=== PATIENT | male | born 1935 | race Caucasian/White ===

== ENCOUNTER 2019-08-05 20:01 | Inpatient (IN) | payer MEDICARE, MEDICAID ==
[2019-08-05] VITALS (26 sets, daily range): BP systolic 61–143; BP diastolic 26–82
[~2019-08-05] VITALS: Ht 185.4 cm; Wt 73.0 kg
--- NOTE | 2019-08-05 20:32 | Emergency Room Report ---
History of Present Illness General Chief Complaint: Dyspnea/Respdistress Source: Medical Record, EMS Present Illness HPI 83-year-old male coming from SNF for hypoxia. EMS said that he was hypotensive tachycardic as well as hypoxic. He does have a tracheostomy. He is normally on a vent but apparently his oxygen levels were below 88. Patient is not verbal not able to obtain any kind of history. Reportedly he just got to the SNF today. No other history is able to be obtained Allergies: Coded Allergies: UNABLE TO ASSESS (Unverified , 08/05/19) Patient History Limited by: medical condition Past Medical History: see triage record Past Surgical History: unable to obtain Pertinent Family History: unable to obtain Nursing Documentation-PMH Hx Diabetes: Yes Review of Systems All Other Systems: limited - nonverbal Physical Exam Vital Signs Date Time Temp Pulse Resp B/P (MAP) Pulse Ox O2 Delivery O2 Flow Rate FiO2 08/05/19 20:03 98.6 103 20 80/58 (65) 88 Room Air 08/05/19 20:07 40 Sp02 EP Interpretation: abnormal General Appearance: severe distress, cachetic, lethargic, thin, Chronically Ill Head: normocephalic, atraumatic Eyes: bilateral eye PERRL ENT: other - +trach Neck: other - ++trach Respiratory: respiratory distress, accessory muscle use, other - +trach, coarse b/s b/l, Cardiovascular #1: normal capillary refill, tachycardia Cardiovascular #2: 2+ radial (R), 2+ radial (L) Gastrointestinal: other - no grimace to deep palptation, soft ND Genitourinary: no CVA tenderness Musculoskeletal: other - RLE with significant wound infection / ulceration, surrounding erythema, looks to be betadine on skin surrounding as well. edematous b/l UPPER ext Neurologic: other - nonverbal, not responsive Procedures Critical Care Time Critical Care Time 40 minutes of CC time Critical care time necessary in order to assess and manage the high probability of life threatening deterioration to cardiovascular system, required frequent reassessment. Excludes all billable procedures. Central Line Central Line : Consent: Emergent Central Line Lumen: triple Maximal Sterile Barrier Tech: yes cap, yes mask, yes sterile gown, yes sterile gloves, yes large sterile sheet, yes hand hygiene, yes chlorhexidine prep No Max Barrier Tech Because: emergency insertion Central Line Postion: femoral (R) Complications: none Central Line Post Position: sutured, good blood return Attempts: One Patient Tolerated: Well Complications: None Medical Decision Making Diagnostic Impression: Primary Impression: Septic shock Additional Impressions: Sepsis with acute hypoxic respiratory failure Wound infection Bilateral pneumonia Tracheostomy dependent ER Course 83-year-old male with p/w tachycardia, hypotension, decreased SPO2 DDX: Sepsis 2/2 UTI, PNA, bacteremia Plan: Only give IV fluid bolus 1 L, unclear if patient's heart function Obtain labs including cbc, bmp, blood culture, blood gas, lactate, ua, ucx CXR EKG Broad spectrum ABX ER course: Immediately placed on a vent, pulse oximetry improved to 100% blood pressure was in systolic 50s, no access was able to be obtained initially , a left tibial IO was placed. Initially fluids and phenylephrine were given through this Right femoral central line immediately placed Blood pressure improved e with MAP > 65 broad spectrum abx given Disposition: Patient will admitted to ICU Patient requires close monitoring of respiratory/hemodynamic status and continuation of IV antibiotics. D/W Hospitalist Please note that this Emergency Department Report was dictated using [employer] ring assembler technology software, occasionally this can lead to erroneous entry secondary to interpretation by the dictation equipment. EKG Diagnostic Results EP Interpretation: Yes Rate: tachy Rhythm: afib ST Segments: twi 2 3 AVF ASA given to patient: No Rhythm Strip EP Interpretation: Yes Rate: 130 Rhythm: NSR, no PVCs, no ectopy Chest X-ray CXR: Ordered: Yes 1 view Indication: low O2 EP interpretation: Yes Interpretation: No consolidation, no effusion, no PTX, no acute cardiopulmonary disease Impression: No acute disease Electronically signed by Damaso Perez MD Last Vital Signs Date Time Temp Pulse Resp B/P (MAP) Pulse Ox O2 Delivery O2 Flow Rate FiO2 08/05/19 20:07 132 32 40 08/05/19 20:03 98.6 80/58 (65) 88 Room Air Disposition: ADMITTED INPATIENT Condition: Critical Damaso Perez M.D. Aug 05, 2019 20:32
[2019-08-05] MEDS: Phenylephrine 100 MG in D5W 240 ML IV SCH ×2 (20:41→21:44)
[2019-08-05 20:52] LABS: HEMATOCRIT 23.1 % (42.0-52.0); HEMOGLOBIN 7.9 G/DL (14.2-18.0); MEAN CORPUSCULAR VOLUME 86 FL (80-99); PLATELET COUNT 279 K/UL (150-450); RED BLOOD COUNT 2.69 M/UL (4.70-6.10); RED CELL DISTRIBUTION WIDTH 14.7 % (11.6-14.8); WHITE BLOOD COUNT 21.1 K/UL (4.8-10.8)
[2019-08-05 20:55] LABS: INR 1.1 (0.9-1.1)
[2019-08-05 20:56] LABS: ANION GAP 9 mmol/L (5-15); BLOOD UREA NITROGEN 30 mg/dL (7-18); CALCIUM 7.2 MG/DL (8.5-10.1); CARBON DIOXIDE 25 MMOL/L (21-32); CHLORIDE 99 MMOL/L (98-107); CREATININE 0.7 MG/DL (0.55-1.30); SODIUM 133 MMOL/L (136-145)
[2019-08-05] MEDS ORDERED: Vancomycin 1 GM in NS 275 ML IVPB ONE (21:00)
[2019-08-05] MEDS ORDERED: Piperacillin/Tazobactam 3.375 GM in NS 110 ML IVPB ONE (21:00)
[2019-08-05 21:08] LABS: ALANINE AMINOTRANSFERASE 56 U/L (12-78); ALBUMIN 0.9 G/DL (3.4-5.0); ALBUMIN/GLOBULIN RATIO 0.3 (1.0-2.7); ALKALINE PHOSPHATASE 113 U/L (46-116); ASPARTATE AMINO TRANSFERASE 38 U/L (15-37); BILIRUBIN,TOTAL 0.3 MG/DL (0.2-1.0)
[2019-08-05 21:30] LABS: APPEARANCE,URINE SLIGHTLY CLOUDY; BILIRUBIN, URINE NEGATIVE (NEGATIVE); GLUCOSE, URINE (UA) NEGATIVE (NEGATIVE); KETONES,URINE NEGATIVE (NEGATIVE); LEUKOCYTE ESTERASE ,URINE 3+ (NEGATIVE); NITRITE,URINE NEGATIVE (NEGATIVE); PH,URINE 6 (4.5-8.0); PROTEIN,URINE 2+ (NEGATIVE); UROBILINOGEN,URINE 1 MG/DL (0.0-1.0)
[2019-08-05 21:31] LABS: COLOR,URINE YELLOW
[2019-08-05] MEDS ORDERED: Phenylephrine 50 MG in D5W 245 ML IV SCH (23:00)
--- NOTE | 2019-08-05 23:30 | History and Physical Report ---
DATE OF ADMISSION: 08/05/2019 HISTORY OF PRESENT ILLNESS: This is an 83-year-old male came to the emergency room from senior living where he had sepsis, dehydration, encephalopathy, multiple sores on both legs. The patient is nonverbal. The patient was found also hypotensive. He was on trach, but now placed on ventilator. The patient looks critically sick, dehydrated. PAST MEDICAL HISTORY: Chronic respiratory failure, trach, multiple decubiti, dementia, depression, hypertension. MEDICATIONS: See the list. ALLERGIES: NKA. FAMILY HISTORY: Noncontributory. SOCIAL HISTORY: Mostly bedbound. REVIEW OF SYSTEMS: Generalized weakness, tired, fatigue. Review of systems cannot be obtained. PHYSICAL EXAMINATION: GENERAL: This is elderly male, who is currently critically sick and nonverbal on drip. VITAL SIGNS: Currently blood pressure 116/70, pulse 84, respirations 18 to 24, temperature no fever. SKIN: Good skin turgor. HEENT: AT/NC. EOMI. PERRLA. Status post trach. CHEST: Bilaterally scattered crackles. CARDIOVASCULAR: Regular rhythm. No gallop. No murmur. ABDOMEN: Soft. Positive bowel sounds. EXTREMITIES: Has sacral decubiti. GENITOURINARY: Deferred. LABORATORY DATA: Not available, but chest x-ray showing pneumonia. ASSESSMENT: 1. Acute respiratory failure. 2. Pneumonia. 3. Encephalopathy. 4. Dementia. 5. Severe malnutrition. 6. Decubiti. PLAN: 1. We will admit on ICU. 2. Start drip. 3. Continue IV antibiotic, IV fluid. 4. Hold G-tube feeding. 5. Consider Cardiology and Pulmonary consult. Abhay Vides M.D. DR: BOSSMAN JOB#: [id number] CC:
[2019-08-06] VITALS (79 sets, daily range): BP systolic 78–136; BP diastolic 36–78
--- NOTE | 2019-08-06 03:30 | Consultation ---
DATE OF CONSULTATION: 08/05/2019 CARDIOLOGY CONSULTATION CONSULTING PHYSICIAN: Rahul Govea M.D. REQUESTING PHYSICIAN: Patricio Vides M.D. REASON FOR CONSULTATION: Shock. HISTORY OF PRESENT ILLNESS: This is an 83-year-old male, residing at a long term facility with respiratory failure and tracheostomy, who developed hypotension and tachycardia as well as hypoxia and was transferred to this emergency room. On arrival, he was noted to be hypoxic, placed on ventilator support, and subsequently persistent hypotension ensued requiring initiation of pressors following efforts at fluid challenges. The patient was pancultured and started on broad-spectrum antibiotics in the emergency room. Of note, he received a dose of Zosyn and some records document a penicillin allergy. There was no worsening hypotension following that event. PAST MEDICAL HISTORY: As reviewed in the chart and notable for respiratory failure and tracheostomy, COPD, right lower extremity wound, cerebrovascular disease with dementia, and type 2 diabetes mellitus. ALLERGIES: Penicillin. MEDICATIONS: Reviewed and reconciled. FAMILY HISTORY: None here known. SOCIAL HISTORY: Not obtainable. REVIEW OF SYSTEMS: Presently not obtainable. Pertinent data from chart review as documented above. PHYSICAL EXAMINATION: VITAL SIGNS: Blood pressure 80/50, heart rate 132, respiratory rate 32, and afebrile. The patient's monitored rhythm is sinus tachycardia. HEENT: Temporal wasting. Dry mucous membranes. NECK: Trach site with thick secretions. No accessory muscle use. LUNGS: Bilateral breath sounds with rhonchi. HEART: Regular rhythm. Rapid rate. Normal S1 and S2 with no murmur. ABDOMEN: Soft and flat. EXTREMITIES: With poor capillary refill. No edema. SKIN: The right femoral line placed in the emergency room reveals no bleeding at this site. NEUROLOGIC: Reveals him to be noncommunicative at this time. LABORATORY AND DIAGNOSTIC DATA: EKG, atrial fibrillation with rapid ventricular response. Chest x-ray reveals no acute process. Troponin negative. Pro-natriuretic peptide 4241. Albumin 0.9. Lactic acid 4.0. Glucose 163, BUN 30, creatinine 0.7, sodium 133, potassium 4, and bicarb 25. White count 21 and hemoglobin 7.9. Urinalysis with too numerous to count white cells. ABG, pH 7.43, pCO2 of 36, and pO2 of 73. IMPRESSION: 1. Sepsis. 2. Urinary tract infection. 3. Shock. 4. Respiratory failure. 5. Severe anemia. 6. Acute myocardial ischemia. 7. 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 8. Severe protein-calorie malnutrition. 9. Lactic acidosis. PLAN: 1. ICU care. 2. Volume resuscitation. 3. Pressor support as needed. 4. Follow up cultures. 5. Broad-spectrum antibiotics. 6. Observe for further allergic complications from penicillin dose. 7. DVT and stress ulcer prophylaxis. 8. Serial hemoglobin. 9. Stool occult blood. 10. Consider packed red blood cell transfusion. 11. Follow-up troponin level. 12. Echocardiogram to follow. 13. Obviously, no role for diuresis at this time. 14. Continue ventilator support and respiratory hygiene. Rahul Govea M.D. DR: Travis JOB#: [id number] CC: [place]
[2019-08-06 04:57] LABS: HEMATOCRIT 24.2 % (42.0-52.0); HEMOGLOBIN 8.1 G/DL (14.2-18.0); MEAN CORPUSCULAR VOLUME 85 FL (80-99); PLATELET COUNT 309 K/UL (150-450); RED BLOOD COUNT 2.83 M/UL (4.70-6.10); RED CELL DISTRIBUTION WIDTH 16.3 % (11.6-14.8); WHITE BLOOD COUNT 19.3 K/UL (4.8-10.8)
[2019-08-06 05:30] LABS: ALANINE AMINOTRANSFERASE 62 U/L (12-78); ALBUMIN 0.9 G/DL (3.4-5.0); ALBUMIN/GLOBULIN RATIO 0.2 (1.0-2.7); ALKALINE PHOSPHATASE 127 U/L (46-116); ANION GAP 11 mmol/L (5-15); ASPARTATE AMINO TRANSFERASE 41 U/L (15-37); BILIRUBIN,TOTAL 0.4 MG/DL (0.2-1.0); BLOOD UREA NITROGEN 26 mg/dL (7-18); CALCIUM 7.7 MG/DL (8.5-10.1); CARBON DIOXIDE 23 MMOL/L (21-32); CHLORIDE 101 MMOL/L (98-107); CREATININE 0.6 MG/DL (0.55-1.30); POTASSIUM 3.6 MMOL/L (3.5-5.1); SODIUM 135 MMOL/L (136-145)
[2019-08-06] MEDS: Pantoprazole Inj IVP SCH ×2 (08:20→21:24)
[2019-08-06] MEDS: Heparin 5000 units/ml inj SUBQ SCH ×2 (08:20→21:00)
[2019-08-06] MEDS: PHENYLEPHRINE IV SCH ×2 (08:44→15:09)
[2019-08-06] MEDS: DEXTROSE IV SCH ×2 (08:44→15:09)
[2019-08-06] MEDS ORDERED: Acetaminophen 650mg/20.3ml GT PRN (09:45)
--- NOTE | 2019-08-06 10:03 | Diagnostic Imaging Report ---
Indication: Shortness of breath Technique: One view of the chest Comparison: 08/05/2019 Findings: Better inspiration currently. Tracheostomy again demonstrated. Extensive consolidation of the left lung diffusely is again demonstrated, may be slightly worse. Normal heart size. Impression: Worsening left lung infiltrates, over one day
[2019-08-06] MEDS: Meropenem 1 GM in NS 55 ML IVPB SCH ×2 (14:09→21:51)
--- NOTE | 2019-08-06 15:45 | Diagnostic Imaging Report ---
Indication: Shortness of breath Technique: One view of the chest Comparison: none Findings: There is extensive bilateral interstitial and airspace disease, prominently in the right upper lung and left lower lung but diffuse. There is probably some pleural fluid on the left. There are overlying defibrillator paddles. The heart is borderline enlarged. Impression: Bilateral infiltrates versus edema, as described Probable left pleural effusion
--- NOTE | 2019-08-06 16:20 | Consultation ---
History of Present Illness General Date patient seen: Aug 06, 2019 Reason for Hospitalization: Dyspnea/Respdistress Present Illness HPI 83-year-old male with multiple medical comorbidities who presented from [place] [facility] to [facility] emergency department for evaluation of hypoxia, respiratory distress, dehydration was identified to be septic with leukocytosis , lactic acidosis, abnormal labs. Patient was admitted for further care and management to the intensive care unit. On evaluation was identified to have multiple decubitus ulcers requiring care and management some extensive and large as well as severe malnutrition and failure to thrive. Etiology of sepsis unknown being worked up and considerations of possible infections related to multiple decubitus. Surgery was called to evaluate. Patient seen, patient evaluated, chart reviewed. Allergies: Coded Allergies: PENICILLINS (Verified Allergy, Unknown, 08/05/19) Patient History Limited by: medical condition History Provided By: Medical Record, PMD Healthcare decision maker Resuscitation status Full Code Advanced Directive on File Social History Social History: (1) Tracheostomy dependent (2) Bilateral pneumonia (3) Septic shock (4) Wound infection (5) Sepsis with acute hypoxic respiratory failure Review of Systems Review of Symptoms Unable to obtain given patient's medical condition. Patient is nonverbal at baseline at this time Physical Exam Physical Exam General appearance: alert, cooperative, no distress, appears stated age Head: Normocephalic, without obvious abnormality, atraumatic Eyes: conjunctivae/corneas clear. PERRL, EOM's intact. Fundi benign Throat: Lips, mucosa, and tongue normal. Teeth and gums normal Neck: supple, symmetrical, trachea midline, no adenopathy, thyroid: not enlarged, symmetric, no tenderness/mass/nodules, no carotid bruit and no JVD trach on vent Lungs: clear to auscultation bilaterally mildly decreased bilaterally on vent Heart: regular rate and rhythm, S1, S2 normal, no murmur, click, rub or gallop Abdomen: soft, non-tender. Bowel sounds normal. No masses, no organomegaly feeding tube Extremities: extremities with multiple decubitus ulcers and wounds requiring extensive care management distal extremities cold Pulses: Decreased Skin: Skin color, texture, turgor normal. No rashes or lesions Neurologic: Grossly normal Last 24 Hour Vital Signs Date Time Temp Pulse Resp B/P (MAP) Pulse Ox O2 Delivery O2 Flow Rate FiO2 08/06/19 16:00 Mechanical Ventilator 08/06/19 15:24 119 31 40 10/29/19 15:09 116 99/50 08/06/19 15:00 108 28 99/50 94 Mechanical Ventilator 40 08/06/19 14:45 111 26 89/41 94 Mechanical Ventilator 40 08/06/19 14:30 116 29 106/67 94 Mechanical Ventilator 45 08/06/19 14:15 116 29 100/60 94 Mechanical Ventilator 45 08/06/19 14:00 108 28 100/60 100 Mechanical Ventilator 50 08/06/19 13:45 115 30 102/59 98 Mechanical Ventilator 50 08/06/19 13:30 116 31 105/60 100 Mechanical Ventilator 50 08/06/19 13:26 112 31 40 08/06/19 13:15 116 29 106/48 100 Mechanical Ventilator 50 08/06/19 13:00 117 28 110/54 100 Mechanical Ventilator 50 08/06/19 12:45 117 27 116/63 100 Mechanical Ventilator 50 08/06/19 12:30 98.7 119 27 108/65 100 Mechanical Ventilator 50 08/06/19 12:15 122 30 105/53 100 Mechanical Ventilator 50 08/06/19 12:00 Mechanical Ventilator 08/06/19 12:00 122 08/06/19 12:00 55 08/06/19 12:00 119 25 91/54 98 Mechanical Ventilator 50 08/06/19 11:43 122 28 45 08/06/19 11:30 122 27 78/36 98 Mechanical Ventilator 50 08/06/19 11:15 125 31 78/36 98 Mechanical Ventilator 50 08/06/19 11:00 121 31 85/36 100 Mechanical Ventilator 50 08/06/19 10:45 119 29 90/56 100 Mechanical Ventilator 50 08/06/19 10:30 117 28 89/56 100 Mechanical Ventilator 50 08/06/19 10:27 100.1 08/06/19 10:15 118 29 98/56 100 Mechanical Ventilator 50 08/06/19 10:00 120 29 100 Mechanical Ventilator 50 08/06/19 09:45 118 30 96/45 100 Mechanical Ventilator 50 08/06/19 09:30 120 30 93/47 100 Mechanical Ventilator 50 08/06/19 09:15 121 31 103/42 99 Mechanical Ventilator 50 08/06/19 09:04 126 33 50 08/06/19 09:00 122 31 98/52 100 Mechanical Ventilator 50 08/06/19 08:45 121 32 94/50 97 Mechanical Ventilator 55 08/06/19 08:44 118 83/50 08/06/19 08:30 118 33 83/50 97 Mechanical Ventilator 55 08/06/19 08:15 119 33 96/55 97 Mechanical Ventilator 55 08/06/19 08:00 55 08/06/19 08:00 120 08/06/19 08:00 101.9 119 35 94/39 100 Mechanical Ventilator 55 08/06/19 08:00 Mechanical Ventilator 08/06/19 07:45 113 26 89/50 97 Mechanical Ventilator 55 08/06/19 07:30 110 39 95/47 97 Mechanical Ventilator 55 08/06/19 07:15 113 35 85/42 99 Mechanical Ventilator 55 08/06/19 07:00 119 35 94/39 100 Mechanical Ventilator 55 08/06/19 06:57 112 34 55 08/06/19 06:00 115 32 96/48 100 Mechanical Ventilator 60 08/06/19 05:45 115 33 95/53 100 Mechanical Ventilator 60 08/06/19 05:30 113 33 94/59 99 Mechanical Ventilator 60 08/06/19 05:00 113 32 84/53 100 Mechanical Ventilator 60 08/06/19 04:45 112 29 90/48 100 Mechanical Ventilator 60 08/06/19 04:44 116 32 60 08/06/19 04:30 106 30 92/51 99 Mechanical Ventilator 60 08/06/19 04:15 110 29 84/45 98 Mechanical Ventilator 60 08/06/19 04:00 119 08/06/19 04:00 97.9 115 32 93/47 95 Mechanical Ventilator 60 08/06/19 04:00 Mechanical Ventilator 08/06/19 04:00 60 08/06/19 03:30 115 32 87/48 100 Mechanical Ventilator 60 08/06/19 03:05 120 31 60 08/06/19 03:00 119 29 99/43 99 Mechanical Ventilator 60 08/06/19 02:30 117 23 100/47 100 Mechanical Ventilator 60 08/06/19 02:18 115 28 87/47 90 Mechanical Ventilator 60 08/06/19 02:00 115 26 87/51 100 Mechanical Ventilator 80 08/06/19 01:45 117 27 106/63 98 Mechanical Ventilator 80 08/06/19 01:30 117 25 106/65 100 Mechanical Ventilator 100 08/06/19 01:15 116 25 93/60 100 Mechanical Ventilator 100 08/06/19 01:13 122 26 80 08/06/19 01:00 116 25 101/58 100 Mechanical Ventilator 100 08/06/19 01:00 80 08/06/19 00:45 120 26 91/48 99 Mechanical Ventilator 100 08/06/19 00:30 119 25 104/74 100 Mechanical Ventilator 100 08/06/19 00:15 120 24 117/64 99 Mechanical Ventilator 100 08/06/19 00:00 135 08/06/19 00:00 99.4 122 25 105/58 99 Mechanical Ventilator 100 08/06/19 00:00 Mechanical Ventilator 08/06/19 00:00 100 08/05/19 23:48 125 24 78/44 100 Mechanical Ventilator 100 08/05/19 23:45 127 24 76/52 100 Mechanical Ventilator 100 08/05/19 23:30 129 25 91/51 100 Mechanical Ventilator 100 08/05/19 23:15 99.4 135 21 126/76 97 Mechanical Ventilator 100 08/05/19 23:12 122/64 08/05/19 23:00 129 91/51 08/05/19 22:45 100 08/05/19 22:40 120 08/05/19 22:32 142 31 100 08/05/19 22:26 Mechanical Ventilator 08/05/19 22:15 99.4 119 30 138/61 100 Trach Collar 100 08/05/19 22:05 115 28 135/61 100 Trach Collar 100 08/05/19 22:00 136/71 08/05/19 21:55 143/64 08/05/19 21:50 140/82 08/05/19 21:45 140/66 08/05/19 21:44 119 138/61 08/05/19 21:40 119 30 138/61 100 100 08/05/19 21:37 99.4 119 30 138/61 100 Trach Collar 100 08/05/19 21:35 142/62 08/05/19 21:30 133/64 08/05/19 21:25 124/58 08/05/19 21:20 134/69 08/05/19 21:15 137 30 Room Air 60 08/05/19 21:15 99.4 123 30 61/26 88 Room Air 60 08/05/19 21:10 143/75 08/05/19 21:05 141/63 08/05/19 21:00 135/61 08/05/19 20:55 142 128/66 08/05/19 20:54 137 30 60 08/05/19 20:50 108/55 08/05/19 20:45 124/69 08/05/19 20:41 123 61/26 08/05/19 20:40 133/78 08/05/19 20:35 122/64 08/05/19 20:30 98.6 125 30 131/69 95 Room Air 60 08/05/19 20:07 132 32 40 08/05/19 20:03 98.6 103 20 80/58 (65) 88 Room Air Intake and Output 08/05/19 08/06/19 19:00 07:00 Intake Total 1870.5 ml Output Total 480 ml Balance 1390.5 ml Intake IV Total 1870.5 ml Output Urine Total 480 ml Laboratory Tests Test 08/05/19 20:15 08/05/19 20:19 08/05/19 21:15 08/05/19 21:55 White Blood Count 21.1 K/UL (4.8-10.8) H Red Blood Count 2.69 M/UL (4.70-6.10) L Hemoglobin 7.9 G/DL (14.2-18.0) L Hematocrit 23.1 % (42.0-52.0) L Mean Corpuscular Volume 86 FL (80-99) Mean Corpuscular Hemoglobin 29.5 PG (27.0-31.0) Mean Corpuscular Hemoglobin Concent 34.4 G/DL (32.0-36.0) Red Cell Distribution Width 14.7 % (11.6-14.8) Platelet Count 279 K/UL (150-450) Mean Platelet Volume 6.2 FL (6.5-10.1) L Neutrophils (%) (Auto) % (45.0-75.0) Lymphocytes (%) (Auto) % (20.0-45.0) Monocytes (%) (Auto) % (1.0-10.0) Eosinophils (%) (Auto) % (0.0-3.0) Basophils (%) (Auto) % (0.0-2.0) Differential Total Cells Counted 100 Neutrophils % (Manual) 87 % (45-75) H Lymphocytes % (Manual) 9 % (20-45) L Monocytes % (Manual) 1 % (1-10) Eosinophils % (Manual) 0 % (0-3) Basophils % (Manual) 0 % (0-2) Band Neutrophils 3 % (0-8) Platelet Estimate Adequate Platelet Morphology Normal Hypochromasia 1+ Anisocytosis 1+ Prothrombin Time 11.8 SEC (9.30-11.50) H Prothromb Time International Ratio 1.1 (0.9-1.1) Activated Partial Thromboplast Time 28 SEC (23-33) Sodium Level 133 MMOL/L (136-145) L Potassium Level 4.0 MMOL/L (3.5-5.1) Chloride Level 99 MMOL/L (98-107) Carbon Dioxide Level 25 MMOL/L (21-32) Anion Gap 9 mmol/L (5-15) Blood Urea Nitrogen 30 mg/dL (7-18) H Creatinine 0.7 MG/DL (0.55-1.30) Estimat Glomerular Filtration Rate mL/min (>60) Glucose Level 163 MG/DL (74-106) H Lactic Acid Level 4.00 mmol/L (0.4-2.0) H 3.60 mmol/L (0.66-2.22) H Calcium Level 7.2 MG/DL (8.5-10.1) L Total Bilirubin 0.3 MG/DL (0.2-1.0) Aspartate Amino Transf (AST/SGOT) 38 U/L (15-37) H Alanine Aminotransferase (ALT/SGPT) 56 U/L (12-78) Alkaline Phosphatase 113 U/L (46-116) Troponin I 0.010 ng/mL (0.000-0.056) Pro-B-Type Natriuretic Peptide 4241 pg/mL (0-125) H Total Protein 4.3 G/DL (6.4-8.2) L Albumin 0.9 G/DL (3.4-5.0) L Globulin 3.4 g/dL Albumin/Globulin Ratio 0.3 (1.0-2.7) L Arterial Blood pH 7.433 (7.350-7.450) Arterial Blood Partial Pressure CO2 35.9 mmHg (35.0-45.0) Arterial Blood Partial Pressure O2 72.8 mmHg (75.0-100.0) L Arterial Blood HCO3 23.5 mmol/L (22.0-26.0) Arterial Blood Oxygen Saturation 93.9 % (95-100) L Arterial Blood Base Excess -0.6 (-2-2) Quoc Test Positive Urine Color Yellow Urine Appearance Slightly cloudy Urine pH 6 (4.5-8.0) Urine Specific [place] 1.010 (1.005-1.035) Urine Protein 2+ (NEGATIVE) H Urine Glucose (UA) Negative (NEGATIVE) Urine Ketones Negative (NEGATIVE) Urine Blood 4+ (NEGATIVE) H Urine Nitrite Negative (NEGATIVE) Urine Bilirubin Negative (NEGATIVE) Urine Urobilinogen 1 MG/DL (0.0-1.0) H Urine Leukocyte Esterase 3+ (NEGATIVE) H Urine RBC 15-20 /HPF (0 - 0) H Urine WBC Tntc /HPF (0 - 0) H Urine Squamous Epithelial Cells None /LPF (NONE/OCC) Urine Bacteria Many /HPF (NONE) H Urine Yeast Many /HPF (NONE) H Test 08/06/19 04:00 08/06/19 06:15 White Blood Count 19.3 K/UL (4.8-10.8) H Red Blood Count 2.83 M/UL (4.70-6.10) L Hemoglobin 8.1 G/DL (14.2-18.0) L Hematocrit 24.2 % (42.0-52.0) L Mean Corpuscular Volume 85 FL (80-99) Mean Corpuscular Hemoglobin 28.5 PG (27.0-31.0) Mean Corpuscular Hemoglobin Concent 33.4 G/DL (32.0-36.0) Red Cell Distribution Width 16.3 % (11.6-14.8) H Platelet Count 309 K/UL (150-450) Mean Platelet Volume 5.9 FL (6.5-10.1) L Neutrophils (%) (Auto) % (45.0-75.0) Lymphocytes (%) (Auto) % (20.0-45.0) Monocytes (%) (Auto) % (1.0-10.0) Eosinophils (%) (Auto) % (0.0-3.0) Basophils (%) (Auto) % (0.0-2.0) Differential Total Cells Counted 100 Neutrophils % (Manual) 96 % (45-75) H Lymphocytes % (Manual) 1 % (20-45) L Monocytes % (Manual) 3 % (1-10) Eosinophils % (Manual) 0 % (0-3) Basophils % (Manual) 0 % (0-2) Band Neutrophils 0 % (0-8) Platelet Estimate Adequate Platelet Morphology Normal Anisocytosis 1+ Sodium Level 135 MMOL/L (136-145) L Potassium Level 3.6 MMOL/L (3.5-5.1) Chloride Level 101 MMOL/L (98-107) Carbon Dioxide Level 23 MMOL/L (21-32) Anion Gap 11 mmol/L (5-15) Blood Urea Nitrogen 26 mg/dL (7-18) H Creatinine 0.6 MG/DL (0.55-1.30) Estimat Glomerular Filtration Rate mL/min (>60) Glucose Level 129 MG/DL (74-106) H Lactic Acid Level 3.10 mmol/L (0.4-2.0) H 2.90 mmol/L (0.66-2.22) H Calcium Level 7.7 MG/DL (8.5-10.1) L Total Bilirubin 0.4 MG/DL (0.2-1.0) Aspartate Amino Transf (AST/SGOT) 41 U/L (15-37) H Alanine Aminotransferase (ALT/SGPT) 62 U/L (12-78) Alkaline Phosphatase 127 U/L (46-116) H Troponin I 0.177 ng/mL (0.000-0.056) Total Protein 4.5 G/DL (6.4-8.2) L Albumin 0.9 G/DL (3.4-5.0) L Globulin 3.6 g/dL Albumin/Globulin Ratio 0.2 (1.0-2.7) L Thyroid Stimulating Hormone (TSH) 2.046 uiU/mL (0.358-3.740) Microbiology Date/Time Source Procedure Growth Status 08/06/19 04:00 Sputum Gram Stain - Final Resulted 08/06/19 04:00 Sputum Sputum Culture Pending Resulted Height (Feet): 6 Height (Inches): 1.00 Weight (Pounds): 149 Medications Current Medications Medications (Trade) Dose Ordered Sig/Kandice Route PRN Reason Start Time Stop Time Status Last Admin Dose Admin Acetaminophen (Tylenol) 650 mg Q6H PRN GT Mild Pain/Temp > 100.5 08/06/19 09:45 09/05/19 09:44 08/06/19 09:57 Chlorhexidine Gluconate (Melva-Hex 2%) 1 applic DAILY@2000 TOPIC 08/06/19 20:00 09/05/19 19:59 Heparin Sodium (Porcine) (Heparin 5000 units/ml) 5,000 units EVERY 12 HOURS SUBQ 08/06/19 09:00 09/05/19 08:59 Levofloxacin 150 ml @ 100 mls/hr Q24H IVPB 08/06/19 11:00 08/13/19 10:59 08/06/19 10:45 Meropenem 1 gm/ Sodium Chloride 55 ml @ 110 mls/hr Q8HR IVPB 08/06/19 14:00 08/11/19 13:59 08/06/19 14:09 Pantoprazole (Protonix) 40 mg EVERY 12 HOURS IVP 08/06/19 09:00 09/05/19 08:59 08/06/19 08:20 Phenylephrine HCl 50 mg/Dextrose 250 ml @ 0 mls/hr Q24H IV 08/06/19 08:30 09/05/19 08:29 08/06/19 15:09 Sodium Chloride 1,000 ml @ 100 mls/hr Q10H IV 08/05/19 23:00 09/04/19 22:59 08/06/19 07:46 Vancomycin HCl (Vanco rx to dose) 1 ea DAILY PRN MISC Per rx protocol 08/05/19 23:00 09/04/19 22:59 Vancomycin HCl 1 gm/Dextrose 275 ml @ 184 mls/hr QHS IVPB 08/06/19 21:00 08/11/19 20:59 Assessment/Plan Problem List: (1) Septic shock Assessment & Plan: Patient with leukocytosis, tachycardia, lactic acidosis, abnormal labs. Currently in ICU for care and management N.p.o. IV fluid resuscitation IV antibiotics Trend labs Thank you with all the recommendations ICD Codes: A41.9 - Sepsis, unspecified organism; R65.21 - Severe sepsis with septic shock; J96.01 - Acute respiratory failure with hypoxia SNOMED: 53460055, 04070820, 497510349 (2) Wound infection Assessment & Plan: Pt presented on admission with multiple pressure injuries , Multiple necrotic wounds R lower extremity. Scattered senile purpuras noted to posterior ,R and L lateral sides of neck under collar of trach and inferior to tracheostomy. Scattered petechiae noted to bilat upper ext, Talib and lateral aspects of chest abd and back . Both upper extremities are edematous and weeping large amounts of serous exudate. Cat.2 Skin tears noted to Lateral R elbow ,R forearm . Numerous dry scabs noted to L forearm. Large Purple bruise noted to upper and mid abdomen. Incontinence associated dermatitis noted to bilat groin, scrotum,Perianal and both ischial regions- erythema with scattered satellite lesions noted.Large serous blister noted to talib/medial upper L thigh oozing small amt serous exudate.(L)5.5cm x (W)4.5cm Full thickness pressure injury with biofilm noted to R scapula. Edges are macerated with surrounding petechia. Small amt non-odorous serous exudate noted. (L)1cm x (W)1cm. Full thickness lumbar spine. Base of wound is 90%necrotic, surrounding wound bed erythematous and moist. Small amt serosanguineous exudate noted.(L)8.5cm x ( W)4.5cm. Full thickness pressure injury Upper R gluteus(L)2.9cm x (W)2.3cm. Base of wound 80% necrotic 20% viable. Edges are macerated. Erythema without induration periwound. Full thickness pressure injury Upper L gluteus. Baser of wound 100% necrotic with erythematous borders(L)3.2cm x (W)3cm.Periwound without erythema or induration. R lower ext dusky in colour. Distal RLE cool to touch. Multiple ulcerations noted. Full thickness lateral R knee. Base of wound 100% viable. Small amt sanguineous exudate noted. No odor noted. (L)4cmx (W)2.3cm. Surrounding petechia noted. Full thickness ulcer noted to talib /lateral R tibia. Base of wound is 90% soft necrosis 10% fibrinous slough,erythematous borders. Small amt seropurulent exudate noted. Mild odor noted. (L)24cm x (W)9.5cm. Dry necrotic ulcer medial /distal R tibia. (L)0.8cm x (W)0.5cm. Medial R malleolus necrotic with fluctuance.(L)2.5cm x (W)2cm. Large soft necrotic ulcer dorso/lateral R foot with erythematous borders.(L) 11.4cm x (W)6.5cm. Second necrotic wound noted talib/distal R foot Base of wound fluctuant(L) 4.4cm x (W)6.5cm. R Achilles ulcer is 100% necrotic with macerated borders.(L)4.2cm x (W)1cm. Soft necrosis noted R heel with marginal erythema along edges(L)2cm x (W)2cm. Second ulcer medial R heel 100% necrotic with fluctuance.(L)1.5cm x (W)1cm . Necrotic ulcer distal /lateral R foot /Lateral R5th metatarsal.Base of wound is fluctuant. Periwound skin colour dusky.(L)5.6cm x (W)2cm R Hallux necrotic and fluctuant(L)2.9cm x (W)5cm. All 5 metatarsals R foot are mottled and cool to touch. Tx.Plan: Cleanse Wound R scapula with Saline. Apply Therahoney. Apply Cavilon Periwound. Cover with Optifoam drsg. Change every 3 days and prn. Cleanse wound Lumbar Spine with Saline. Apply TheraHoney. Apply Cavilon Skin Barrier periwound. Cover with Optifoam drsg every 3 days and prn. Cleanse wounds R and L upper buttocks with Saline. Apply Therahoney. Apply Cavilon Skin Barrier periwound. Cover each wound with Optifoam drsg. Change every 3 days and prn. Cleanse wound talib R tibia with Saline. Cover with Xeroform. Apply ABD Pad and wrap with Kerlix Daily and prn. Swab All Necrotic Wounds R lower ext/R Foot with Betadine. Cover wounds with ABD pads and wrap with Kerlix Daily and prn. Apply Moisture Barrier Paste to to groin . Scrotum and Bilat ischial areas with each incontinence care. Apply Optifoam drsg to Blister Upper L thigh. Change every 7 days and prn. Apply Xeroform Gauze to skin tears and dry scabs Both upper ext. Apply ABd pads and wrap both upper ext with Kerlix Daily and prn. Elevate both upper extremities with Pillows. Reposition at least every 2hours or as tolerated. Off-load heels with pillow. APM/KAREN Mattress overlay. ICD Codes: T14.8XXA - Other injury of unspecified body region, initial encounter; L08.9 - Local infection of the skin and subcutaneous tissue, unspecified SNOMED: 37960649 (3) Tracheostomy dependent ICD Codes: Z93.0 - Tracheostomy status SNOMED: 525672839 (4) Bilateral pneumonia ICD Codes: J18.9 - Pneumonia, unspecified organism SNOMED: 032565939 (5) Sepsis with acute hypoxic respiratory failure ICD Codes: A41.9 - Sepsis, unspecified organism; R65.20 - Severe sepsis without septic shock; J96.01 - Acute respiratory failure with hypoxia SNOMED: 997764170, 53414925, 505048129 (6) Severe protein-calorie malnutrition Assessment & Plan: DAILY ESTIMATED NEEDS: Needs based on Critical care, multiple wounds/ 67kg 22-30 kcals/kg 7462-2902 total kcals 1.25-2.0 g protein/kg 84-134 g total protein 25-30 mL/kg 1599-9815 total fluid mLs NUTRITION DIAGNOSIS: * Increased kcal/prot needs R/T wound healing and sepsis as evidenced by pt admitted w/ multiple advanced wounds, pending eval, elev wbc (19.3), elev LA, febrile w/ Tmax 101.9, hypotensive, on pressor support. * Swallowing difficulty R/T dysphagia, respiratory status as evidenced by trach/vent dep, PEG dep. CURRENT TF: NPO ENTERAL NUTRITION RECOMMENDATIONS: Glucerna 1.5 @ 50ml/hr x 24 hrs to provide 1200ml, 1800kcal, 99g prot, 911ml free water * WHEN HEMODYNAMICALLY STABLE: -> Initiate Glucerna 1.5 @ 20ml/hr x 6hrs -> Advance 10ml q 4-6 hrs as tolerated to goal rate -> HOB over 30 degrees/ water flush per MD * WITHOUT HEMODYNAMIC STABILITY: -> Rec trophic feeding of Glucerna 1.5 @ 10-15ml/hr x 24 hrs ADDITIONAL RECOMMENDATIONS: * Per SNF: HT=66" HU=663cha (wt from Jul 26, 2019) * Monitor HD stability: on pressor support at this time * Monitor lytes, replete as needed * Wound healing: add Vit C 500mg QD, ZnSO4 220mg QD x 10 days : W/ TF order, add Roger 1pkt BID : f/up with WC eval * NISS w/ TF initiation: h/o DM ICD Codes: E43 - Unspecified severe protein-calorie malnutrition SNOMED: 570229687, 784760735, 316284160 Jesus Narayan Aug 06, 2019 16:20
--- NOTE | 2019-08-06 16:45 | Progress Note ---
DATE: 08/06/2019 SUBJECTIVE: The patient is an 83-year-old male who came to the emergency room for status epilepticus. The patient is more awake and alert. He is confused. pulled out his IV line but physically doing better. PHYSICAL EXAMINATION: VITAL SIGNS: Blood pressure is 130/70, pulse 85, respirations 18 to 24, temperature no fever. SKIN: Good skin turgor. HEENT: NAD. CHEST: Bilaterally clear. CARDIOVASCULAR: Regular rhythm. No gallop. No murmur. ABDOMEN: Soft. Positive bowel sounds. Nontender. NEUROLOGICAL: The patient has generalized weakness, bedbound, open his eyes, eating by himself. ASSESSMENT: 1. 2. Dementia. 3. Depression. 4. Hyperkalemia. PLAN: 1. We will give him Kayexalate p.o. 2. Check BMP tomorrow. 3. Waiting for Neurology consult. 4. Continue Dilantin. 5. Continue Ativan as needed. 6. Continue home medications. 7. Discussed with the charge nurse and discussed with the foster care case manager. 8. Discharge plan tomorrow per Neurology clearance. Abhay Vides M.D. DR: Wale JOB#: [id number] CC:
--- NOTE | 2019-08-06 16:45 | Cardiology Report ---
APPROVED REPORT EKG Measurement Heart [id number] Atrial fibrillation with rapid ventricular response Low voltage QRS Possible Inferior infarct, age undetermined Abnormal ECG
--- NOTE | 2019-08-06 19:15 | Consultation ---
DATE OF CONSULTATION: 08/06/2019 PULMONARY CONSULTATION CONSULTING PHYSICIAN: Bill Jose M.D. HISTORY OF PRESENT ILLNESS: This is an 83-year-old male who came to the hospital from senior care because of shortness of breath. The patient was noted to be hypoxic, tachycardic, and hypotensive. He has a chronic tracheostomy. Apparently he has been on a vent; however, still desaturating. He was admitted to the ICU. No other information is known about this patient, is not obtainable. PAST MEDICAL HISTORY: Notable only for encephalopathy and chronic tracheostomy. He had a G-tube in place. HOME MEDICATIONS: Reviewed and reconciled in the chart. PHYSICAL EXAMINATION: GENERAL: An 83-year-old male. HEENT: Unremarkable except for tracheostomy in place. LUNGS: Decreased breath sounds bilaterally. ABDOMEN: Soft. He had G-tube in place. EXTREMITIES: There is no edema. VITAL SIGNS: Blood pressure is 80/50, he is currently on pressors, heart rate 104, respirations 22, he is afebrile. A central line is noted in the right femoral vein. LABORATORY DATA: Lab testing shows white count of 19,000, hemoglobin of 8, platelet count is normal. Lactic acid 2.9, which is trending down. Coags are negative. Troponin is 0.177. Urinalysis shows pyuria. Imaging studies per report is negative. IMPRESSION: 1. Urosepsis. 2. Septic shock. 3. Possible pneumonia. 4. Chronic respiratory failure. DISCUSSION: Continue current medications and care. The patient is on broad-spectrum antibiotics. He is also on pressors and IV fluids, which I will continue. The patient will need a consultation as he has no family or next of kin to give consent. Currently given his condition on futile care. Discussed with nursing staff. We will order Tylenol. We will follow carefully. Bill Jose M.D. DR: ILAN JOB#: [id number] CC:
[2019-08-06] MEDS: Dyna-Hex 2% Top Sol 2oz TOPIC SCH (20:03)
[2019-08-06] MEDS: Vancomycin 1 GM in D5W 275 ML IVPB SCH (21:25)
--- NOTE | 2019-08-06 23:30 | Progress Note ---
DATE: 08/06/2019 CARDIOLOGY PROGRESS NOTE SUBJECTIVE: The patient remains in the intensive care unit. He is still requiring pressor support. OBJECTIVE: VITAL SIGNS: Blood pressure 83/46, heart rate 100, respirations 27, afebrile. On mechanical ventilation. LUNGS: Bilateral breath sounds. Rhonchi. CARDIAC: Regular rhythm. Rapid rate. Normal S1, S2. ABDOMEN: Soft. EXTREMITIES: Trace edema. LABORATORY DATA: White count 19, hemoglobin 8.1. Lactic acid is still elevated at 2.4. Potassium 3.6, BUN 26, creatinine 0.6. Troponin 0.177. IMPRESSION: 1. Sepsis shock. 2. Acute myocardial infarction. 3. Lactic acidosis. 4. Respiratory failure. 5. Severe protein-calorie malnutrition with albumin below 1. 6. Critical and guarded. PLAN: 1. Volume support. 2. Antimicrobials. 3. Nutrition by feeding tube. 4. Ventilator support. 5. Serial lactic acid levels. 6. Taper pressors as able. 7. ICU care. 8. DVT and stress ulcer prophylaxis. Rahul Govea M.D. DR: YOSEF JOB#: [id number] CC:
[2019-08-07] VITALS (25 sets, daily range): BP systolic 87–106; BP diastolic 46–61
--- NOTE | 2019-08-07 03:30 | Progress Note ---
DATE: 08/06/2019 NOTE: POOR AUDIO SUBJECTIVE: This is an 83-year-old male who has been in the ICU, hypotensive, sepsis, dehydration, and acute respiratory failure. The patient was admitted in the ICU. He is on heparin drip because his blood pressure is still low. The patient is currently nonverbal, lethargic, opens his eyes. He also . The patient is off 100 mcg of . PAST MEDICAL HISTORY: Significant for . PHYSICAL EXAMINATION: GENERAL: This is an obese male, opens his eyes, opens his mouth, but nonverbal as well as not following commands. VITAL SIGNS: Blood pressure is 90/40, pulse 74, respirations 18, fever. SKIN: Good skin turgor. Very dehydrated. HEENT: Eyes are open . Mouth is . CHEST: Bilaterally decreased breath sounds. . CARDIOVASCULAR: Regular rhythm. ABDOMEN: Soft. G-tube in place. EXTREMITIES: CCE. NEUROLOGICAL: He is nonverbal . GENITOURINARY: Deferred. LABORATORY DATA: His white count and hemoglobin are stable. The ulcer is improving. ASSESSMENT: 1. Septic shock. 2. Multiple decubitus ulcers. 3. Dementia. 4. Dehydration. 5. Multiple leg ulcers. 6. Aspiration pneumonia. 7. Current respiratory failure. PLAN: We will currently continue IV antibiotics. Continue bronchodilator treatments. Continue G-tube feedings. Wound care. Discussed with charge nurse. Consider ID consult. Cardiology and Pulmonary is already on case. Abhay Vides M.D. DR: EYAL JOB#: [id number] CC:
[2019-08-07 04:41] LABS: HEMATOCRIT 19.6 % (42.0-52.0); MEAN CORPUSCULAR VOLUME 86 FL (80-99); PLATELET COUNT 255 K/UL (150-450); RED BLOOD COUNT 2.29 M/UL (4.70-6.10); RED CELL DISTRIBUTION WIDTH 16.6 % (11.6-14.8); WHITE BLOOD COUNT 17.2 K/UL (4.8-10.8)
[2019-08-07 05:00] LABS: HEMOGLOBIN 6.6 G/DL (14.2-18.0)
[2019-08-07 05:07] LABS: ALANINE AMINOTRANSFERASE 54 U/L (12-78); ALBUMIN 0.8 G/DL (3.4-5.0); ALBUMIN/GLOBULIN RATIO 0.2 (1.0-2.7); ALKALINE PHOSPHATASE 113 U/L (46-116); ANION GAP 4 mmol/L (5-15); ASPARTATE AMINO TRANSFERASE 41 U/L (15-37); BILIRUBIN,TOTAL 0.4 MG/DL (0.2-1.0); BLOOD UREA NITROGEN 22 mg/dL (7-18); CALCIUM 7.4 MG/DL (8.5-10.1); CARBON DIOXIDE 26 MMOL/L (21-32); CHLORIDE 105 MMOL/L (98-107); CREATININE 0.6 MG/DL (0.55-1.30); POTASSIUM 3.1 MMOL/L (3.5-5.1); SODIUM 135 MMOL/L (136-145)
[2019-08-07] MEDS: Meropenem 1 GM in NS 55 ML IVPB SCH ×3 (05:44→22:15)
[2019-08-07] MEDS: Heparin 5000 units/ml inj SUBQ SCH ×2 (09:00→20:46)
[2019-08-07] MEDS: Zinc Sulfate 220mg cap ORAL SCH (09:10)
[2019-08-07] MEDS: Ascorbic Acid 500mg tab ORAL SCH (09:10)
[2019-08-07] MEDS: Pantoprazole Inj IVP SCH ×2 (09:12→20:44)
--- NOTE | 2019-08-07 12:02 | Pulmonology Progress Note ---
Assessment/Plan Assessment/Plan IMPRESSION: 1. Urosepsis. 2. Septic shock. 3. Possible pneumonia. 4. Chronic respiratory failure. DISCUSSION: Continue current medications and care. The patient is on broad-spectrum antibiotics. He is also on IV fluids, which I will continue. Discussed with nursing staff. I will follow carefully. Bill Jose M.D. Subjective Interval Events: Off pressors, remains on vent Constitutional: Reports: no symptoms HEENT: Repors: no symptoms Respiratory: Reports: no symptoms Cardiovascular: Reports: no symptoms Gastrointestinal/Abdominal: Reports: no symptoms Genitourinary: Reports: no symptoms Neurologic: Reports: no symptoms Allergies: Coded Allergies: PENICILLINS (Verified Allergy, Unknown, 08/05/19) Objective Last 24 Hour Vital Signs Date Time Temp Pulse Resp B/P (MAP) Pulse Ox O2 Delivery O2 Flow Rate FiO2 08/07/19 11:21 93 26 103/60 Mechanical Ventilator 40 08/07/19 10:46 98 25 40 08/07/19 09:02 97 21 40 08/07/19 09:00 98 23 96/52 100 Mechanical Ventilator 40 08/07/19 08:00 97.9 100 27 102/59 99 Mechanical Ventilator 40 08/07/19 08:00 Mechanical Ventilator 08/07/19 08:00 105 08/07/19 08:00 40 08/07/19 07:00 98 30 95/61 100 Mechanical Ventilator 40 08/07/19 06:52 103 26 40 08/07/19 06:00 96 24 95/46 100 Mechanical Ventilator 40 08/07/19 05:11 93 23 40 08/07/19 05:00 95 21 95/50 100 Mechanical Ventilator 40 08/07/19 04:00 98.0 103 28 99/56 99 Mechanical Ventilator 40 08/07/19 04:00 98 08/07/19 04:00 40 08/07/19 04:00 Mechanical Ventilator 08/07/19 03:04 102 26 40 08/07/19 03:00 98 26 97/55 99 Mechanical Ventilator 40 08/07/19 02:00 102 26 91/48 98 Mechanical Ventilator 40 08/07/19 01:21 97 27 40 08/07/19 01:00 99 26 93/46 97 Mechanical Ventilator 40 08/07/19 00:00 98.5 95 28 93/47 97 Mechanical Ventilator 40 08/07/19 00:00 Mechanical Ventilator 08/07/19 00:00 99 08/07/19 00:00 40 08/06/19 23:00 97 30 100/47 100 40 08/06/19 22:55 92 30 40 08/06/19 22:00 96 23 91/48 97 Mechanical Ventilator 40 08/06/19 21:45 96 24 89/48 98 40 08/06/19 21:30 97 26 95/50 97 40 08/06/19 21:15 99 27 95/48 97 40 08/06/19 21:04 103 30 40 08/06/19 21:00 100 27 83/46 97 40 08/06/19 20:45 99 27 91/47 97 40 08/06/19 20:30 98 27 88/47 95 40 08/06/19 20:15 99 28 89/45 97 40 08/06/19 20:00 98.4 100 30 93/51 96 40 08/06/19 20:00 Mechanical Ventilator 08/06/19 20:00 87 08/06/19 20:00 40 08/06/19 20:00 100 30 93/51 96 40 08/06/19 19:45 101 29 90/49 96 40 08/06/19 19:30 99 29 90/50 96 40 08/06/19 19:15 100 29 108/61 96 40 08/06/19 19:00 106 29 108/61 100 40 08/06/19 18:58 97 30 40 08/06/19 18:15 106 29 129/65 100 40 08/06/19 18:00 103 25 123/59 100 40 08/06/19 17:45 102 25 129/76 100 40 08/06/19 17:30 103 27 130/66 100 40 08/06/19 17:15 105 31 88/43 95 40 08/06/19 17:14 110 32 40 08/06/19 17:00 103 24 97/48 99 40 08/06/19 16:45 106 24 136/59 99 40 08/06/19 16:30 108 25 124/78 99 40 08/06/19 16:15 110 26 128/60 98 Mechanical Ventilator 40 08/06/19 16:00 115 08/06/19 16:00 40 08/06/19 16:00 Mechanical Ventilator 08/06/19 16:00 106 20 124/78 99 Mechanical Ventilator 40 08/06/19 15:45 97.8 113 28 134/64 98 Mechanical Ventilator 40 08/06/19 15:30 113 30 126/65 100 Mechanical Ventilator 40 08/06/19 15:24 119 31 40 08/06/19 15:15 114 32 117/53 94 Mechanical Ventilator 40 08/06/19 15:09 116 99/50 08/06/19 15:00 108 28 99/50 94 Mechanical Ventilator 40 08/06/19 14:45 111 26 89/41 94 Mechanical Ventilator 40 08/06/19 14:30 116 29 106/67 94 Mechanical Ventilator 45 08/06/19 14:15 116 29 100/60 94 Mechanical Ventilator 45 08/06/19 14:00 108 28 100/60 100 Mechanical Ventilator 50 08/06/19 13:45 115 30 102/59 98 Mechanical Ventilator 50 08/06/19 13:30 116 31 105/60 100 Mechanical Ventilator 50 08/06/19 13:26 112 31 40 08/06/19 13:15 116 29 106/48 100 Mechanical Ventilator 50 08/06/19 13:00 117 28 110/54 100 Mechanical Ventilator 50 08/06/19 12:45 117 27 116/63 100 Mechanical Ventilator 50 08/06/19 12:30 98.7 119 27 108/65 100 Mechanical Ventilator 50 08/06/19 12:15 122 30 105/53 100 Mechanical Ventilator 50 Intake and Output 08/06/19 08/07/19 18:59 06:59 Intake Total 1723 ml 1030 ml Output Total 700 ml 560 ml Balance 1023 ml 470 ml Intake IV Total 1663 ml 1030 ml Other 60 ml Output Urine Total 700 ml 560 ml # Bowel Movements 2 General Appearance: no acute distress HEENT: normocephalic Respiratory/Chest: chest wall non-tender Cardiovascular: normal peripheral pulses Abdomen: normal bowel sounds Microbiology Date/Time Source Procedure Growth Status 08/05/19 20:20 Blood Blood Culture - Preliminary NO GROWTH AFTER 24 HOURS Resulted 08/05/19 20:15 Blood Blood Culture - Preliminary NO GROWTH AFTER 24 HOURS Resulted 08/06/19 04:00 Sputum Gram Stain - Final Resulted 08/06/19 04:00 Sputum Sputum Culture Pending Resulted 08/05/19 21:15 Urine,Clean Catch Urine Culture - Preliminary Resulted Laboratory Tests 08/06/19 17:20: Lactic Acid Level 2.40H 08/06/19 23:00: Lactic Acid Level 1.90 08/07/19 04:00: White Blood Count 17.2H, Red Blood Count 2.29L, Hemoglobin 6.6*L, Hematocrit 19.6L, Mean Corpuscular Volume 86, Mean Corpuscular Hemoglobin 29.0, Mean Corpuscular Hemoglobin Concent 33.8, Red Cell Distribution Width 16.6H, Platelet Count 255, Mean Platelet Volume 5.9L, Neutrophils (%) (Auto) , Lymphocytes (%) (Auto) , Monocytes (%) (Auto) , Eosinophils (%) (Auto) , Basophils (%) (Auto) , Differential Total Cells Counted 100, Neutrophils % ( Manual) 98H, Lymphocytes % (Manual) 1L, Monocytes % (Manual) 1, Eosinophils % ( Manual) 0, Basophils % (Manual) 0, Band Neutrophils 0, Platelet Estimate Adequate, Platelet Morphology Normal, Polychromasia 1+, Hypochromasia 1+, Anisocytosis 1+, Sodium Level 135L, Potassium Level 3.1L, Chloride Level 105, Carbon Dioxide Level 26, Anion Gap 4L, Blood Urea Nitrogen 22H, Creatinine 0.6, Estimat Glomerular Filtration Rate , Glucose Level 90, Calcium Level 7.4L, Total Bilirubin 0.4, Aspartate Amino Transf (AST/SGOT) 41H, Alanine Aminotransferase (ALT/SGPT) 54, Alkaline Phosphatase 113, Total Protein 4.0L, Albumin 0.8L, Globulin 3.2, Albumin/Globulin Ratio 0.2L 08/07/19 09:10: Arterial Blood pH 7.519H, Arterial Blood Partial Pressure CO2 30.0L, Arterial Blood Partial Pressure O2 100.3H, Arterial Blood HCO3 23.9, Arterial Blood Oxygen Saturation 97.2, Arterial Blood Base Excess 1.1, Quoc Test Positive Current Medications Medications (Trade) Dose Ordered Sig/Kandice Route PRN Reason Start Time Stop Time Status Last Admin Dose Admin Acetaminophen (Tylenol) 650 mg Q6H PRN GT Mild Pain/Temp > 100.5 08/06/19 09:45 09/05/19 09:44 08/06/19 09:57 Ascorbic Acid (Vitamin C) 500 mg DAILY ORAL 08/07/19 09:00 09/06/19 08:59 08/07/19 09:10 Chlorhexidine Gluconate (Melva-Hex 2%) 1 applic DAILY@2000 TOPIC 08/06/19 20:00 09/05/19 19:59 08/06/19 20:03 Heparin Sodium (Porcine) (Heparin 5000 units/ml) 5,000 units EVERY 12 HOURS SUBQ 08/06/19 09:00 09/05/19 08:59 Meropenem 1 gm/ Sodium Chloride 55 ml @ 110 mls/hr Q8HR IVPB 08/06/19 14:00 08/11/19 13:59 08/07/19 05:44 Pantoprazole (Protonix) 40 mg EVERY 12 HOURS IVP 08/06/19 09:00 09/05/19 08:59 08/07/19 09:12 Phenylephrine HCl 50 mg/Dextrose 250 ml @ 0 mls/hr Q24H IV 08/06/19 08:30 09/05/19 08:29 08/06/19 15:09 Sodium Chloride 1,000 ml @ 50 mls/hr Q20H IV 08/07/19 09:15 09/06/19 09:14 08/07/19 09:35 Vancomycin HCl (Vanco rx to dose) 1 ea DAILY PRN MISC Per rx protocol 08/05/19 23:00 09/04/19 22:59 Vancomycin HCl 1 gm/Dextrose 275 ml @ 184 mls/hr QHS IVPB 08/06/19 21:00 08/11/19 20:59 08/06/19 21:25 Zinc Sulfate (Zinc Sulfate) 220 mg DAILY ORAL 08/07/19 09:00 08/17/19 08:59 08/07/19 09:10 Bill Jose MD Aug 07, 2019 12:02
[2019-08-07] MEDS: Dyna-Hex 2% Top Sol 2oz TOPIC SCH (20:44)
[2019-08-07] MEDS: Vancomycin 1 GM in D5W 275 ML IVPB SCH (20:45)
--- NOTE | 2019-08-07 20:47 | Surgery Progress Note ---
Surgery Progress Note Subjective Additional Comments Leukocytosis trending down, anemia, lactic acidosis improved. Off pressors. Tolerating tube feeds. Assist control FiO2 40 PEEP 5 Objective Last 24 Hour Vital Signs Date Time Temp Pulse Resp B/P (MAP) Pulse Ox O2 Delivery O2 Flow Rate FiO2 08/07/19 20:00 40 08/07/19 20:00 91 08/07/19 20:00 96 27 97/53 100 Mechanical Ventilator 40 08/07/19 20:00 Mechanical Ventilator 08/07/19 19:06 97 27 40 08/07/19 19:00 100 28 96/55 100 Mechanical Ventilator 40 08/07/19 18:00 100 26 92/54 100 Mechanical Ventilator 40 08/07/19 17:00 98 33 40 08/07/19 17:00 99 26 93/48 100 Mechanical Ventilator 40 08/07/19 16:00 97.7 97 26 87/52 100 Mechanical Ventilator 40 08/07/19 16:00 Mechanical Ventilator 08/07/19 16:00 95 08/07/19 16:00 40 08/07/19 15:00 99 27 92/59 100 Mechanical Ventilator 40 08/07/19 14:57 87 22 40 08/07/19 14:00 100 25 97/51 100 Mechanical Ventilator 40 08/07/19 13:09 105 30 40 08/07/19 13:00 97 23 104/57 100 Mechanical Ventilator 40 08/07/19 12:00 Mechanical Ventilator 08/07/19 12:00 97.6 93 21 106/58 100 Mechanical Ventilator 40 08/07/19 12:00 40 08/07/19 12:00 98 08/07/19 11:21 93 26 103/60 Mechanical Ventilator 40 08/07/19 11:19 100 25 103/60 100 Mechanical Ventilator 40 08/07/19 10:46 98 25 40 08/07/19 10:00 97 23 100/60 100 Mechanical Ventilator 40 08/07/19 09:02 97 21 40 08/07/19 09:00 98 23 96/52 100 Mechanical Ventilator 40 08/07/19 08:00 97.9 100 27 102/59 99 Mechanical Ventilator 40 08/07/19 08:00 Mechanical Ventilator 08/07/19 08:00 105 08/07/19 08:00 40 08/07/19 07:00 98 30 95/61 100 Mechanical Ventilator 40 08/07/19 06:52 103 26 40 08/07/19 06:00 96 24 95/46 100 Mechanical Ventilator 40 08/07/19 05:11 93 23 40 08/07/19 05:00 95 21 95/50 100 Mechanical Ventilator 40 08/07/19 04:00 98.0 103 28 99/56 99 Mechanical Ventilator 40 08/07/19 04:00 98 08/07/19 04:00 40 08/07/19 04:00 Mechanical Ventilator 08/07/19 03:04 102 26 40 08/07/19 03:00 98 26 97/55 99 Mechanical Ventilator 40 08/07/19 02:00 102 26 91/48 98 Mechanical Ventilator 40 08/07/19 01:21 97 27 40 08/07/19 01:00 99 26 93/46 97 Mechanical Ventilator 40 08/07/19 00:00 98.5 95 28 93/47 97 Mechanical Ventilator 40 08/07/19 00:00 Mechanical Ventilator 08/07/19 00:00 99 08/07/19 00:00 40 08/06/19 23:00 97 30 100/47 100 40 08/06/19 22:55 92 30 40 08/06/19 22:00 96 23 91/48 97 Mechanical Ventilator 40 08/06/19 21:45 96 24 89/48 98 40 08/06/19 21:30 97 26 95/50 97 40 08/06/19 21:15 99 27 95/48 97 40 08/06/19 21:04 103 30 40 08/06/19 21:00 100 27 83/46 97 40 I&O Intake and Output 08/06/19 08/07/19 19:00 07:00 Intake Total 1711 ml 1030 ml Output Total 675 ml 560 ml Balance 1036 ml 470 ml IV Total 1651 ml 1030 ml Other 60 ml Output Urine Total 675 ml 560 ml # Bowel Movements 2 Dressing: saturated Wound: other Drains: other Cardiovascular: RSR Respiratory: decreased breath sounds Abdomen: soft, present bowel sounds, non-distended Extremities: other Laboratory Tests Test 08/06/19 23:00 08/07/19 04:00 08/07/19 09:10 Lactic Acid Level 1.90 mmol/L (0.4-2.0) White Blood Count 17.2 K/UL (4.8-10.8) H Red Blood Count 2.29 M/UL (4.70-6.10) L Hemoglobin 6.6 G/DL (14.2-18.0) *L Hematocrit 19.6 % (42.0-52.0) L Mean Corpuscular Volume 86 FL (80-99) Mean Corpuscular Hemoglobin 29.0 PG (27.0-31.0) Mean Corpuscular Hemoglobin Concent 33.8 G/DL (32.0-36.0) Red Cell Distribution Width 16.6 % (11.6-14.8) H Platelet Count 255 K/UL (150-450) Mean Platelet Volume 5.9 FL (6.5-10.1) L Neutrophils (%) (Auto) % (45.0-75.0) Lymphocytes (%) (Auto) % (20.0-45.0) Monocytes (%) (Auto) % (1.0-10.0) Eosinophils (%) (Auto) % (0.0-3.0) Basophils (%) (Auto) % (0.0-2.0) Differential Total Cells Counted 100 Neutrophils % (Manual) 98 % (45-75) H Lymphocytes % (Manual) 1 % (20-45) L Monocytes % (Manual) 1 % (1-10) Eosinophils % (Manual) 0 % (0-3) Basophils % (Manual) 0 % (0-2) Band Neutrophils 0 % (0-8) Platelet Estimate Adequate Platelet Morphology Normal Polychromasia 1+ Hypochromasia 1+ Anisocytosis 1+ Sodium Level 135 MMOL/L (136-145) L Potassium Level 3.1 MMOL/L (3.5-5.1) L Chloride Level 105 MMOL/L (98-107) Carbon Dioxide Level 26 MMOL/L (21-32) Anion Gap 4 mmol/L (5-15) L Blood Urea Nitrogen 22 mg/dL (7-18) H Creatinine 0.6 MG/DL (0.55-1.30) Estimat Glomerular Filtration Rate mL/min (>60) Glucose Level 90 MG/DL (74-106) Calcium Level 7.4 MG/DL (8.5-10.1) L Total Bilirubin 0.4 MG/DL (0.2-1.0) Aspartate Amino Transf (AST/SGOT) 41 U/L (15-37) H Alanine Aminotransferase (ALT/SGPT) 54 U/L (12-78) Alkaline Phosphatase 113 U/L (46-116) Total Protein 4.0 G/DL (6.4-8.2) L Albumin 0.8 G/DL (3.4-5.0) L Globulin 3.2 g/dL Albumin/Globulin Ratio 0.2 (1.0-2.7) L Arterial Blood pH 7.519 (7.350-7.450) Arterial Blood Partial Pressure CO2 30.0 mmHg (35.0-45.0) L Arterial Blood Partial Pressure O2 100.3 mmHg (75.0-100.0) H Arterial Blood HCO3 23.9 mmol/L (22.0-26.0) Arterial Blood Oxygen Saturation 97.2 % (95-100) Arterial Blood Base Excess 1.1 (-2-2) Quoc Test Positive Plan Problems: (1) Septic shock Assessment & Plan: Patient with leukocytosis, tachycardia, lactic acidosis, abnormal labs. Currently in ICU for care and management N.p.o. IV fluid resuscitation IV antibiotics Trend labs Thank you with all the recommendations (2) Wound infection Assessment & Plan: Pt presented on admission with multiple pressure injuries , Multiple necrotic wounds R lower extremity. Scattered senile purpuras noted to posterior ,R and L lateral sides of neck under collar of trach and inferior to tracheostomy. Scattered petechiae noted to bilat upper ext, Talib and lateral aspects of chest abd and back . Both upper extremities are edematous and weeping large amounts of serous exudate. Cat.2 Skin tears noted to Lateral R elbow ,R forearm . Numerous dry scabs noted to L forearm. Large Purple bruise noted to upper and mid abdomen. Incontinence associated dermatitis noted to bilat groin, scrotum,Perianal and both ischial regions- erythema with scattered satellite lesions noted.Large serous blister noted to talib/medial upper L thigh oozing small amt serous exudate.(L)5.5cm x (W)4.5cm Full thickness pressure injury with biofilm noted to R scapula. Edges are macerated with surrounding petechia. Small amt non-odorous serous exudate noted. (L)1cm x (W)1cm. Full thickness lumbar spine. Base of wound is 90%necrotic, surrounding wound bed erythematous and moist. Small amt serosanguineous exudate noted.(L)8.5cm x ( W)4.5cm. Full thickness pressure injury Upper R gluteus(L)2.9cm x (W)2.3cm. Base of wound 80% necrotic 20% viable. Edges are macerated. Erythema without induration periwound. Full thickness pressure injury Upper L gluteus. Baser of wound 100% necrotic with erythematous borders(L)3.2cm x (W)3cm.Periwound without erythema or induration. R lower ext dusky in colour. Distal RLE cool to touch. Multiple ulcerations noted. Full thickness lateral R knee. Base of wound 100% viable. Small amt sanguineous exudate noted. No odor noted. (L)4cmx (W)2.3cm. Surrounding petechia noted. Full thickness ulcer noted to talib /lateral R tibia. Base of wound is 90% soft necrosis 10% fibrinous slough,erythematous borders. Small amt seropurulent exudate noted. Mild odor noted. (L)24cm x (W)9.5cm. Dry necrotic ulcer medial /distal R tibia. (L)0.8cm x (W)0.5cm. Medial R malleolus necrotic with fluctuance.(L)2.5cm x (W)2cm. Large soft necrotic ulcer dorso/lateral R foot with erythematous borders.(L) 11.4cm x (W)6.5cm. Second necrotic wound noted talib/distal R foot Base of wound fluctuant(L) 4.4cm x (W)6.5cm. R Achilles ulcer is 100% necrotic with macerated borders.(L)4.2cm x (W)1cm. Soft necrosis noted R heel with marginal erythema along edges(L)2cm x (W)2cm. Second ulcer medial R heel 100% necrotic with fluctuance.(L)1.5cm x (W)1cm . Necrotic ulcer distal /lateral R foot /Lateral R5th metatarsal.Base of wound is fluctuant. Periwound skin colour dusky.(L)5.6cm x (W)2cm R Hallux necrotic and fluctuant(L)2.9cm x (W)5cm. All 5 metatarsals R foot are mottled and cool to touch. Tx.Plan: Cleanse Wound R scapula with Saline. Apply Therahoney. Apply Cavilon Periwound. Cover with Optifoam drsg. Change every 3 days and prn. Cleanse wound Lumbar Spine with Saline. Apply TheraHoney. Apply Cavilon Skin Barrier periwound. Cover with Optifoam drsg every 3 days and prn. Cleanse wounds R and L upper buttocks with Saline. Apply Therahoney. Apply Cavilon Skin Barrier periwound. Cover each wound with Optifoam drsg. Change every 3 days and prn. Cleanse wound talib R tibia with Saline. Cover with Xeroform. Apply ABD Pad and wrap with Kerlix Daily and prn. Swab All Necrotic Wounds R lower ext/R Foot with Betadine. Cover wounds with ABD pads and wrap with Kerlix Daily and prn. Apply Moisture Barrier Paste to to groin . Scrotum and Bilat ischial areas with each incontinence care. Apply Optifoam drsg to Blister Upper L thigh. Change every 7 days and prn. Apply Xeroform Gauze to skin tears and dry scabs Both upper ext. Apply ABd pads and wrap both upper ext with Kerlix Daily and prn. Elevate both upper extremities with Pillows. Reposition at least every 2hours or as tolerated. Off-load heels with pillow. APM/KAREN Mattress overlay. (3) Tracheostomy dependent (4) Bilateral pneumonia (5) Sepsis with acute hypoxic respiratory failure (6) Severe protein-calorie malnutrition Assessment & Plan: DAILY ESTIMATED NEEDS: Needs based on Critical care, multiple wounds/ 67kg 22-30 kcals/kg 5401-4721 total kcals 1.25-2.0 g protein/kg 84-134 g total protein 25-30 mL/kg 0669-8570 total fluid mLs NUTRITION DIAGNOSIS: * Increased kcal/prot needs R/T wound healing and sepsis as evidenced by pt admitted w/ multiple advanced wounds, pending eval, elev wbc (19.3), elev LA, febrile w/ Tmax 101.9, hypotensive, on pressor support. * Swallowing difficulty R/T dysphagia, respiratory status as evidenced by trach/vent dep, PEG dep. CURRENT TF: NPO ENTERAL NUTRITION RECOMMENDATIONS: Glucerna 1.5 @ 50ml/hr x 24 hrs to provide 1200ml, 1800kcal, 99g prot, 911ml free water * WHEN HEMODYNAMICALLY STABLE: -> Initiate Glucerna 1.5 @ 20ml/hr x 6hrs -> Advance 10ml q 4-6 hrs as tolerated to goal rate -> HOB over 30 degrees/ water flush per MD * WITHOUT HEMODYNAMIC STABILITY: -> Rec trophic feeding of Glucerna 1.5 @ 10-15ml/hr x 24 hrs ADDITIONAL RECOMMENDATIONS: * Per SNF: HT=66" FH=644tcq (wt from Jul 26, 2019) * Monitor HD stability: on pressor support at this time * Monitor lytes, replete as needed * Wound healing: add Vit C 500mg QD, ZnSO4 220mg QD x 10 days : W/ TF order, add Roger 1pkt BID : f/up with WC eval * NISS w/ TF initiation: h/o Jesus Robert Aug 07, 2019 20:47
--- NOTE | 2019-08-07 22:16 | Progress Note ---
DATE: 08/07/2019 SUBJECTIVE: This is elderly male in ICU. He is hypotensive. His blood pressure is still 90s, but he is off Deny-Synephrine drip. He is physically doing better. OBJECTIVE: VITAL SIGNS: Blood pressure 90/60, pulse 74, respirations 18. SKIN: Good skin turgor. HEENT: Eyes are open. NECK: Supple. CHEST: Bilateral decreased breath sounds. CARDIOVASCULAR: Regular rhythm. Tachycardia. ABDOMEN: Soft. Positive bowel sounds. Nontender. EXTREMITIES: Has multiple decubiti on the legs. GENITOURINARY: Deferred. LABORATORY EXAMINATION: White counts are 21,000, hemoglobin is now 6.6, white counts have become 17,000, platelets are 255. His chemistry panel is sodium 135, potassium 3.1, BUN 22, creatinine 0.6. His troponin 0.177. LFTs are slightly high. Urine test showing few wbc's 15 to 20, 3+ protein, and 3+ leukocyte esterase. Chest x-ray showing pneumonia. Chest x-ray revealed worsening left infiltrate. ASSESSMENT AND PLAN: 1. Anemia. The patient will need transfusion 1 unit if hemoglobin going down. The patient is also on ventilator . After risk and benefits, the patient need a transfusion of 1 unit of blood. Monitor hemoglobin and hematocrit. Consider stool occult blood x2. 2. Sepsis. The patient is clinically stable. We will currently continue antibiotic. Continue PPIs. We will discontinue heparin and continue vancomycin and Zosyn. Start tube feeding. Pulmonary and ID is on case. Stool occult blood. Placement of potassium. Abhay Vides M.D. DR: BOSSMAN JOB#: [id number] CC:
--- NOTE | 2019-08-07 22:16 | Consultation ---
DATE OF CONSULTATION: 08/07/2019 INFECTIOUS DISEASE CONSULTATION CONSULTING PHYSICIAN: Khoa Peters M.D. REFERRING PHYSICIAN: Patricio Vides M.D. REASON FOR CONSULTATION: Sepsis. HISTORY OF PRESENT ILLNESS: This is an 83-year-old gentleman with history of respiratory failure, status post tracheostomy, who developed hypotension, tachycardia, and hypoxia. He was transferred to emergency room where he was started on pressors and admitted to the ICU. An Infectious Disease consultation has been obtained for antibiotics. PAST MEDICAL HISTORY: 1. History of respiratory failure, status post tracheostomy. 2. COPD. 3. Diabetes. 4. CVA. 5. Dementia. SOCIAL HISTORY: Unknown. REVIEW OF SYSTEMS: Unable to obtain currently. FAMILY HISTORY: Unknown. MEDICATIONS: As an inpatient, the patient is on ascorbic acid, zinc sulfate, IV vancomycin, chlorhexidine gluconate, meropenem, Levaquin, Tylenol, Protonix, subcutaneous heparin . ALLERGIES: Penicillin. PHYSICAL EXAMINATION: VITAL SIGNS: Temperature 98, T-max of 98.5, pulse 97, respiratory rate 21, and blood pressure 95/61. O2 saturation of 100%. HEENT: Pupils are equally reactive to light and accommodation. Mouth appears clean without thrush. NECK: Supple. No adenopathy. No JVD. Tracheostomy site is clean. CARDIOVASCULAR: Regular rate and rhythm. No murmurs. LUNGS: Clear to auscultation bilaterally. No crackles. No wheezes. ABDOMEN: Soft and nontender. G-tube site appears clean. EXTREMITIES: No cyanosis, no clubbing, no edema. Right groin catheter noted. SKIN: Back decubitus ulcer noted. Right foot ulcer noted on the dorsal aspect and on the lateral aspect, which is necrotic. LABORATORY AND DIAGNOSTIC DATA: White count of 21, on 08/05/2019; white count of 17.2 today, hemoglobin 6.6, hematocrit 19.6, MCV 86, platelet count of 255,000 with neutrophils of 98%. Sodium 135, potassium 3.1, chloride 105, bicarb 26, BUN 22, and creatinine 0.6. Glucose 90. Calcium 7.4. Total bilirubin 0.4, AST 41, ALT 54, and alkaline phosphatase 113. Total protein 4, albumin 0.8. UA is showing too numerous to count white cells, 15 to 20 red cells. Urine cultures are pending. Blood cultures are negative. Sputum cultures are pending. Chest x-ray showing worsening lung infiltrates. ASSESSMENT: This is an 83-year-old gentleman with history of respiratory failure, status post tracheostomy, dementia and CVA, who comes in septic shock and is found to have, 1. Urinary tract infection. 2. Leukocytosis is improving. 3. Possible aspiration pneumonia. 4. CVA. 5. Respiratory failure, status post tracheostomy. PLAN: 1. Continue IV vancomycin and meropenem. 2. Discontinue Levaquin. 3. We will follow up blood cultures, urine cultures, and sputum cultures, and adjust antibiotics accordingly. I would like to thank Dr. Vides for this consultation. Khoa Peters M.D. DR: PAM JOB#: [id number] CC:
[2019-08-08] VITALS (24 sets, daily range): BP systolic 98–126; BP diastolic 49–74
--- NOTE | 2019-08-08 00:15 | Progress Note ---
DATE: 08/07/2019 CARDIOLOGY PROGRESS NOTE SUBJECTIVE: The patient remains in the intensive care unit. Pressor support is being tapered. He remains tenuous with episodes of rapid heart rate. He continues on ventilator support. OBJECTIVE: HEENT: Thick secretions from trach. LUNGS: Bilateral rhonchi. HEART: Regular rhythm and rate. Normal S1, S2 with a fourth heart sound. ABDOMEN: Soft. EXTREMITIES: There is no edema. LABORATORY DATA: White count 17, hemoglobin 6.6, and platelets 255,000. Sodium 135, potassium 3.1, bicarb 26, BUN 22, and creatinine 0.6. Albumin 0.8. IMPRESSION: 1. Severe anemia. 2. Healthcare-acquired pneumonia. 3. Urinary tract infection. 4. Sepsis with shock. 5. Acute myocardial ischemia. 6. Severe protein-calorie malnutrition. 7. Respiratory failure. 8. Acute on chronic systolic and diastolic CHF. PLAN: 1. Needs packed red blood cell transfusion for life-sustaining measures. 2. Continue tapering off pressors. 3. Volume support. 4. Antimicrobials. 5. Ventilator support. 6. DVT and stress ulcer prophylaxis. 7. Empiric antimicrobials per primary care physician. Rahul Govea M.D. DR: NATALIO JOB#: [id number] CC: [place]
[2019-08-08 05:12] LABS: HEMATOCRIT 25.4 % (42.0-52.0); HEMOGLOBIN 8.5 G/DL (14.2-18.0); MEAN CORPUSCULAR VOLUME 86 FL (80-99); PLATELET COUNT 269 K/UL (150-450); RED BLOOD COUNT 2.97 M/UL (4.70-6.10); RED CELL DISTRIBUTION WIDTH 15.5 % (11.6-14.8); WHITE BLOOD COUNT 16.5 K/UL (4.8-10.8)
[2019-08-08 05:31] LABS: ALANINE AMINOTRANSFERASE 85 U/L (12-78); ALBUMIN 0.8 G/DL (3.4-5.0); ALBUMIN/GLOBULIN RATIO 0.2 (1.0-2.7); ALKALINE PHOSPHATASE 126 U/L (46-116); ANION GAP 6 mmol/L (5-15); ASPARTATE AMINO TRANSFERASE 61 U/L (15-37); BILIRUBIN,TOTAL 0.4 MG/DL (0.2-1.0); BLOOD UREA NITROGEN 28 mg/dL (7-18); CALCIUM 7.4 MG/DL (8.5-10.1); CARBON DIOXIDE 22 MMOL/L (21-32); CHLORIDE 107 MMOL/L (98-107); CREATININE 0.7 MG/DL (0.55-1.30); POTASSIUM 4.1 MMOL/L (3.5-5.1); SODIUM 135 MMOL/L (136-145)
[2019-08-08] MEDS: Meropenem 1 GM in NS 55 ML IVPB SCH ×3 (06:21→22:01)
[2019-08-08] MEDS: Pantoprazole Inj IVP SCH ×2 (08:08→20:12)
[2019-08-08] MEDS: Zinc Sulfate 220mg cap ORAL SCH (08:08)
[2019-08-08] MEDS: PHENYLEPHRINE IV SCH (08:09)
[2019-08-08] MEDS: DEXTROSE IV SCH (08:09)
[2019-08-08] MEDS: Ascorbic Acid 500mg tab ORAL SCH (08:09)
[2019-08-08] MEDS: Heparin 5000 units/ml inj SUBQ SCH ×2 (08:20→20:13)
--- NOTE | 2019-08-08 09:13 | Pulmonology Progress Note ---
Assessment/Plan Assessment/Plan IMPRESSION: 1. Urosepsis. 2. Septic shock. Resolved 3. Possible pneumonia. 4. Chronic respiratory failure. AC 14; VT 500 DISCUSSION: Continue current medications and care. The patient is on broad-spectrum antibiotics. He is also on IV fluids, which I will continue. Discussed with nursing staff. I will follow carefully. Off pressors Will begin weaning Bill Jose M.D. Subjective Interval Events: Remains on vent Constitutional: Reports: no symptoms HEENT: Repors: no symptoms Respiratory: Reports: no symptoms Cardiovascular: Reports: no symptoms Gastrointestinal/Abdominal: Reports: no symptoms Genitourinary: Reports: no symptoms Allergies: Coded Allergies: PENICILLINS (Verified Allergy, Unknown, 08/05/19) Objective Last 24 Hour Vital Signs Date Time Temp Pulse Resp B/P (MAP) Pulse Ox O2 Delivery O2 Flow Rate FiO2 08/08/19 09:03 88 24 40 08/08/19 08:00 81 08/08/19 08:00 98.0 85 25 116/74 Mechanical Ventilator 40 08/08/19 08:00 40 08/08/19 08:00 Mechanical Ventilator 08/08/19 07:00 89 21 107/64 Mechanical Ventilator 40 08/08/19 06:59 85 24 40 08/08/19 06:00 88 21 102/63 Mechanical Ventilator 40 08/08/19 05:07 90 24 40 08/08/19 05:00 98.1 86 24 105/52 Mechanical Ventilator 40 08/08/19 04:00 92 21 102/67 Mechanical Ventilator 40 08/08/19 04:00 Mechanical Ventilator 08/08/19 04:00 40 08/08/19 04:00 82 08/08/19 03:00 89 27 98/54 Mechanical Ventilator 40 08/08/19 02:39 91 26 40 08/08/19 02:00 92 26 105/49 Mechanical Ventilator 40 08/08/19 01:02 92 25 40 08/08/19 01:00 92 26 104/55 Mechanical Ventilator 40 08/08/19 00:00 40 08/08/19 00:00 94 08/08/19 00:00 91 24 101/53 Mechanical Ventilator 40 08/08/19 00:00 Mechanical Ventilator 08/07/19 23:00 93 28 100/53 100 Mechanical Ventilator 40 08/07/19 22:47 90 23 40 08/07/19 22:00 94 26 99/53 100 Mechanical Ventilator 40 08/07/19 21:05 103 21 40 08/07/19 21:00 98.0 91 27 97/58 100 Mechanical Ventilator 40 08/07/19 20:00 40 08/07/19 20:00 91 08/07/19 20:00 96 27 97/53 100 Mechanical Ventilator 40 08/07/19 20:00 Mechanical Ventilator 08/07/19 19:06 97 27 40 08/07/19 19:00 100 28 96/55 100 Mechanical Ventilator 40 08/07/19 18:00 100 26 92/54 100 Mechanical Ventilator 40 08/07/19 17:00 98 33 40 08/07/19 17:00 99 26 93/48 100 Mechanical Ventilator 40 08/07/19 16:00 97.7 97 26 87/52 100 Mechanical Ventilator 40 08/07/19 16:00 Mechanical Ventilator 08/07/19 16:00 95 08/07/19 16:00 40 08/07/19 15:00 99 27 92/59 100 Mechanical Ventilator 40 08/07/19 14:57 87 22 40 08/07/19 14:00 100 25 97/51 100 Mechanical Ventilator 40 08/07/19 13:09 105 30 40 08/07/19 13:00 97 23 104/57 100 Mechanical Ventilator 40 08/07/19 12:00 Mechanical Ventilator 08/07/19 12:00 97.6 93 21 106/58 100 Mechanical Ventilator 40 08/07/19 12:00 40 08/07/19 12:00 98 08/07/19 11:21 93 26 103/60 Mechanical Ventilator 40 08/07/19 11:19 100 25 103/60 100 Mechanical Ventilator 40 08/07/19 10:46 98 25 40 08/07/19 10:00 97 23 100/60 100 Mechanical Ventilator 40 Intake and Output 08/07/19 08/08/19 19:00 07:00 Intake Total 1004.16 ml 1585 ml Output Total 385 ml 290 ml Balance 619.16 ml 1295 ml Intake Free Water 30 ml IV Total 544.16 ml 985 ml Tube Feeding 430 ml 600 ml Output Urine Total 385 ml 290 ml # Bowel Movements 2 General Appearance: no acute distress HEENT: normocephalic Respiratory/Chest: chest wall non-tender, lungs clear Cardiovascular: normal peripheral pulses Abdomen: normal bowel sounds Microbiology Date/Time Source Procedure Growth Status 08/05/19 20:20 Blood Blood Culture - Preliminary NO GROWTH AFTER 48 HOURS Resulted 08/05/19 20:15 Blood Blood Culture - Preliminary Resulted 08/06/19 04:00 Sputum Gram Stain - Final Resulted 08/06/19 04:00 Sputum Culture - Preliminary Gram Negative Moshe Resulted 08/05/19 20:48 Nasal Nares MRSA Culture - Final NO METHICILLIN RESISTANT STAPH AUREUS... Complete 08/05/19 21:15 Urine,Clean Catch Urine Culture - Preliminary YEAST Resulted 08/05/19 20:48 Rectum VRE Culture - Final Enterococcus Faecium - Vre Complete Laboratory Tests 08/08/19 04:40: White Blood Count 16.5H, Red Blood Count 2.97L, Hemoglobin 8.5L, Hematocrit 25.4L, Mean Corpuscular Volume 86, Mean Corpuscular Hemoglobin 28.7, Mean Corpuscular Hemoglobin Concent 33.6, Red Cell Distribution Width 15.5H, Platelet Count 269, Mean Platelet Volume 5.7L, Neutrophils (%) (Auto) , Lymphocytes (%) (Auto) , Monocytes (%) (Auto) , Eosinophils (%) (Auto) , Basophils (%) (Auto) , Differential Total Cells Counted 100, Neutrophils % ( Manual) 92H, Lymphocytes % (Manual) 2L, Monocytes % (Manual) 5, Eosinophils % ( Manual) 1, Basophils % (Manual) 0, Band Neutrophils 0, Platelet Estimate Adequate, Platelet Morphology Normal, Hypochromasia 2+, Anisocytosis 1+, Spherocytes 1+, Sodium Level 135L, Potassium Level 4.1, Chloride Level 107, Carbon Dioxide Level 22, Anion Gap 6, Blood Urea Nitrogen 28H, Creatinine 0.7, Estimat Glomerular Filtration Rate , Glucose Level 119H, Calcium Level 7.4L, Total Bilirubin 0.4, Aspartate Amino Transf (AST/SGOT) 61H, Alanine Aminotransferase (ALT/SGPT) 85H, Alkaline Phosphatase 126H, Total Protein 4.3L, Albumin 0.8L, Globulin 3.5, Albumin/Globulin Ratio 0.2L Current Medications Medications (Trade) Dose Ordered Sig/Kandice Route PRN Reason Start Time Stop Time Status Last Admin Dose Admin Acetaminophen (Tylenol) 650 mg Q6H PRN GT Mild Pain/Temp > 100.5 08/06/19 09:45 09/05/19 09:44 08/06/19 09:57 Ascorbic Acid (Vitamin C) 500 mg DAILY ORAL 08/07/19 09:00 09/06/19 08:59 08/08/19 08:09 Chlorhexidine Gluconate (Melva-Hex 2%) 1 applic DAILY@2000 TOPIC 08/06/19 20:00 09/05/19 19:59 08/07/19 20:44 Heparin Sodium (Porcine) (Heparin 5000 units/ml) 5,000 units EVERY 12 HOURS SUBQ 08/06/19 09:00 09/05/19 08:59 08/08/19 08:20 Meropenem 1 gm/ Sodium Chloride 55 ml @ 110 mls/hr Q8HR IVPB 08/06/19 14:00 08/11/19 13:59 08/08/19 06:21 Pantoprazole (Protonix) 40 mg EVERY 12 HOURS IVP 08/06/19 09:00 09/05/19 08:59 08/08/19 08:08 Phenylephrine HCl 50 mg/Dextrose 250 ml @ 0 mls/hr Q24H IV 08/06/19 08:30 09/05/19 08:29 08/06/19 15:09 Sodium Chloride 1,000 ml @ 50 mls/hr Q20H IV 08/07/19 09:15 09/06/19 09:14 08/07/19 19:39 Vancomycin HCl (Vanco rx to dose) 1 ea DAILY PRN MISC Per rx protocol 08/05/19 23:00 09/04/19 22:59 Vancomycin HCl 1 gm/Dextrose 275 ml @ 184 mls/hr QHS IVPB 08/06/19 21:00 08/11/19 20:59 08/07/19 20:45 Zinc Sulfate (Zinc Sulfate) 220 mg DAILY ORAL 08/07/19 09:00 08/17/19 08:59 08/08/19 08:08 Bill Jose MD Aug 08, 2019 09:13
--- NOTE | 2019-08-08 09:32 | Infectious Diseases Prog Note ---
Assessment/Plan Assessment/Plan A; 1. Fungal Urinary tract infection. 2. Leukocytosis is improving. 3. Possible aspiration pneumonia. 4. CVA. 5. Respiratory failure, status post tracheostomy. 6. 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 Anemia 9. Protein calori malnutrition PLAN: 1. Continue IV vancomycin and meropenem 2. Add Fluconazole Subjective ROS Limited/Unobtainable: Yes Constitutional: Denies: fever Allergies: Coded Allergies: PENICILLINS (Verified Allergy, Unknown, 08/05/19) Objective Vital Signs Last 24 Hour Vital Signs Date Time Temp Pulse Resp B/P (MAP) Pulse Ox O2 Delivery O2 Flow Rate FiO2 08/08/19 09:03 88 24 40 08/08/19 09:00 86 24 111/68 Mechanical Ventilator 40 08/08/19 08:00 81 08/08/19 08:00 98.0 85 25 116/74 Mechanical Ventilator 40 08/08/19 08:00 40 08/08/19 08:00 Mechanical Ventilator 08/08/19 07:00 89 21 107/64 Mechanical Ventilator 40 08/08/19 06:59 85 24 40 08/08/19 06:00 88 21 102/63 Mechanical Ventilator 40 08/08/19 05:07 90 24 40 08/08/19 05:00 98.1 86 24 105/52 Mechanical Ventilator 40 08/08/19 04:00 92 21 102/67 Mechanical Ventilator 40 08/08/19 04:00 Mechanical Ventilator 08/08/19 04:00 40 08/08/19 04:00 82 08/08/19 03:00 89 27 98/54 Mechanical Ventilator 40 08/08/19 02:39 91 26 40 08/08/19 02:00 92 26 105/49 Mechanical Ventilator 40 08/08/19 01:02 92 25 40 08/08/19 01:00 92 26 104/55 Mechanical Ventilator 40 08/08/19 00:00 40 08/08/19 00:00 94 08/08/19 00:00 91 24 101/53 Mechanical Ventilator 40 08/08/19 00:00 Mechanical Ventilator 08/07/19 23:00 93 28 100/53 100 Mechanical Ventilator 40 08/07/19 22:47 90 23 40 08/07/19 22:00 94 26 99/53 100 Mechanical Ventilator 40 08/07/19 21:05 103 21 40 08/07/19 21:00 98.0 91 27 97/58 100 Mechanical Ventilator 40 08/07/19 20:00 40 08/07/19 20:00 91 08/07/19 20:00 96 27 97/53 100 Mechanical Ventilator 40 08/07/19 20:00 Mechanical Ventilator 08/07/19 19:06 97 27 40 08/07/19 19:00 100 28 96/55 100 Mechanical Ventilator 40 08/07/19 18:00 100 26 92/54 100 Mechanical Ventilator 40 08/07/19 17:00 98 33 40 08/07/19 17:00 99 26 93/48 100 Mechanical Ventilator 40 08/07/19 16:00 97.7 97 26 87/52 100 Mechanical Ventilator 40 08/07/19 16:00 Mechanical Ventilator 08/07/19 16:00 95 08/07/19 16:00 40 08/07/19 15:00 99 27 92/59 100 Mechanical Ventilator 40 08/07/19 14:57 87 22 40 08/07/19 14:00 100 25 97/51 100 Mechanical Ventilator 40 08/07/19 13:09 105 30 40 08/07/19 13:00 97 23 104/57 100 Mechanical Ventilator 40 08/07/19 12:00 Mechanical Ventilator 08/07/19 12:00 97.6 93 21 106/58 100 Mechanical Ventilator 40 08/07/19 12:00 40 08/07/19 12:00 98 08/07/19 11:21 93 26 103/60 Mechanical Ventilator 40 08/07/19 11:19 100 25 103/60 100 Mechanical Ventilator 40 08/07/19 10:46 98 25 40 08/07/19 10:00 97 23 100/60 100 Mechanical Ventilator 40 Height (Feet): 6 Height (Inches): 1.00 Weight (Pounds): 148 HEENT: status post trach Respiratory/Chest: other - on ventilator, few rhonchi Cardiovascular: normal rate Abdomen: soft, non tender, other - GT feeding Skin: ulcers, other - bruises Neurologic/Psychiatric: unresponsiveness, aphasia Microbiology Date/Time Source Procedure Growth Status 08/05/19 20:20 Blood Blood Culture - Preliminary NO GROWTH AFTER 48 HOURS Resulted 08/05/19 20:15 Blood Blood Culture - Preliminary Resulted 08/06/19 04:00 Sputum Gram Stain - Final Resulted 08/06/19 04:00 Sputum Culture - Preliminary Gram Negative Moshe Resulted 08/05/19 20:48 Nasal Nares MRSA Culture - Final NO METHICILLIN RESISTANT STAPH AUREUS... Complete 08/05/19 21:15 Urine,Clean Catch Urine Culture - Preliminary YEAST Resulted 08/05/19 20:48 Rectum VRE Culture - Final Enterococcus Faecium - Vre Complete Laboratory Tests Test 08/08/19 04:40 White Blood Count 16.5 K/UL (4.8-10.8) H Red Blood Count 2.97 M/UL (4.70-6.10) L Hemoglobin 8.5 G/DL (14.2-18.0) L Hematocrit 25.4 % (42.0-52.0) L Mean Corpuscular Volume 86 FL (80-99) Mean Corpuscular Hemoglobin 28.7 PG (27.0-31.0) Mean Corpuscular Hemoglobin Concent 33.6 G/DL (32.0-36.0) Red Cell Distribution Width 15.5 % (11.6-14.8) H Platelet Count 269 K/UL (150-450) Mean Platelet Volume 5.7 FL (6.5-10.1) L Neutrophils (%) (Auto) % (45.0-75.0) Lymphocytes (%) (Auto) % (20.0-45.0) Monocytes (%) (Auto) % (1.0-10.0) Eosinophils (%) (Auto) % (0.0-3.0) Basophils (%) (Auto) % (0.0-2.0) Differential Total Cells Counted 100 Neutrophils % (Manual) 92 % (45-75) H Lymphocytes % (Manual) 2 % (20-45) L Monocytes % (Manual) 5 % (1-10) Eosinophils % (Manual) 1 % (0-3) Basophils % (Manual) 0 % (0-2) Band Neutrophils 0 % (0-8) Platelet Estimate Adequate Platelet Morphology Normal Hypochromasia 2+ Anisocytosis 1+ Spherocytes 1+ Sodium Level 135 MMOL/L (136-145) L Potassium Level 4.1 MMOL/L (3.5-5.1) Chloride Level 107 MMOL/L (98-107) Carbon Dioxide Level 22 MMOL/L (21-32) Anion Gap 6 mmol/L (5-15) Blood Urea Nitrogen 28 mg/dL (7-18) H Creatinine 0.7 MG/DL (0.55-1.30) Estimat Glomerular Filtration Rate mL/min (>60) Glucose Level 119 MG/DL (74-106) H Calcium Level 7.4 MG/DL (8.5-10.1) L Total Bilirubin 0.4 MG/DL (0.2-1.0) Aspartate Amino Transf (AST/SGOT) 61 U/L (15-37) H Alanine Aminotransferase (ALT/SGPT) 85 U/L (12-78) H Alkaline Phosphatase 126 U/L (46-116) H Total Protein 4.3 G/DL (6.4-8.2) L Albumin 0.8 G/DL (3.4-5.0) L Globulin 3.5 g/dL Albumin/Globulin Ratio 0.2 (1.0-2.7) L Current Medications Medications (Trade) Dose Ordered Sig/Kandice Route PRN Reason Start Time Stop Time Status Last Admin Dose Admin Acetaminophen (Tylenol) 650 mg Q6H PRN GT Mild Pain/Temp > 100.5 08/06/19 09:45 09/05/19 09:44 08/06/19 09:57 Ascorbic Acid (Vitamin C) 500 mg DAILY ORAL 08/07/19 09:00 09/06/19 08:59 08/08/19 08:09 Chlorhexidine Gluconate (Melva-Hex 2%) 1 applic DAILY@2000 TOPIC 08/06/19 20:00 09/05/19 19:59 08/07/19 20:44 Heparin Sodium (Porcine) (Heparin 5000 units/ml) 5,000 units EVERY 12 HOURS SUBQ 08/06/19 09:00 09/05/19 08:59 08/08/19 08:20 Meropenem 1 gm/ Sodium Chloride 55 ml @ 110 mls/hr Q8HR IVPB 08/06/19 14:00 08/11/19 13:59 08/08/19 06:21 Pantoprazole (Protonix) 40 mg EVERY 12 HOURS IVP 08/06/19 09:00 09/05/19 08:59 08/08/19 08:08 Phenylephrine HCl 50 mg/Dextrose 250 ml @ 0 mls/hr Q24H IV 08/06/19 08:30 09/05/19 08:29 08/06/19 15:09 Sodium Chloride 1,000 ml @ 50 mls/hr Q20H IV 08/07/19 09:15 09/06/19 09:14 08/07/19 19:39 Vancomycin HCl (Vanco rx to dose) 1 ea DAILY PRN MISC Per rx protocol 08/05/19 23:00 09/04/19 22:59 Vancomycin HCl 1 gm/Dextrose 275 ml @ 184 mls/hr QHS IVPB 08/06/19 21:00 08/11/19 20:59 08/07/19 20:45 Zinc Sulfate (Zinc Sulfate) 220 mg DAILY ORAL 08/07/19 09:00 08/17/19 08:59 08/08/19 08:08 Mateo Briseno MD Aug 08, 2019 09:32
[2019-08-08] MEDS ORDERED: Fluconazole 100mg tab GT SCH (11:00)
--- NOTE | 2019-08-08 11:38 | Diagnostic Imaging Report ---
Indication: Dyspnea Comparison: 08/06/2019 A single view chest radiograph was obtained. Findings: Interstitial edema and increased pulmonary vascularity are demonstrated since the last study. The previous study better demonstrated a asymmetric area of airspace disease at the left lung base suspicious for pneumonia as well as a suspected left pleural effusion. Previous study also better demonstrated the presence of hyperinflation of the lungs consistent with COPD. Heart size is stable. Tracheostomy is noted. IMPRESSION: Congestive heart failure. Pneumonia is suspected at the left lung base. Left pleural effusion may be present also. COPD
--- NOTE | 2019-08-08 14:25 | Diagnostic Imaging Report ---
APPROVED REPORT CPT Code: 46745 Symptoms Non-healing Ulcer : Right Comments: Pain and edema Surgery/Intervention Stent : Site : Right and left RIGHT LEG: Common femoral artery waveform analysis is within normal limits at rest. Color flow duplex sonography reveals an occlusion in the mid to distal femoral stented artery. Reconstitution is noted at the proximal popliteal artery. The distal posterior, anterior and dorsalis pedis arteries were not well visualized. The proximal posterior tibial artery is patent. Doppler waveform analysis is monophasic consistent, with severe ischemia at rest. LEFT LEG: Common femoral artery waveform analysis is within normal limits at rest. Color flow duplex sonography reveals calcification throughout the superficial femoral and popliteal arteries. A patent stent was seen in the proximal to mid segment of the superficial femoral artery. A moderate (30% - 50%) stenosis is seen in the proximal superficial femoral artery. There is no evidence of occlusion within these segments. The tibioperoneal trunk was not well visualized. However, Doppler tibial artery waveform analysis is compatible with mild to moderate ischemia at rest. SILVANO Meléndez was notified of abnormal results at 0830 hours.
--- NOTE | 2019-08-08 14:25 | Diagnostic Imaging Report ---
APPROVED REPORT CPT Code: 68428 Present Symptoms Lower Extremity Pain: Bilateral Comments: Right leg wound BILATERAL: Imaging reveals a patent deep venous system bilaterally. There is no evidence of thrombus within the femoral, popliteal or left tibial segments. The greater saphenous veins are also within normal limits. Doppler indicates normal spontaneous flow within these segments. Right calf area was not well visualized due to open wound.
--- NOTE | 2019-08-08 16:39 | Surgery Progress Note ---
Surgery Progress Note Subjective Additional Comments Still in ICU ill-appearing. Leukocytosis trending down slowly. Respond to transfusion. Dressings change in exam stable. Objective Last 24 Hour Vital Signs Date Time Temp Pulse Resp B/P (MAP) Pulse Ox O2 Delivery O2 Flow Rate FiO2 08/08/19 16:02 97 08/08/19 16:01 97 27 107/51 100 Mechanical Ventilator 40 08/08/19 16:00 Mechanical Ventilator 08/08/19 15:29 106 30 40 08/08/19 15:00 92 22 110/65 100 Mechanical Ventilator 40 08/08/19 14:00 95 26 113/67 100 Mechanical Ventilator 40 08/08/19 13:00 40 08/08/19 13:00 97.9 92 16 122/72 100 Mechanical Ventilator 40 08/08/19 12:59 91 36 40 08/08/19 12:00 Mechanical Ventilator 08/08/19 12:00 95 08/08/19 12:00 94 26 126/62 100 Mechanical Ventilator 40 08/08/19 12:00 40 08/08/19 11:00 89 26 122/69 100 Mechanical Ventilator 40 08/08/19 10:44 86 27 40 40 08/08/19 10:00 90 26 112/70 Mechanical Ventilator 40 08/08/19 09:03 88 24 40 08/08/19 09:00 86 24 111/68 Mechanical Ventilator 40 08/08/19 08:00 81 08/08/19 08:00 98.0 85 25 116/74 Mechanical Ventilator 40 08/08/19 08:00 40 08/08/19 08:00 Mechanical Ventilator 08/08/19 07:00 89 21 107/64 Mechanical Ventilator 40 08/08/19 06:59 85 24 40 08/08/19 06:00 88 21 102/63 Mechanical Ventilator 40 08/08/19 05:07 90 24 40 08/08/19 05:00 98.1 86 24 105/52 Mechanical Ventilator 40 08/08/19 04:00 92 21 102/67 Mechanical Ventilator 40 08/08/19 04:00 Mechanical Ventilator 08/08/19 04:00 40 08/08/19 04:00 82 08/08/19 03:00 89 27 98/54 Mechanical Ventilator 40 08/08/19 02:39 91 26 40 08/08/19 02:00 92 26 105/49 Mechanical Ventilator 40 08/08/19 01:02 92 25 40 08/08/19 01:00 92 26 104/55 Mechanical Ventilator 40 08/08/19 00:00 40 08/08/19 00:00 94 08/08/19 00:00 91 24 101/53 Mechanical Ventilator 40 08/08/19 00:00 Mechanical Ventilator 08/07/19 23:00 93 28 100/53 100 Mechanical Ventilator 40 08/07/19 22:47 90 23 40 08/07/19 22:00 94 26 99/53 100 Mechanical Ventilator 40 08/07/19 21:05 103 21 40 08/07/19 21:00 98.0 91 27 97/58 100 Mechanical Ventilator 40 08/07/19 20:00 40 08/07/19 20:00 91 08/07/19 20:00 96 27 97/53 100 Mechanical Ventilator 40 08/07/19 20:00 Mechanical Ventilator 08/07/19 19:06 97 27 40 08/07/19 19:00 100 28 96/55 100 Mechanical Ventilator 40 08/07/19 18:00 100 26 92/54 100 Mechanical Ventilator 40 08/07/19 17:00 98 33 40 08/07/19 17:00 99 26 93/48 100 Mechanical Ventilator 40 I&O Intake and Output 08/07/19 08/08/19 19:00 07:00 Intake Total 1004.16 ml 1585 ml Output Total 385 ml 290 ml Balance 619.16 ml 1295 ml Intake Free Water 30 ml IV Total 544.16 ml 985 ml Tube Feeding 430 ml 600 ml Output Urine Total 385 ml 290 ml # Bowel Movements 2 Dressing: saturated Wound: other Drains: other Cardiovascular: RSR Respiratory: decreased breath sounds Abdomen: soft, present bowel sounds, non-distended Extremities: no cyanosis, other Laboratory Tests Test 08/08/19 04:40 White Blood Count 16.5 K/UL (4.8-10.8) H Red Blood Count 2.97 M/UL (4.70-6.10) L Hemoglobin 8.5 G/DL (14.2-18.0) L Hematocrit 25.4 % (42.0-52.0) L Mean Corpuscular Volume 86 FL (80-99) Mean Corpuscular Hemoglobin 28.7 PG (27.0-31.0) Mean Corpuscular Hemoglobin Concent 33.6 G/DL (32.0-36.0) Red Cell Distribution Width 15.5 % (11.6-14.8) H Platelet Count 269 K/UL (150-450) Mean Platelet Volume 5.7 FL (6.5-10.1) L Neutrophils (%) (Auto) % (45.0-75.0) Lymphocytes (%) (Auto) % (20.0-45.0) Monocytes (%) (Auto) % (1.0-10.0) Eosinophils (%) (Auto) % (0.0-3.0) Basophils (%) (Auto) % (0.0-2.0) Differential Total Cells Counted 100 Neutrophils % (Manual) 92 % (45-75) H Lymphocytes % (Manual) 2 % (20-45) L Monocytes % (Manual) 5 % (1-10) Eosinophils % (Manual) 1 % (0-3) Basophils % (Manual) 0 % (0-2) Band Neutrophils 0 % (0-8) Platelet Estimate Adequate Platelet Morphology Normal Hypochromasia 2+ Anisocytosis 1+ Spherocytes 1+ Sodium Level 135 MMOL/L (136-145) L Potassium Level 4.1 MMOL/L (3.5-5.1) Chloride Level 107 MMOL/L (98-107) Carbon Dioxide Level 22 MMOL/L (21-32) Anion Gap 6 mmol/L (5-15) Blood Urea Nitrogen 28 mg/dL (7-18) H Creatinine 0.7 MG/DL (0.55-1.30) Estimat Glomerular Filtration Rate mL/min (>60) Glucose Level 119 MG/DL (74-106) H Calcium Level 7.4 MG/DL (8.5-10.1) L Total Bilirubin 0.4 MG/DL (0.2-1.0) Aspartate Amino Transf (AST/SGOT) 61 U/L (15-37) H Alanine Aminotransferase (ALT/SGPT) 85 U/L (12-78) H Alkaline Phosphatase 126 U/L (46-116) H Total Protein 4.3 G/DL (6.4-8.2) L Albumin 0.8 G/DL (3.4-5.0) L Globulin 3.5 g/dL Albumin/Globulin Ratio 0.2 (1.0-2.7) L Plan Problems: (1) Septic shock Assessment & Plan: Patient with leukocytosis, tachycardia, lactic acidosis, abnormal labs. Currently in ICU for care and management N.p.o. IV fluid resuscitation IV antibiotics Trend labs Thank you with all the recommendations (2) Wound infection Assessment & Plan: Pt presented on admission with multiple pressure injuries , Multiple necrotic wounds R lower extremity. Scattered senile purpuras noted to posterior ,R and L lateral sides of neck under collar of trach and inferior to tracheostomy. Scattered petechiae noted to bilat upper ext, Talib and lateral aspects of chest abd and back . Both upper extremities are edematous and weeping large amounts of serous exudate. Cat.2 Skin tears noted to Lateral R elbow ,R forearm . Numerous dry scabs noted to L forearm. Large Purple bruise noted to upper and mid abdomen. Incontinence associated dermatitis noted to bilat groin, scrotum,Perianal and both ischial regions- erythema with scattered satellite lesions noted.Large serous blister noted to talib/medial upper L thigh oozing small amt serous exudate.(L)5.5cm x (W)4.5cm Full thickness pressure injury with biofilm noted to R scapula. Edges are macerated with surrounding petechia. Small amt non-odorous serous exudate noted. (L)1cm x (W)1cm. Full thickness lumbar spine. Base of wound is 90%necrotic, surrounding wound bed erythematous and moist. Small amt serosanguineous exudate noted.(L)8.5cm x ( W)4.5cm. Full thickness pressure injury Upper R gluteus(L)2.9cm x (W)2.3cm. Base of wound 80% necrotic 20% viable. Edges are macerated. Erythema without induration periwound. Full thickness pressure injury Upper L gluteus. Baser of wound 100% necrotic with erythematous borders(L)3.2cm x (W)3cm.Periwound without erythema or induration. R lower ext dusky in colour. Distal RLE cool to touch. Multiple ulcerations noted. Full thickness lateral R knee. Base of wound 100% viable. Small amt sanguineous exudate noted. No odor noted. (L)4cmx (W)2.3cm. Surrounding petechia noted. Full thickness ulcer noted to talib /lateral R tibia. Base of wound is 90% soft necrosis 10% fibrinous slough,erythematous borders. Small amt seropurulent exudate noted. Mild odor noted. (L)24cm x (W)9.5cm. Dry necrotic ulcer medial /distal R tibia. (L)0.8cm x (W)0.5cm. Medial R malleolus necrotic with fluctuance.(L)2.5cm x (W)2cm. Large soft necrotic ulcer dorso/lateral R foot with erythematous borders.(L) 11.4cm x (W)6.5cm. Second necrotic wound noted talib/distal R foot Base of wound fluctuant(L) 4.4cm x (W)6.5cm. R Achilles ulcer is 100% necrotic with macerated borders.(L)4.2cm x (W)1cm. Soft necrosis noted R heel with marginal erythema along edges(L)2cm x (W)2cm. Second ulcer medial R heel 100% necrotic with fluctuance.(L)1.5cm x (W)1cm . Necrotic ulcer distal /lateral R foot /Lateral R5th metatarsal.Base of wound is fluctuant. Periwound skin colour dusky.(L)5.6cm x (W)2cm R Hallux necrotic and fluctuant(L)2.9cm x (W)5cm. All 5 metatarsals R foot are mottled and cool to touch. Tx.Plan: Cleanse Wound R scapula with Saline. Apply Therahoney. Apply Cavilon Periwound. Cover with Optifoam drsg. Change every 3 days and prn. Cleanse wound Lumbar Spine with Saline. Apply TheraHoney. Apply Cavilon Skin Barrier periwound. Cover with Optifoam drsg every 3 days and prn. Cleanse wounds R and L upper buttocks with Saline. Apply Therahoney. Apply Cavilon Skin Barrier periwound. Cover each wound with Optifoam drsg. Change every 3 days and prn. Cleanse wound talib R tibia with Saline. Cover with Xeroform. Apply ABD Pad and wrap with Kerlix Daily and prn. Swab All Necrotic Wounds R lower ext/R Foot with Betadine. Cover wounds with ABD pads and wrap with Kerlix Daily and prn. Apply Moisture Barrier Paste to to groin . Scrotum and Bilat ischial areas with each incontinence care. Apply Optifoam drsg to Blister Upper L thigh. Change every 7 days and prn. Apply Xeroform Gauze to skin tears and dry scabs Both upper ext. Apply ABd pads and wrap both upper ext with Kerlix Daily and prn. Elevate both upper extremities with Pillows. Reposition at least every 2hours or as tolerated. Off-load heels with pillow. APM/KAREN Mattress overlay. (3) Tracheostomy dependent (4) Bilateral pneumonia (5) Sepsis with acute hypoxic respiratory failure (6) Severe protein-calorie malnutrition Assessment & Plan: DAILY ESTIMATED NEEDS: Needs based on Critical care, multiple wounds/ 67kg 22-30 kcals/kg 8987-6526 total kcals 1.25-2.0 g protein/kg 84-134 g total protein 25-30 mL/kg 3806-3312 total fluid mLs NUTRITION DIAGNOSIS: * Increased kcal/prot needs R/T wound healing and sepsis as evidenced by pt admitted w/ multiple advanced wounds, pending eval, elev wbc (19.3), elev LA, febrile w/ Tmax 101.9, hypotensive, on pressor support. * Swallowing difficulty R/T dysphagia, respiratory status as evidenced by trach/vent dep, PEG dep. CURRENT TF: NPO ENTERAL NUTRITION RECOMMENDATIONS: Glucerna 1.5 @ 50ml/hr x 24 hrs to provide 1200ml, 1800kcal, 99g prot, 911ml free water * WHEN HEMODYNAMICALLY STABLE: -> Initiate Glucerna 1.5 @ 20ml/hr x 6hrs -> Advance 10ml q 4-6 hrs as tolerated to goal rate -> HOB over 30 degrees/ water flush per MD * WITHOUT HEMODYNAMIC STABILITY: -> Rec trophic feeding of Glucerna 1.5 @ 10-15ml/hr x 24 hrs ADDITIONAL RECOMMENDATIONS: * Per SNF: HT=66" LK=[id number] (wt from Jul 26, 2019) * Monitor HD stability: on pressor support at this time * Monitor lytes, replete as needed * Wound healing: add Vit C 500mg QD, ZnSO4 220mg QD x 10 days : W/ TF order, add Roger 1pkt BID : f/up with WC eval * NISS w/ TF initiation: h/o Jesus Robert Aug 08, 2019 16:39
[2019-08-08] MEDS: Dyna-Hex 2% Top Sol 2oz TOPIC SCH (19:38)
[2019-08-08] MEDS ORDERED: Vancomycin 1.25gm/NS Premix q24h IVPB SCH (22:00)
--- NOTE | 2019-08-08 23:30 | Progress Note ---
DATE: 08/08/2019 CARDIOLOGY PROGRESS NOTE SUBJECTIVE: The patient remains in the intensive care unit. Condition remains critical. Prognosis guarded. The patient remains on ventilator support via trach. His blood pressure parameters have improved. He is off pressors. He remains on IV fluid hydration. The patient is status post a unit of packed red blood cells yesterday. OBJECTIVE: VITAL SIGNS: Blood pressure 107/51, pulse 97, and respirations 27. Monitored sinus and sinus tachycardia. HEENT: Thin trach secretions. LUNGS: Bilateral breath sounds. No wheezing. HEART: Regular rhythm and rate. Normal S1, S2 with a fourth heart sound. ABDOMEN: Soft. EXTREMITIES: Without edema. LABORATORY DATA: Labs today white count 16.5 and hemoglobin 8.5 post transfusion. Sodium 135, potassium 4.1, bicarb 22, BUN 28, and creatinine 0.7. Albumin 0.8. Chest x-ray today revealed congestive heart failure, pneumonia at the left base, and the left pleural effusion. IMPRESSION: 1. Urinary tract infection with sepsis and shock, recovered. 2. Healthcare-acquired pneumonia. 3. Ventilator-dependent respiratory failure. 4. 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 5. Severe protein-calorie malnutrition. 6. Secondary sinus tachycardia. PLAN: 1. Antimicrobials. 2. Ventilator support. 3. Respiratory hygiene. 4. Protein supplement. 5. Off pressors now. 6. No resumption planned. 7. Discontinue IV fluids. 8. Reassess volume status and consider diuresis. 9. Check natriuretic peptide assay. Rahul Govea M.D. DR: NATALIO JOB#: [id number] CC: [place]
[2019-08-09] VITALS (15 sets, daily range): BP systolic 118–134; BP diastolic 62–84
--- NOTE | 2019-08-09 01:45 | Progress Note ---
DATE: 08/08/2019 SUBJECTIVE: This is an elderly male came with a hypotension, septic shock, acute respiratory failure. The patient has multiple decubitus. The patient is completely nonverbal. physically doing better. PHYSICAL EXAMINATION: VITAL SIGNS: Blood pressure 107/51, pulse 97, respirations . HEENT: Eyes are open. NECK: Supple. CHEST: Bilateral few crackles. CARDIOVASCULAR: Regular rhythm. No gallop. No murmur. ABDOMEN: Soft. EXTREMITIES: CCE. LABORATORY AND DIAGNOSTIC DATA: Hemoglobin 7.9, hematocrit 23, white counts are 21. Chemistry panel, sodium 135, potassium . ASSESSMENT: 1. Sepsis. 2. Acute respiratory failure. 3. Encephalopathy. 4. Hypotension. PLAN: We will currently continue current medical treatment. Continue fluconazole. Continue . Continue vancomycin and G-tube feeding. ID and Cardiology is on case. Abhay Vides M.D. DR: Wale JOB#: [id number] CC:
[2019-08-09] MEDS: Meropenem 1 GM in NS 55 ML IVPB SCH (05:19)
[2019-08-09 05:28] LABS: HEMATOCRIT 27.6 % (42.0-52.0); HEMOGLOBIN 9.1 G/DL (14.2-18.0); MEAN CORPUSCULAR VOLUME 86 FL (80-99); PLATELET COUNT 258 K/UL (150-450); RED BLOOD COUNT 3.21 M/UL (4.70-6.10); RED CELL DISTRIBUTION WIDTH 16.7 % (11.6-14.8); WHITE BLOOD COUNT 12.3 K/UL (4.8-10.8)
[2019-08-09 06:03] LABS: ALANINE AMINOTRANSFERASE 83 U/L (12-78); ALBUMIN/GLOBULIN RATIO 0.3 (1.0-2.7); ALKALINE PHOSPHATASE 124 U/L (46-116); ANION GAP 6 mmol/L (5-15); ASPARTATE AMINO TRANSFERASE 40 U/L (15-37); BILIRUBIN,TOTAL 0.3 MG/DL (0.2-1.0); BLOOD UREA NITROGEN 31 mg/dL (7-18); CALCIUM 7.9 MG/DL (8.5-10.1); CARBON DIOXIDE 25 MMOL/L (21-32); CHLORIDE 109 MMOL/L (98-107); CREATININE 0.7 MG/DL (0.55-1.30); POTASSIUM 4.6 MMOL/L (3.5-5.1); SODIUM 140 MMOL/L (136-145)
[2019-08-09] MEDS: Ascorbic Acid 500mg tab ORAL SCH (08:10)
[2019-08-09] MEDS: Zinc Sulfate 220mg cap ORAL SCH (08:10)
[2019-08-09] MEDS: Pantoprazole Inj IVP SCH ×2 (08:10→21:03)
[2019-08-09] MEDS: Heparin 5000 units/ml inj SUBQ SCH ×2 (08:11→21:05)
--- NOTE | 2019-08-09 10:48 | Pulmonology Progress Note ---
Assessment/Plan Assessment/Plan IMPRESSION: 1. Urosepsis. 2. Septic shock. Resolved 3. Possible pneumonia. 4. Chronic respiratory failure. currently on IMV DISCUSSION: Continue current medications and care. The patient is on broad-spectrum antibiotics. He is also on IV fluids, which I will continue. Discussed with nursing staff. I will follow carefully. Off pressors Will continue weaning transferred to [facility] May initiate trach collar Bill Jose M.D. Subjective Interval Events: looking better. Weaning. Constitutional: Reports: no symptoms HEENT: Repors: no symptoms Respiratory: Reports: no symptoms Cardiovascular: Reports: no symptoms Gastrointestinal/Abdominal: Reports: no symptoms Allergies: Coded Allergies: PENICILLINS (Verified Allergy, Unknown, 08/05/19) Objective Last 24 Hour Vital Signs Date Time Temp Pulse Resp B/P (MAP) Pulse Ox O2 Delivery O2 Flow Rate FiO2 08/09/19 10:38 101 32 40 08/09/19 10:00 97 34 130/69 100 Mechanical Ventilator 40 08/09/19 09:00 91 30 134/68 100 Mechanical Ventilator 40 08/09/19 08:35 100 08/09/19 08:35 98 29 40 40 08/09/19 08:00 105 08/09/19 08:00 Mechanical Ventilator Mechanical Ventilator 08/09/19 08:00 40 08/09/19 08:00 98.4 93 26 132/81 100 Mechanical Ventilator 40 08/09/19 07:00 97 29 123/68 98 Mechanical Ventilator 40 08/09/19 06:40 102 27 40 08/09/19 06:00 100 30 122/84 99 Mechanical Ventilator 40 08/09/19 05:50 81 22 40 08/09/19 05:00 97 26 128/77 98 Mechanical Ventilator 40 08/09/19 04:00 98.2 96 22 127/65 100 Mechanical Ventilator 40 08/09/19 04:00 96 08/09/19 04:00 40 08/09/19 04:00 Mechanical Ventilator 08/09/19 03:11 84 21 40 08/09/19 03:00 98 25 122/78 99 Mechanical Ventilator 40 08/09/19 02:00 94 27 125/72 100 Mechanical Ventilator 40 08/09/19 01:48 85 23 40 08/09/19 01:00 81 23 118/72 100 Mechanical Ventilator 40 08/09/19 00:00 99.4 85 27 118/62 100 Mechanical Ventilator 40 08/09/19 00:00 40 08/09/19 00:00 75 08/09/19 00:00 Mechanical Ventilator 08/08/19 23:25 97 24 40 08/08/19 23:00 87 26 118/64 100 Mechanical Ventilator 40 08/08/19 22:00 86 24 116/60 100 Mechanical Ventilator 40 08/08/19 21:00 83 24 112/69 100 Mechanical Ventilator 40 08/08/19 20:50 94 25 40 08/08/19 20:00 89 08/08/19 20:00 Mechanical Ventilator 08/08/19 20:00 98.9 94 20 116/71 100 Mechanical Ventilator 40 08/08/19 20:00 40 08/08/19 19:00 90 26 118/57 100 Mechanical Ventilator 40 08/08/19 18:57 94 26 40 08/08/19 18:00 89 24 111/60 100 Mechanical Ventilator 40 08/08/19 17:36 92 28 40 08/08/19 17:00 97.9 84 21 112/68 100 Mechanical Ventilator 40 08/08/19 16:02 97 08/08/19 16:01 97 27 107/51 100 Mechanical Ventilator 40 08/08/19 16:00 Mechanical Ventilator 08/08/19 15:29 106 30 40 08/08/19 15:00 92 22 110/65 100 Mechanical Ventilator 40 08/08/19 14:00 95 26 113/67 100 Mechanical Ventilator 40 08/08/19 13:00 40 08/08/19 13:00 97.9 92 16 122/72 100 Mechanical Ventilator 40 08/08/19 12:59 91 36 40 08/08/19 12:00 Mechanical Ventilator 08/08/19 12:00 95 08/08/19 12:00 94 26 126/62 100 Mechanical Ventilator 40 08/08/19 12:00 40 08/08/19 11:00 89 26 122/69 100 Mechanical Ventilator 40 Intake and Output 08/08/19 08/09/19 19:00 07:00 Intake Total 1490 ml 1085 ml Output Total 370 ml 355 ml Balance 1120 ml 730 ml Intake Free Water 180 ml 100 ml IV Total 710 ml 385 ml Tube Feeding 600 ml 600 ml Output Urine Total 370 ml 355 ml # Bowel Movements 2 1 General Appearance: no acute distress HEENT: normocephalic Respiratory/Chest: chest wall non-tender, lungs clear Cardiovascular: normal rate Abdomen: normal bowel sounds Laboratory Tests 08/08/19 20:00: Vancomycin Level Trough 10.1 08/09/19 04:00: White Blood Count 12.3H, Red Blood Count 3.21L, Hemoglobin 9.1L, Hematocrit 27.6L, Mean Corpuscular Volume 86, Mean Corpuscular Hemoglobin 28.3, Mean Corpuscular Hemoglobin Concent 33.0, Red Cell Distribution Width 16.7H, Platelet Count 258, Mean Platelet Volume 5.8L, Neutrophils (%) (Auto) , Lymphocytes (%) (Auto) , Monocytes (%) (Auto) , Eosinophils (%) (Auto) , Basophils (%) (Auto) , Sodium Level 140, Potassium Level 4.6, Chloride Level 109H, Carbon Dioxide Level 25, Anion Gap 6, Blood Urea Nitrogen 31H, Creatinine 0.7, Estimat Glomerular Filtration Rate , Glucose Level 103, Calcium Level 7.9L , Magnesium Level 1.6L, Total Bilirubin 0.3, Aspartate Amino Transf (AST/SGOT) 40H, Alanine Aminotransferase (ALT/SGPT) 83H, Alkaline Phosphatase 124H, Pro-B- Type Natriuretic Peptide 09095O, Total Protein 4.8L, Albumin 1.0L, Globulin 3.8 , Albumin/Globulin Ratio 0.3L Current Medications Medications (Trade) Dose Ordered Sig/Kandice Route PRN Reason Start Time Stop Time Status Last Admin Dose Admin Acetaminophen (Tylenol) 650 mg Q6H PRN GT Mild Pain/Temp > 100.5 08/06/19 09:45 09/05/19 09:44 08/06/19 09:57 Ascorbic Acid (Vitamin C) 500 mg DAILY ORAL 08/07/19 09:00 09/06/19 08:59 08/09/19 08:10 Chlorhexidine Gluconate (Melva-Hex 2%) 1 applic DAILY@2000 TOPIC 08/06/19 20:00 09/05/19 19:59 08/08/19 19:38 Fluconazole/ Sodium Chloride 100 ml @ 100 mls/hr DAILY IV 08/08/19 11:00 08/15/19 10:59 08/09/19 08:10 Heparin Sodium (Porcine) (Heparin 5000 units/ml) 5,000 units EVERY 12 HOURS SUBQ 08/06/19 09:00 09/05/19 08:59 08/09/19 08:11 Meropenem 1 gm/ Sodium Chloride 55 ml @ 110 mls/hr Q8HR IVPB 08/06/19 14:00 08/11/19 13:59 08/09/19 05:19 Pantoprazole (Protonix) 40 mg EVERY 12 HOURS IVP 08/06/19 09:00 09/05/19 08:59 08/09/19 08:10 Vancomycin HCl (Vanco rx to dose) 1 ea DAILY PRN MISC Per rx protocol 08/05/19 23:00 09/04/19 22:59 Vancomycin/Sodium Chloride 275 ml @ 183.333 mls/hr Q24H IVPB 08/08/19 22:00 08/13/19 21:59 08/08/19 22:01 Zinc Sulfate (Zinc Sulfate) 220 mg DAILY ORAL 08/07/19 09:00 08/17/19 08:59 08/09/19 08:10 Bill Jose MD Aug 09, 2019 10:48
--- NOTE | 2019-08-09 10:52 | Infectious Diseases Prog Note ---
Assessment/Plan Assessment/Plan A; 1. Fungal Urinary tract infection. 2. H. influenza sepsi 3. Pseudomonas pneumonia. 4. CVA. 5. Respiratory failure, status post tracheostomy. 6. 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 Anemia 9. Protein calori malnutrition 10. Penicillin allegy PLAN: 1. Change IV vancomycin and meropenem to Cefepime 2. Continue Fluconazole 3. Case was D/W microbiology Subjective ROS Limited/Unobtainable: Yes Constitutional: Denies: fever Allergies: Coded Allergies: PENICILLINS (Verified Allergy, Unknown, 08/05/19) Objective Vital Signs Last 24 Hour Vital Signs Date Time Temp Pulse Resp B/P (MAP) Pulse Ox O2 Delivery O2 Flow Rate FiO2 08/09/19 10:38 101 32 40 08/09/19 10:00 97 34 130/69 100 Mechanical Ventilator 40 08/09/19 09:00 91 30 134/68 100 Mechanical Ventilator 40 08/09/19 08:35 100 08/09/19 08:35 98 29 40 40 08/09/19 08:00 105 08/09/19 08:00 Mechanical Ventilator Mechanical Ventilator 08/09/19 08:00 40 08/09/19 08:00 98.4 93 26 132/81 100 Mechanical Ventilator 40 08/09/19 07:00 97 29 123/68 98 Mechanical Ventilator 40 08/09/19 06:40 102 27 40 08/09/19 06:00 100 30 122/84 99 Mechanical Ventilator 40 08/09/19 05:50 81 22 40 08/09/19 05:00 97 26 128/77 98 Mechanical Ventilator 40 08/09/19 04:00 98.2 96 22 127/65 100 Mechanical Ventilator 40 08/09/19 04:00 96 08/09/19 04:00 40 08/09/19 04:00 Mechanical Ventilator 08/09/19 03:11 84 21 40 08/09/19 03:00 98 25 122/78 99 Mechanical Ventilator 40 08/09/19 02:00 94 27 125/72 100 Mechanical Ventilator 40 08/09/19 01:48 85 23 40 08/09/19 01:00 81 23 118/72 100 Mechanical Ventilator 40 08/09/19 00:00 99.4 85 27 118/62 100 Mechanical Ventilator 40 08/09/19 00:00 40 08/09/19 00:00 75 08/09/19 00:00 Mechanical Ventilator 08/08/19 23:25 97 24 40 08/08/19 23:00 87 26 118/64 100 Mechanical Ventilator 40 08/08/19 22:00 86 24 116/60 100 Mechanical Ventilator 40 08/08/19 21:00 83 24 112/69 100 Mechanical Ventilator 40 08/08/19 20:50 94 25 40 08/08/19 20:00 89 08/08/19 20:00 Mechanical Ventilator 08/08/19 20:00 98.9 94 20 116/71 100 Mechanical Ventilator 40 08/08/19 20:00 40 08/08/19 19:00 90 26 118/57 100 Mechanical Ventilator 40 08/08/19 18:57 94 26 40 08/08/19 18:00 89 24 111/60 100 Mechanical Ventilator 40 08/08/19 17:36 92 28 40 08/08/19 17:00 97.9 84 21 112/68 100 Mechanical Ventilator 40 08/08/19 16:02 97 08/08/19 16:01 97 27 107/51 100 Mechanical Ventilator 40 08/08/19 16:00 Mechanical Ventilator 08/08/19 15:29 106 30 40 08/08/19 15:00 92 22 110/65 100 Mechanical Ventilator 40 08/08/19 14:00 95 26 113/67 100 Mechanical Ventilator 40 08/08/19 13:00 40 08/08/19 13:00 97.9 92 16 122/72 100 Mechanical Ventilator 40 08/08/19 12:59 91 36 40 08/08/19 12:00 Mechanical Ventilator 08/08/19 12:00 95 08/08/19 12:00 94 26 126/62 100 Mechanical Ventilator 40 08/08/19 12:00 40 08/08/19 11:00 89 26 122/69 100 Mechanical Ventilator 40 Height (Feet): 6 Height (Inches): 1.00 Weight (Pounds): 148 General Appearance: cachetic HEENT: status post trach Respiratory/Chest: lungs clear, other - on ventilator Cardiovascular: normal rate Abdomen: soft, non tender, other - GT feeding Extremities: no edema Skin: ulcers Neurologic/Psychiatric: unresponsiveness Musculoskeletal: atrophy Laboratory Tests Test 08/08/19 20:00 08/09/19 04:00 Vancomycin Level Trough 10.1 ug/mL (5.0-12.0) White Blood Count 12.3 K/UL (4.8-10.8) H Red Blood Count 3.21 M/UL (4.70-6.10) L Hemoglobin 9.1 G/DL (14.2-18.0) L Hematocrit 27.6 % (42.0-52.0) L Mean Corpuscular Volume 86 FL (80-99) Mean Corpuscular Hemoglobin 28.3 PG (27.0-31.0) Mean Corpuscular Hemoglobin Concent 33.0 G/DL (32.0-36.0) Red Cell Distribution Width 16.7 % (11.6-14.8) H Platelet Count 258 K/UL (150-450) Mean Platelet Volume 5.8 FL (6.5-10.1) L Neutrophils (%) (Auto) % (45.0-75.0) Lymphocytes (%) (Auto) % (20.0-45.0) Monocytes (%) (Auto) % (1.0-10.0) Eosinophils (%) (Auto) % (0.0-3.0) Basophils (%) (Auto) % (0.0-2.0) Sodium Level 140 MMOL/L (136-145) Potassium Level 4.6 MMOL/L (3.5-5.1) Chloride Level 109 MMOL/L (98-107) H Carbon Dioxide Level 25 MMOL/L (21-32) Anion Gap 6 mmol/L (5-15) Blood Urea Nitrogen 31 mg/dL (7-18) H Creatinine 0.7 MG/DL (0.55-1.30) Estimat Glomerular Filtration Rate mL/min (>60) Glucose Level 103 MG/DL (74-106) Calcium Level 7.9 MG/DL (8.5-10.1) L Magnesium Level 1.6 MG/DL (1.8-2.4) L Total Bilirubin 0.3 MG/DL (0.2-1.0) Aspartate Amino Transf (AST/SGOT) 40 U/L (15-37) H Alanine Aminotransferase (ALT/SGPT) 83 U/L (12-78) H Alkaline Phosphatase 124 U/L (46-116) H Pro-B-Type Natriuretic Peptide 25398 pg/mL (0-125) H Total Protein 4.8 G/DL (6.4-8.2) L Albumin 1.0 G/DL (3.4-5.0) L Globulin 3.8 g/dL Albumin/Globulin Ratio 0.3 (1.0-2.7) L Current Medications Medications (Trade) Dose Ordered Sig/Kandice Route PRN Reason Start Time Stop Time Status Last Admin Dose Admin Acetaminophen (Tylenol) 650 mg Q6H PRN GT Mild Pain/Temp > 100.5 08/06/19 09:45 09/05/19 09:44 08/06/19 09:57 Ascorbic Acid (Vitamin C) 500 mg DAILY ORAL 08/07/19 09:00 09/06/19 08:59 08/09/19 08:10 Chlorhexidine Gluconate (Melva-Hex 2%) 1 applic DAILY@2000 TOPIC 08/06/19 20:00 09/05/19 19:59 08/08/19 19:38 Fluconazole/ Sodium Chloride 100 ml @ 100 mls/hr DAILY IV 08/08/19 11:00 08/15/19 10:59 08/09/19 08:10 Heparin Sodium (Porcine) (Heparin 5000 units/ml) 5,000 units EVERY 12 HOURS SUBQ 08/06/19 09:00 09/05/19 08:59 08/09/19 08:11 Meropenem 1 gm/ Sodium Chloride 55 ml @ 110 mls/hr Q8HR IVPB 08/06/19 14:00 08/11/19 13:59 08/09/19 05:19 Pantoprazole (Protonix) 40 mg EVERY 12 HOURS IVP 08/06/19 09:00 09/05/19 08:59 08/09/19 08:10 Vancomycin HCl (Vanco rx to dose) 1 ea DAILY PRN MISC Per rx protocol 08/05/19 23:00 09/04/19 22:59 Vancomycin/Sodium Chloride 275 ml @ 183.333 mls/hr Q24H IVPB 08/08/19 22:00 08/13/19 21:59 08/08/19 22:01 Zinc Sulfate (Zinc Sulfate) 220 mg DAILY ORAL 08/07/19 09:00 08/17/19 08:59 08/09/19 08:10 Mateo Briseno MD Aug 09, 2019 10:52
[2019-08-09] MEDS ORDERED: Acetaminophen 650mg/20.3ml GT PRN (13:30)
--- NOTE | 2019-08-09 15:36 | Surgery Progress Note ---
Surgery Progress Note Subjective Symptoms: improved, difficulty voiding Additional Comments downgraded labs noted exam stable Objective Last 24 Hour Vital Signs Date Time Temp Pulse Resp B/P (MAP) Pulse Ox O2 Delivery O2 Flow Rate FiO2 08/09/19 14:44 97 24 40 08/09/19 12:47 93 32 40 08/09/19 12:00 98.7 97 24 131/62 99 Mechanical Ventilator 40 08/09/19 12:00 Mechanical Ventilator Mechanical Ventilator 08/09/19 12:00 95 08/09/19 12:00 40 08/09/19 11:00 97 25 124/70 98 Mechanical Ventilator 40 08/09/19 10:38 101 32 40 08/09/19 10:00 97 34 130/69 100 Mechanical Ventilator 40 08/09/19 09:00 91 30 134/68 100 Mechanical Ventilator 40 08/09/19 08:35 100 08/09/19 08:35 98 29 40 40 08/09/19 08:00 105 08/09/19 08:00 Mechanical Ventilator Mechanical Ventilator 08/09/19 08:00 40 08/09/19 08:00 98.4 93 26 132/81 100 Mechanical Ventilator 40 08/09/19 07:00 97 29 123/68 98 Mechanical Ventilator 40 08/09/19 06:40 102 27 40 08/09/19 06:00 100 30 122/84 99 Mechanical Ventilator 40 08/09/19 05:50 81 22 40 08/09/19 05:00 97 26 128/77 98 Mechanical Ventilator 40 08/09/19 04:00 98.2 96 22 127/65 100 Mechanical Ventilator 40 08/09/19 04:00 96 08/09/19 04:00 40 08/09/19 04:00 Mechanical Ventilator 08/09/19 03:11 84 21 40 08/09/19 03:00 98 25 122/78 99 Mechanical Ventilator 40 08/09/19 02:00 94 27 125/72 100 Mechanical Ventilator 40 08/09/19 01:48 85 23 40 08/09/19 01:00 81 23 118/72 100 Mechanical Ventilator 40 08/09/19 00:00 99.4 85 27 118/62 100 Mechanical Ventilator 40 08/09/19 00:00 40 08/09/19 00:00 75 08/09/19 00:00 Mechanical Ventilator 08/08/19 23:25 97 24 40 08/08/19 23:00 87 26 118/64 100 Mechanical Ventilator 40 08/08/19 22:00 86 24 116/60 100 Mechanical Ventilator 40 08/08/19 21:00 83 24 112/69 100 Mechanical Ventilator 40 08/08/19 20:50 94 25 40 08/08/19 20:00 89 08/08/19 20:00 Mechanical Ventilator 08/08/19 20:00 98.9 94 20 116/71 100 Mechanical Ventilator 40 08/08/19 20:00 40 08/08/19 19:00 90 26 118/57 100 Mechanical Ventilator 40 08/08/19 18:57 94 26 40 08/08/19 18:00 89 24 111/60 100 Mechanical Ventilator 40 08/08/19 17:36 92 28 40 08/08/19 17:00 97.9 84 21 112/68 100 Mechanical Ventilator 40 08/08/19 16:02 97 08/08/19 16:01 97 27 107/51 100 Mechanical Ventilator 40 08/08/19 16:00 Mechanical Ventilator I&O Intake and Output 08/08/19 08/09/19 18:59 06:59 Intake Total 1595 ml 1085 ml Output Total 360 ml 335 ml Balance 1235 ml 750 ml Intake Free Water 180 ml 100 ml IV Total 815 ml 385 ml Tube Feeding 600 ml 600 ml Output Urine Total 360 ml 335 ml # Bowel Movements 2 1 Dressing: saturated Wound: other Drains: other Cardiovascular: RSR Respiratory: decreased breath sounds Abdomen: soft, present bowel sounds, non-distended Extremities: edema, no cyanosis, other Laboratory Tests Test 08/08/19 20:00 08/09/19 04:00 Vancomycin Level Trough 10.1 ug/mL (5.0-12.0) White Blood Count 12.3 K/UL (4.8-10.8) H Red Blood Count 3.21 M/UL (4.70-6.10) L Hemoglobin 9.1 G/DL (14.2-18.0) L Hematocrit 27.6 % (42.0-52.0) L Mean Corpuscular Volume 86 FL (80-99) Mean Corpuscular Hemoglobin 28.3 PG (27.0-31.0) Mean Corpuscular Hemoglobin Concent 33.0 G/DL (32.0-36.0) Red Cell Distribution Width 16.7 % (11.6-14.8) H Platelet Count 258 K/UL (150-450) Mean Platelet Volume 5.8 FL (6.5-10.1) L Neutrophils (%) (Auto) % (45.0-75.0) Lymphocytes (%) (Auto) % (20.0-45.0) Monocytes (%) (Auto) % (1.0-10.0) Eosinophils (%) (Auto) % (0.0-3.0) Basophils (%) (Auto) % (0.0-2.0) Sodium Level 140 MMOL/L (136-145) Potassium Level 4.6 MMOL/L (3.5-5.1) Chloride Level 109 MMOL/L (98-107) H Carbon Dioxide Level 25 MMOL/L (21-32) Anion Gap 6 mmol/L (5-15) Blood Urea Nitrogen 31 mg/dL (7-18) H Creatinine 0.7 MG/DL (0.55-1.30) Estimat Glomerular Filtration Rate mL/min (>60) Glucose Level 103 MG/DL (74-106) Calcium Level 7.9 MG/DL (8.5-10.1) L Magnesium Level 1.6 MG/DL (1.8-2.4) L Total Bilirubin 0.3 MG/DL (0.2-1.0) Aspartate Amino Transf (AST/SGOT) 40 U/L (15-37) H Alanine Aminotransferase (ALT/SGPT) 83 U/L (12-78) H Alkaline Phosphatase 124 U/L (46-116) H Pro-B-Type Natriuretic Peptide 21932 pg/mL (0-125) H Total Protein 4.8 G/DL (6.4-8.2) L Albumin 1.0 G/DL (3.4-5.0) L Globulin 3.8 g/dL Albumin/Globulin Ratio 0.3 (1.0-2.7) L Plan Problems: (1) Septic shock Assessment & Plan: Patient with leukocytosis, tachycardia, lactic acidosis, abnormal labs. Currently in ICU for care and management N.p.o. IV fluid resuscitation IV antibiotics Trend labs Thank you with all the recommendations (2) Wound infection Assessment & Plan: Pt presented on admission with multiple pressure injuries , Multiple necrotic wounds R lower extremity. Scattered senile purpuras noted to posterior ,R and L lateral sides of neck under collar of trach and inferior to tracheostomy. Scattered petechiae noted to bilat upper ext, Talib and lateral aspects of chest abd and back . Both upper extremities are edematous and weeping large amounts of serous exudate. Cat.2 Skin tears noted to Lateral R elbow ,R forearm . Numerous dry scabs noted to L forearm. Large Purple bruise noted to upper and mid abdomen. Incontinence associated dermatitis noted to bilat groin, scrotum,Perianal and both ischial regions- erythema with scattered satellite lesions noted.Large serous blister noted to talib/medial upper L thigh oozing small amt serous exudate.(L)5.5cm x (W)4.5cm Full thickness pressure injury with biofilm noted to R scapula. Edges are macerated with surrounding petechia. Small amt non-odorous serous exudate noted. (L)1cm x (W)1cm. Full thickness lumbar spine. Base of wound is 90%necrotic, surrounding wound bed erythematous and moist. Small amt serosanguineous exudate noted.(L)8.5cm x ( W)4.5cm. Full thickness pressure injury Upper R gluteus(L)2.9cm x (W)2.3cm. Base of wound 80% necrotic 20% viable. Edges are macerated. Erythema without induration periwound. Full thickness pressure injury Upper L gluteus. Baser of wound 100% necrotic with erythematous borders(L)3.2cm x (W)3cm.Periwound without erythema or induration. R lower ext dusky in colour. Distal RLE cool to touch. Multiple ulcerations noted. Full thickness lateral R knee. Base of wound 100% viable. Small amt sanguineous exudate noted. No odor noted. (L)4cmx (W)2.3cm. Surrounding petechia noted. Full thickness ulcer noted to talib /lateral R tibia. Base of wound is 90% soft necrosis 10% fibrinous slough,erythematous borders. Small amt seropurulent exudate noted. Mild odor noted. (L)24cm x (W)9.5cm. Dry necrotic ulcer medial /distal R tibia. (L)0.8cm x (W)0.5cm. Medial R malleolus necrotic with fluctuance.(L)2.5cm x (W)2cm. Large soft necrotic ulcer dorso/lateral R foot with erythematous borders.(L) 11.4cm x (W)6.5cm. Second necrotic wound noted talib/distal R foot Base of wound fluctuant(L) 4.4cm x (W)6.5cm. R Achilles ulcer is 100% necrotic with macerated borders.(L)4.2cm x (W)1cm. Soft necrosis noted R heel with marginal erythema along edges(L)2cm x (W)2cm. Second ulcer medial R heel 100% necrotic with fluctuance.(L)1.5cm x (W)1cm . Necrotic ulcer distal /lateral R foot /Lateral R5th metatarsal.Base of wound is fluctuant. Periwound skin colour dusky.(L)5.6cm x (W)2cm R Hallux necrotic and fluctuant(L)2.9cm x (W)5cm. All 5 metatarsals R foot are mottled and cool to touch. Tx.Plan: Cleanse Wound R scapula with Saline. Apply Therahoney. Apply Cavilon Periwound. Cover with Optifoam drsg. Change every 3 days and prn. Cleanse wound Lumbar Spine with Saline. Apply TheraHoney. Apply Cavilon Skin Barrier periwound. Cover with Optifoam drsg every 3 days and prn. Cleanse wounds R and L upper buttocks with Saline. Apply Therahoney. Apply Cavilon Skin Barrier periwound. Cover each wound with Optifoam drsg. Change every 3 days and prn. Cleanse wound talib R tibia with Saline. Cover with Xeroform. Apply ABD Pad and wrap with Kerlix Daily and prn. Swab All Necrotic Wounds R lower ext/R Foot with Betadine. Cover wounds with ABD pads and wrap with Kerlix Daily and prn. Apply Moisture Barrier Paste to to groin . Scrotum and Bilat ischial areas with each incontinence care. Apply Optifoam drsg to Blister Upper L thigh. Change every 7 days and prn. Apply Xeroform Gauze to skin tears and dry scabs Both upper ext. Apply ABd pads and wrap both upper ext with Kerlix Daily and prn. Elevate both upper extremities with Pillows. Reposition at least every 2hours or as tolerated. Off-load heels with pillow. APM/KAREN Mattress overlay. (3) Tracheostomy dependent (4) Bilateral pneumonia (5) Sepsis with acute hypoxic respiratory failure (6) Severe protein-calorie malnutrition Assessment & Plan: DAILY ESTIMATED NEEDS: Needs based on Critical care, multiple wounds/ 67kg 22-30 kcals/kg 2415-6605 total kcals 1.25-2.0 g protein/kg 84-134 g total protein 25-30 mL/kg 2134-8018 total fluid mLs NUTRITION DIAGNOSIS: * Increased kcal/prot needs R/T wound healing and sepsis as evidenced by pt admitted w/ multiple advanced wounds, pending eval, elev wbc (19.3), elev LA, febrile w/ Tmax 101.9, hypotensive, on pressor support. * Swallowing difficulty R/T dysphagia, respiratory status as evidenced by trach/vent dep, PEG dep. CURRENT TF: NPO ENTERAL NUTRITION RECOMMENDATIONS: Glucerna 1.5 @ 50ml/hr x 24 hrs to provide 1200ml, 1800kcal, 99g prot, 911ml free water * WHEN HEMODYNAMICALLY STABLE: -> Initiate Glucerna 1.5 @ 20ml/hr x 6hrs -> Advance 10ml q 4-6 hrs as tolerated to goal rate -> HOB over 30 degrees/ water flush per MD * WITHOUT HEMODYNAMIC STABILITY: -> Rec trophic feeding of Glucerna 1.5 @ 10-15ml/hr x 24 hrs ADDITIONAL RECOMMENDATIONS: * Per SNF: HT=66" PU=448xgh (wt from Jul 26, 2019) * Monitor HD stability: on pressor support at this time * Monitor lytes, replete as needed * Wound healing: add Vit C 500mg QD, ZnSO4 220mg QD x 10 days : W/ TF order, add Roger 1pkt BID : f/up with WC eval * NISS w/ TF initiation: h/o Jesus Robert Aug 09, 2019 15:36
[2019-08-09] MEDS ORDERED: Tubing IV Secondary IV ONE ×3 (17:21→21:09)
[2019-08-09] MEDS ORDERED: NS 275ml ONE ×3 (17:21→21:09)
--- NOTE | 2019-08-09 18:45 | Progress Note ---
DATE: 08/09/2019 CARDIOLOGY PROGRESS NOTE SUBJECTIVE: The patient remains in the intensive care unit with critical condition and guarded prognosis. He is off pressor support, but still has ventilator dependency. Monitored rhythm sinus and sinus tachycardia. OBJECTIVE: VITAL SIGNS: Blood pressure 130/69, heart rate 101, respirations 32, afebrile, oxygen saturation 100% on 40% FiO2. HEENT: Thin trach secretions. LUNGS: Bilateral breath sounds with rhonchi. CARDIAC: Regular rhythm and rate. Normal S1, S2. ABDOMEN: Soft. G-tube intact. There is no edema. LABORATORY DATA: White count 12, hemoglobin 9. Sodium 140, potassium 4.6, bicarbonate 25, BUN 31, creatinine 0.7. Magnesium 1.6. Pro natriuretic peptide is 25,000. IMPRESSION: 1. Respiratory failure, recovered. 2. Shock due to sepsis. 3. Urinary tract infection with sepsis. 4. Healthcare-acquired pneumonia. 5. Hypomagnesemia. 6. Severe protein-calorie malnutrition. 7. 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 8. Transaminitis due to shock liver. PLAN: 1. Antimicrobials. 2. Weaning to trach collar per training designer. 3. Protein supplement by feeding tube. 4. Hold on anti-failure therapy in view of recent shock. 5. IV magnesium replacement. 6. Periodic diuresis. Rahul Govea M.D. DR: YOSEF JOB#: [id number] CC: [place]
[2019-08-09] MEDS: Dyna-Hex 2% Top Sol 2oz TOPIC SCH (20:03)
--- NOTE | 2019-08-09 20:15 | Progress Note ---
DATE: 08/09/2019 SUBJECTIVE: This is an elderly male, came with septic shock, dehydration, acute renal failure, and acute respiratory failure. The patient is currently doing better. . The patient is on IV fluid who is clinically doing better. . OBJECTIVE: VITAL SIGNS: Blood pressure is 130/70, pulse 74, and respirations 18. HEENT: Unremarkable. NECK: Supple. CHEST: Bilaterally clear. CARDIOVASCULAR: Regular rhythm. No gallop. No murmur. ABDOMEN: Soft. Positive bowel sounds. EXTREMITIES: CCE. NEUROLOGIC: The patient has no focal deficit. GENITOURINARY: Deferred. LABORATORY EXAMINATION: Not done. ASSESSMENT: 1. Sepsis. 2. Aspiration pneumonia. 3. Encephalopathy. 4. Severe dehydration. PLAN: 1. We will currently continue IV fluid. 2. Continue antibiotic. 3. Bronchodilator from ventilator. 4. Continue G-tube feeding. 5. GI and Cardiology to monitor on case. Abhay Vides M.D. DR: BOSSMAN JOB#: [id number] CC:
[2019-08-09] MEDS ORDERED: Cefepime HCl 1 GM in D5W 55 ML IVPB SCH (21:00)
[2019-08-09] MEDS ORDERED: Sterile Water Irrig 1000ml IRRIG ONE (21:02)
[2019-08-09] MEDS: Cefepime HCl 1 GM in D5W 55 ML IVPB SCH (21:03)
[2019-08-10] VITALS: BP 135/75
[2019-08-10 04:00] VITALS: BP 133/65
[2019-08-10 08:00] VITALS: BP 133/75
[2019-08-10] MEDS: Pantoprazole Inj IVP SCH ×2 (09:07→20:52)
[2019-08-10] MEDS: Zinc Sulfate 220mg cap GT SCH (09:07)
[2019-08-10] MEDS: Ascorbic Acid 500mg tab GT SCH (09:08)
[2019-08-10] MEDS: Heparin 5000 units/ml inj SUBQ SCH ×2 (09:11→20:53)
[2019-08-10] MEDS: Cefepime HCl 1 GM in D5W 55 ML IVPB SCH ×2 (09:12→20:52)
--- NOTE | 2019-08-10 10:22 | Pulmonology Progress Note ---
Assessment/Plan Assessment/Plan IMPRESSION: 1. Urosepsis. 2. Septic shock. Resolved 3. Possible pneumonia. 4. Chronic respiratory failure. currently on IMV DISCUSSION: Continue current medications and care. The patient is on broad-spectrum antibiotics. He is also on IV fluids, which I will continue. Discussed with nursing staff. I will follow carefully. Off pressors Will continue weaning transferred to [facility] May initiate trach collar Bill Jose M.D. Subjective Interval Events: Weaning; now in [facility] Constitutional: Reports: no symptoms HEENT: Repors: no symptoms Respiratory: Reports: no symptoms Cardiovascular: Reports: no symptoms Gastrointestinal/Abdominal: Reports: no symptoms Genitourinary: Reports: no symptoms Allergies: Coded Allergies: PENICILLINS (Verified Allergy, Unknown, 08/05/19) Objective Last 24 Hour Vital Signs Date Time Temp Pulse Resp B/P (MAP) Pulse Ox O2 Delivery O2 Flow Rate FiO2 08/10/19 09:24 90 30 40 40 08/10/19 09:24 100 08/10/19 08:10 89 22 40 08/10/19 08:00 Mechanical Ventilator Mechanical Ventilator 08/10/19 08:00 40 08/10/19 08:00 97.7 90 19 133/75 99 Mechanical Ventilator 40 08/10/19 08:00 97 08/10/19 05:11 83 20 40 08/10/19 04:00 98.8 90 20 133/65 100 Mechanical Ventilator 40 08/10/19 04:00 40 08/10/19 04:00 Mechanical Ventilator Mechanical Ventilator 08/10/19 03:40 93 08/10/19 02:55 80 26 40 08/10/19 01:01 90 18 40 08/10/19 00:00 40 08/10/19 00:00 Mechanical Ventilator Mechanical Ventilator 08/10/19 00:00 98.0 83 20 135/75 100 Mechanical Ventilator 40 08/10/19 00:00 92 08/09/19 23:03 98 22 40 08/09/19 20:52 102 24 40 08/09/19 20:00 98.8 98 20 131/76 100 Mechanical Ventilator 40 08/09/19 20:00 40 08/09/19 20:00 95 08/09/19 20:00 Mechanical Ventilator Mechanical Ventilator 08/09/19 18:50 86 19 40 08/09/19 17:09 84 25 40 08/09/19 16:00 84 08/09/19 16:00 40 08/09/19 16:00 98.0 88 22 132/71 100 Mechanical Ventilator 40 08/09/19 16:00 Mechanical Ventilator Mechanical Ventilator 08/09/19 14:44 97 24 40 08/09/19 12:47 93 32 40 08/09/19 12:00 98.7 97 24 131/62 99 Mechanical Ventilator 40 08/09/19 12:00 Mechanical Ventilator Mechanical Ventilator 08/09/19 12:00 95 08/09/19 12:00 40 08/09/19 11:00 97 25 124/70 98 Mechanical Ventilator 40 08/09/19 10:38 101 32 40 Intake and Output 08/09/19 08/10/19 19:00 07:00 Intake Total 790 ml 655 ml Output Total 380 ml 1700 ml Balance 410 ml -1045 ml Intake Free Water 90 ml IV Total 100 ml 55 ml Tube Feeding 600 ml 600 ml Output Urine Total 380 ml 1700 ml # Bowel Movements 1 2 General Appearance: no acute distress HEENT: normocephalic Respiratory/Chest: normal breath sounds Cardiovascular: normal peripheral pulses Laboratory Tests 08/10/19 04:10: Magnesium Level 1.9 Current Medications Medications (Trade) Dose Ordered Sig/Kandice Route PRN Reason Start Time Stop Time Status Last Admin Dose Admin Acetaminophen (Tylenol) 650 mg Q6H PRN GT Mild Pain/Temp > 100.5 08/09/19 13:30 09/05/19 13:29 Ascorbic Acid (Vitamin C) 500 mg DAILY GT 08/10/19 09:00 09/06/19 08:59 08/10/19 09:08 Cefepime HCl 1 gm/ Dextrose 55 ml @ 110 mls/hr EVERY 12 HOURS IVPB 08/09/19 21:00 08/16/19 20:59 08/10/19 09:12 Chlorhexidine Gluconate (Melva-Hex 2%) 1 applic DAILY@2000 TOPIC 08/09/19 20:00 09/05/19 19:59 08/09/19 20:03 Fluconazole/ Sodium Chloride 100 ml @ 100 mls/hr DAILY IV 08/10/19 09:00 08/15/19 10:59 08/10/19 09:49 Heparin Sodium (Porcine) (Heparin 5000 units/ml) 5,000 units EVERY 12 HOURS SUBQ 08/09/19 21:00 09/05/19 08:59 08/10/19 09:11 Pantoprazole (Protonix) 40 mg EVERY 12 HOURS IVP 08/09/19 21:00 09/05/19 08:59 08/10/19 09:07 Zinc Sulfate (Zinc Sulfate) 220 mg DAILY GT 08/10/19 09:00 08/20/19 08:59 08/10/19 09:07 Bill Jose MD Aug 10, 2019 10:22
--- NOTE | 2019-08-10 11:23 | Surgery Progress Note ---
Surgery Progress Note Subjective Additional Comments leukocytosis improved exam stable dressing being changed labs noted slowly improving Objective Last 24 Hour Vital Signs Date Time Temp Pulse Resp B/P (MAP) Pulse Ox O2 Delivery O2 Flow Rate FiO2 08/10/19 11:12 93 28 40 08/10/19 09:24 90 30 40 40 08/10/19 09:24 100 08/10/19 08:10 89 22 40 08/10/19 08:00 Mechanical Ventilator Mechanical Ventilator 08/10/19 08:00 40 08/10/19 08:00 97.7 90 19 133/75 99 Mechanical Ventilator 40 08/10/19 08:00 97 08/10/19 05:11 83 20 40 08/10/19 04:00 98.8 90 20 133/65 100 Mechanical Ventilator 40 08/10/19 04:00 40 08/10/19 04:00 Mechanical Ventilator Mechanical Ventilator 08/10/19 03:40 93 08/10/19 02:55 80 26 40 08/10/19 01:01 90 18 40 08/10/19 00:00 40 08/10/19 00:00 Mechanical Ventilator Mechanical Ventilator 08/10/19 00:00 98.0 83 20 135/75 100 Mechanical Ventilator 40 08/10/19 00:00 92 08/09/19 23:03 98 22 40 08/09/19 20:52 102 24 40 08/09/19 20:00 98.8 98 20 131/76 100 Mechanical Ventilator 40 08/09/19 20:00 40 08/09/19 20:00 95 08/09/19 20:00 Mechanical Ventilator Mechanical Ventilator 08/09/19 18:50 86 19 40 08/09/19 17:09 84 25 40 08/09/19 16:00 84 08/09/19 16:00 40 08/09/19 16:00 98.0 88 22 132/71 100 Mechanical Ventilator 40 08/09/19 16:00 Mechanical Ventilator Mechanical Ventilator 08/09/19 14:44 97 24 40 08/09/19 12:47 93 32 40 08/09/19 12:00 98.7 97 24 131/62 99 Mechanical Ventilator 40 08/09/19 12:00 Mechanical Ventilator Mechanical Ventilator 08/09/19 12:00 95 08/09/19 12:00 40 I&O Intake and Output 08/09/19 08/10/19 19:00 07:00 Intake Total 790 ml 655 ml Output Total 380 ml 1700 ml Balance 410 ml -1045 ml Intake Free Water 90 ml IV Total 100 ml 55 ml Tube Feeding 600 ml 600 ml Output Urine Total 380 ml 1700 ml # Bowel Movements 1 2 Dressing: saturated Wound: other Drains: other Cardiovascular: RSR Respiratory: decreased breath sounds Abdomen: soft, present bowel sounds, non-distended Extremities: no cyanosis Laboratory Tests Test 08/10/19 04:10 Magnesium Level 1.9 MG/DL (1.8-2.4) Plan Problems: (1) Septic shock Assessment & Plan: Patient with leukocytosis, tachycardia, lactic acidosis, abnormal labs. Currently in ICU for care and management N.p.o. IV fluid resuscitation IV antibiotics Trend labs Thank you with all the recommendations (2) Wound infection Assessment & Plan: Pt presented on admission with multiple pressure injuries , Multiple necrotic wounds R lower extremity. Scattered senile purpuras noted to posterior ,R and L lateral sides of neck under collar of trach and inferior to tracheostomy. Scattered petechiae noted to bilat upper ext, Talib and lateral aspects of chest abd and back . Both upper extremities are edematous and weeping large amounts of serous exudate. Cat.2 Skin tears noted to Lateral R elbow ,R forearm . Numerous dry scabs noted to L forearm. Large Purple bruise noted to upper and mid abdomen. Incontinence associated dermatitis noted to bilat groin, scrotum,Perianal and both ischial regions- erythema with scattered satellite lesions noted.Large serous blister noted to talib/medial upper L thigh oozing small amt serous exudate.(L)5.5cm x (W)4.5cm Full thickness pressure injury with biofilm noted to R scapula. Edges are macerated with surrounding petechia. Small amt non-odorous serous exudate noted. (L)1cm x (W)1cm. Full thickness lumbar spine. Base of wound is 90%necrotic, surrounding wound bed erythematous and moist. Small amt serosanguineous exudate noted.(L)8.5cm x ( W)4.5cm. Full thickness pressure injury Upper R gluteus(L)2.9cm x (W)2.3cm. Base of wound 80% necrotic 20% viable. Edges are macerated. Erythema without induration periwound. Full thickness pressure injury Upper L gluteus. Baser of wound 100% necrotic with erythematous borders(L)3.2cm x (W)3cm.Periwound without erythema or induration. R lower ext dusky in colour. Distal RLE cool to touch. Multiple ulcerations noted. Full thickness lateral R knee. Base of wound 100% viable. Small amt sanguineous exudate noted. No odor noted. (L)4cmx (W)2.3cm. Surrounding petechia noted. Full thickness ulcer noted to talib /lateral R tibia. Base of wound is 90% soft necrosis 10% fibrinous slough,erythematous borders. Small amt seropurulent exudate noted. Mild odor noted. (L)24cm x (W)9.5cm. Dry necrotic ulcer medial /distal R tibia. (L)0.8cm x (W)0.5cm. Medial R malleolus necrotic with fluctuance.(L)2.5cm x (W)2cm. Large soft necrotic ulcer dorso/lateral R foot with erythematous borders.(L) 11.4cm x (W)6.5cm. Second necrotic wound noted talib/distal R foot Base of wound fluctuant(L) 4.4cm x (W)6.5cm. R Achilles ulcer is 100% necrotic with macerated borders.(L)4.2cm x (W)1cm. Soft necrosis noted R heel with marginal erythema along edges(L)2cm x (W)2cm. Second ulcer medial R heel 100% necrotic with fluctuance.(L)1.5cm x (W)1cm . Necrotic ulcer distal /lateral R foot /Lateral R5th metatarsal.Base of wound is fluctuant. Periwound skin colour dusky.(L)5.6cm x (W)2cm R Hallux necrotic and fluctuant(L)2.9cm x (W)5cm. All 5 metatarsals R foot are mottled and cool to touch. Tx.Plan: Cleanse Wound R scapula with Saline. Apply Therahoney. Apply Cavilon Periwound. Cover with Optifoam drsg. Change every 3 days and prn. Cleanse wound Lumbar Spine with Saline. Apply TheraHoney. Apply Cavilon Skin Barrier periwound. Cover with Optifoam drsg every 3 days and prn. Cleanse wounds R and L upper buttocks with Saline. Apply Therahoney. Apply Cavilon Skin Barrier periwound. Cover each wound with Optifoam drsg. Change every 3 days and prn. Cleanse wound talib R tibia with Saline. Cover with Xeroform. Apply ABD Pad and wrap with Kerlix Daily and prn. Swab All Necrotic Wounds R lower ext/R Foot with Betadine. Cover wounds with ABD pads and wrap with Kerlix Daily and prn. Apply Moisture Barrier Paste to to groin . Scrotum and Bilat ischial areas with each incontinence care. Apply Optifoam drsg to Blister Upper L thigh. Change every 7 days and prn. Apply Xeroform Gauze to skin tears and dry scabs Both upper ext. Apply ABd pads and wrap both upper ext with Kerlix Daily and prn. Elevate both upper extremities with Pillows. Reposition at least every 2hours or as tolerated. Off-load heels with pillow. APM/KAREN Mattress overlay. (3) Tracheostomy dependent (4) Bilateral pneumonia (5) Sepsis with acute hypoxic respiratory failure (6) Severe protein-calorie malnutrition Assessment & Plan: DAILY ESTIMATED NEEDS: Needs based on Critical care, multiple wounds/ 67kg 22-30 kcals/kg 7707-3114 total kcals 1.25-2.0 g protein/kg 84-134 g total protein 25-30 mL/kg 8861-0339 total fluid mLs NUTRITION DIAGNOSIS: * Increased kcal/prot needs R/T wound healing and sepsis as evidenced by pt admitted w/ multiple advanced wounds, pending eval, elev wbc (19.3), elev LA, febrile w/ Tmax 101.9, hypotensive, on pressor support. * Swallowing difficulty R/T dysphagia, respiratory status as evidenced by trach/vent dep, PEG dep. CURRENT TF: NPO ENTERAL NUTRITION RECOMMENDATIONS: Glucerna 1.5 @ 50ml/hr x 24 hrs to provide 1200ml, 1800kcal, 99g prot, 911ml free water * WHEN HEMODYNAMICALLY STABLE: -> Initiate Glucerna 1.5 @ 20ml/hr x 6hrs -> Advance 10ml q 4-6 hrs as tolerated to goal rate -> HOB over 30 degrees/ water flush per MD * WITHOUT HEMODYNAMIC STABILITY: -> Rec trophic feeding of Glucerna 1.5 @ 10-15ml/hr x 24 hrs ADDITIONAL RECOMMENDATIONS: * Per SNF: HT=66" FM=232bnt (wt from Jul 26, 2019) * Monitor HD stability: on pressor support at this time * Monitor lytes, replete as needed * Wound healing: add Vit C 500mg QD, ZnSO4 220mg QD x 10 days : W/ TF order, add Roger 1pkt BID : f/up with WC eval * NISS w/ TF initiation: h/o Jesus Robert Aug 10, 2019 11:23
[2019-08-10 12:00] VITALS: BP 139/74
[2019-08-10 16:00] VITALS: BP 137/81
[2019-08-10] MEDS ORDERED: NS 275ml ONE (16:21)
[2019-08-10 20:00] VITALS: BP 125/74
[2019-08-10] MEDS: Dyna-Hex 2% Top Sol 2oz TOPIC SCH (20:52)
--- NOTE | 2019-08-10 22:45 | Progress Note ---
DATE: 08/10/2019 SUBJECTIVE: This is an elderly male, nonverbal, bedbound, on ventilator and tolerating weaning protocols. OBJECTIVE: VITAL SIGNS: Blood pressure 139/74, pulse 94. No fever. CHEST: Bilateral few scattered wheezing and crackles. CARDIOVASCULAR: Regular rhythm. ABDOMEN: Soft. Positive bowel sounds. EXTREMITIES: CCE. NEUROLOGICAL: Nonverbal, bedbound. LABORATORY DATA: White count yesterday 12,000. Chemistry panel is improving. ASSESSMENT: 1. Sepsis. 2. Aspiration pneumonia. 3. Dysphagia. 4. Chronic respiratory failure. 5. Encephalopathy. PLAN: Continue fluconazole. Continue Protonix, Lasix. Consider eval. Abhay Vides M.D. DR: JEFF JOB#: [id number] CC:
[2019-08-11] VITALS: BP 119/65
--- NOTE | 2019-08-11 01:45 | Progress Note ---
DATE: 08/10/2019 CARDIOLOGY PROGRESS NOTE SUBJECTIVE: The patient's blood pressure remains stable. Monitored sinus rhythm. Off pressors for several days now. Weaning efforts continued since yesterday. No respiratory distress. OBJECTIVE: VITAL SIGNS: Blood pressure 125/74, pulse 94, respirations 19, and temperature 99.1. LUNGS: Few rhonchi. HEART: Regular rhythm and rate. Normal S1, S2. ABDOMEN: Soft. EXTREMITIES: Trace edema. LABORATORY DATA: White count 12 and hemoglobin 9. Potassium 4.6, BUN 31, and creatinine 0.7. Magnesium today 1.9. IMPRESSION: 1. Respiratory failure. 2. 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 3. Hypomagnesemia, corrected. 4. Protein-calorie malnutrition, severe. PLAN: 1. Respiratory hygiene. 2. Antimicrobials. 3. Periodic diuresis. 4. Ventilator support. 5. Weaning efforts. 6. Trend natriuretic peptide assay. Rahul Govea M.D. DR: NATALIO JOB#: [id number] CC: [place]
[2019-08-11 04:00] VITALS: BP 118/66
[2019-08-11 06:41] LABS: HEMATOCRIT 26.4 % (42.0-52.0); HEMOGLOBIN 8.6 G/DL (14.2-18.0); MEAN CORPUSCULAR VOLUME 87 FL (80-99); PLATELET COUNT 236 K/UL (150-450); RED BLOOD COUNT 3.05 M/UL (4.70-6.10); RED CELL DISTRIBUTION WIDTH 16.3 % (11.6-14.8); WHITE BLOOD COUNT 14.3 K/UL (4.8-10.8)
[2019-08-11 07:13] LABS: ALANINE AMINOTRANSFERASE 54 U/L (12-78); ALBUMIN 0.8 G/DL (3.4-5.0); ALBUMIN/GLOBULIN RATIO 0.2 (1.0-2.7); ALKALINE PHOSPHATASE 85 U/L (46-116); ANION GAP 7 mmol/L (5-15); ASPARTATE AMINO TRANSFERASE 37 U/L (15-37); BILIRUBIN,TOTAL 0.4 MG/DL (0.2-1.0); BLOOD UREA NITROGEN 25 mg/dL (7-18); CALCIUM 6.7 MG/DL (8.5-10.1); CARBON DIOXIDE 25 MMOL/L (21-32); CHLORIDE 113 MMOL/L (98-107); CREATININE 0.5 MG/DL (0.55-1.30); POTASSIUM 3.5 MMOL/L (3.5-5.1); SODIUM 145 MMOL/L (136-145)
[2019-08-11 08:00] VITALS: BP 135/72
--- NOTE | 2019-08-11 08:17 | Pulmonology Progress Note ---
Assessment/Plan Assessment/Plan IMPRESSION: 1. Urosepsis. 2. Septic shock. Resolved 3. Possible pneumonia. 4. Chronic respiratory failure. currently on IMV DISCUSSION: Continue current medications and care. The patient is on broad-spectrum antibiotics. Will dc IV fluids Discussed with nursing staff. I will follow carefully. Off pressors Will continue weaning transferred to [facility] May initiate trach collar CXR shows pulm edema as well as Left pneumonia Bill Jose M.D. Subjective Interval Events: None new; WBC worse today (14k) Constitutional: Reports: no symptoms HEENT: Repors: no symptoms Respiratory: Reports: no symptoms Cardiovascular: Reports: no symptoms Gastrointestinal/Abdominal: Reports: no symptoms Genitourinary: Reports: no symptoms Allergies: Coded Allergies: PENICILLINS (Verified Allergy, Unknown, 08/05/19) Objective Last 24 Hour Vital Signs Date Time Temp Pulse Resp B/P (MAP) Pulse Ox O2 Delivery O2 Flow Rate FiO2 08/11/19 07:10 86 21 40 08/11/19 05:19 62 17 40 08/11/19 04:00 40 08/11/19 04:00 98.7 63 16 118/66 100 Mechanical Ventilator 40 08/11/19 04:00 Mechanical Ventilator Mechanical Ventilator 08/11/19 04:00 90 08/11/19 02:33 80 18 40 08/11/19 00:45 85 21 40 08/11/19 00:00 92 08/11/19 00:00 Mechanical Ventilator Mechanical Ventilator 08/11/19 00:00 40 08/11/19 00:00 98.2 95 18 119/65 100 Mechanical Ventilator 40 08/10/19 23:10 90 20 40 08/10/19 20:40 87 19 40 08/10/19 20:00 40 08/10/19 20:00 Mechanical Ventilator Mechanical Ventilator 08/10/19 20:00 99.1 94 19 125/74 95 Mechanical Ventilator 40 08/10/19 20:00 96 08/10/19 19:05 90 21 40 08/10/19 17:00 91 22 40 08/10/19 16:00 98.4 94 19 137/81 100 Mechanical Ventilator 40 08/10/19 16:00 87 08/10/19 16:00 40 08/10/19 16:00 Mechanical Ventilator Mechanical Ventilator 08/10/19 14:41 94 17 40 08/10/19 13:31 90 28 40 08/10/19 12:00 98.1 94 19 139/74 100 Mechanical Ventilator 40 08/10/19 12:00 Mechanical Ventilator Mechanical Ventilator 08/10/19 12:00 40 08/10/19 12:00 92 08/10/19 11:12 93 28 40 08/10/19 09:24 90 30 40 40 08/10/19 09:24 100 Intake and Output 08/10/19 08/11/19 19:00 07:00 Intake Total 255 ml 805 ml Output Total 1100 ml Balance -845 ml 805 ml Intake Free Water 200 ml IV Total 155 ml 55 ml Tube Feeding 100 ml 550 ml Output Urine Total 1100 ml # Bowel Movements 3 2 General Appearance: no acute distress HEENT: normocephalic Respiratory/Chest: chest wall non-tender, lungs clear Cardiovascular: normal peripheral pulses Abdomen: normal bowel sounds Laboratory Tests 08/11/19 05:15: White Blood Count 14.3H, Red Blood Count 3.05L, Hemoglobin 8.6L, Hematocrit 26.4L, Mean Corpuscular Volume 87, Mean Corpuscular Hemoglobin 28.2, Mean Corpuscular Hemoglobin Concent 32.6, Red Cell Distribution Width 16.3H, Platelet Count 236, Mean Platelet Volume 5.7L, Neutrophils (%) (Auto) , Lymphocytes (%) (Auto) , Monocytes (%) (Auto) , Eosinophils (%) (Auto) , Basophils (%) (Auto) , Neutrophils % (Manual) [Pending], Lymphocytes % (Manual) [Pending], Platelet Estimate [Pending], Platelet Morphology [Pending], Sodium Level 145, Potassium Level 3.5, Chloride Level 113H, Carbon Dioxide Level 25, Anion Gap 7, Blood Urea Nitrogen 25H, Creatinine 0.5L, Estimat Glomerular Filtration Rate , Glucose Level 103, Calcium Level 6.7L, Magnesium Level 1.6L, Total Bilirubin 0.4, Aspartate Amino Transf (AST/SGOT) 37, Alanine Aminotransferase (ALT/SGPT) 54, Alkaline Phosphatase 85, Pro-B-Type Natriuretic Peptide > 34847J, Total Protein 4.1L, Albumin 0.8L, Globulin 3.3, Albumin/ Globulin Ratio 0.2L Current Medications Medications (Trade) Dose Ordered Sig/Kandice Route PRN Reason Start Time Stop Time Status Last Admin Dose Admin Acetaminophen (Tylenol) 650 mg Q6H PRN GT Mild Pain/Temp > 100.5 08/09/19 13:30 09/05/19 13:29 Ascorbic Acid (Vitamin C) 500 mg DAILY GT 08/10/19 09:00 09/06/19 08:59 08/10/19 09:08 Cefepime HCl 1 gm/ Dextrose 55 ml @ 110 mls/hr EVERY 12 HOURS IVPB 08/09/19 21:00 08/16/19 20:59 08/10/19 20:52 Chlorhexidine Gluconate (Melva-Hex 2%) 1 applic DAILY@2000 TOPIC 08/09/19 20:00 09/05/19 19:59 08/10/19 20:52 Fluconazole/ Sodium Chloride 100 ml @ 100 mls/hr DAILY IV 08/10/19 09:00 08/15/19 10:59 08/10/19 09:49 Heparin Sodium (Porcine) (Heparin 5000 units/ml) 5,000 units EVERY 12 HOURS SUBQ 08/09/19 21:00 09/05/19 08:59 08/10/19 20:53 Pantoprazole (Protonix) 40 mg EVERY 12 HOURS IVP 08/09/19 21:00 09/05/19 08:59 08/10/19 20:52 Zinc Sulfate (Zinc Sulfate) 220 mg DAILY GT 08/10/19 09:00 08/20/19 08:59 08/10/19 09:07 Bill Jose MD Aug 11, 2019 08:17
[2019-08-11] MEDS: Pantoprazole Inj IVP SCH ×2 (09:16→20:12)
[2019-08-11] MEDS: Zinc Sulfate 220mg cap GT SCH (09:16)
[2019-08-11] MEDS: Ascorbic Acid 500mg tab GT SCH (09:16)
[2019-08-11] MEDS: Cefepime HCl 1 GM in D5W 55 ML IVPB SCH ×2 (09:26→20:13)
[2019-08-11] MEDS: Heparin 5000 units/ml inj SUBQ SCH ×2 (09:27→20:14)
[2019-08-11] MEDS ORDERED: NS 275ml ONE (09:57)
[2019-08-11] MEDS ORDERED: D5W 275ml ONE (09:57)
[2019-08-11] MEDS ORDERED: Tubing IV Secondary IV ONE ×2 (09:57→09:59)
--- NOTE | 2019-08-11 11:17 | Infectious Diseases Prog Note ---
Assessment/Plan Assessment/Plan A; 1. Fungal Urinary tract infection. 2. H. influenza sepsis 3. Pseudomonas pneumonia. 4. CVA. 5. Respiratory failure, status post tracheostomy. 6. 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 Anemia 9. Protein calori malnutrition 10. Penicillin allergy PLAN: 1. Continue Fluconazole & Cefepime Subjective ROS Limited/Unobtainable: Yes Constitutional: Denies: fever Allergies: Coded Allergies: PENICILLINS (Verified Allergy, Unknown, 08/05/19) Objective Vital Signs Last 24 Hour Vital Signs Date Time Temp Pulse Resp B/P (MAP) Pulse Ox O2 Delivery O2 Flow Rate FiO2 08/11/19 10:29 100 08/11/19 10:25 110 30 40 08/11/19 08:42 80 22 40 40 08/11/19 07:48 86 08/11/19 07:10 86 21 40 08/11/19 05:19 62 17 40 08/11/19 04:00 40 08/11/19 04:00 98.7 63 16 118/66 100 Mechanical Ventilator 40 08/11/19 04:00 Mechanical Ventilator Mechanical Ventilator 08/11/19 04:00 90 08/11/19 02:33 80 18 40 08/11/19 00:45 85 21 40 08/11/19 00:00 92 08/11/19 00:00 Mechanical Ventilator Mechanical Ventilator 08/11/19 00:00 40 08/11/19 00:00 98.2 95 18 119/65 100 Mechanical Ventilator 40 08/10/19 23:10 90 20 40 08/10/19 20:40 87 19 40 08/10/19 20:00 40 08/10/19 20:00 Mechanical Ventilator Mechanical Ventilator 08/10/19 20:00 99.1 94 19 125/74 95 Mechanical Ventilator 40 08/10/19 20:00 96 08/10/19 19:05 90 21 40 08/10/19 17:00 91 22 40 08/10/19 16:00 98.4 94 19 137/81 100 Mechanical Ventilator 40 08/10/19 16:00 87 08/10/19 16:00 40 08/10/19 16:00 Mechanical Ventilator Mechanical Ventilator 08/10/19 14:41 94 17 40 08/10/19 13:31 90 28 40 08/10/19 12:00 98.1 94 19 139/74 100 Mechanical Ventilator 40 08/10/19 12:00 Mechanical Ventilator Mechanical Ventilator 08/10/19 12:00 40 08/10/19 12:00 92 Height (Feet): 6 Height (Inches): 1.00 Weight (Pounds): 150 General Appearance: no acute distress HEENT: mucous membranes moist, status post trach Respiratory/Chest: lungs clear, other - on ventilator Cardiovascular: normal rate, other - R femoral line Abdomen: soft, non tender, other - GT feeding Extremities: other - R hand edema Skin: ulcers Neurologic/Psychiatric: unresponsiveness Laboratory Tests Test 08/11/19 05:15 White Blood Count 14.3 K/UL (4.8-10.8) H Red Blood Count 3.05 M/UL (4.70-6.10) L Hemoglobin 8.6 G/DL (14.2-18.0) L Hematocrit 26.4 % (42.0-52.0) L Mean Corpuscular Volume 87 FL (80-99) Mean Corpuscular Hemoglobin 28.2 PG (27.0-31.0) Mean Corpuscular Hemoglobin Concent 32.6 G/DL (32.0-36.0) Red Cell Distribution Width 16.3 % (11.6-14.8) H Platelet Count 236 K/UL (150-450) Mean Platelet Volume 5.7 FL (6.5-10.1) L Neutrophils (%) (Auto) % (45.0-75.0) Lymphocytes (%) (Auto) % (20.0-45.0) Monocytes (%) (Auto) % (1.0-10.0) Eosinophils (%) (Auto) % (0.0-3.0) Basophils (%) (Auto) % (0.0-2.0) Differential Total Cells Counted 100 Neutrophils % (Manual) 89 % (45-75) H Lymphocytes % (Manual) 5 % (20-45) L Monocytes % (Manual) 6 % (1-10) Eosinophils % (Manual) 0 % (0-3) Basophils % (Manual) 0 % (0-2) Band Neutrophils 0 % (0-8) Platelet Estimate Adequate Platelet Morphology Normal Anisocytosis 1+ Sodium Level 145 MMOL/L (136-145) Potassium Level 3.5 MMOL/L (3.5-5.1) Chloride Level 113 MMOL/L (98-107) H Carbon Dioxide Level 25 MMOL/L (21-32) Anion Gap 7 mmol/L (5-15) Blood Urea Nitrogen 25 mg/dL (7-18) H Creatinine 0.5 MG/DL (0.55-1.30) L Estimat Glomerular Filtration Rate mL/min (>60) Glucose Level 103 MG/DL (74-106) Calcium Level 6.7 MG/DL (8.5-10.1) L Magnesium Level 1.6 MG/DL (1.8-2.4) L Total Bilirubin 0.4 MG/DL (0.2-1.0) Aspartate Amino Transf (AST/SGOT) 37 U/L (15-37) Alanine Aminotransferase (ALT/SGPT) 54 U/L (12-78) Alkaline Phosphatase 85 U/L (46-116) Pro-B-Type Natriuretic Peptide > 50088 pg/mL (0-125) H Total Protein 4.1 G/DL (6.4-8.2) L Albumin 0.8 G/DL (3.4-5.0) L Globulin 3.3 g/dL Albumin/Globulin Ratio 0.2 (1.0-2.7) L Current Medications Medications (Trade) Dose Ordered Sig/Kandice Route PRN Reason Start Time Stop Time Status Last Admin Dose Admin Acetaminophen (Tylenol) 650 mg Q6H PRN GT Mild Pain/Temp > 100.5 08/09/19 13:30 09/05/19 13:29 Ascorbic Acid (Vitamin C) 500 mg DAILY GT 08/10/19 09:00 09/06/19 08:59 08/11/19 09:16 Cefepime HCl 1 gm/ Dextrose 55 ml @ 110 mls/hr EVERY 12 HOURS IVPB 08/09/19 21:00 08/16/19 20:59 08/11/19 09:26 Chlorhexidine Gluconate (Melva-Hex 2%) 1 applic DAILY@2000 TOPIC 08/09/19 20:00 09/05/19 19:59 08/10/19 20:52 Fluconazole/ Sodium Chloride 100 ml @ 100 mls/hr DAILY IV 08/10/19 09:00 08/15/19 10:59 08/11/19 09:26 Heparin Sodium (Porcine) (Heparin 5000 units/ml) 5,000 units EVERY 12 HOURS SUBQ 08/09/19 21:00 09/05/19 08:59 08/11/19 09:27 Pantoprazole (Protonix) 40 mg EVERY 12 HOURS IVP 08/09/19 21:00 09/05/19 08:59 08/11/19 09:16 Zinc Sulfate (Zinc Sulfate) 220 mg DAILY GT 08/10/19 09:00 08/20/19 08:59 08/11/19 09:16 Mateo Briseno MD Aug 11, 2019 11:17
[2019-08-11 12:00] VITALS: BP 132/73
--- NOTE | 2019-08-11 13:10 | Surgery Progress Note ---
Surgery Progress Note Subjective Additional Comments stable. no acute events labs noted and improved exam unchanged dressings changed Objective Last 24 Hour Vital Signs Date Time Temp Pulse Resp B/P (MAP) Pulse Ox O2 Delivery O2 Flow Rate FiO2 08/11/19 12:00 Mechanical Ventilator 08/11/19 12:00 40 08/11/19 12:00 98.1 93 20 132/73 99 Mechanical Ventilator 40 08/11/19 10:29 100 08/11/19 10:25 110 30 40 08/11/19 08:42 80 22 40 40 08/11/19 08:00 98.1 95 19 135/72 100 Mechanical Ventilator 40 08/11/19 08:00 Mechanical Ventilator 08/11/19 08:00 40 08/11/19 07:48 86 08/11/19 07:10 86 21 40 08/11/19 05:19 62 17 40 08/11/19 04:00 40 08/11/19 04:00 98.7 63 16 118/66 100 Mechanical Ventilator 40 08/11/19 04:00 Mechanical Ventilator Mechanical Ventilator 08/11/19 04:00 90 08/11/19 02:33 80 18 40 08/11/19 00:45 85 21 40 08/11/19 00:00 92 08/11/19 00:00 Mechanical Ventilator Mechanical Ventilator 08/11/19 00:00 40 08/11/19 00:00 98.2 95 18 119/65 100 Mechanical Ventilator 40 08/10/19 23:10 90 20 40 08/10/19 20:40 87 19 40 08/10/19 20:00 40 08/10/19 20:00 Mechanical Ventilator Mechanical Ventilator 08/10/19 20:00 99.1 94 19 125/74 95 Mechanical Ventilator 40 08/10/19 20:00 96 08/10/19 19:05 90 21 40 08/10/19 17:00 91 22 40 08/10/19 16:00 98.4 94 19 137/81 100 Mechanical Ventilator 40 08/10/19 16:00 87 08/10/19 16:00 40 08/10/19 16:00 Mechanical Ventilator Mechanical Ventilator 08/10/19 14:41 94 17 40 08/10/19 13:31 90 28 40 I&O Intake and Output 08/10/19 08/11/19 19:00 07:00 Intake Total 255 ml 855 ml Output Total 1100 ml Balance -845 ml 855 ml Intake Free Water 200 ml IV Total 155 ml 55 ml Tube Feeding 100 ml 600 ml Output Urine Total 1100 ml # Bowel Movements 3 2 Dressing: saturated Wound: other Drains: other Cardiovascular: RSR Respiratory: decreased breath sounds Abdomen: soft, present bowel sounds, non-distended Extremities: no cyanosis Laboratory Tests Test 08/11/19 05:15 White Blood Count 14.3 K/UL (4.8-10.8) H Red Blood Count 3.05 M/UL (4.70-6.10) L Hemoglobin 8.6 G/DL (14.2-18.0) L Hematocrit 26.4 % (42.0-52.0) L Mean Corpuscular Volume 87 FL (80-99) Mean Corpuscular Hemoglobin 28.2 PG (27.0-31.0) Mean Corpuscular Hemoglobin Concent 32.6 G/DL (32.0-36.0) Red Cell Distribution Width 16.3 % (11.6-14.8) H Platelet Count 236 K/UL (150-450) Mean Platelet Volume 5.7 FL (6.5-10.1) L Neutrophils (%) (Auto) % (45.0-75.0) Lymphocytes (%) (Auto) % (20.0-45.0) Monocytes (%) (Auto) % (1.0-10.0) Eosinophils (%) (Auto) % (0.0-3.0) Basophils (%) (Auto) % (0.0-2.0) Differential Total Cells Counted 100 Neutrophils % (Manual) 89 % (45-75) H Lymphocytes % (Manual) 5 % (20-45) L Monocytes % (Manual) 6 % (1-10) Eosinophils % (Manual) 0 % (0-3) Basophils % (Manual) 0 % (0-2) Band Neutrophils 0 % (0-8) Platelet Estimate Adequate Platelet Morphology Normal Anisocytosis 1+ Sodium Level 145 MMOL/L (136-145) Potassium Level 3.5 MMOL/L (3.5-5.1) Chloride Level 113 MMOL/L (98-107) H Carbon Dioxide Level 25 MMOL/L (21-32) Anion Gap 7 mmol/L (5-15) Blood Urea Nitrogen 25 mg/dL (7-18) H Creatinine 0.5 MG/DL (0.55-1.30) L Estimat Glomerular Filtration Rate mL/min (>60) Glucose Level 103 MG/DL (74-106) Calcium Level 6.7 MG/DL (8.5-10.1) L Magnesium Level 1.6 MG/DL (1.8-2.4) L Total Bilirubin 0.4 MG/DL (0.2-1.0) Aspartate Amino Transf (AST/SGOT) 37 U/L (15-37) Alanine Aminotransferase (ALT/SGPT) 54 U/L (12-78) Alkaline Phosphatase 85 U/L (46-116) Pro-B-Type Natriuretic Peptide > 01801 pg/mL (0-125) H Total Protein 4.1 G/DL (6.4-8.2) L Albumin 0.8 G/DL (3.4-5.0) L Globulin 3.3 g/dL Albumin/Globulin Ratio 0.2 (1.0-2.7) L Plan Problems: (1) Septic shock Assessment & Plan: Patient with leukocytosis, tachycardia, lactic acidosis, abnormal labs. Currently in ICU for care and management N.p.o. IV fluid resuscitation IV antibiotics Trend labs Thank you with all the recommendations (2) Wound infection Assessment & Plan: Pt presented on admission with multiple pressure injuries , Multiple necrotic wounds R lower extremity. Scattered senile purpuras noted to posterior ,R and L lateral sides of neck under collar of trach and inferior to tracheostomy. Scattered petechiae noted to bilat upper ext, Talib and lateral aspects of chest abd and back . Both upper extremities are edematous and weeping large amounts of serous exudate. Cat.2 Skin tears noted to Lateral R elbow ,R forearm . Numerous dry scabs noted to L forearm. Large Purple bruise noted to upper and mid abdomen. Incontinence associated dermatitis noted to bilat groin, scrotum,Perianal and both ischial regions- erythema with scattered satellite lesions noted.Large serous blister noted to talib/medial upper L thigh oozing small amt serous exudate.(L)5.5cm x (W)4.5cm Full thickness pressure injury with biofilm noted to R scapula. Edges are macerated with surrounding petechia. Small amt non-odorous serous exudate noted. (L)1cm x (W)1cm. Full thickness lumbar spine. Base of wound is 90%necrotic, surrounding wound bed erythematous and moist. Small amt serosanguineous exudate noted.(L)8.5cm x ( W)4.5cm. Full thickness pressure injury Upper R gluteus(L)2.9cm x (W)2.3cm. Base of wound 80% necrotic 20% viable. Edges are macerated. Erythema without induration periwound. Full thickness pressure injury Upper L gluteus. Baser of wound 100% necrotic with erythematous borders(L)3.2cm x (W)3cm.Periwound without erythema or induration. R lower ext dusky in colour. Distal RLE cool to touch. Multiple ulcerations noted. Full thickness lateral R knee. Base of wound 100% viable. Small amt sanguineous exudate noted. No odor noted. (L)4cmx (W)2.3cm. Surrounding petechia noted. Full thickness ulcer noted to talib /lateral R tibia. Base of wound is 90% soft necrosis 10% fibrinous slough,erythematous borders. Small amt seropurulent exudate noted. Mild odor noted. (L)24cm x (W)9.5cm. Dry necrotic ulcer medial /distal R tibia. (L)0.8cm x (W)0.5cm. Medial R malleolus necrotic with fluctuance.(L)2.5cm x (W)2cm. Large soft necrotic ulcer dorso/lateral R foot with erythematous borders.(L) 11.4cm x (W)6.5cm. Second necrotic wound noted talib/distal R foot Base of wound fluctuant(L) 4.4cm x (W)6.5cm. R Achilles ulcer is 100% necrotic with macerated borders.(L)4.2cm x (W)1cm. Soft necrosis noted R heel with marginal erythema along edges(L)2cm x (W)2cm. Second ulcer medial R heel 100% necrotic with fluctuance.(L)1.5cm x (W)1cm . Necrotic ulcer distal /lateral R foot /Lateral R5th metatarsal.Base of wound is fluctuant. Periwound skin colour dusky.(L)5.6cm x (W)2cm R Hallux necrotic and fluctuant(L)2.9cm x (W)5cm. All 5 metatarsals R foot are mottled and cool to touch. Tx.Plan: Cleanse Wound R scapula with Saline. Apply Therahoney. Apply Cavilon Periwound. Cover with Optifoam drsg. Change every 3 days and prn. Cleanse wound Lumbar Spine with Saline. Apply TheraHoney. Apply Cavilon Skin Barrier periwound. Cover with Optifoam drsg every 3 days and prn. Cleanse wounds R and L upper buttocks with Saline. Apply Therahoney. Apply Cavilon Skin Barrier periwound. Cover each wound with Optifoam drsg. Change every 3 days and prn. Cleanse wound talib R tibia with Saline. Cover with Xeroform. Apply ABD Pad and wrap with Kerlix Daily and prn. Swab All Necrotic Wounds R lower ext/R Foot with Betadine. Cover wounds with ABD pads and wrap with Kerlix Daily and prn. Apply Moisture Barrier Paste to to groin . Scrotum and Bilat ischial areas with each incontinence care. Apply Optifoam drsg to Blister Upper L thigh. Change every 7 days and prn. Apply Xeroform Gauze to skin tears and dry scabs Both upper ext. Apply ABd pads and wrap both upper ext with Kerlix Daily and prn. Elevate both upper extremities with Pillows. Reposition at least every 2hours or as tolerated. Off-load heels with pillow. APM/KAREN Mattress overlay. (3) Tracheostomy dependent (4) Bilateral pneumonia (5) Sepsis with acute hypoxic respiratory failure (6) Severe protein-calorie malnutrition Assessment & Plan: DAILY ESTIMATED NEEDS: Needs based on Critical care, multiple wounds/ 67kg 22-30 kcals/kg 2253-7619 total kcals 1.25-2.0 g protein/kg 84-134 g total protein 25-30 mL/kg 3004-4728 total fluid mLs NUTRITION DIAGNOSIS: * Increased kcal/prot needs R/T wound healing and sepsis as evidenced by pt admitted w/ multiple advanced wounds, pending eval, elev wbc (19.3), elev LA, febrile w/ Tmax 101.9, hypotensive, on pressor support. * Swallowing difficulty R/T dysphagia, respiratory status as evidenced by trach/vent dep, PEG dep. CURRENT TF: NPO ENTERAL NUTRITION RECOMMENDATIONS: Glucerna 1.5 @ 50ml/hr x 24 hrs to provide 1200ml, 1800kcal, 99g prot, 911ml free water * WHEN HEMODYNAMICALLY STABLE: -> Initiate Glucerna 1.5 @ 20ml/hr x 6hrs -> Advance 10ml q 4-6 hrs as tolerated to goal rate -> HOB over 30 degrees/ water flush per MD * WITHOUT HEMODYNAMIC STABILITY: -> Rec trophic feeding of Glucerna 1.5 @ 10-15ml/hr x 24 hrs ADDITIONAL RECOMMENDATIONS: * Per SNF: HT=66" QT=052ijm (wt from Jul 26, 2019) * Monitor HD stability: on pressor support at this time * Monitor lytes, replete as needed * Wound healing: add Vit C 500mg QD, ZnSO4 220mg QD x 10 days : W/ TF order, add Roger 1pkt BID : f/up with WC eval * NISS w/ TF initiation: h/o Jesus Robert Aug 11, 2019 13:10
[2019-08-11 16:00] VITALS: BP 133/97
[2019-08-11 20:00] VITALS: BP 131/79
[2019-08-11] MEDS: Dyna-Hex 2% Top Sol 2oz TOPIC SCH (20:12)
--- NOTE | 2019-08-11 22:15 | Progress Note ---
DATE: 08/11/2019 CARDIOLOGY PROGRESS NOTE SUBJECTIVE: The patient remains in the step-down unit. Mechanical ventilator is required. Monitored rhythm is sinus. He is on 40% FiO2. OBJECTIVE: VITAL SIGNS: Blood pressure of 132/73, pulse 92, respirations 20, no fevers. HEENT: Thin secretions. LUNGS: Coarse breath sounds. CARDIAC: Regular rhythm and rate. Normal S1, S2. ABDOMEN: Soft, nontender. EXTREMITIES: Trace edema. LABORATORY DATA: White count 14, hemoglobin 8.6. Magnesium 1.6. Potassium 3.5, BUN 25, creatinine 0.5, and calcium 6.7 with an albumin of 0.8. Pro-natriuretic peptide over 35,000. IMPRESSION: 1. Remains with serious condition and guarded prognosis. 2. Respiratory failure. 3. Recovered shock due to sepsis. 4. 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 5. Severe protein-calorie malnutrition. 6. Acute renal failure, resolving. 7. Mild dehydration. 8. Hypomagnesemia. 9. Borderline hypokalemia. 10. Anemia. 11. Leukocytosis. 12. Healthcare-acquired pneumonia. 13. Urinary tract infection. PLAN: 1. Antimicrobials. 2. Respiratory hygiene. 3. Weaning efforts. 4. IV magnesium. 5. Potassium per feeding tube. 6. Diuresis. 7. Avoid additional fluid hydration. Rahul Govea M.D. DR: ELVIS JOB#: [id number] CC: [place]
[2019-08-12] VITALS: BP 107/55
[2019-08-12 04:00] VITALS: BP 100/59
[2019-08-12 05:00] LABS: HEMATOCRIT 24.4 % (42.0-52.0); HEMOGLOBIN 8.1 G/DL (14.2-18.0); MEAN CORPUSCULAR VOLUME 87 FL (80-99); PLATELET COUNT 236 K/UL (150-450); RED CELL DISTRIBUTION WIDTH 16.9 % (11.6-14.8); WHITE BLOOD COUNT 13.4 K/UL (4.8-10.8)
[2019-08-12 05:28] LABS: ALANINE AMINOTRANSFERASE 51 U/L (12-78); ALBUMIN/GLOBULIN RATIO 0.3 (1.0-2.7); ALKALINE PHOSPHATASE 81 U/L (46-116); ANION GAP 6 mmol/L (5-15); ASPARTATE AMINO TRANSFERASE 32 U/L (15-37); BILIRUBIN,TOTAL 0.3 MG/DL (0.2-1.0); BLOOD UREA NITROGEN 27 mg/dL (7-18); CALCIUM 7.1 MG/DL (8.5-10.1); CARBON DIOXIDE 27 MMOL/L (21-32); CHLORIDE 111 MMOL/L (98-107); CREATININE 0.6 MG/DL (0.55-1.30); POTASSIUM 3.8 MMOL/L (3.5-5.1); SODIUM 144 MMOL/L (136-145)
--- NOTE | 2019-08-12 07:39 | Pulmonology Progress Note ---
Assessment/Plan Assessment/Plan IMPRESSION: 1. Urosepsis. Has candiduria 2. Septic shock. Resolved 3. Pseudomonas pneumonia. 4. Chronic respiratory failure. currently on IMV DISCUSSION: Continue current medications and care. The patient is on broad-spectrum antibiotics per ID (Cefipime and Diflucan) Off IV fluids Discussed with nursing staff. I will follow carefully. Off pressors Will continue weaning May initiate trach collar CXR shows pulm edema as well as Left pneumonia Bill Jose M.D. Subjective Interval Events: None new; on weaning per RT Constitutional: Reports: no symptoms HEENT: Repors: no symptoms Respiratory: Reports: no symptoms Cardiovascular: Reports: no symptoms Gastrointestinal/Abdominal: Reports: no symptoms Genitourinary: Reports: no symptoms Allergies: Coded Allergies: PENICILLINS (Verified Allergy, Unknown, 08/05/19) Objective Last 24 Hour Vital Signs Date Time Temp Pulse Resp B/P (MAP) Pulse Ox O2 Delivery O2 Flow Rate FiO2 08/12/19 05:30 87 18 40 08/12/19 04:00 40 08/12/19 04:00 84 08/12/19 04:00 Mechanical Ventilator 08/12/19 04:00 97.7 93 18 100/59 97 Mechanical Ventilator 40 08/12/19 03:05 97 19 40 08/12/19 01:28 88 17 40 08/12/19 00:00 91 08/12/19 00:00 40 08/12/19 00:00 97.5 98 21 107/55 98 Mechanical Ventilator 40 08/12/19 00:00 Mechanical Ventilator 08/11/19 23:02 95 24 40 08/11/19 21:09 66 20 40 08/11/19 20:00 97.5 97 23 131/79 99 Mechanical Ventilator 40 08/11/19 20:00 40 08/11/19 20:00 Mechanical Ventilator 08/11/19 20:00 96 08/11/19 19:12 96 21 40 08/11/19 17:22 86 19 40 08/11/19 16:00 40 08/11/19 16:00 97.9 95 26 133/97 96 Mechanical Ventilator 40 08/11/19 16:00 Mechanical Ventilator 08/11/19 16:00 97 08/11/19 15:55 96 24 40 08/11/19 13:44 98 21 40 08/11/19 12:06 91 08/11/19 12:00 Mechanical Ventilator 08/11/19 12:00 40 08/11/19 12:00 98.1 93 20 132/73 99 Mechanical Ventilator 40 08/11/19 10:29 100 08/11/19 10:25 110 30 40 08/11/19 08:42 80 22 40 40 08/11/19 08:00 98.1 95 19 135/72 100 Mechanical Ventilator 40 08/11/19 08:00 Mechanical Ventilator 08/11/19 08:00 40 08/11/19 07:48 86 Intake and Output 08/11/19 08/12/19 19:00 07:00 Intake Total 835 ml 975 ml Output Total 825 ml 2000 ml Balance 10 ml -1025 ml Intake Free Water 80 ml 120 ml IV Total 155 ml 255 ml Tube Feeding 600 ml 600 ml Output Urine Total 825 ml 2000 ml # Bowel Movements 1 2 General Appearance: no acute distress HEENT: normocephalic, status post trach Respiratory/Chest: chest wall non-tender, lungs clear Cardiovascular: normal peripheral pulses, normal rate Abdomen: normal bowel sounds Laboratory Tests 08/12/19 03:05: White Blood Count 13.4H, Red Blood Count 2.80L, Hemoglobin 8.1L, Hematocrit 24.4L, Mean Corpuscular Volume 87, Mean Corpuscular Hemoglobin 28.8, Mean Corpuscular Hemoglobin Concent 33.1, Red Cell Distribution Width 16.9H, Platelet Count 236, Mean Platelet Volume 6.2L, Neutrophils (%) (Auto) , Lymphocytes (%) (Auto) , Monocytes (%) (Auto) , Eosinophils (%) (Auto) , Basophils (%) (Auto) , Sodium Level 144, Potassium Level 3.8, Chloride Level 111H, Carbon Dioxide Level 27, Anion Gap 6, Blood Urea Nitrogen 27H, Creatinine 0.6, Estimat Glomerular Filtration Rate , Glucose Level 99, Calcium Level 7.1L, Total Bilirubin 0.3, Aspartate Amino Transf (AST/SGOT) 32, Alanine Aminotransferase (ALT/SGPT) 51, Alkaline Phosphatase 81, Total Protein 4.3L, Albumin 1.0L, Globulin 3.3, Albumin/Globulin Ratio 0.3L Current Medications Medications (Trade) Dose Ordered Sig/Kandice Route PRN Reason Start Time Stop Time Status Last Admin Dose Admin Acetaminophen (Tylenol) 650 mg Q6H PRN GT Mild Pain/Temp > 100.5 08/09/19 13:30 09/05/19 13:29 Ascorbic Acid (Vitamin C) 500 mg DAILY GT 08/10/19 09:00 09/06/19 08:59 08/11/19 09:16 Cefepime HCl 1 gm/ Dextrose 55 ml @ 110 mls/hr EVERY 12 HOURS IVPB 08/09/19 21:00 08/16/19 20:59 08/11/19 20:13 Chlorhexidine Gluconate (Melva-Hex 2%) 1 applic DAILY@2000 TOPIC 08/09/19 20:00 09/05/19 19:59 08/11/19 20:12 Fluconazole/ Sodium Chloride 100 ml @ 100 mls/hr DAILY IV 08/10/19 09:00 08/15/19 10:59 08/11/19 09:26 Heparin Sodium (Porcine) (Heparin 5000 units/ml) 5,000 units EVERY 12 HOURS SUBQ 08/09/19 21:00 09/05/19 08:59 08/11/19 20:14 Pantoprazole (Protonix) 40 mg EVERY 12 HOURS IVP 08/09/19 21:00 09/05/19 08:59 08/11/19 20:12 Zinc Sulfate (Zinc Sulfate) 220 mg DAILY GT 08/10/19 09:00 08/20/19 08:59 08/11/19 09:16 Bill Jose MD Aug 12, 2019 07:39
[2019-08-12 08:00] VITALS: BP 118/63
[2019-08-12] MEDS: Ascorbic Acid 500mg tab GT SCH (08:28)
[2019-08-12] MEDS: Zinc Sulfate 220mg cap GT SCH (08:28)
[2019-08-12] MEDS: Pantoprazole Inj IVP SCH ×2 (08:28→21:12)
[2019-08-12] MEDS: Cefepime HCl 1 GM in D5W 55 ML IVPB SCH ×2 (08:28→21:12)
[2019-08-12] MEDS: Heparin 5000 units/ml inj SUBQ SCH ×2 (08:29→21:14)
--- NOTE | 2019-08-12 10:49 | Surgery Progress Note ---
Surgery Progress Note Subjective Additional Comments no acute events labs noted exam stable Objective Last 24 Hour Vital Signs Date Time Temp Pulse Resp B/P (MAP) Pulse Ox O2 Delivery O2 Flow Rate FiO2 08/12/19 08:00 40 08/12/19 08:00 98.1 93 22 118/63 100 Mechanical Ventilator 40 08/12/19 08:00 Mechanical Ventilator 08/12/19 07:50 84 08/12/19 07:09 97 21 40 08/12/19 05:30 87 18 40 08/12/19 04:00 40 08/12/19 04:00 84 08/12/19 04:00 Mechanical Ventilator 08/12/19 04:00 97.7 93 18 100/59 97 Mechanical Ventilator 40 08/12/19 03:05 97 19 40 08/12/19 01:28 88 17 40 08/12/19 00:00 91 08/12/19 00:00 40 08/12/19 00:00 97.5 98 21 107/55 98 Mechanical Ventilator 40 08/12/19 00:00 Mechanical Ventilator 08/11/19 23:02 95 24 40 08/11/19 21:09 66 20 40 08/11/19 20:00 97.5 97 23 131/79 99 Mechanical Ventilator 40 08/11/19 20:00 40 08/11/19 20:00 Mechanical Ventilator 08/11/19 20:00 96 08/11/19 19:12 96 21 40 08/11/19 17:22 86 19 40 08/11/19 16:00 40 08/11/19 16:00 97.9 95 26 133/97 96 Mechanical Ventilator 40 08/11/19 16:00 Mechanical Ventilator 08/11/19 16:00 97 08/11/19 15:55 96 24 40 08/11/19 13:44 98 21 40 08/11/19 12:06 91 08/11/19 12:00 Mechanical Ventilator 08/11/19 12:00 40 08/11/19 12:00 98.1 93 20 132/73 99 Mechanical Ventilator 40 I&O Intake and Output 08/11/19 08/12/19 19:00 07:00 Intake Total 835 ml 975 ml Output Total 825 ml 2000 ml Balance 10 ml -1025 ml Intake Free Water 80 ml 120 ml IV Total 155 ml 255 ml Tube Feeding 600 ml 600 ml Output Urine Total 825 ml 2000 ml # Bowel Movements 1 2 Dressing: saturated Wound: other Drains: other Cardiovascular: RSR Respiratory: decreased breath sounds Abdomen: soft, present bowel sounds, non-distended Extremities: no cyanosis, other Laboratory Tests Test 08/12/19 03:05 White Blood Count 13.4 K/UL (4.8-10.8) H Red Blood Count 2.80 M/UL (4.70-6.10) L Hemoglobin 8.1 G/DL (14.2-18.0) L Hematocrit 24.4 % (42.0-52.0) L Mean Corpuscular Volume 87 FL (80-99) Mean Corpuscular Hemoglobin 28.8 PG (27.0-31.0) Mean Corpuscular Hemoglobin Concent 33.1 G/DL (32.0-36.0) Red Cell Distribution Width 16.9 % (11.6-14.8) H Platelet Count 236 K/UL (150-450) Mean Platelet Volume 6.2 FL (6.5-10.1) L Neutrophils (%) (Auto) % (45.0-75.0) Lymphocytes (%) (Auto) % (20.0-45.0) Monocytes (%) (Auto) % (1.0-10.0) Eosinophils (%) (Auto) % (0.0-3.0) Basophils (%) (Auto) % (0.0-2.0) Sodium Level 144 MMOL/L (136-145) Potassium Level 3.8 MMOL/L (3.5-5.1) Chloride Level 111 MMOL/L (98-107) H Carbon Dioxide Level 27 MMOL/L (21-32) Anion Gap 6 mmol/L (5-15) Blood Urea Nitrogen 27 mg/dL (7-18) H Creatinine 0.6 MG/DL (0.55-1.30) Estimat Glomerular Filtration Rate mL/min (>60) Glucose Level 99 MG/DL (74-106) Calcium Level 7.1 MG/DL (8.5-10.1) L Total Bilirubin 0.3 MG/DL (0.2-1.0) Aspartate Amino Transf (AST/SGOT) 32 U/L (15-37) Alanine Aminotransferase (ALT/SGPT) 51 U/L (12-78) Alkaline Phosphatase 81 U/L (46-116) Total Protein 4.3 G/DL (6.4-8.2) L Albumin 1.0 G/DL (3.4-5.0) L Globulin 3.3 g/dL Albumin/Globulin Ratio 0.3 (1.0-2.7) L Plan Problems: (1) Septic shock Assessment & Plan: Patient with leukocytosis, tachycardia, lactic acidosis, abnormal labs. - improved and trending down Currently in [facility] for care and management feeds IV fluids IV antibiotics Trend labs Thank you with all the recommendations (2) Wound infection Assessment & Plan: Pt presented on admission with multiple pressure injuries , Multiple necrotic wounds R lower extremity. Scattered senile purpuras noted to posterior ,R and L lateral sides of neck under collar of trach and inferior to tracheostomy. Scattered petechiae noted to bilat upper ext, Talib and lateral aspects of chest abd and back . Both upper extremities are edematous and weeping large amounts of serous exudate. Cat.2 Skin tears noted to Lateral R elbow ,R forearm . Numerous dry scabs noted to L forearm. Large Purple bruise noted to upper and mid abdomen. Incontinence associated dermatitis noted to bilat groin, scrotum,Perianal and both ischial regions- erythema with scattered satellite lesions noted.Large serous blister noted to talib/medial upper L thigh oozing small amt serous exudate.(L)5.5cm x (W)4.5cm Full thickness pressure injury with biofilm noted to R scapula. Edges are macerated with surrounding petechia. Small amt non-odorous serous exudate noted. (L)1cm x (W)1cm. Full thickness lumbar spine. Base of wound is 90%necrotic, surrounding wound bed erythematous and moist. Small amt serosanguineous exudate noted.(L)8.5cm x ( W)4.5cm. Full thickness pressure injury Upper R gluteus(L)2.9cm x (W)2.3cm. Base of wound 80% necrotic 20% viable. Edges are macerated. Erythema without induration periwound. Full thickness pressure injury Upper L gluteus. Baser of wound 100% necrotic with erythematous borders(L)3.2cm x (W)3cm.Periwound without erythema or induration. R lower ext dusky in colour. Distal RLE cool to touch. Multiple ulcerations noted. Full thickness lateral R knee. Base of wound 100% viable. Small amt sanguineous exudate noted. No odor noted. (L)4cmx (W)2.3cm. Surrounding petechia noted. Full thickness ulcer noted to talib /lateral R tibia. Base of wound is 90% soft necrosis 10% fibrinous slough,erythematous borders. Small amt seropurulent exudate noted. Mild odor noted. (L)24cm x (W)9.5cm. Dry necrotic ulcer medial /distal R tibia. (L)0.8cm x (W)0.5cm. Medial R malleolus necrotic with fluctuance.(L)2.5cm x (W)2cm. Large soft necrotic ulcer dorso/lateral R foot with erythematous borders.(L) 11.4cm x (W)6.5cm. Second necrotic wound noted talib/distal R foot Base of wound fluctuant(L) 4.4cm x (W)6.5cm. R Achilles ulcer is 100% necrotic with macerated borders.(L)4.2cm x (W)1cm. Soft necrosis noted R heel with marginal erythema along edges(L)2cm x (W)2cm. Second ulcer medial R heel 100% necrotic with fluctuance.(L)1.5cm x (W)1cm . Necrotic ulcer distal /lateral R foot /Lateral R5th metatarsal.Base of wound is fluctuant. Periwound skin colour dusky.(L)5.6cm x (W)2cm R Hallux necrotic and fluctuant(L)2.9cm x (W)5cm. All 5 metatarsals R foot are mottled and cool to touch. Tx.Plan: Cleanse Wound R scapula with Saline. Apply Therahoney. Apply Cavilon Periwound. Cover with Optifoam drsg. Change every 3 days and prn. Cleanse wound Lumbar Spine with Saline. Apply TheraHoney. Apply Cavilon Skin Barrier periwound. Cover with Optifoam drsg every 3 days and prn. Cleanse wounds R and L upper buttocks with Saline. Apply Therahoney. Apply Cavilon Skin Barrier periwound. Cover each wound with Optifoam drsg. Change every 3 days and prn. Cleanse wound talib R tibia with Saline. Cover with Xeroform. Apply ABD Pad and wrap with Kerlix Daily and prn. Swab All Necrotic Wounds R lower ext/R Foot with Betadine. Cover wounds with ABD pads and wrap with Kerlix Daily and prn. Apply Moisture Barrier Paste to to groin . Scrotum and Bilat ischial areas with each incontinence care. Apply Optifoam drsg to Blister Upper L thigh. Change every 7 days and prn. Apply Xeroform Gauze to skin tears and dry scabs Both upper ext. Apply ABd pads and wrap both upper ext with Kerlix Daily and prn. Elevate both upper extremities with Pillows. Reposition at least every 2hours or as tolerated. Off-load heels with pillow. APM/KAREN Mattress overlay. (3) Tracheostomy dependent (4) Bilateral pneumonia (5) Sepsis with acute hypoxic respiratory failure (6) Severe protein-calorie malnutrition Assessment & Plan: DAILY ESTIMATED NEEDS: Needs based on Critical care, multiple wounds/ 67kg 22-30 kcals/kg 7567-8626 total kcals 1.25-2.0 g protein/kg 84-134 g total protein 25-30 mL/kg 0203-7586 total fluid mLs NUTRITION DIAGNOSIS: * Increased kcal/prot needs R/T wound healing and sepsis as evidenced by pt admitted w/ multiple advanced wounds, pending eval, elev wbc (19.3), elev LA, febrile w/ Tmax 101.9, hypotensive, on pressor support. * Swallowing difficulty R/T dysphagia, respiratory status as evidenced by trach/vent dep, PEG dep. CURRENT TF: NPO ENTERAL NUTRITION RECOMMENDATIONS: Glucerna 1.5 @ 50ml/hr x 24 hrs to provide 1200ml, 1800kcal, 99g prot, 911ml free water * WHEN HEMODYNAMICALLY STABLE: -> Initiate Glucerna 1.5 @ 20ml/hr x 6hrs -> Advance 10ml q 4-6 hrs as tolerated to goal rate -> HOB over 30 degrees/ water flush per MD * WITHOUT HEMODYNAMIC STABILITY: -> Rec trophic feeding of Glucerna 1.5 @ 10-15ml/hr x 24 hrs ADDITIONAL RECOMMENDATIONS: * Per SNF: HT=66" HF=467tdi (wt from Jul 26, 2019) * Monitor HD stability: on pressor support at this time * Monitor lytes, replete as needed * Wound healing: add Vit C 500mg QD, ZnSO4 220mg QD x 10 days : W/ TF order, add Roger 1pkt BID : f/up with WC eval * NISS w/ TF initiation: h/o Jesus Robert Aug 12, 2019 10:49
--- NOTE | 2019-08-12 10:53 | Cardiology Report ---
APPROVED REPORT EXAM: Two-dimensional and M-mode echocardiogram with Doppler and color Doppler. INDICATION Tachycardia M-Mode DIMENSIONS IVSd0.9 (0.7-1.1cm)Left Atrium (MM)3.9 (1.6-4.0cm) LVDd4.5 (3.5-5.6cm)Aortic Root4.0 (2.0-3.7cm) PWd0.8 (0.7-1.1cm)Aortic Cusp Exc.2.0 (1.5-2.0cm) IVSs0.8 cm LVDs3.6 (2.5-4.0cm) PWs0.9 cm Normal left ventricular chamber size. Global left ventricular hypokinesis . Left ventricular ejection fraction estimated to be 30-35 %. No evidence of left ventricular hypertrophy. Pleural effusion present . All other cardiac chamber sizes are within normal limits. Focal aortic valve sclerosis with adequate cusp excursion. Thickened mitral valve leaflets with normal excursion. Mitral annulus and aortic root calcification. Normal pulmonic valve structure. Normal tricuspid valve structure. Subcostal views not obtainable . A color flow and spectral Doppler study was performed and revealed: Mild aortic insufficiency. Moderate mitral regurgitation. Mitral inflow velocities indicates possible pseudo normalization pattern implying moderately elevated left atrial pressure (Grade II ) Moderate tricuspid regurgitation. Tricuspid systolic velocities suggests peak right ventricular systolic pressure of 43 mmHg,consistent with mild pulmonary hypertension.
--- NOTE | 2019-08-12 11:28 | Infectious Diseases Prog Note ---
Assessment/Plan Assessment/Plan antibiotics : cefepime, fluconazole A 1. hemophilus influenza sepsis 2. pseudomonas pneumonia 3. fungal UTI 4. leucocytosis improving 5. respiratory failure 6. CVA P 1. continue cefepime 3 more days 2. continue 2 more days fluconazole 3. will follow up cultures Subjective ROS Limited/Unobtainable: Yes Allergies: Coded Allergies: PENICILLINS (Verified Allergy, Unknown, 08/05/19) Objective Vital Signs Last 24 Hour Vital Signs Date Time Temp Pulse Resp B/P (MAP) Pulse Ox O2 Delivery O2 Flow Rate FiO2 08/12/19 08:00 40 08/12/19 08:00 98.1 93 22 118/63 100 Mechanical Ventilator 40 08/12/19 08:00 Mechanical Ventilator 08/12/19 07:50 84 08/12/19 07:09 97 21 40 08/12/19 05:30 87 18 40 08/12/19 04:00 40 08/12/19 04:00 84 08/12/19 04:00 Mechanical Ventilator 08/12/19 04:00 97.7 93 18 100/59 97 Mechanical Ventilator 40 08/12/19 03:05 97 19 40 08/12/19 01:28 88 17 40 08/12/19 00:00 91 08/12/19 00:00 40 08/12/19 00:00 97.5 98 21 107/55 98 Mechanical Ventilator 40 08/12/19 00:00 Mechanical Ventilator 08/11/19 23:02 95 24 40 08/11/19 21:09 66 20 40 08/11/19 20:00 97.5 97 23 131/79 99 Mechanical Ventilator 40 08/11/19 20:00 40 08/11/19 20:00 Mechanical Ventilator 08/11/19 20:00 96 08/11/19 19:12 96 21 40 08/11/19 17:22 86 19 40 08/11/19 16:00 40 08/11/19 16:00 97.9 95 26 133/97 96 Mechanical Ventilator 40 08/11/19 16:00 Mechanical Ventilator 08/11/19 16:00 97 08/11/19 15:55 96 24 40 08/11/19 13:44 98 21 40 08/11/19 12:06 91 08/11/19 12:00 Mechanical Ventilator 08/11/19 12:00 40 08/11/19 12:00 98.1 93 20 132/73 99 Mechanical Ventilator 40 Height (Feet): 6 Height (Inches): 1.00 Weight (Pounds): 160 HEENT: status post trach Respiratory/Chest: lungs clear Cardiovascular: normal rate, regular rhythm, no gallop/murmur Abdomen: soft, non tender, other - GT, scrotal edema Laboratory Tests Test 08/12/19 03:05 White Blood Count 13.4 K/UL (4.8-10.8) H Red Blood Count 2.80 M/UL (4.70-6.10) L Hemoglobin 8.1 G/DL (14.2-18.0) L Hematocrit 24.4 % (42.0-52.0) L Mean Corpuscular Volume 87 FL (80-99) Mean Corpuscular Hemoglobin 28.8 PG (27.0-31.0) Mean Corpuscular Hemoglobin Concent 33.1 G/DL (32.0-36.0) Red Cell Distribution Width 16.9 % (11.6-14.8) H Platelet Count 236 K/UL (150-450) Mean Platelet Volume 6.2 FL (6.5-10.1) L Neutrophils (%) (Auto) % (45.0-75.0) Lymphocytes (%) (Auto) % (20.0-45.0) Monocytes (%) (Auto) % (1.0-10.0) Eosinophils (%) (Auto) % (0.0-3.0) Basophils (%) (Auto) % (0.0-2.0) Sodium Level 144 MMOL/L (136-145) Potassium Level 3.8 MMOL/L (3.5-5.1) Chloride Level 111 MMOL/L (98-107) H Carbon Dioxide Level 27 MMOL/L (21-32) Anion Gap 6 mmol/L (5-15) Blood Urea Nitrogen 27 mg/dL (7-18) H Creatinine 0.6 MG/DL (0.55-1.30) Estimat Glomerular Filtration Rate mL/min (>60) Glucose Level 99 MG/DL (74-106) Calcium Level 7.1 MG/DL (8.5-10.1) L Total Bilirubin 0.3 MG/DL (0.2-1.0) Aspartate Amino Transf (AST/SGOT) 32 U/L (15-37) Alanine Aminotransferase (ALT/SGPT) 51 U/L (12-78) Alkaline Phosphatase 81 U/L (46-116) Total Protein 4.3 G/DL (6.4-8.2) L Albumin 1.0 G/DL (3.4-5.0) L Globulin 3.3 g/dL Albumin/Globulin Ratio 0.3 (1.0-2.7) L Current Medications Medications (Trade) Dose Ordered Sig/Kandice Route PRN Reason Start Time Stop Time Status Last Admin Dose Admin Acetaminophen (Tylenol) 650 mg Q6H PRN GT Mild Pain/Temp > 100.5 08/09/19 13:30 09/05/19 13:29 Ascorbic Acid (Vitamin C) 500 mg DAILY GT 08/10/19 09:00 09/06/19 08:59 08/12/19 08:28 Cefepime HCl 1 gm/ Dextrose 55 ml @ 110 mls/hr EVERY 12 HOURS IVPB 08/09/19 21:00 08/16/19 20:59 08/12/19 08:28 Chlorhexidine Gluconate (Melva-Hex 2%) 1 applic DAILY@2000 TOPIC 08/09/19 20:00 09/05/19 19:59 08/11/19 20:12 Fluconazole/ Sodium Chloride 100 ml @ 100 mls/hr DAILY IV 08/10/19 09:00 08/15/19 10:59 08/12/19 08:28 Heparin Sodium (Porcine) (Heparin 5000 units/ml) 5,000 units EVERY 12 HOURS SUBQ 08/09/19 21:00 09/05/19 08:59 08/12/19 08:29 Pantoprazole (Protonix) 40 mg EVERY 12 HOURS IVP 08/09/19 21:00 09/05/19 08:59 08/12/19 08:28 Zinc Sulfate (Zinc Sulfate) 220 mg DAILY GT 08/10/19 09:00 08/20/19 08:59 08/12/19 08:28 Khoa Peters MD Aug 12, 2019 11:28
[2019-08-12 12:00] VITALS: BP 121/63
[2019-08-12 16:00] VITALS: BP 134/71
[2019-08-12 20:00] VITALS: BP 123/81
[2019-08-12] MEDS: Dyna-Hex 2% Top Sol 2oz TOPIC SCH (21:11)
[2019-08-13] VITALS: BP 125/68
--- NOTE | 2019-08-13 03:15 | Progress Note ---
DATE: 08/12/2019 SUBJECTIVE: This is a elderly male who came from custodial with acute respiratory failure on ventilator. The patient nonverbal, multiple wounds are improving. PHYSICAL EXAMINATION: VITAL SIGNS: Blood pressure yesterday was 100/40, pulse 84, respirations 18, no fever. CHEST: Bilateral few crackles. CARDIOVASCULAR: Regular rhythm. No gallop. No murmur. ABDOMEN: Soft. EXTREMITIES: CCE NEUROLOGICAL: Nonfocal. LABORATORY AND DIAGNOSTIC DATA: Hemoglobin Chemistry panel, potassium 3.5, BUN 25, creatinine 0.5. ASSESSMENT: 1. Septic shock. 2. Dehydration. 3. Chronic respiratory failure. 4. Encephalopathy. PLAN: 1. We will currently continue current treatment. 2. Continue IV antibiotics. 3. Fluconazole, cefepime, heparin for DVT. 4. Morgan evaluation. 5. Continue weaning protocol. Abhay Vides M.D. DR: Wale JOB#: [id number] CC:
--- NOTE | 2019-08-13 03:30 | Progress Note ---
DATE: 08/12/2019 CARDIOLOGY PROGRESS NOTE SUBJECTIVE: The patient remains on trach collar. No respiratory distress. OBJECTIVE: VITAL SIGNS: Blood pressure 100/59, pulse 93, respiratory rate 18, and afebrile. HEENT: Thin trach secretions. LUNGS: Few rales. HEART: Regular rhythm and rate. Normal S1 and S2 with a fourth heart sound. ABDOMEN: Soft. EXTREMITIES: No edema. LABORATORY AND DIAGNOSTIC DATA: White count 13 and hemoglobin 8.1. Potassium 3.8, BUN 27, and creatinine 0.6. Albumin 1. Chest x-ray pending. IMPRESSION: 1. Healthcare-acquired pneumonia. 2. Respiratory failure with trach. 3. 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 4. Hypertensive heart disease. 5. Recovered shock due to sepsis from a urinary tract infection. 6. Recovering acute renal failure due to hypovolemia and dehydration. 7. Corrected hypomagnesemia and hypokalemia. 8. Anemia, multifactorial and tenuous. PLAN: 1. Antimicrobials. 2. Diuresis based on clinical parameters. 3. Respiratory hygiene. 4. Reassess for transfusion. 5. Replace electrolytes as needed. 6. Titrate anti-failure regimen. Rahul Govea M.D. DR: ELIUD JOB#: [id number] CC: [place]
[2019-08-13 04:00] VITALS: BP 141/63
[2019-08-13 05:26] LABS: HEMOGLOBIN 9.1 G/DL (14.2-18.0); MEAN CORPUSCULAR VOLUME 87 FL (80-99); PLATELET COUNT 256 K/UL (150-450); RED BLOOD COUNT 3.21 M/UL (4.70-6.10); RED CELL DISTRIBUTION WIDTH 17.6 % (11.6-14.8); WHITE BLOOD COUNT 12.4 K/UL (4.8-10.8)
[2019-08-13 06:08] LABS: ALANINE AMINOTRANSFERASE 48 U/L (12-78); ALBUMIN 1.1 G/DL (3.4-5.0); ALBUMIN/GLOBULIN RATIO 0.3 (1.0-2.7); ALKALINE PHOSPHATASE 94 U/L (46-116); ANION GAP 9 mmol/L (5-15); ASPARTATE AMINO TRANSFERASE 24 U/L (15-37); BILIRUBIN,TOTAL 0.3 MG/DL (0.2-1.0); BLOOD UREA NITROGEN 28 mg/dL (7-18); CARBON DIOXIDE 25 MMOL/L (21-32); CHLORIDE 108 MMOL/L (98-107); CREATININE 0.7 MG/DL (0.55-1.30); POTASSIUM 3.9 MMOL/L (3.5-5.1); SODIUM 142 MMOL/L (136-145)
[2019-08-13 08:00] VITALS: BP 133/74
--- NOTE | 2019-08-13 08:59 | Diagnostic Imaging Report ---
Indication: Shortness of breath Technique: One view of the chest Comparison: 08/08/2019 Findings: Slightly better inspiration on the current study. Bilateral interstitial and airspace edema, left basilar consolidation and pleural fluid appear unchanged allowing for differences in inspiration. Tracheostomy is again demonstrated. Left neck surgical clips, right sided rib fracture deformities are unchanged Impression: Unchanged, over 5 days, findings as above.
[2019-08-13] MEDS: Pantoprazole Inj IVP SCH ×2 (09:15→20:39)
[2019-08-13] MEDS: Ascorbic Acid 500mg tab GT SCH (09:15)
[2019-08-13] MEDS: Cefepime HCl 1 GM in D5W 55 ML IVPB SCH ×2 (09:15→20:31)
[2019-08-13] MEDS: Zinc Sulfate 220mg cap GT SCH (09:15)
[2019-08-13] MEDS: Heparin 5000 units/ml inj SUBQ SCH ×2 (09:17→20:33)
--- NOTE | 2019-08-13 10:13 | Pulmonology Progress Note ---
Assessment/Plan Assessment/Plan IMPRESSION: 1. Urosepsis. Has candiduria 2. Septic shock. Resolved 3. Pseudomonas pneumonia. 4. Chronic respiratory failure. currently on AC DISCUSSION: Continue current medications and care. The patient is on broad-spectrum antibiotics per ID (Cefipime and Diflucan) Off IV fluids Discussed with nursing staff. I will follow carefully. Off pressors Will continue weaning May initiate trach collar CXR shows pulm edema as well as Left pneumonia Bill Jose M.D. Subjective Interval Events: Doing well'; on AC mode Constitutional: Reports: no symptoms HEENT: Repors: no symptoms Respiratory: Reports: no symptoms Cardiovascular: Reports: no symptoms Gastrointestinal/Abdominal: Reports: no symptoms Allergies: Coded Allergies: PENICILLINS (Verified Allergy, Unknown, 08/05/19) Objective Last 24 Hour Vital Signs Date Time Temp Pulse Resp B/P (MAP) Pulse Ox O2 Delivery O2 Flow Rate FiO2 08/13/19 08:00 40 08/13/19 08:00 91 08/13/19 08:00 97.8 95 20 133/74 100 Mechanical Ventilator 40 08/13/19 08:00 Mechanical Ventilator 08/13/19 07:12 76 17 40 08/13/19 05:00 71 28 40 08/13/19 04:00 97.9 84 19 141/63 100 Mechanical Ventilator 40 08/13/19 04:00 Mechanical Ventilator 08/13/19 04:00 40 08/13/19 04:00 98 08/13/19 03:20 92 21 40 08/13/19 01:12 91 23 40 08/13/19 00:00 91 08/13/19 00:00 40 08/13/19 00:00 Mechanical Ventilator 08/13/19 00:00 98.2 95 24 125/68 100 Mechanical Ventilator 40 08/12/19 23:40 93 23 40 08/12/19 22:13 96 23 40 08/12/19 20:00 98.1 97 24 123/81 100 Mechanical Ventilator 40 08/12/19 20:00 Mechanical Ventilator 08/12/19 20:00 98 08/12/19 20:00 40 08/12/19 19:05 95 20 40 08/12/19 17:18 99 21 40 08/12/19 16:00 98.0 92 17 134/71 100 Mechanical Ventilator 40 08/12/19 16:00 40 08/12/19 16:00 Mechanical Ventilator 08/12/19 15:12 94 08/12/19 14:30 97 25 40 08/12/19 14:00 98 25 40 08/12/19 12:00 98.2 94 19 121/63 100 Mechanical Ventilator 40 08/12/19 12:00 Mechanical Ventilator 08/12/19 12:00 40 08/12/19 11:44 96 08/12/19 11:29 80 22 40 Intake and Output 08/12/19 08/13/19 19:00 07:00 Intake Total 815 ml 605 ml Output Total 450 ml 1400 ml Balance 365 ml -795 ml IV Total 155 ml 55 ml Tube Feeding 600 ml 550 ml Other 60 ml Output Urine Total 450 ml 1400 ml # Bowel Movements 2 2 General Appearance: no acute distress HEENT: status post trach Respiratory/Chest: chest wall non-tender, lungs clear Cardiovascular: normal peripheral pulses, normal rate Abdomen: normal bowel sounds Laboratory Tests 08/13/19 04:00: White Blood Count 12.4H, Red Blood Count 3.21L, Hemoglobin 9.1L, Hematocrit 28.0L, Mean Corpuscular Volume 87, Mean Corpuscular Hemoglobin 28.3, Mean Corpuscular Hemoglobin Concent 32.4, Red Cell Distribution Width 17.6H, Platelet Count 256, Mean Platelet Volume 6.1L, Neutrophils (%) (Auto) , Lymphocytes (%) (Auto) , Monocytes (%) (Auto) , Eosinophils (%) (Auto) , Basophils (%) (Auto) , Sodium Level 142, Potassium Level 3.9, Chloride Level 108H, Carbon Dioxide Level 25, Anion Gap 9, Blood Urea Nitrogen 28H, Creatinine 0.7, Estimat Glomerular Filtration Rate , Glucose Level 113H, Calcium Level 8.0L , Total Bilirubin 0.3, Aspartate Amino Transf (AST/SGOT) 24, Alanine Aminotransferase (ALT/SGPT) 48, Alkaline Phosphatase 94, Total Protein 5.0L, Albumin 1.1L, Globulin 3.9, Albumin/Globulin Ratio 0.3L Current Medications Medications (Trade) Dose Ordered Sig/Kandice Route PRN Reason Start Time Stop Time Status Last Admin Dose Admin Acetaminophen (Tylenol) 650 mg Q6H PRN GT Mild Pain/Temp > 100.5 08/09/19 13:30 09/05/19 13:29 Ascorbic Acid (Vitamin C) 500 mg DAILY GT 08/10/19 09:00 09/06/19 08:59 08/13/19 09:15 Cefepime HCl 1 gm/ Dextrose 55 ml @ 110 mls/hr EVERY 12 HOURS IVPB 08/09/19 21:00 08/16/19 20:59 08/13/19 09:15 Chlorhexidine Gluconate (Melva-Hex 2%) 1 applic DAILY@2000 TOPIC 08/09/19 20:00 09/05/19 19:59 08/12/19 21:11 Fluconazole/ Sodium Chloride 100 ml @ 100 mls/hr DAILY IV 08/10/19 09:00 08/15/19 10:59 08/13/19 09:15 Heparin Sodium (Porcine) (Heparin 5000 units/ml) 5,000 units EVERY 12 HOURS SUBQ 08/09/19 21:00 09/05/19 08:59 08/13/19 09:17 Pantoprazole (Protonix) 40 mg EVERY 12 HOURS IVP 08/09/19 21:00 09/05/19 08:59 08/13/19 09:15 Zinc Sulfate (Zinc Sulfate) 220 mg DAILY GT 08/10/19 09:00 08/20/19 08:59 08/13/19 09:15 Bill Jose MD Aug 13, 2019 10:13
--- NOTE | 2019-08-13 10:55 | Infectious Diseases Prog Note ---
Assessment/Plan Assessment/Plan antibiotics : cefepime, fluconazole A 1. hemophilus influenza sepsis 2. pseudomonas pneumonia 3. fungal UTI 4. leucocytosis improving 5. respiratory failure 6. CVA P 1. continue cefepime 2 more days 2. continue 1 more day fluconazole 3. will follow up cultures Subjective ROS Limited/Unobtainable: Yes Allergies: Coded Allergies: PENICILLINS (Verified Allergy, Unknown, 08/05/19) Objective Vital Signs Last 24 Hour Vital Signs Date Time Temp Pulse Resp B/P (MAP) Pulse Ox O2 Delivery O2 Flow Rate FiO2 08/13/19 09:19 89 19 40 08/13/19 08:00 40 08/13/19 08:00 91 08/13/19 08:00 97.8 95 20 133/74 100 Mechanical Ventilator 40 08/13/19 08:00 Mechanical Ventilator 08/13/19 07:12 76 17 40 08/13/19 05:00 71 28 40 08/13/19 04:00 97.9 84 19 141/63 100 Mechanical Ventilator 40 08/13/19 04:00 Mechanical Ventilator 08/13/19 04:00 40 08/13/19 04:00 98 08/13/19 03:20 92 21 40 08/13/19 01:12 91 23 40 08/13/19 00:00 91 08/13/19 00:00 40 08/13/19 00:00 Mechanical Ventilator 08/13/19 00:00 98.2 95 24 125/68 100 Mechanical Ventilator 40 08/12/19 23:40 93 23 40 08/12/19 22:13 96 23 40 08/12/19 20:00 98.1 97 24 123/81 100 Mechanical Ventilator 40 08/12/19 20:00 Mechanical Ventilator 08/12/19 20:00 98 08/12/19 20:00 40 08/12/19 19:05 95 20 40 08/12/19 17:18 99 21 40 08/12/19 16:00 98.0 92 17 134/71 100 Mechanical Ventilator 40 08/12/19 16:00 40 08/12/19 16:00 Mechanical Ventilator 08/12/19 15:12 94 08/12/19 14:30 97 25 40 08/12/19 14:00 98 25 40 08/12/19 12:00 98.2 94 19 121/63 100 Mechanical Ventilator 40 08/12/19 12:00 Mechanical Ventilator 08/12/19 12:00 40 08/12/19 11:44 96 08/12/19 11:29 80 22 40 Height (Feet): 6 Height (Inches): 1.00 Weight (Pounds): 151 HEENT: status post trach Respiratory/Chest: lungs clear Cardiovascular: normal rate, regular rhythm, no gallop/murmur Abdomen: soft, non tender, other - GT Extremities: no edema Laboratory Tests Test 08/13/19 04:00 White Blood Count 12.4 K/UL (4.8-10.8) H Red Blood Count 3.21 M/UL (4.70-6.10) L Hemoglobin 9.1 G/DL (14.2-18.0) L Hematocrit 28.0 % (42.0-52.0) L Mean Corpuscular Volume 87 FL (80-99) Mean Corpuscular Hemoglobin 28.3 PG (27.0-31.0) Mean Corpuscular Hemoglobin Concent 32.4 G/DL (32.0-36.0) Red Cell Distribution Width 17.6 % (11.6-14.8) H Platelet Count 256 K/UL (150-450) Mean Platelet Volume 6.1 FL (6.5-10.1) L Neutrophils (%) (Auto) % (45.0-75.0) Lymphocytes (%) (Auto) % (20.0-45.0) Monocytes (%) (Auto) % (1.0-10.0) Eosinophils (%) (Auto) % (0.0-3.0) Basophils (%) (Auto) % (0.0-2.0) Sodium Level 142 MMOL/L (136-145) Potassium Level 3.9 MMOL/L (3.5-5.1) Chloride Level 108 MMOL/L (98-107) H Carbon Dioxide Level 25 MMOL/L (21-32) Anion Gap 9 mmol/L (5-15) Blood Urea Nitrogen 28 mg/dL (7-18) H Creatinine 0.7 MG/DL (0.55-1.30) Estimat Glomerular Filtration Rate mL/min (>60) Glucose Level 113 MG/DL (74-106) H Calcium Level 8.0 MG/DL (8.5-10.1) L Total Bilirubin 0.3 MG/DL (0.2-1.0) Aspartate Amino Transf (AST/SGOT) 24 U/L (15-37) Alanine Aminotransferase (ALT/SGPT) 48 U/L (12-78) Alkaline Phosphatase 94 U/L (46-116) Total Protein 5.0 G/DL (6.4-8.2) L Albumin 1.1 G/DL (3.4-5.0) L Globulin 3.9 g/dL Albumin/Globulin Ratio 0.3 (1.0-2.7) L Current Medications Medications (Trade) Dose Ordered Sig/Kandice Route PRN Reason Start Time Stop Time Status Last Admin Dose Admin Acetaminophen (Tylenol) 650 mg Q6H PRN GT Mild Pain/Temp > 100.5 08/09/19 13:30 09/05/19 13:29 Ascorbic Acid (Vitamin C) 500 mg DAILY GT 08/10/19 09:00 09/06/19 08:59 08/13/19 09:15 Cefepime HCl 1 gm/ Dextrose 55 ml @ 110 mls/hr EVERY 12 HOURS IVPB 08/09/19 21:00 08/16/19 20:59 08/13/19 09:15 Chlorhexidine Gluconate (Melva-Hex 2%) 1 applic DAILY@2000 TOPIC 08/09/19 20:00 09/05/19 19:59 08/12/19 21:11 Fluconazole/ Sodium Chloride 100 ml @ 100 mls/hr DAILY IV 08/10/19 09:00 08/15/19 10:59 08/13/19 09:15 Heparin Sodium (Porcine) (Heparin 5000 units/ml) 5,000 units EVERY 12 HOURS SUBQ 08/09/19 21:00 09/05/19 08:59 08/13/19 09:17 Pantoprazole (Protonix) 40 mg EVERY 12 HOURS IVP 08/09/19 21:00 09/05/19 08:59 08/13/19 09:15 Zinc Sulfate (Zinc Sulfate) 220 mg DAILY GT 08/10/19 09:00 08/20/19 08:59 08/13/19 09:15 Khoa Peters MD Aug 13, 2019 10:55
[2019-08-13 12:00] VITALS: BP 149/78
--- NOTE | 2019-08-13 13:00 | Surgery Progress Note ---
Surgery Progress Note Subjective Additional Comments labs noted TF at 50cc/hr SPON 40%/peep5/ ps 8 exam unchanged Objective Last 24 Hour Vital Signs Date Time Temp Pulse Resp B/P (MAP) Pulse Ox O2 Delivery O2 Flow Rate FiO2 08/13/19 12:00 40 08/13/19 12:00 Mechanical Ventilator 08/13/19 12:00 98.1 95 20 149/78 100 Mechanical Ventilator 40 08/13/19 11:53 90 08/13/19 11:28 99 26 40 08/13/19 09:19 89 19 40 08/13/19 08:00 40 08/13/19 08:00 91 08/13/19 08:00 97.8 95 20 133/74 100 Mechanical Ventilator 40 08/13/19 08:00 Mechanical Ventilator 08/13/19 07:12 76 17 40 08/13/19 05:00 71 28 40 08/13/19 04:00 97.9 84 19 141/63 100 Mechanical Ventilator 40 08/13/19 04:00 Mechanical Ventilator 08/13/19 04:00 40 08/13/19 04:00 98 08/13/19 03:20 92 21 40 08/13/19 01:12 91 23 40 08/13/19 00:00 91 08/13/19 00:00 40 08/13/19 00:00 Mechanical Ventilator 08/13/19 00:00 98.2 95 24 125/68 100 Mechanical Ventilator 40 08/12/19 23:40 93 23 40 08/12/19 22:13 96 23 40 08/12/19 20:00 98.1 97 24 123/81 100 Mechanical Ventilator 40 08/12/19 20:00 Mechanical Ventilator 08/12/19 20:00 98 08/12/19 20:00 40 08/12/19 19:05 95 20 40 08/12/19 17:18 99 21 40 08/12/19 16:00 98.0 92 17 134/71 100 Mechanical Ventilator 40 08/12/19 16:00 40 08/12/19 16:00 Mechanical Ventilator 08/12/19 15:12 94 08/12/19 14:30 97 25 40 08/12/19 14:00 98 25 40 I&O Intake and Output 08/12/19 08/13/19 19:00 07:00 Intake Total 815 ml 655 ml Output Total 450 ml 1400 ml Balance 365 ml -745 ml IV Total 155 ml 55 ml Tube Feeding 600 ml 600 ml Other 60 ml Output Urine Total 450 ml 1400 ml # Bowel Movements 2 2 Dressing: saturated Wound: other Drains: other Cardiovascular: RSR Respiratory: decreased breath sounds Abdomen: soft, present bowel sounds, non-distended Extremities: no cyanosis, other Laboratory Tests Test 08/13/19 04:00 White Blood Count 12.4 K/UL (4.8-10.8) H Red Blood Count 3.21 M/UL (4.70-6.10) L Hemoglobin 9.1 G/DL (14.2-18.0) L Hematocrit 28.0 % (42.0-52.0) L Mean Corpuscular Volume 87 FL (80-99) Mean Corpuscular Hemoglobin 28.3 PG (27.0-31.0) Mean Corpuscular Hemoglobin Concent 32.4 G/DL (32.0-36.0) Red Cell Distribution Width 17.6 % (11.6-14.8) H Platelet Count 256 K/UL (150-450) Mean Platelet Volume 6.1 FL (6.5-10.1) L Neutrophils (%) (Auto) % (45.0-75.0) Lymphocytes (%) (Auto) % (20.0-45.0) Monocytes (%) (Auto) % (1.0-10.0) Eosinophils (%) (Auto) % (0.0-3.0) Basophils (%) (Auto) % (0.0-2.0) Sodium Level 142 MMOL/L (136-145) Potassium Level 3.9 MMOL/L (3.5-5.1) Chloride Level 108 MMOL/L (98-107) H Carbon Dioxide Level 25 MMOL/L (21-32) Anion Gap 9 mmol/L (5-15) Blood Urea Nitrogen 28 mg/dL (7-18) H Creatinine 0.7 MG/DL (0.55-1.30) Estimat Glomerular Filtration Rate mL/min (>60) Glucose Level 113 MG/DL (74-106) H Calcium Level 8.0 MG/DL (8.5-10.1) L Total Bilirubin 0.3 MG/DL (0.2-1.0) Aspartate Amino Transf (AST/SGOT) 24 U/L (15-37) Alanine Aminotransferase (ALT/SGPT) 48 U/L (12-78) Alkaline Phosphatase 94 U/L (46-116) Total Protein 5.0 G/DL (6.4-8.2) L Albumin 1.1 G/DL (3.4-5.0) L Globulin 3.9 g/dL Albumin/Globulin Ratio 0.3 (1.0-2.7) L Plan Problems: (1) Septic shock Assessment & Plan: Patient with leukocytosis, tachycardia, lactic acidosis, abnormal labs. - improved and trending down Currently in [facility] for care and management feeds IV fluids IV antibiotics Trend labs Thank you with all the recommendations (2) Wound infection Assessment & Plan: Pt presented on admission with multiple pressure injuries , Multiple necrotic wounds R lower extremity. Scattered senile purpuras noted to posterior ,R and L lateral sides of neck under collar of trach and inferior to tracheostomy. Scattered petechiae noted to bilat upper ext, Talib and lateral aspects of chest abd and back . Both upper extremities are edematous and weeping large amounts of serous exudate. Cat.2 Skin tears noted to Lateral R elbow ,R forearm . Numerous dry scabs noted to L forearm. Large Purple bruise noted to upper and mid abdomen. Incontinence associated dermatitis noted to bilat groin, scrotum,Perianal and both ischial regions- erythema with scattered satellite lesions noted.Large serous blister noted to talib/medial upper L thigh oozing small amt serous exudate.(L)5.5cm x (W)4.5cm Full thickness pressure injury with biofilm noted to R scapula. Edges are macerated with surrounding petechia. Small amt non-odorous serous exudate noted. (L)1cm x (W)1cm. Full thickness lumbar spine. Base of wound is 90%necrotic, surrounding wound bed erythematous and moist. Small amt serosanguineous exudate noted.(L)8.5cm x ( W)4.5cm. Full thickness pressure injury Upper R gluteus(L)2.9cm x (W)2.3cm. Base of wound 80% necrotic 20% viable. Edges are macerated. Erythema without induration periwound. Full thickness pressure injury Upper L gluteus. Baser of wound 100% necrotic with erythematous borders(L)3.2cm x (W)3cm.Periwound without erythema or induration. R lower ext dusky in colour. Distal RLE cool to touch. Multiple ulcerations noted. Full thickness lateral R knee. Base of wound 100% viable. Small amt sanguineous exudate noted. No odor noted. (L)4cmx (W)2.3cm. Surrounding petechia noted. Full thickness ulcer noted to talib /lateral R tibia. Base of wound is 90% soft necrosis 10% fibrinous slough,erythematous borders. Small amt seropurulent exudate noted. Mild odor noted. (L)24cm x (W)9.5cm. Dry necrotic ulcer medial /distal R tibia. (L)0.8cm x (W)0.5cm. Medial R malleolus necrotic with fluctuance.(L)2.5cm x (W)2cm. Large soft necrotic ulcer dorso/lateral R foot with erythematous borders.(L) 11.4cm x (W)6.5cm. Second necrotic wound noted talib/distal R foot Base of wound fluctuant(L) 4.4cm x (W)6.5cm. R Achilles ulcer is 100% necrotic with macerated borders.(L)4.2cm x (W)1cm. Soft necrosis noted R heel with marginal erythema along edges(L)2cm x (W)2cm. Second ulcer medial R heel 100% necrotic with fluctuance.(L)1.5cm x (W)1cm . Necrotic ulcer distal /lateral R foot /Lateral R5th metatarsal.Base of wound is fluctuant. Periwound skin colour dusky.(L)5.6cm x (W)2cm R Hallux necrotic and fluctuant(L)2.9cm x (W)5cm. All 5 metatarsals R foot are mottled and cool to touch. Tx.Plan: Cleanse Wound R scapula with Saline. Apply Therahoney. Apply Cavilon Periwound. Cover with Optifoam drsg. Change every 3 days and prn. Cleanse wound Lumbar Spine with Saline. Apply TheraHoney. Apply Cavilon Skin Barrier periwound. Cover with Optifoam drsg every 3 days and prn. Cleanse wounds R and L upper buttocks with Saline. Apply Therahoney. Apply Cavilon Skin Barrier periwound. Cover each wound with Optifoam drsg. Change every 3 days and prn. Cleanse wound talib R tibia with Saline. Cover with Xeroform. Apply ABD Pad and wrap with Kerlix Daily and prn. Swab All Necrotic Wounds R lower ext/R Foot with Betadine. Cover wounds with ABD pads and wrap with Kerlix Daily and prn. Apply Moisture Barrier Paste to to groin . Scrotum and Bilat ischial areas with each incontinence care. Apply Optifoam drsg to Blister Upper L thigh. Change every 7 days and prn. Apply Xeroform Gauze to skin tears and dry scabs Both upper ext. Apply ABd pads and wrap both upper ext with Kerlix Daily and prn. Elevate both upper extremities with Pillows. Reposition at least every 2hours or as tolerated. Off-load heels with pillow. APM/KAREN Mattress overlay. (3) Tracheostomy dependent (4) Bilateral pneumonia (5) Sepsis with acute hypoxic respiratory failure (6) Severe protein-calorie malnutrition Assessment & Plan: DAILY ESTIMATED NEEDS: Needs based on Critical care, multiple wounds/ 67kg 22-30 kcals/kg 0692-6851 total kcals 1.25-2.0 g protein/kg 84-134 g total protein 25-30 mL/kg 3725-8456 total fluid mLs NUTRITION DIAGNOSIS: * Increased kcal/prot needs R/T wound healing and sepsis as evidenced by pt admitted w/ multiple advanced wounds, pending eval, elev wbc (19.3), elev LA, febrile w/ Tmax 101.9, hypotensive, on pressor support. * Swallowing difficulty R/T dysphagia, respiratory status as evidenced by trach/vent dep, PEG dep. CURRENT TF: NPO ENTERAL NUTRITION RECOMMENDATIONS: Glucerna 1.5 @ 50ml/hr x 24 hrs to provide 1200ml, 1800kcal, 99g prot, 911ml free water * WHEN HEMODYNAMICALLY STABLE: -> Initiate Glucerna 1.5 @ 20ml/hr x 6hrs -> Advance 10ml q 4-6 hrs as tolerated to goal rate -> HOB over 30 degrees/ water flush per MD * WITHOUT HEMODYNAMIC STABILITY: -> Rec trophic feeding of Glucerna 1.5 @ 10-15ml/hr x 24 hrs ADDITIONAL RECOMMENDATIONS: * Per SNF: HT=66" [id number] (wt from Jul 26, 2019) * Monitor HD stability: on pressor support at this time * Monitor lytes, replete as needed * Wound healing: add Vit C 500mg QD, ZnSO4 220mg QD x 10 days : W/ TF order, add Roger 1pkt BID : f/up with WC eval * NISS w/ TF initiation: h/o Jesus Robert Aug 13, 2019 13:00
--- NOTE | 2019-08-13 14:15 | General Progress Note ---
Progress Note Progress Note Bioethiics Committee Asked to follow this 83 year old with brain ca admitted with septic shock and multiple medical problems. It would be appropriate for this patient to be DNR/ DNI given his age and poor prognosis. Attempts to reach relatives have been unsuccessful. Will present to full Committee. Wilber Mar MD Chair, Bioethics Committee Wilber Mar MD Aug 13, 2019 14:15
[2019-08-13 16:00] VITALS: BP 141/75
[2019-08-13] MEDS: Dyna-Hex 2% Top Sol 2oz TOPIC SCH (19:59)
[2019-08-13 20:00] VITALS: BP 112/66
--- NOTE | 2019-08-13 22:45 | Progress Note ---
DATE: 08/13/2019 SUBJECTIVE: This is elderly male, currently nonverbal, bedbound. Looks comfortable. OBJECTIVE: VITAL SIGNS: Blood pressure 149/78, pulse 95, respirations 19, temperature 98.1. HEENT: Eyes are open. NECK: Supple. CHEST: Bilateral few crackles. CARDIOVASCULAR: Regular rhythm. ABDOMEN: Soft. EXTREMITIES: Multiple wounds on both legs. GENITOURINARY: Deferred. LABORATORY DATA: White counts are 13,000, hemoglobin 9.1. Chemistry sodium 142, potassium 3.9, BUN 28, creatinine 0.7. ASSESSMENT: 1. Aspiration pneumonia. 2. Sepsis. 3. Chronic respiratory failure. 4. Multiple decubiti. PLAN: 1. Continue antibiotics. 2. Continue IV fluid. 3. Discharge plan to [place]. Abhay Vides M.D. DR: BOSSMAN JOB#: [id number] CC:
[2019-08-14] VITALS: BP 114/69
--- NOTE | 2019-08-14 02:01 | Progress Note ---
DATE: 08/13/2019 CARDIOLOGY PROGRESS NOTE SUBJECTIVE: The patient was seen by ethics team and felt to have an appropriate indication for DNR. OBJECTIVE: VITAL SIGNS: Blood pressure 112/66, pulse 86, respirations 18, afebrile. HEENT: Thin secretions. CARDIOVASCULAR: Regular rhythm and rate. Normal S1, S2. ABDOMEN: Soft. EXTREMITIES: No edema. LABORATORY DATA: White count 12, hemoglobin 9. Sodium 142, potassium 3.9, bicarbonate 25, BUN 28, creatinine 0.7. Albumin 1.1. IMPRESSION: 1. Recovered shock. 2. Sepsis. 3. Respiratory failure. 4. Paroxysmal sinus tachycardia. 5. Hypertensive heart disease. 6. 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 7. Corrected electrolyte imbalances. 8. Recovering renal failure. PLAN: 1. Antibiotic. 2. Respiratory hygiene. 3. Trach care. 4. DVT prophylaxis. 5. Monitor volume status. 6. Adjust cardiovascular regimen accordingly. Rahul Govea M.D. DR: DEZ JOB#: [id number] CC: [place]
[2019-08-14 04:00] VITALS: BP 123/64
--- NOTE | 2019-08-14 07:54 | Pulmonology Progress Note ---
Assessment/Plan Assessment/Plan IMPRESSION: 1. Urosepsis. Has candiduria 2. Septic shock. Resolved 3. Pseudomonas pneumonia. 4. Chronic respiratory failure. currently on AC DISCUSSION: Continue current medications and care. The patient is on broad-spectrum antibiotics per ID (Cefipime and Diflucan) Off IV fluids Discussed with nursing staff. I will follow carefully. Off pressors Will continue weaning May initiate trach collar CXR shows pulm edema as well as Left pneumonia Bill Jose M.D. Subjective Interval Events: On AC mode; trach site clean Constitutional: Reports: no symptoms HEENT: Repors: no symptoms Respiratory: Reports: no symptoms Cardiovascular: Reports: no symptoms Gastrointestinal/Abdominal: Reports: no symptoms Allergies: Coded Allergies: PENICILLINS (Verified Allergy, Unknown, 08/05/19) Objective Last 24 Hour Vital Signs Date Time Temp Pulse Resp B/P (MAP) Pulse Ox O2 Delivery O2 Flow Rate FiO2 08/14/19 06:47 87 17 40 08/14/19 05:24 88 16 40 08/14/19 04:00 Mechanical Ventilator 08/14/19 04:00 97.7 86 16 123/64 100 Mechanical Ventilator 40 08/14/19 04:00 93 08/14/19 04:00 40 08/14/19 03:01 89 18 40 08/14/19 01:21 77 17 40 08/14/19 00:00 40 08/14/19 00:00 Mechanical Ventilator 08/14/19 00:00 97.8 85 18 114/69 100 Mechanical Ventilator 40 08/14/19 00:00 83 08/13/19 22:35 89 19 40 08/13/19 21:28 85 18 40 08/13/19 20:00 40 08/13/19 20:00 88 08/13/19 20:00 Mechanical Ventilator 08/13/19 20:00 98.5 86 18 112/66 100 Mechanical Ventilator 40 08/13/19 19:11 85 16 40 08/13/19 17:12 89 18 40 08/13/19 16:48 96 08/13/19 16:00 97.8 100 17 141/75 94 Mechanical Ventilator 40 08/13/19 16:00 Mechanical Ventilator 08/13/19 16:00 40 08/13/19 15:18 96 19 40 08/13/19 13:22 90 19 40 08/13/19 12:00 40 08/13/19 12:00 Mechanical Ventilator 08/13/19 12:00 98.1 95 20 149/78 100 Mechanical Ventilator 40 08/13/19 11:53 90 08/13/19 11:28 99 26 40 08/13/19 09:19 89 19 40 08/13/19 08:00 40 08/13/19 08:00 91 08/13/19 08:00 97.8 95 20 133/74 100 Mechanical Ventilator 40 08/13/19 08:00 Mechanical Ventilator Intake and Output 08/13/19 08/14/19 18:59 06:59 Intake Total 895 ml 705 ml Output Total 420 ml 375 ml Balance 475 ml 330 ml Intake Free Water 100 ml 50 ml IV Total 155 ml 55 ml Tube Feeding 600 ml 600 ml Other 40 ml Output Urine Total 420 ml 375 ml # Bowel Movements 2 General Appearance: no acute distress HEENT: normocephalic Respiratory/Chest: chest wall non-tender, lungs clear Cardiovascular: normal peripheral pulses, normal rate Abdomen: normal bowel sounds Current Medications Medications (Trade) Dose Ordered Sig/Kandice Route PRN Reason Start Time Stop Time Status Last Admin Dose Admin Acetaminophen (Tylenol) 650 mg Q6H PRN GT Mild Pain/Temp > 100.5 08/09/19 13:30 09/05/19 13:29 Ascorbic Acid (Vitamin C) 500 mg DAILY GT 08/10/19 09:00 09/06/19 08:59 08/13/19 09:15 Cefepime HCl 1 gm/ Dextrose 55 ml @ 110 mls/hr EVERY 12 HOURS IVPB 08/09/19 21:00 08/16/19 20:59 08/13/19 20:31 Chlorhexidine Gluconate (Melva-Hex 2%) 1 applic DAILY@2000 TOPIC 08/09/19 20:00 09/05/19 19:59 08/13/19 19:59 Fluconazole/ Sodium Chloride 100 ml @ 100 mls/hr DAILY IV 08/10/19 09:00 08/15/19 10:59 08/13/19 09:15 Heparin Sodium (Porcine) (Heparin 5000 units/ml) 5,000 units EVERY 12 HOURS SUBQ 08/09/19 21:00 09/05/19 08:59 08/13/19 20:33 Pantoprazole (Protonix) 40 mg EVERY 12 HOURS IVP 08/09/19 21:00 09/05/19 08:59 08/13/19 20:39 Zinc Sulfate (Zinc Sulfate) 220 mg DAILY GT 08/10/19 09:00 08/20/19 08:59 08/13/19 09:15 Bill Jose MD Aug 14, 2019 07:54
[2019-08-14 08:00] VITALS: BP 127/71
[2019-08-14] MEDS: Zinc Sulfate 220mg cap GT SCH (08:26)
[2019-08-14] MEDS: Pantoprazole Inj IVP SCH ×2 (08:26→20:17)
[2019-08-14] MEDS: Cefepime HCl 1 GM in D5W 55 ML IVPB SCH ×2 (08:26→20:18)
[2019-08-14] MEDS: Ascorbic Acid 500mg tab GT SCH (08:27)
[2019-08-14] MEDS: Heparin 5000 units/ml inj SUBQ SCH ×2 (08:28→20:20)
--- NOTE | 2019-08-14 10:39 | Infectious Diseases Prog Note ---
Assessment/Plan Assessment/Plan antibiotics : cefepime, fluconazole A 1. hemophilus influenza sepsis 2. pseudomonas pneumonia 3. fungal UTI 4. leucocytosis improving 5. respiratory failure 6. CVA P 1. continue cefepime 1 more day 2. d/c fluconazole 3. will follow up cultures Subjective ROS Limited/Unobtainable: Yes Allergies: Coded Allergies: PENICILLINS (Verified Allergy, Unknown, 08/05/19) Objective Vital Signs Last 24 Hour Vital Signs Date Time Temp Pulse Resp B/P (MAP) Pulse Ox O2 Delivery O2 Flow Rate FiO2 08/14/19 09:10 94 17 40 08/14/19 08:00 97.9 84 18 127/71 100 Mechanical Ventilator 40 08/14/19 08:00 40 08/14/19 08:00 Mechanical Ventilator 08/14/19 07:34 90 08/14/19 06:47 87 17 40 08/14/19 05:24 88 16 40 08/14/19 04:00 Mechanical Ventilator 08/14/19 04:00 97.7 86 16 123/64 100 Mechanical Ventilator 40 08/14/19 04:00 93 08/14/19 04:00 40 08/14/19 03:01 89 18 40 08/14/19 01:21 77 17 40 08/14/19 00:00 40 08/14/19 00:00 Mechanical Ventilator 08/14/19 00:00 97.8 85 18 114/69 100 Mechanical Ventilator 40 08/14/19 00:00 83 08/13/19 22:35 89 19 40 08/13/19 21:28 85 18 40 08/13/19 20:00 40 08/13/19 20:00 88 08/13/19 20:00 Mechanical Ventilator 08/13/19 20:00 98.5 86 18 112/66 100 Mechanical Ventilator 40 08/13/19 19:11 85 16 40 08/13/19 17:12 89 18 40 08/13/19 16:48 96 08/13/19 16:00 97.8 100 17 141/75 94 Mechanical Ventilator 40 08/13/19 16:00 Mechanical Ventilator 08/13/19 16:00 40 08/13/19 15:18 96 19 40 08/13/19 13:22 90 19 40 08/13/19 12:00 40 08/13/19 12:00 Mechanical Ventilator 08/13/19 12:00 98.1 95 20 149/78 100 Mechanical Ventilator 40 08/13/19 11:53 90 08/13/19 11:28 99 26 40 Height (Feet): 6 Height (Inches): 1.00 Weight (Pounds): 147 Respiratory/Chest: lungs clear Cardiovascular: normal rate, regular rhythm, no gallop/murmur Abdomen: soft, non tender, other - GT Extremities: no edema Current Medications Medications (Trade) Dose Ordered Sig/Kandice Route PRN Reason Start Time Stop Time Status Last Admin Dose Admin Acetaminophen (Tylenol) 650 mg Q6H PRN GT Mild Pain/Temp > 100.5 08/09/19 13:30 09/05/19 13:29 Ascorbic Acid (Vitamin C) 500 mg DAILY GT 08/10/19 09:00 09/06/19 08:59 08/14/19 08:27 Cefepime HCl 1 gm/ Dextrose 55 ml @ 110 mls/hr EVERY 12 HOURS IVPB 08/09/19 21:00 08/16/19 20:59 08/14/19 08:26 Chlorhexidine Gluconate (Melva-Hex 2%) 1 applic DAILY@2000 TOPIC 08/09/19 20:00 09/05/19 19:59 08/13/19 19:59 Fluconazole/ Sodium Chloride 100 ml @ 100 mls/hr DAILY IV 08/10/19 09:00 08/15/19 10:59 08/14/19 08:25 Heparin Sodium (Porcine) (Heparin 5000 units/ml) 5,000 units EVERY 12 HOURS SUBQ 08/09/19 21:00 09/05/19 08:59 08/14/19 08:28 Pantoprazole (Protonix) 40 mg EVERY 12 HOURS IVP 08/09/19 21:00 09/05/19 08:59 08/14/19 08:26 Zinc Sulfate (Zinc Sulfate) 220 mg DAILY GT 08/10/19 09:00 08/20/19 08:59 08/14/19 08:26 Khoa Peters MD Aug 14, 2019 10:39
[2019-08-14 12:00] VITALS: BP 130/67
[2019-08-14 16:00] VITALS: BP 116/67
--- NOTE | 2019-08-14 16:15 | Progress Note ---
DATE: 08/14/2019 SUBJECTIVE: This is an elderly male came with acute respiratory failure, sepsis, multiple decubiti. The patient is nonverbal on ventilator, opening his eyes. Looks otherwise comfortable. OBJECTIVE: VITAL SIGNS: Blood pressure is 127/71, pulse 84, respirations 18, temperature 97. HEENT: Eyes are open. NECK: Supple. CHEST: Bilateral few crackles. CARDIOVASCULAR: Irregular rhythm, tachycardia. ABDOMEN: Soft. Positive bowel sounds. EXTREMITIES: Leg ulcer both legs. GENITOURINARY: Deferred. LABORATORY DATA: The patient has no labs. ASSESSMENT: 1. Sepsis. 2. Aspiration pneumonia. 3. Fungemia. 4. Chronic respiratory failure. PLAN: 1. Continue fluconazole. 2. Continue cefepime. 3. DVT prophylaxis . 4. Discharge plan to long-term hospital. Abhay Vides M.D. DR: BOSSMAN JOB#: [id number] CC:
--- NOTE | 2019-08-14 17:07 | Surgery Progress Note ---
Surgery Progress Note Subjective Additional Comments no acute events labs noted exam stable d/c planning Objective Last 24 Hour Vital Signs Date Time Temp Pulse Resp B/P (MAP) Pulse Ox O2 Delivery O2 Flow Rate FiO2 08/14/19 16:00 Mechanical Ventilator 08/14/19 16:00 40 08/14/19 16:00 90 08/14/19 16:00 99.4 94 19 116/67 100 Mechanical Ventilator 40 08/14/19 14:52 104 18 40 08/14/19 13:29 95 19 40 08/14/19 12:00 40 08/14/19 12:00 98.6 84 18 130/67 100 Mechanical Ventilator 40 08/14/19 12:00 Mechanical Ventilator 08/14/19 11:30 89 08/14/19 10:47 98 16 40 08/14/19 09:10 94 17 40 08/14/19 08:00 97.9 84 18 127/71 100 Mechanical Ventilator 40 08/14/19 08:00 40 08/14/19 08:00 Mechanical Ventilator 08/14/19 07:34 90 08/14/19 06:47 87 17 40 08/14/19 05:24 88 16 40 08/14/19 04:00 Mechanical Ventilator 08/14/19 04:00 97.7 86 16 123/64 100 Mechanical Ventilator 40 08/14/19 04:00 93 08/14/19 04:00 40 08/14/19 03:01 89 18 40 08/14/19 01:21 77 17 40 08/14/19 00:00 40 08/14/19 00:00 Mechanical Ventilator 08/14/19 00:00 97.8 85 18 114/69 100 Mechanical Ventilator 40 08/14/19 00:00 83 08/13/19 22:35 89 19 40 08/13/19 21:28 85 18 40 08/13/19 20:00 40 08/13/19 20:00 88 08/13/19 20:00 Mechanical Ventilator 08/13/19 20:00 98.5 86 18 112/66 100 Mechanical Ventilator 40 08/13/19 19:11 85 16 40 08/13/19 17:12 89 18 40 I&O Intake and Output 08/13/19 08/14/19 19:00 07:00 Intake Total 895 ml 705 ml Output Total 420 ml 375 ml Balance 475 ml 330 ml Intake Free Water 100 ml 50 ml IV Total 155 ml 55 ml Tube Feeding 600 ml 600 ml Other 40 ml Output Urine Total 420 ml 375 ml # Bowel Movements 2 Dressing: other Wound: other Drains: other Cardiovascular: RSR Respiratory: decreased breath sounds Abdomen: soft, present bowel sounds Extremities: no cyanosis Plan Problems: (1) Septic shock Assessment & Plan: Patient with leukocytosis, tachycardia, lactic acidosis, abnormal labs. - improved and trending down Currently in [facility] for care and management feeds IV fluids IV antibiotics Trend labs Thank you with all the recommendations (2) Wound infection Assessment & Plan: Pt presented on admission with multiple pressure injuries , Multiple necrotic wounds R lower extremity. Scattered senile purpuras noted to posterior ,R and L lateral sides of neck under collar of trach and inferior to tracheostomy. Scattered petechiae noted to bilat upper ext, Talib and lateral aspects of chest abd and back . Both upper extremities are edematous and weeping large amounts of serous exudate. Cat.2 Skin tears noted to Lateral R elbow ,R forearm . Numerous dry scabs noted to L forearm. Large Purple bruise noted to upper and mid abdomen. Incontinence associated dermatitis noted to bilat groin, scrotum,Perianal and both ischial regions- erythema with scattered satellite lesions noted.Large serous blister noted to talib/medial upper L thigh oozing small amt serous exudate.(L)5.5cm x (W)4.5cm Full thickness pressure injury with biofilm noted to R scapula. Edges are macerated with surrounding petechia. Small amt non-odorous serous exudate noted. (L)1cm x (W)1cm. Full thickness lumbar spine. Base of wound is 90%necrotic, surrounding wound bed erythematous and moist. Small amt serosanguineous exudate noted.(L)8.5cm x ( W)4.5cm. Full thickness pressure injury Upper R gluteus(L)2.9cm x (W)2.3cm. Base of wound 80% necrotic 20% viable. Edges are macerated. Erythema without induration periwound. Full thickness pressure injury Upper L gluteus. Baser of wound 100% necrotic with erythematous borders(L)3.2cm x (W)3cm.Periwound without erythema or induration. R lower ext dusky in colour. Distal RLE cool to touch. Multiple ulcerations noted. Full thickness lateral R knee. Base of wound 100% viable. Small amt sanguineous exudate noted. No odor noted. (L)4cmx (W)2.3cm. Surrounding petechia noted. Full thickness ulcer noted to talib /lateral R tibia. Base of wound is 90% soft necrosis 10% fibrinous slough,erythematous borders. Small amt seropurulent exudate noted. Mild odor noted. (L)24cm x (W)9.5cm. Dry necrotic ulcer medial /distal R tibia. (L)0.8cm x (W)0.5cm. Medial R malleolus necrotic with fluctuance.(L)2.5cm x (W)2cm. Large soft necrotic ulcer dorso/lateral R foot with erythematous borders.(L) 11.4cm x (W)6.5cm. Second necrotic wound noted talib/distal R foot Base of wound fluctuant(L) 4.4cm x (W)6.5cm. R Achilles ulcer is 100% necrotic with macerated borders.(L)4.2cm x (W)1cm. Soft necrosis noted R heel with marginal erythema along edges(L)2cm x (W)2cm. Second ulcer medial R heel 100% necrotic with fluctuance.(L)1.5cm x (W)1cm . Necrotic ulcer distal /lateral R foot /Lateral R5th metatarsal.Base of wound is fluctuant. Periwound skin colour dusky.(L)5.6cm x (W)2cm R Hallux necrotic and fluctuant(L)2.9cm x (W)5cm. All 5 metatarsals R foot are mottled and cool to touch. Tx.Plan: Cleanse Wound R scapula with Saline. Apply Therahoney. Apply Cavilon Periwound. Cover with Optifoam drsg. Change every 3 days and prn. Cleanse wound Lumbar Spine with Saline. Apply TheraHoney. Apply Cavilon Skin Barrier periwound. Cover with Optifoam drsg every 3 days and prn. Cleanse wounds R and L upper buttocks with Saline. Apply Therahoney. Apply Cavilon Skin Barrier periwound. Cover each wound with Optifoam drsg. Change every 3 days and prn. Cleanse wound talib R tibia with Saline. Cover with Xeroform. Apply ABD Pad and wrap with Kerlix Daily and prn. Swab All Necrotic Wounds R lower ext/R Foot with Betadine. Cover wounds with ABD pads and wrap with Kerlix Daily and prn. Apply Moisture Barrier Paste to to groin . Scrotum and Bilat ischial areas with each incontinence care. Apply Optifoam drsg to Blister Upper L thigh. Change every 7 days and prn. Apply Xeroform Gauze to skin tears and dry scabs Both upper ext. Apply ABd pads and wrap both upper ext with Kerlix Daily and prn. Elevate both upper extremities with Pillows. Reposition at least every 2hours or as tolerated. Off-load heels with pillow. APM/KAREN Mattress overlay. (3) Tracheostomy dependent (4) Bilateral pneumonia (5) Sepsis with acute hypoxic respiratory failure (6) Severe protein-calorie malnutrition Assessment & Plan: DAILY ESTIMATED NEEDS: Needs based on Critical care, multiple wounds/ 67kg 22-30 kcals/kg 7579-2871 total kcals 1.25-2.0 g protein/kg 84-134 g total protein 25-30 mL/kg 5207-9851 total fluid mLs NUTRITION DIAGNOSIS: * Increased kcal/prot needs R/T wound healing and sepsis as evidenced by pt admitted w/ multiple advanced wounds, pending eval, elev wbc (19.3), elev LA, febrile w/ Tmax 101.9, hypotensive, on pressor support. * Swallowing difficulty R/T dysphagia, respiratory status as evidenced by trach/vent dep, PEG dep. CURRENT TF: NPO ENTERAL NUTRITION RECOMMENDATIONS: Glucerna 1.5 @ 50ml/hr x 24 hrs to provide 1200ml, 1800kcal, 99g prot, 911ml free water * WHEN HEMODYNAMICALLY STABLE: -> Initiate Glucerna 1.5 @ 20ml/hr x 6hrs -> Advance 10ml q 4-6 hrs as tolerated to goal rate -> HOB over 30 degrees/ water flush per MD * WITHOUT HEMODYNAMIC STABILITY: -> Rec trophic feeding of Glucerna 1.5 @ 10-15ml/hr x 24 hrs ADDITIONAL RECOMMENDATIONS: * Per SNF: HT=66" ZP=[id number] (wt from Jul 26, 2019) * Monitor HD stability: on pressor support at this time * Monitor lytes, replete as needed * Wound healing: add Vit C 500mg QD, ZnSO4 220mg QD x 10 days : W/ TF order, add Roger 1pkt BID : f/up with MANISHA leonard * NISS w/ TF initiation: h/o Jesus Robert Aug 14, 2019 17:07
[2019-08-14 20:00] VITALS: BP 134/78
[2019-08-14] MEDS: Dyna-Hex 2% Top Sol 2oz TOPIC SCH (20:17)
[2019-08-15] VITALS: BP_SYST 105; BP_SYST 113; BP_DIAS 70; BP_DIAS 76
--- NOTE | 2019-08-15 01:45 | Progress Note ---
DATE: 08/14/2019 CARDIOLOGY PROGRESS NOTE SUBJECTIVE: The patient remains off pressors. Continues on ventilator support. OBJECTIVE: VITAL SIGNS: Blood pressure 123/64, pulse 86, and respirations 16. Afebrile. HEENT: Thin secretions. HEART: Regular rhythm and rate. Normal S1, S2. ABDOMEN: Soft. EXTREMITIES: No edema. IMAGING: Chest x-ray with pulmonary venous congestion and left infiltrate. No new labs today. IMPRESSION: 1. 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 2. Healthcare-acquired pneumonia. 3. Respiratory failure. 4. Recovered shock due to sepsis. 5. Fungal cystitis. 6. Severe protein-calorie malnutrition. PLAN: 1. Antimicrobials. 2. Ventilator support. 3. Weaning efforts. 4. Continue diuresis based on clinical parameters. 5. Recheck laboratory studies. Rahul Govea M.D. DR: NATALIO JOB#: [id number] CC: [place]
[2019-08-15 04:00] VITALS: BP 124/74
[2019-08-15 05:22] LABS: HEMATOCRIT 27.7 % (42.0-52.0); MEAN CORPUSCULAR VOLUME 88 FL (80-99); PLATELET COUNT 287 K/UL (150-450); RED BLOOD COUNT 3.16 M/UL (4.70-6.10); RED CELL DISTRIBUTION WIDTH 17.8 % (11.6-14.8); WHITE BLOOD COUNT 14.4 K/UL (4.8-10.8)
[2019-08-15 05:50] LABS: ALANINE AMINOTRANSFERASE 39 U/L (12-78); ALBUMIN 1.2 G/DL (3.4-5.0); ALBUMIN/GLOBULIN RATIO 0.3 (1.0-2.7); ALKALINE PHOSPHATASE 86 U/L (46-116); ANION GAP 7 mmol/L (5-15); ASPARTATE AMINO TRANSFERASE 30 U/L (15-37); BILIRUBIN,TOTAL 0.2 MG/DL (0.2-1.0); BLOOD UREA NITROGEN 30 mg/dL (7-18); CALCIUM 7.8 MG/DL (8.5-10.1); CARBON DIOXIDE 28 MMOL/L (21-32); CHLORIDE 108 MMOL/L (98-107); CREATININE 0.6 MG/DL (0.55-1.30); POTASSIUM 4.1 MMOL/L (3.5-5.1); SODIUM 143 MMOL/L (136-145)
[2019-08-15 08:00] VITALS: BP 122/74
[2019-08-15] MEDS: Zinc Sulfate 220mg cap GT SCH (08:31)
[2019-08-15] MEDS: Ascorbic Acid 500mg tab GT SCH (08:31)
[2019-08-15] MEDS: Pantoprazole Inj IVP SCH ×2 (08:31→20:17)
[2019-08-15] MEDS: Cefepime HCl 1 GM in D5W 55 ML IVPB SCH (08:32)
[2019-08-15] MEDS: Heparin 5000 units/ml inj SUBQ SCH ×2 (08:34→20:19)
--- NOTE | 2019-08-15 09:39 | Pulmonology Progress Note ---
Assessment/Plan Assessment/Plan IMPRESSION: 1. Urosepsis. Has candiduria 2. Septic shock. Resolved 3. Pseudomonas pneumonia. 4. Chronic respiratory failure. currently on AC DISCUSSION: Continue current medications and care. The patient is on broad-spectrum antibiotics per ID (Cefipime and Diflucan) Off IV fluids Discussed with nursing staff. I will follow carefully. Off pressors Will continue weaning May initiate trach collar CXR shows pulm edema as well as Left pneumonia Bill Jose M.D. Subjective Interval Events: None new Constitutional: Reports: no symptoms HEENT: Repors: no symptoms Respiratory: Reports: no symptoms Cardiovascular: Reports: no symptoms Gastrointestinal/Abdominal: Reports: no symptoms Genitourinary: Reports: no symptoms Neurologic: Reports: no symptoms Allergies: Coded Allergies: PENICILLINS (Verified Allergy, Unknown, 08/05/19) Objective Last 24 Hour Vital Signs Date Time Temp Pulse Resp B/P (MAP) Pulse Ox O2 Delivery O2 Flow Rate FiO2 08/15/19 09:15 94 19 40 08/15/19 09:10 89 08/15/19 08:00 40 08/15/19 08:00 Mechanical Ventilator 08/15/19 08:00 98.0 89 22 122/74 100 Mechanical Ventilator 40 08/15/19 06:35 93 19 40 08/15/19 05:29 90 18 40 08/15/19 04:00 40 08/15/19 04:00 97.4 91 20 124/74 100 Mechanical Ventilator 40 08/15/19 04:00 Mechanical Ventilator 08/15/19 03:42 88 08/15/19 03:08 93 15 40 08/15/19 00:49 85 18 40 08/15/19 00:00 Mechanical Ventilator 08/15/19 00:00 97.6 87 20 113/76 100 Mechanical Ventilator 40 08/14/19 23:29 88 24 40 08/14/19 23:28 86 08/14/19 21:19 80 17 40 08/14/19 20:00 Mechanical Ventilator 08/14/19 20:00 40 08/14/19 20:00 97.9 87 18 134/78 100 Mechanical Ventilator 40 08/14/19 19:01 90 08/14/19 18:49 88 17 40 08/14/19 17:06 93 22 40 08/14/19 16:00 Mechanical Ventilator 08/14/19 16:00 40 08/14/19 16:00 90 08/14/19 16:00 99.4 94 19 116/67 100 Mechanical Ventilator 40 08/14/19 14:52 104 18 40 08/14/19 13:29 95 19 40 08/14/19 12:00 40 08/14/19 12:00 98.6 84 18 130/67 100 Mechanical Ventilator 40 08/14/19 12:00 Mechanical Ventilator 08/14/19 11:30 89 08/14/19 10:47 98 16 40 Intake and Output 08/14/19 08/15/19 18:59 06:59 Intake Total 805 ml 805 ml Output Total 1300 ml 1700 ml Balance -495 ml -895 ml Intake Free Water 150 ml 150 ml IV Total 55 ml 55 ml Tube Feeding 600 ml 600 ml Output Urine Total 1300 ml 1700 ml # Bowel Movements 4 3 General Appearance: no acute distress HEENT: normocephalic, status post trach Respiratory/Chest: chest wall non-tender, lungs clear Cardiovascular: normal peripheral pulses, normal rate Abdomen: normal bowel sounds Laboratory Tests 08/15/19 03:15: White Blood Count 14.4H, Red Blood Count 3.16L, Hemoglobin 9.0L, Hematocrit 27.7L, Mean Corpuscular Volume 88, Mean Corpuscular Hemoglobin 28.4, Mean Corpuscular Hemoglobin Concent 32.4, Red Cell Distribution Width 17.8H, Platelet Count 287, Mean Platelet Volume 6.7, Neutrophils (%) (Auto) , Lymphocytes (%) (Auto) , Monocytes (%) (Auto) , Eosinophils (%) (Auto) , Basophils (%) (Auto) , Sodium Level 143, Potassium Level 4.1, Chloride Level 108H, Carbon Dioxide Level 28, Anion Gap 7, Blood Urea Nitrogen 30H, Creatinine 0.6, Estimat Glomerular Filtration Rate , Glucose Level 112H, Calcium Level 7.8L , Magnesium Level 1.6L, Total Bilirubin 0.2, Aspartate Amino Transf (AST/SGOT) 30, Alanine Aminotransferase (ALT/SGPT) 39, Alkaline Phosphatase 86, Pro-B-Type Natriuretic Peptide 97012F, Total Protein 5.2L, Albumin 1.2L, Globulin 4.0, Albumin/Globulin Ratio 0.3L Current Medications Medications (Trade) Dose Ordered Sig/Kandice Route PRN Reason Start Time Stop Time Status Last Admin Dose Admin Acetaminophen (Tylenol) 650 mg Q6H PRN GT Mild Pain/Temp > 100.5 08/09/19 13:30 09/05/19 13:29 Ascorbic Acid (Vitamin C) 500 mg DAILY GT 08/10/19 09:00 09/06/19 08:59 08/15/19 08:31 Cefepime HCl 1 gm/ Dextrose 55 ml @ 110 mls/hr EVERY 12 HOURS IVPB 08/09/19 21:00 08/16/19 20:59 08/15/19 08:32 Chlorhexidine Gluconate (Melva-Hex 2%) 1 applic DAILY@2000 TOPIC 08/09/19 20:00 09/05/19 19:59 08/14/19 20:17 Heparin Sodium (Porcine) (Heparin 5000 units/ml) 5,000 units EVERY 12 HOURS SUBQ 08/09/19 21:00 09/05/19 08:59 08/15/19 08:34 Pantoprazole (Protonix) 40 mg EVERY 12 HOURS IVP 08/09/19 21:00 09/05/19 08:59 08/15/19 08:31 Zinc Sulfate (Zinc Sulfate) 220 mg DAILY GT 08/10/19 09:00 08/20/19 08:59 08/15/19 08:31 Bill Jose MD Aug 15, 2019 09:39
--- NOTE | 2019-08-15 10:41 | Infectious Diseases Prog Note ---
Assessment/Plan Assessment/Plan A; 1. Fungal Urinary tract infection.treated 2. H. influenza sepsis, treated 3. Pseudomonas pneumonia. treated 4. CVA. 5. Respiratory failure, status post tracheostomy. 6. 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 Anemia 9. Protein calori malnutrition 10. Penicillin allergy PLAN: 1. Discontinue Cefepime Subjective ROS Limited/Unobtainable: Yes Constitutional: Denies: fever Allergies: Coded Allergies: PENICILLINS (Verified Allergy, Unknown, 08/05/19) Objective Vital Signs Last 24 Hour Vital Signs Date Time Temp Pulse Resp B/P (MAP) Pulse Ox O2 Delivery O2 Flow Rate FiO2 08/15/19 09:15 94 19 40 08/15/19 09:10 89 08/15/19 08:00 87 08/15/19 08:00 40 08/15/19 08:00 Mechanical Ventilator 08/15/19 08:00 98.0 89 22 122/74 100 Mechanical Ventilator 40 08/15/19 06:35 93 19 40 08/15/19 05:29 90 18 40 08/15/19 04:00 40 08/15/19 04:00 97.4 91 20 124/74 100 Mechanical Ventilator 40 08/15/19 04:00 Mechanical Ventilator 08/15/19 03:42 88 08/15/19 03:08 93 15 40 08/15/19 00:49 85 18 40 08/15/19 00:00 Mechanical Ventilator 08/15/19 00:00 97.6 87 20 113/76 100 Mechanical Ventilator 40 08/14/19 23:29 88 24 40 08/14/19 23:28 86 08/14/19 21:19 80 17 40 08/14/19 20:00 Mechanical Ventilator 08/14/19 20:00 40 08/14/19 20:00 97.9 87 18 134/78 100 Mechanical Ventilator 40 08/14/19 19:01 90 08/14/19 18:49 88 17 40 08/14/19 17:06 93 22 40 08/14/19 16:00 Mechanical Ventilator 08/14/19 16:00 40 08/14/19 16:00 90 08/14/19 16:00 99.4 94 19 116/67 100 Mechanical Ventilator 40 08/14/19 14:52 104 18 40 08/14/19 13:29 95 19 40 08/14/19 12:00 40 08/14/19 12:00 98.6 84 18 130/67 100 Mechanical Ventilator 40 08/14/19 12:00 Mechanical Ventilator 08/14/19 11:30 89 08/14/19 10:47 98 16 40 Height (Feet): 6 Height (Inches): 1.00 Weight (Pounds): 166 HEENT: status post trach Respiratory/Chest: decreased breath sounds, other - on ventilator Cardiovascular: normal rate Abdomen: soft, non tender, other - GT feeding Extremities: other - hands edema Skin: ulcers Neurologic/Psychiatric: unresponsiveness, aphasia Laboratory Tests Test 08/15/19 03:15 White Blood Count 14.4 K/UL (4.8-10.8) H Red Blood Count 3.16 M/UL (4.70-6.10) L Hemoglobin 9.0 G/DL (14.2-18.0) L Hematocrit 27.7 % (42.0-52.0) L Mean Corpuscular Volume 88 FL (80-99) Mean Corpuscular Hemoglobin 28.4 PG (27.0-31.0) Mean Corpuscular Hemoglobin Concent 32.4 G/DL (32.0-36.0) Red Cell Distribution Width 17.8 % (11.6-14.8) H Platelet Count 287 K/UL (150-450) Mean Platelet Volume 6.7 FL (6.5-10.1) Neutrophils (%) (Auto) % (45.0-75.0) Lymphocytes (%) (Auto) % (20.0-45.0) Monocytes (%) (Auto) % (1.0-10.0) Eosinophils (%) (Auto) % (0.0-3.0) Basophils (%) (Auto) % (0.0-2.0) Sodium Level 143 MMOL/L (136-145) Potassium Level 4.1 MMOL/L (3.5-5.1) Chloride Level 108 MMOL/L (98-107) H Carbon Dioxide Level 28 MMOL/L (21-32) Anion Gap 7 mmol/L (5-15) Blood Urea Nitrogen 30 mg/dL (7-18) H Creatinine 0.6 MG/DL (0.55-1.30) Estimat Glomerular Filtration Rate mL/min (>60) Glucose Level 112 MG/DL (74-106) H Calcium Level 7.8 MG/DL (8.5-10.1) L Magnesium Level 1.6 MG/DL (1.8-2.4) L Total Bilirubin 0.2 MG/DL (0.2-1.0) Aspartate Amino Transf (AST/SGOT) 30 U/L (15-37) Alanine Aminotransferase (ALT/SGPT) 39 U/L (12-78) Alkaline Phosphatase 86 U/L (46-116) Pro-B-Type Natriuretic Peptide 59026 pg/mL (0-125) H Total Protein 5.2 G/DL (6.4-8.2) L Albumin 1.2 G/DL (3.4-5.0) L Globulin 4.0 g/dL Albumin/Globulin Ratio 0.3 (1.0-2.7) L Current Medications Medications (Trade) Dose Ordered Sig/Kandice Route PRN Reason Start Time Stop Time Status Last Admin Dose Admin Acetaminophen (Tylenol) 650 mg Q6H PRN GT Mild Pain/Temp > 100.5 08/09/19 13:30 09/05/19 13:29 Ascorbic Acid (Vitamin C) 500 mg DAILY GT 08/10/19 09:00 09/06/19 08:59 08/15/19 08:31 Cefepime HCl 1 gm/ Dextrose 55 ml @ 110 mls/hr EVERY 12 HOURS IVPB 08/09/19 21:00 08/16/19 20:59 08/15/19 08:32 Chlorhexidine Gluconate (Melva-Hex 2%) 1 applic DAILY@2000 TOPIC 08/09/19 20:00 09/05/19 19:59 08/14/19 20:17 Heparin Sodium (Porcine) (Heparin 5000 units/ml) 5,000 units EVERY 12 HOURS SUBQ 08/09/19 21:00 09/05/19 08:59 08/15/19 08:34 Pantoprazole (Protonix) 40 mg EVERY 12 HOURS IVP 08/09/19 21:00 09/05/19 08:59 08/15/19 08:31 Zinc Sulfate (Zinc Sulfate) 220 mg DAILY GT 08/10/19 09:00 08/20/19 08:59 08/15/19 08:31 Mateo Briseno MD Aug 15, 2019 10:41
[2019-08-15 12:00] VITALS: BP 123/77
[2019-08-15] MEDS ORDERED: NS 275ml ONE (12:08)
[2019-08-15] MEDS ORDERED: Tubing IV Secondary IV ONE (12:08)
[2019-08-15] MEDS ORDERED: D5 1/2NS 1000ml IV ONE (12:08)
[2019-08-15 16:00] VITALS: BP 114/66
--- NOTE | 2019-08-15 16:11 | Surgery Progress Note ---
Surgery Progress Note Subjective Additional Comments no acute events labs noted exam stable Objective Last 24 Hour Vital Signs Date Time Temp Pulse Resp B/P (MAP) Pulse Ox O2 Delivery O2 Flow Rate FiO2 08/15/19 16:00 Mechanical Ventilator 08/15/19 16:00 40 08/15/19 14:35 78 22 40 08/15/19 13:07 102 18 40 08/15/19 12:00 Mechanical Ventilator 08/15/19 12:00 97.4 92 15 123/77 100 Mechanical Ventilator 40 08/15/19 12:00 40 08/15/19 11:45 94 08/15/19 10:50 88 18 40 08/15/19 09:15 94 19 40 08/15/19 09:10 89 08/15/19 08:00 87 08/15/19 08:00 40 08/15/19 08:00 Mechanical Ventilator 08/15/19 08:00 98.0 89 22 122/74 100 Mechanical Ventilator 40 08/15/19 06:35 93 19 40 08/15/19 05:29 90 18 40 08/15/19 04:00 40 08/15/19 04:00 97.4 91 20 124/74 100 Mechanical Ventilator 40 08/15/19 04:00 Mechanical Ventilator 08/15/19 03:42 88 08/15/19 03:08 93 15 40 08/15/19 00:49 85 18 40 08/15/19 00:00 Mechanical Ventilator 08/15/19 00:00 97.6 87 20 113/76 100 Mechanical Ventilator 40 08/14/19 23:29 88 24 40 08/14/19 23:28 86 08/14/19 21:19 80 17 40 08/14/19 20:00 Mechanical Ventilator 08/14/19 20:00 40 08/14/19 20:00 97.9 87 18 134/78 100 Mechanical Ventilator 40 08/14/19 19:01 90 08/14/19 18:49 88 17 40 08/14/19 17:06 93 22 40 I&O Intake and Output 08/14/19 08/15/19 19:00 07:00 Intake Total 855 ml 755 ml Output Total 1300 ml 1700 ml Balance -445 ml -945 ml Intake Free Water 200 ml 100 ml IV Total 55 ml 55 ml Tube Feeding 600 ml 600 ml Output Urine Total 1300 ml 1700 ml # Bowel Movements 4 3 Dressing: saturated Wound: other Drains: other Cardiovascular: RSR Respiratory: decreased breath sounds Abdomen: soft, present bowel sounds, non-distended Extremities: no tenderness, no cyanosis Laboratory Tests Test 08/15/19 03:15 White Blood Count 14.4 K/UL (4.8-10.8) H Red Blood Count 3.16 M/UL (4.70-6.10) L Hemoglobin 9.0 G/DL (14.2-18.0) L Hematocrit 27.7 % (42.0-52.0) L Mean Corpuscular Volume 88 FL (80-99) Mean Corpuscular Hemoglobin 28.4 PG (27.0-31.0) Mean Corpuscular Hemoglobin Concent 32.4 G/DL (32.0-36.0) Red Cell Distribution Width 17.8 % (11.6-14.8) H Platelet Count 287 K/UL (150-450) Mean Platelet Volume 6.7 FL (6.5-10.1) Neutrophils (%) (Auto) % (45.0-75.0) Lymphocytes (%) (Auto) % (20.0-45.0) Monocytes (%) (Auto) % (1.0-10.0) Eosinophils (%) (Auto) % (0.0-3.0) Basophils (%) (Auto) % (0.0-2.0) Sodium Level 143 MMOL/L (136-145) Potassium Level 4.1 MMOL/L (3.5-5.1) Chloride Level 108 MMOL/L (98-107) H Carbon Dioxide Level 28 MMOL/L (21-32) Anion Gap 7 mmol/L (5-15) Blood Urea Nitrogen 30 mg/dL (7-18) H Creatinine 0.6 MG/DL (0.55-1.30) Estimat Glomerular Filtration Rate mL/min (>60) Glucose Level 112 MG/DL (74-106) H Calcium Level 7.8 MG/DL (8.5-10.1) L Magnesium Level 1.6 MG/DL (1.8-2.4) L Total Bilirubin 0.2 MG/DL (0.2-1.0) Aspartate Amino Transf (AST/SGOT) 30 U/L (15-37) Alanine Aminotransferase (ALT/SGPT) 39 U/L (12-78) Alkaline Phosphatase 86 U/L (46-116) Pro-B-Type Natriuretic Peptide 83553 pg/mL (0-125) H Total Protein 5.2 G/DL (6.4-8.2) L Albumin 1.2 G/DL (3.4-5.0) L Globulin 4.0 g/dL Albumin/Globulin Ratio 0.3 (1.0-2.7) L Plan Problems: (1) Septic shock Assessment & Plan: Patient with leukocytosis, tachycardia, lactic acidosis, abnormal labs. - improved and trending down Currently in [facility] for care and management feeds IV fluids IV antibiotics Trend labs Thank you with all the recommendations (2) Wound infection Assessment & Plan: Pt presented on admission with multiple pressure injuries , Multiple necrotic wounds R lower extremity. Scattered senile purpuras noted to posterior ,R and L lateral sides of neck under collar of trach and inferior to tracheostomy. Scattered petechiae noted to bilat upper ext, Talib and lateral aspects of chest abd and back . Both upper extremities are edematous and weeping large amounts of serous exudate. Cat.2 Skin tears noted to Lateral R elbow ,R forearm . Numerous dry scabs noted to L forearm. Large Purple bruise noted to upper and mid abdomen. Incontinence associated dermatitis noted to bilat groin, scrotum,Perianal and both ischial regions- erythema with scattered satellite lesions noted.Large serous blister noted to talib/medial upper L thigh oozing small amt serous exudate.(L)5.5cm x (W)4.5cm Full thickness pressure injury with biofilm noted to R scapula. Edges are macerated with surrounding petechia. Small amt non-odorous serous exudate noted. (L)1cm x (W)1cm. Full thickness lumbar spine. Base of wound is 90%necrotic, surrounding wound bed erythematous and moist. Small amt serosanguineous exudate noted.(L)8.5cm x ( W)4.5cm. Full thickness pressure injury Upper R gluteus(L)2.9cm x (W)2.3cm. Base of wound 80% necrotic 20% viable. Edges are macerated. Erythema without induration periwound. Full thickness pressure injury Upper L gluteus. Baser of wound 100% necrotic with erythematous borders(L)3.2cm x (W)3cm.Periwound without erythema or induration. R lower ext dusky in colour. Distal RLE cool to touch. Multiple ulcerations noted. Full thickness lateral R knee. Base of wound 100% viable. Small amt sanguineous exudate noted. No odor noted. (L)4cmx (W)2.3cm. Surrounding petechia noted. Full thickness ulcer noted to talib /lateral R tibia. Base of wound is 90% soft necrosis 10% fibrinous slough,erythematous borders. Small amt seropurulent exudate noted. Mild odor noted. (L)24cm x (W)9.5cm. Dry necrotic ulcer medial /distal R tibia. (L)0.8cm x (W)0.5cm. Medial R malleolus necrotic with fluctuance.(L)2.5cm x (W)2cm. Large soft necrotic ulcer dorso/lateral R foot with erythematous borders.(L) 11.4cm x (W)6.5cm. Second necrotic wound noted talib/distal R foot Base of wound fluctuant(L) 4.4cm x (W)6.5cm. R Achilles ulcer is 100% necrotic with macerated borders.(L)4.2cm x (W)1cm. Soft necrosis noted R heel with marginal erythema along edges(L)2cm x (W)2cm. Second ulcer medial R heel 100% necrotic with fluctuance.(L)1.5cm x (W)1cm . Necrotic ulcer distal /lateral R foot /Lateral R5th metatarsal.Base of wound is fluctuant. Periwound skin colour dusky.(L)5.6cm x (W)2cm R Hallux necrotic and fluctuant(L)2.9cm x (W)5cm. All 5 metatarsals R foot are mottled and cool to touch. Tx.Plan: Cleanse Wound R scapula with Saline. Apply Therahoney. Apply Cavilon Periwound. Cover with Optifoam drsg. Change every 3 days and prn. Cleanse wound Lumbar Spine with Saline. Apply TheraHoney. Apply Cavilon Skin Barrier periwound. Cover with Optifoam drsg every 3 days and prn. Cleanse wounds R and L upper buttocks with Saline. Apply Therahoney. Apply Cavilon Skin Barrier periwound. Cover each wound with Optifoam drsg. Change every 3 days and prn. Cleanse wound talib R tibia with Saline. Cover with Xeroform. Apply ABD Pad and wrap with Kerlix Daily and prn. Swab All Necrotic Wounds R lower ext/R Foot with Betadine. Cover wounds with ABD pads and wrap with Kerlix Daily and prn. Apply Moisture Barrier Paste to to groin . Scrotum and Bilat ischial areas with each incontinence care. Apply Optifoam drsg to Blister Upper L thigh. Change every 7 days and prn. Apply Xeroform Gauze to skin tears and dry scabs Both upper ext. Apply ABd pads and wrap both upper ext with Kerlix Daily and prn. Elevate both upper extremities with Pillows. Reposition at least every 2hours or as tolerated. Off-load heels with pillow. APM/KAREN Mattress overlay. (3) Tracheostomy dependent (4) Bilateral pneumonia (5) Sepsis with acute hypoxic respiratory failure (6) Severe protein-calorie malnutrition Assessment & Plan: DAILY ESTIMATED NEEDS: Needs based on Critical care, multiple wounds/ 67kg 22-30 kcals/kg 7432-7754 total kcals 1.25-2.0 g protein/kg 84-134 g total protein 25-30 mL/kg 8549-2786 total fluid mLs NUTRITION DIAGNOSIS: * Increased kcal/prot needs R/T wound healing and sepsis as evidenced by pt admitted w/ multiple advanced wounds, pending eval, elev wbc (19.3), elev LA, febrile w/ Tmax 101.9, hypotensive, on pressor support. * Swallowing difficulty R/T dysphagia, respiratory status as evidenced by trach/vent dep, PEG dep. CURRENT TF: NPO ENTERAL NUTRITION RECOMMENDATIONS: Glucerna 1.5 @ 50ml/hr x 24 hrs to provide 1200ml, 1800kcal, 99g prot, 911ml free water * WHEN HEMODYNAMICALLY STABLE: -> Initiate Glucerna 1.5 @ 20ml/hr x 6hrs -> Advance 10ml q 4-6 hrs as tolerated to goal rate -> HOB over 30 degrees/ water flush per MD * WITHOUT HEMODYNAMIC STABILITY: -> Rec trophic feeding of Glucerna 1.5 @ 10-15ml/hr x 24 hrs ADDITIONAL RECOMMENDATIONS: * Per SNF: HT=66" BD=982ypn (wt from Jul 26, 2019) * Monitor HD stability: on pressor support at this time * Monitor lytes, replete as needed * Wound healing: add Vit C 500mg QD, ZnSO4 220mg QD x 10 days : W/ TF order, add Roger 1pkt BID : f/up with WC eval * NISS w/ TF initiation: h/o Jesus Robert Aug 15, 2019 16:11
[2019-08-15 20:00] VITALS: BP 115/74
[2019-08-15] MEDS: Dyna-Hex 2% Top Sol 2oz TOPIC SCH (20:17)
--- NOTE | 2019-08-15 21:45 | Progress Note ---
DATE: 08/15/2019 SUBJECTIVE: This 83 years old male, currently nonverbal, on ventilator. OBJECTIVE: VITAL SIGNS: Stable. CHEST: Bilaterally clear. Decreased breath sounds. CARDIOVASCULAR: Regular rhythm. ABDOMEN: Soft. EXTREMITIES: No CCE. NEUROLOGICAL: Generalized weakness. ASSESSMENT AND PLAN: 1. Chronic respiratory failure. 2. Encephalopathy. 3. Hypertension. 4. Multiple ulcers. 5. Continue . 6. Continue wound care. 7. Continue G-tube feeding. Abhay Vides M.D. DR: ARIK JOB#: [id number] CC:
[2019-08-16] VITALS: BP 128/71
--- NOTE | 2019-08-16 00:47 | Progress Note ---
DATE: 08/15/2019 CARDIOLOGY PROGRESS NOTE SUBJECTIVE: The patient remains on ventilator support. Weaning is ongoing. Trach collar is being planned. OBJECTIVE: VITAL SIGNS: Blood pressure 122/74, pulse 89, respirations 22, and afebrile. LUNGS: Coarse breath sounds. HEART: Regular rhythm and rate. Normal S1, S2. Thin secretions. ABDOMEN: Soft. G-tube intact. EXTREMITIES: Trace edema. LABORATORY DATA: White count 14.4 and hemoglobin 9. Pro-natriuretic peptide has decreased to 14,000. BUN 30 and creatinine 0.6. Magnesium 1.6 and albumin 1.2. Potassium 4.1. IMPRESSION: 1. Respiratory failure, recovered. 2. Shock. 3. Sepsis. 4. Hypomagnesemia. 5. Hypokalemia, corrected. 6. Severe protein-calorie malnutrition. 7. Acute on chronic sysolic and diastolic congestive heart failure, improved. PLAN: 1. Intravenous magnesium. 2. Monitor and replace potassium as needed. 3. Additional diuresis. 4. Weaning per denier control operator. 5. DVT and stress ulcer prophylaxis. Rahul Govea M.D. DR: NATALIO JOB#: [id number] CC: [place]
[2019-08-16 04:00] VITALS: BP 103/66
--- NOTE | 2019-08-16 07:46 | Pulmonology Progress Note ---
Assessment/Plan Assessment/Plan IMPRESSION: 1. Urosepsis. Has candiduria 2. Septic shock. Resolved 3. Pseudomonas pneumonia. 4. Chronic respiratory failure. currently on AC DISCUSSION: Continue current medications and care. The patient is on broad-spectrum antibiotics per ID (Cefipime and Diflucan) Off IV fluids Discussed with nursing staff. I will follow carefully. Off pressors Will continue weaning attempts CXR shows pulm edema as well as Left pneumonia Bill Jose M.D. Subjective Interval Events: None new Constitutional: Reports: no symptoms HEENT: Repors: no symptoms Respiratory: Reports: no symptoms Cardiovascular: Reports: no symptoms Gastrointestinal/Abdominal: Reports: no symptoms Genitourinary: Reports: no symptoms Allergies: Coded Allergies: PENICILLINS (Verified Allergy, Unknown, 08/05/19) Objective Last 24 Hour Vital Signs Date Time Temp Pulse Resp B/P (MAP) Pulse Ox O2 Delivery O2 Flow Rate FiO2 08/16/19 07:08 90 15 40 08/16/19 05:04 91 17 40 08/16/19 04:00 Mechanical Ventilator 08/16/19 04:00 89 08/16/19 04:00 40 08/16/19 04:00 97.7 90 21 103/66 100 Mechanical Ventilator 40 08/16/19 02:47 92 16 40 08/16/19 01:03 86 17 40 08/16/19 00:00 90 08/16/19 00:00 98.0 87 20 128/71 100 Mechanical Ventilator 40 08/16/19 00:00 Mechanical Ventilator 08/15/19 23:35 85 17 40 08/15/19 20:50 97 19 40 08/15/19 20:00 Mechanical Ventilator 08/15/19 20:00 40 08/15/19 20:00 89 08/15/19 20:00 97.9 92 22 115/74 99 Mechanical Ventilator 40 08/15/19 19:06 92 18 40 08/15/19 17:07 91 23 40 08/15/19 16:00 97.9 95 24 114/66 100 Mechanical Ventilator 40 08/15/19 16:00 Mechanical Ventilator 08/15/19 16:00 92 11/7/19 16:00 40 08/15/19 14:35 78 22 40 08/15/19 13:07 102 18 40 08/15/19 12:00 Mechanical Ventilator 08/15/19 12:00 97.4 92 15 123/77 100 Mechanical Ventilator 40 08/15/19 12:00 40 08/15/19 11:45 94 08/15/19 10:50 88 18 40 08/15/19 09:15 94 19 40 08/15/19 09:10 89 08/15/19 08:00 87 08/15/19 08:00 40 08/15/19 08:00 Mechanical Ventilator 08/15/19 08:00 98.0 89 22 122/74 100 Mechanical Ventilator 40 Intake and Output 08/15/19 08/16/19 18:59 06:59 Intake Total 805 ml 750 ml Output Total 350 ml 1800 ml Balance 455 ml -1050 ml Intake Free Water 150 ml 150 ml IV Total 55 ml Tube Feeding 600 ml 600 ml Output Urine Total 350 ml 1800 ml # Bowel Movements 4 General Appearance: no acute distress HEENT: normocephalic Respiratory/Chest: chest wall non-tender, lungs clear Cardiovascular: normal peripheral pulses, normal rate Abdomen: normal bowel sounds Current Medications Medications (Trade) Dose Ordered Sig/Kandice Route PRN Reason Start Time Stop Time Status Last Admin Dose Admin Acetaminophen (Tylenol) 650 mg Q6H PRN GT Mild Pain/Temp > 100.5 08/09/19 13:30 09/05/19 13:29 Ascorbic Acid (Vitamin C) 500 mg DAILY GT 08/10/19 09:00 09/06/19 08:59 08/15/19 08:31 Chlorhexidine Gluconate (Melva-Hex 2%) 1 applic DAILY@2000 TOPIC 08/09/19 20:00 09/05/19 19:59 08/15/19 20:17 Heparin Sodium (Porcine) (Heparin 5000 units/ml) 5,000 units EVERY 12 HOURS SUBQ 08/09/19 21:00 09/05/19 08:59 08/15/19 20:19 Pantoprazole (Protonix) 40 mg EVERY 12 HOURS IVP 08/09/19 21:00 09/05/19 08:59 08/15/19 20:17 Zinc Sulfate (Zinc Sulfate) 220 mg DAILY GT 08/10/19 09:00 08/20/19 08:59 08/15/19 08:31 Bill Jose MD Aug 16, 2019 07:45
[2019-08-16 08:00] VITALS: BP 111/77
[2019-08-16] MEDS: Zinc Sulfate 220mg cap GT SCH (09:44)
[2019-08-16] MEDS: Ascorbic Acid 500mg tab GT SCH (09:44)
[2019-08-16] MEDS: Pantoprazole Inj IVP SCH ×2 (09:45→20:04)
[2019-08-16] MEDS: Heparin 5000 units/ml inj SUBQ SCH ×2 (09:47→20:12)
--- NOTE | 2019-08-16 11:26 | Infectious Diseases Prog Note ---
Assessment/Plan Assessment/Plan A; 1. Fungal Urinary tract infection.treated 2. H. influenza sepsis, treated 3. Pseudomonas pneumonia. treated 4. CVA. 5. Respiratory failure, status post tracheostomy. 6. 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 Anemia 9. Protein calori malnutrition 10. Penicillin allergy PLAN: 1. Observe off antibiotic 2. F/U CBC Subjective ROS Limited/Unobtainable: Yes Constitutional: Denies: fever Allergies: Coded Allergies: PENICILLINS (Verified Allergy, Unknown, 08/05/19) Objective Vital Signs Last 24 Hour Vital Signs Date Time Temp Pulse Resp B/P (MAP) Pulse Ox O2 Delivery O2 Flow Rate FiO2 08/16/19 09:21 98 28 40 08/16/19 09:18 100 08/16/19 08:00 93 08/16/19 08:00 97.5 90 20 111/77 100 Mechanical Ventilator 40 08/16/19 08:00 40 08/16/19 07:08 90 15 40 08/16/19 05:04 91 17 40 08/16/19 04:00 Mechanical Ventilator 08/16/19 04:00 89 08/16/19 04:00 40 08/16/19 04:00 97.7 90 21 103/66 100 Mechanical Ventilator 40 08/16/19 02:47 92 16 40 08/16/19 01:03 86 17 40 08/16/19 00:00 90 08/16/19 00:00 98.0 87 20 128/71 100 Mechanical Ventilator 40 08/16/19 00:00 Mechanical Ventilator 08/15/19 23:35 85 17 40 08/15/19 20:50 97 19 40 08/15/19 20:00 Mechanical Ventilator 08/15/19 20:00 40 08/15/19 20:00 89 08/15/19 20:00 97.9 92 22 115/74 99 Mechanical Ventilator 40 08/15/19 19:06 92 18 40 08/15/19 17:07 91 23 40 08/15/19 16:00 97.9 95 24 114/66 100 Mechanical Ventilator 40 08/15/19 16:00 Mechanical Ventilator 08/15/19 16:00 92 08/15/19 16:00 40 08/15/19 14:35 78 22 40 08/15/19 13:07 102 18 40 08/15/19 12:00 Mechanical Ventilator 08/15/19 12:00 97.4 92 15 123/77 100 Mechanical Ventilator 40 08/15/19 12:00 40 08/15/19 11:45 94 Height (Feet): 6 Height (Inches): 1.00 Weight (Pounds): 150 General Appearance: cachetic HEENT: status post trach Respiratory/Chest: decreased breath sounds, other - on ventilator Cardiovascular: normal rate Abdomen: soft, non tender, other - GT feeding Extremities: no edema Neurologic/Psychiatric: aphasia Current Medications Medications (Trade) Dose Ordered Sig/Kandice Route PRN Reason Start Time Stop Time Status Last Admin Dose Admin Acetaminophen (Tylenol) 650 mg Q6H PRN GT Mild Pain/Temp > 100.5 08/09/19 13:30 09/05/19 13:29 Ascorbic Acid (Vitamin C) 500 mg DAILY GT 08/10/19 09:00 09/06/19 08:59 08/16/19 09:44 Chlorhexidine Gluconate (Melva-Hex 2%) 1 applic DAILY@2000 TOPIC 08/09/19 20:00 09/05/19 19:59 08/15/19 20:17 Heparin Sodium (Porcine) (Heparin 5000 units/ml) 5,000 units EVERY 12 HOURS SUBQ 08/09/19 21:00 09/05/19 08:59 08/16/19 09:47 Pantoprazole (Protonix) 40 mg EVERY 12 HOURS IVP 08/09/19 21:00 09/05/19 08:59 08/16/19 09:45 Zinc Sulfate (Zinc Sulfate) 220 mg DAILY GT 08/10/19 09:00 08/20/19 08:59 08/16/19 09:44 Mateo Briseno MD Aug 16, 2019 11:26
[2019-08-16 12:00] VITALS: BP 117/68
[2019-08-16 16:00] VITALS: BP 110/71
--- NOTE | 2019-08-16 16:15 | Progress Note ---
DATE: 08/16/2019 SUBJECTIVE: This is elderly male came to the emergency room for having sepsis, acute respiratory failure, and was found has had ventricular tachycardia this morning. The patient is nonverbal, ventilator dependent. OBJECTIVE: VITAL SIGNS: Temperature is 98, blood pressure 111/77. CHEST: Bilateral few crackles. CARDIOVASCULAR: Regular rhythm. ABDOMEN: Soft. EXTREMITIES: CCE. NEUROLOGICAL: Generalized weakness. LABORATORY DATA: The patient has no labs today. ASSESSMENT AND PLAN: 1. Ventricular tachycardia. Cardiology is aware of. 2. CHF. 3. Aspiration pneumonia. 4. Chronic respiratory failure. 5. Encephalopathy. We will currently continue current treatment. 6. The patient also growing Danette albicans and Enterococcus. ID is on consult. Abhay Vides M.D. DR: BOSSMAN JOB#: [id number] CC:
[2019-08-16 16:35] LABS: HEMOGLOBIN 9.2 G/DL (14.2-18.0); MEAN CORPUSCULAR VOLUME 85 FL (80-99); PLATELET COUNT 324 K/UL (150-450); RED BLOOD COUNT 3.17 M/UL (4.70-6.10); RED CELL DISTRIBUTION WIDTH 15.4 % (11.6-14.8)
[2019-08-16 16:40] LABS: BASOPHILS % (AUTO) 0.8 % (0.0-2.0); EOSINOPHILS % (AUTO) 0.4 % (0.0-3.0); LYMPHOCYTES % (AUTO) 5.6 % (20.0-45.0); MONOCYTES % (AUTO) 3.9 % (1.0-10.0); NEUTROPHILS % (AUTO) 89.4 % (45.0-75.0)
[2019-08-16 16:45] LABS: ANION GAP 5 mmol/L (5-15); BLOOD UREA NITROGEN 31 mg/dL (7-18); CALCIUM 7.5 MG/DL (8.5-10.1); CARBON DIOXIDE 31 MMOL/L (21-32); CHLORIDE 106 MMOL/L (98-107); CREATININE 0.6 MG/DL (0.55-1.30); POTASSIUM 3.9 MMOL/L (3.5-5.1); SODIUM 142 MMOL/L (136-145)
[2019-08-16 20:00] VITALS: BP 120/64
[2019-08-16] MEDS: Dyna-Hex 2% Top Sol 2oz TOPIC SCH (20:04)
--- NOTE | 2019-08-16 22:24 | Surgery Progress Note ---
Surgery Progress Note Subjective Additional Comments no acute events Objective Last 24 Hour Vital Signs Date Time Temp Pulse Resp B/P (MAP) Pulse Ox O2 Delivery O2 Flow Rate FiO2 08/16/19 21:09 96 19 40 08/16/19 20:00 97.7 99 18 120/64 99 Mechanical Ventilator 40 08/16/19 20:00 Mechanical Ventilator 08/16/19 20:00 40 08/16/19 20:00 94 08/16/19 18:44 90 18 40 08/16/19 17:25 86 15 40 08/16/19 16:00 Mechanical Ventilator 08/16/19 16:00 40 08/16/19 16:00 99.0 91 17 110/71 100 Mechanical Ventilator 40 08/16/19 16:00 86 08/16/19 13:02 99 16 40 08/16/19 12:00 81 08/16/19 12:00 Mechanical Ventilator 08/16/19 12:00 40 08/16/19 12:00 97.7 93 17 117/68 100 Mechanical Ventilator 40 08/16/19 11:02 99 26 40 08/16/19 09:21 98 28 40 08/16/19 09:18 100 08/16/19 08:00 93 08/16/19 08:00 97.5 90 20 111/77 100 Mechanical Ventilator 40 08/16/19 08:00 Mechanical Ventilator 08/16/19 08:00 40 08/16/19 07:08 90 15 40 08/16/19 05:04 91 17 40 08/16/19 04:00 Mechanical Ventilator 08/16/19 04:00 89 08/16/19 04:00 40 08/16/19 04:00 97.7 90 21 103/66 100 Mechanical Ventilator 40 08/16/19 02:47 92 16 40 08/16/19 01:03 86 17 40 08/16/19 00:00 90 08/16/19 00:00 98.0 87 20 128/71 100 Mechanical Ventilator 40 08/16/19 00:00 Mechanical Ventilator 08/15/19 23:35 85 17 40 I&O Intake and Output 08/15/19 08/16/19 19:00 07:00 Intake Total 805 ml 850 ml Output Total 350 ml 1800 ml Balance 455 ml -950 ml Intake Free Water 150 ml 200 ml IV Total 55 ml Tube Feeding 600 ml 650 ml Output Urine Total 350 ml 1800 ml # Bowel Movements 4 Dressing: saturated Wound: other Drains: other Cardiovascular: RSR Respiratory: decreased breath sounds Abdomen: soft, present bowel sounds, non-distended Extremities: no cyanosis Laboratory Tests Test 08/16/19 15:20 White Blood Count 14.0 K/UL (4.8-10.8) H Red Blood Count 3.17 M/UL (4.70-6.10) L Hemoglobin 9.2 G/DL (14.2-18.0) L Hematocrit 27.0 % (42.0-52.0) L Mean Corpuscular Volume 85 FL (80-99) Mean Corpuscular Hemoglobin 28.9 PG (27.0-31.0) Mean Corpuscular Hemoglobin Concent 34.0 G/DL (32.0-36.0) Red Cell Distribution Width 15.4 % (11.6-14.8) H Platelet Count 324 K/UL (150-450) Mean Platelet Volume 7.0 FL (6.5-10.1) Neutrophils (%) (Auto) 89.4 % (45.0-75.0) H Lymphocytes (%) (Auto) 5.6 % (20.0-45.0) L Monocytes (%) (Auto) 3.9 % (1.0-10.0) Eosinophils (%) (Auto) 0.4 % (0.0-3.0) Basophils (%) (Auto) 0.8 % (0.0-2.0) Sodium Level 142 MMOL/L (136-145) Potassium Level 3.9 MMOL/L (3.5-5.1) Chloride Level 106 MMOL/L (98-107) Carbon Dioxide Level 31 MMOL/L (21-32) Anion Gap 5 mmol/L (5-15) Blood Urea Nitrogen 31 mg/dL (7-18) H Creatinine 0.6 MG/DL (0.55-1.30) Estimat Glomerular Filtration Rate mL/min (>60) Glucose Level 112 MG/DL (74-106) H Calcium Level 7.5 MG/DL (8.5-10.1) L Plan Problems: (1) Septic shock Assessment & Plan: Patient with leukocytosis, tachycardia, lactic acidosis, abnormal labs. - improved and trending down Currently in [facility] for care and management feeds IV fluids IV antibiotics Trend labs Thank you with all the recommendations (2) Wound infection Assessment & Plan: Pt presented on admission with multiple pressure injuries , Multiple necrotic wounds R lower extremity. Scattered senile purpuras noted to posterior ,R and L lateral sides of neck under collar of trach and inferior to tracheostomy. Scattered petechiae noted to bilat upper ext, Talib and lateral aspects of chest abd and back . Both upper extremities are edematous and weeping large amounts of serous exudate. Cat.2 Skin tears noted to Lateral R elbow ,R forearm . Numerous dry scabs noted to L forearm. Large Purple bruise noted to upper and mid abdomen. Incontinence associated dermatitis noted to bilat groin, scrotum,Perianal and both ischial regions- erythema with scattered satellite lesions noted.Large serous blister noted to talib/medial upper L thigh oozing small amt serous exudate.(L)5.5cm x (W)4.5cm Full thickness pressure injury with biofilm noted to R scapula. Edges are macerated with surrounding petechia. Small amt non-odorous serous exudate noted. (L)1cm x (W)1cm. Full thickness lumbar spine. Base of wound is 90%necrotic, surrounding wound bed erythematous and moist. Small amt serosanguineous exudate noted.(L)8.5cm x ( W)4.5cm. Full thickness pressure injury Upper R gluteus(L)2.9cm x (W)2.3cm. Base of wound 80% necrotic 20% viable. Edges are macerated. Erythema without induration periwound. Full thickness pressure injury Upper L gluteus. Baser of wound 100% necrotic with erythematous borders(L)3.2cm x (W)3cm.Periwound without erythema or induration. R lower ext dusky in colour. Distal RLE cool to touch. Multiple ulcerations noted. Full thickness lateral R knee. Base of wound 100% viable. Small amt sanguineous exudate noted. No odor noted. (L)4cmx (W)2.3cm. Surrounding petechia noted. Full thickness ulcer noted to talib /lateral R tibia. Base of wound is 90% soft necrosis 10% fibrinous slough,erythematous borders. Small amt seropurulent exudate noted. Mild odor noted. (L)24cm x (W)9.5cm. Dry necrotic ulcer medial /distal R tibia. (L)0.8cm x (W)0.5cm. Medial R malleolus necrotic with fluctuance.(L)2.5cm x (W)2cm. Large soft necrotic ulcer dorso/lateral R foot with erythematous borders.(L) 11.4cm x (W)6.5cm. Second necrotic wound noted talib/distal R foot Base of wound fluctuant(L) 4.4cm x (W)6.5cm. R Achilles ulcer is 100% necrotic with macerated borders.(L)4.2cm x (W)1cm. Soft necrosis noted R heel with marginal erythema along edges(L)2cm x (W)2cm. Second ulcer medial R heel 100% necrotic with fluctuance.(L)1.5cm x (W)1cm . Necrotic ulcer distal /lateral R foot /Lateral R5th metatarsal.Base of wound is fluctuant. Periwound skin colour dusky.(L)5.6cm x (W)2cm R Hallux necrotic and fluctuant(L)2.9cm x (W)5cm. All 5 metatarsals R foot are mottled and cool to touch. Tx.Plan: Cleanse Wound R scapula with Saline. Apply Therahoney. Apply Cavilon Periwound. Cover with Optifoam drsg. Change every 3 days and prn. Cleanse wound Lumbar Spine with Saline. Apply TheraHoney. Apply Cavilon Skin Barrier periwound. Cover with Optifoam drsg every 3 days and prn. Cleanse wounds R and L upper buttocks with Saline. Apply Therahoney. Apply Cavilon Skin Barrier periwound. Cover each wound with Optifoam drsg. Change every 3 days and prn. Cleanse wound talib R tibia with Saline. Cover with Xeroform. Apply ABD Pad and wrap with Kerlix Daily and prn. Swab All Necrotic Wounds R lower ext/R Foot with Betadine. Cover wounds with ABD pads and wrap with Kerlix Daily and prn. Apply Moisture Barrier Paste to to groin . Scrotum and Bilat ischial areas with each incontinence care. Apply Optifoam drsg to Blister Upper L thigh. Change every 7 days and prn. Apply Xeroform Gauze to skin tears and dry scabs Both upper ext. Apply ABd pads and wrap both upper ext with Kerlix Daily and prn. Elevate both upper extremities with Pillows. Reposition at least every 2hours or as tolerated. Off-load heels with pillow. APM/KAREN Mattress overlay. (3) Tracheostomy dependent (4) Bilateral pneumonia (5) Sepsis with acute hypoxic respiratory failure (6) Severe protein-calorie malnutrition Assessment & Plan: DAILY ESTIMATED NEEDS: Needs based on Critical care, multiple wounds/ 67kg 22-30 kcals/kg 0505-7394 total kcals 1.25-2.0 g protein/kg 84-134 g total protein 25-30 mL/kg 5867-1322 total fluid mLs NUTRITION DIAGNOSIS: * Increased kcal/prot needs R/T wound healing and sepsis as evidenced by pt admitted w/ multiple advanced wounds, pending eval, elev wbc (19.3), elev LA, febrile w/ Tmax 101.9, hypotensive, on pressor support. * Swallowing difficulty R/T dysphagia, respiratory status as evidenced by trach/vent dep, PEG dep. CURRENT TF: NPO ENTERAL NUTRITION RECOMMENDATIONS: Glucerna 1.5 @ 50ml/hr x 24 hrs to provide 1200ml, 1800kcal, 99g prot, 911ml free water * WHEN HEMODYNAMICALLY STABLE: -> Initiate Glucerna 1.5 @ 20ml/hr x 6hrs -> Advance 10ml q 4-6 hrs as tolerated to goal rate -> HOB over 30 degrees/ water flush per MD * WITHOUT HEMODYNAMIC STABILITY: -> Rec trophic feeding of Glucerna 1.5 @ 10-15ml/hr x 24 hrs ADDITIONAL RECOMMENDATIONS: * Per SNF: HT=66" [id number] (wt from Jul 26, 2019) * Monitor HD stability: on pressor support at this time * Monitor lytes, replete as needed * Wound healing: add Vit C 500mg QD, ZnSO4 220mg QD x 10 days : W/ TF order, add Roger 1pkt BID : f/up with WC eval * NISS w/ TF initiation: h/o Jesus Robert Aug 16, 2019 22:24
[2019-08-16] MEDS ORDERED: NS 275ml ONE (22:54)
[2019-08-16] MEDS ORDERED: Tubing IV Secondary IV ONE (22:54)
[2019-08-17] VITALS: BP 126/66
[2019-08-17 04:00] VITALS: BP 115/69
[2019-08-17 05:35] LABS: ALANINE AMINOTRANSFERASE 34 U/L (12-78); ALBUMIN 1.2 G/DL (3.4-5.0); ALBUMIN/GLOBULIN RATIO 0.3 (1.0-2.7); ALKALINE PHOSPHATASE 81 U/L (46-116); ANION GAP 7 mmol/L (5-15); ASPARTATE AMINO TRANSFERASE 45 U/L (15-37); BILIRUBIN,TOTAL 0.5 MG/DL (0.2-1.0); BLOOD UREA NITROGEN 31 mg/dL (7-18); CALCIUM 7.5 MG/DL (8.5-10.1); CARBON DIOXIDE 28 MMOL/L (21-32); CHLORIDE 107 MMOL/L (98-107); CREATININE 0.6 MG/DL (0.55-1.30); POTASSIUM 4.7 MMOL/L (3.5-5.1); SODIUM 142 MMOL/L (136-145)
[2019-08-17 08:00] VITALS: BP 110/62
[2019-08-17] MEDS: Zinc Sulfate 220mg cap GT SCH (08:02)
[2019-08-17] MEDS: Pantoprazole Inj IVP SCH ×2 (08:02→20:27)
[2019-08-17] MEDS: Ascorbic Acid 500mg tab GT SCH (08:02)
[2019-08-17] MEDS: Heparin 5000 units/ml inj SUBQ SCH ×2 (08:04→20:32)
--- NOTE | 2019-08-17 09:54 | Pulmonology Progress Note ---
Assessment/Plan Assessment/Plan IMPRESSION: 1. Urosepsis. Has candiduria 2. Septic shock. Resolved 3. Pseudomonas pneumonia. 4. Chronic respiratory failure. currently on AC DISCUSSION: Continue current medications and care. The patient is on broad-spectrum antibiotics per ID (Cefipime and Diflucan) Off IV fluids Discussed with nursing staff. I will follow carefully. Off pressors Will continue weaning attempts CXR shows pulm edema as well as Left pneumonia Bill Jose M.D. Subjective Interval Events: No reported events Constitutional: Reports: no symptoms HEENT: Repors: no symptoms Respiratory: Reports: no symptoms Cardiovascular: Reports: no symptoms Allergies: Coded Allergies: PENICILLINS (Verified Allergy, Unknown, 08/05/19) Objective Last 24 Hour Vital Signs Date Time Temp Pulse Resp B/P (MAP) Pulse Ox O2 Delivery O2 Flow Rate FiO2 08/17/19 08:55 85 19 40 08/17/19 08:52 100 08/17/19 08:00 40 08/17/19 08:00 97.9 94 20 110/62 99 Mechanical Ventilator 40 08/17/19 08:00 Mechanical Ventilator 08/17/19 07:09 97 21 40 08/17/19 05:13 103 18 40 08/17/19 04:00 97.8 99 17 115/69 99 Mechanical Ventilator 40 08/17/19 04:00 95 08/17/19 04:00 40 08/17/19 04:00 Mechanical Ventilator 08/17/19 03:20 95 15 40 08/17/19 00:46 93 14 40 08/17/19 00:00 Mechanical Ventilator 08/17/19 00:00 101 08/17/19 00:00 98.2 100 17 126/66 99 Mechanical Ventilator 40 08/17/19 00:00 40 08/16/19 22:41 107 20 40 08/16/19 21:09 96 19 40 08/16/19 20:00 97.7 99 18 120/64 99 Mechanical Ventilator 40 08/16/19 20:00 Mechanical Ventilator 08/16/19 20:00 40 08/16/19 20:00 94 08/16/19 18:44 90 18 40 08/16/19 17:25 86 15 40 08/16/19 16:00 Mechanical Ventilator 08/16/19 16:00 40 08/16/19 16:00 99.0 91 17 110/71 100 Mechanical Ventilator 40 08/16/19 16:00 86 08/16/19 13:02 99 16 40 08/16/19 12:00 81 08/16/19 12:00 Mechanical Ventilator 08/16/19 12:00 40 08/16/19 12:00 97.7 93 17 117/68 100 Mechanical Ventilator 40 08/16/19 11:02 99 26 40 Intake and Output 08/16/19 08/17/19 19:00 07:00 Intake Total 720 ml 750 ml Output Total 450 ml 400 ml Balance 270 ml 350 ml Intake Free Water 120 ml 150 ml Tube Feeding 600 ml 600 ml Output Urine Total 450 ml 400 ml # Bowel Movements 2 General Appearance: no acute distress HEENT: normocephalic Respiratory/Chest: chest wall non-tender, lungs clear Cardiovascular: normal peripheral pulses Laboratory Tests 08/16/19 15:20: White Blood Count 14.0H, Red Blood Count 3.17L, Hemoglobin 9.2L, Hematocrit 27.0L, Mean Corpuscular Volume 85, Mean Corpuscular Hemoglobin 28.9, Mean Corpuscular Hemoglobin Concent 34.0, Red Cell Distribution Width 15.4H, Platelet Count 324, Mean Platelet Volume 7.0, Neutrophils (%) (Auto) 89.4H, Lymphocytes (%) (Auto) 5.6L, Monocytes (%) (Auto) 3.9, Eosinophils (%) (Auto) 0.4, Basophils (%) (Auto) 0.8, Sodium Level 142, Potassium Level 3.9, Chloride Level 106, Carbon Dioxide Level 31, Anion Gap 5, Blood Urea Nitrogen 31H, Creatinine 0.6, Estimat Glomerular Filtration Rate , Glucose Level 112H, Calcium Level 7.5L 08/17/19 03:55: Sodium Level 142, Potassium Level 4.7, Chloride Level 107, Carbon Dioxide Level 28, Anion Gap 7, Blood Urea Nitrogen 31H, Creatinine 0.6, Estimat Glomerular Filtration Rate , Glucose Level 106, Calcium Level 7.5L, Magnesium Level 1.7L, Total Bilirubin 0.5, Aspartate Amino Transf (AST/SGOT) 45H, Alanine Aminotransferase (ALT/SGPT) 34, Alkaline Phosphatase 81, Pro-B-Type Natriuretic Peptide 7295H, Total Protein 5.4L, Albumin 1.2L, Globulin 4.2, Albumin/Globulin Ratio 0.3L Current Medications Medications (Trade) Dose Ordered Sig/Kandice Route PRN Reason Start Time Stop Time Status Last Admin Dose Admin Acetaminophen (Tylenol) 650 mg Q6H PRN GT Mild Pain/Temp > 100.5 08/09/19 13:30 09/05/19 13:29 Ascorbic Acid (Vitamin C) 500 mg DAILY GT 08/10/19 09:00 09/06/19 08:59 08/17/19 08:02 Chlorhexidine Gluconate (Melva-Hex 2%) 1 applic DAILY@2000 TOPIC 08/09/19 20:00 09/05/19 19:59 08/16/19 20:04 Heparin Sodium (Porcine) (Heparin 5000 units/ml) 5,000 units EVERY 12 HOURS SUBQ 08/09/19 21:00 09/05/19 08:59 08/17/19 08:04 Magnesium Sulfate 100 ml @ 100 mls/hr ONCE ONCE IVPB 08/17/19 09:30 08/17/19 10:29 08/17/19 09:14 Pantoprazole (Protonix) 40 mg EVERY 12 HOURS IVP 08/09/19 21:00 09/05/19 08:59 08/17/19 08:02 Zinc Sulfate (Zinc Sulfate) 220 mg DAILY GT 08/10/19 09:00 08/20/19 08:59 08/17/19 08:02 Blil Jose MD Aug 17, 2019 09:54
[2019-08-17 12:00] VITALS: BP 109/63
--- NOTE | 2019-08-17 14:37 | Surgery Progress Note ---
Surgery Progress Note Subjective Additional Comments no acute events Objective Last 24 Hour Vital Signs Date Time Temp Pulse Resp B/P (MAP) Pulse Ox O2 Delivery O2 Flow Rate FiO2 08/17/19 12:00 40 08/17/19 12:00 92 08/17/19 12:00 Mechanical Ventilator 08/17/19 12:00 98.8 97 21 109/63 97 Mechanical Ventilator 40 08/17/19 11:08 93 20 40 08/17/19 08:55 85 19 40 08/17/19 08:52 100 08/17/19 08:00 40 08/17/19 08:00 95 08/17/19 08:00 97.9 94 20 110/62 99 Mechanical Ventilator 40 08/17/19 08:00 Mechanical Ventilator 08/17/19 07:09 97 21 40 08/17/19 05:13 103 18 40 08/17/19 04:00 97.8 99 17 115/69 99 Mechanical Ventilator 40 08/17/19 04:00 95 08/17/19 04:00 40 08/17/19 04:00 Mechanical Ventilator 08/17/19 03:20 95 15 40 08/17/19 00:46 93 14 40 08/17/19 00:00 Mechanical Ventilator 08/17/19 00:00 101 08/17/19 00:00 98.2 100 17 126/66 99 Mechanical Ventilator 40 08/17/19 00:00 40 08/16/19 22:41 107 20 40 08/16/19 21:09 96 19 40 08/16/19 20:00 97.7 99 18 120/64 99 Mechanical Ventilator 40 08/16/19 20:00 Mechanical Ventilator 08/16/19 20:00 40 08/16/19 20:00 94 08/16/19 18:44 90 18 40 08/16/19 17:25 86 15 40 08/16/19 16:00 Mechanical Ventilator 08/16/19 16:00 40 08/16/19 16:00 99.0 91 17 110/71 100 Mechanical Ventilator 40 08/16/19 16:00 86 I&O Intake and Output 08/16/19 08/17/19 18:59 06:59 Intake Total 820 ml 750 ml Output Total 450 ml 400 ml Balance 370 ml 350 ml Intake Free Water 170 ml 150 ml Tube Feeding 650 ml 600 ml Output Urine Total 450 ml 400 ml # Bowel Movements 2 Dressing: other Wound: other Drains: other Cardiovascular: RSR Respiratory: decreased breath sounds Abdomen: soft, present bowel sounds, non-distended Extremities: no cyanosis Laboratory Tests Test 08/16/19 15:20 08/17/19 03:55 White Blood Count 14.0 K/UL (4.8-10.8) H Red Blood Count 3.17 M/UL (4.70-6.10) L Hemoglobin 9.2 G/DL (14.2-18.0) L Hematocrit 27.0 % (42.0-52.0) L Mean Corpuscular Volume 85 FL (80-99) Mean Corpuscular Hemoglobin 28.9 PG (27.0-31.0) Mean Corpuscular Hemoglobin Concent 34.0 G/DL (32.0-36.0) Red Cell Distribution Width 15.4 % (11.6-14.8) H Platelet Count 324 K/UL (150-450) Mean Platelet Volume 7.0 FL (6.5-10.1) Neutrophils (%) (Auto) 89.4 % (45.0-75.0) H Lymphocytes (%) (Auto) 5.6 % (20.0-45.0) L Monocytes (%) (Auto) 3.9 % (1.0-10.0) Eosinophils (%) (Auto) 0.4 % (0.0-3.0) Basophils (%) (Auto) 0.8 % (0.0-2.0) Sodium Level 142 MMOL/L (136-145) 142 MMOL/L (136-145) Potassium Level 3.9 MMOL/L (3.5-5.1) 4.7 MMOL/L (3.5-5.1) Chloride Level 106 MMOL/L (98-107) 107 MMOL/L (98-107) Carbon Dioxide Level 31 MMOL/L (21-32) 28 MMOL/L (21-32) Anion Gap 5 mmol/L (5-15) 7 mmol/L (5-15) Blood Urea Nitrogen 31 mg/dL (7-18) H 31 mg/dL (7-18) H Creatinine 0.6 MG/DL (0.55-1.30) 0.6 MG/DL (0.55-1.30) Estimat Glomerular Filtration Rate mL/min (>60) mL/min (>60) Glucose Level 112 MG/DL (74-106) H 106 MG/DL (74-106) Calcium Level 7.5 MG/DL (8.5-10.1) L 7.5 MG/DL (8.5-10.1) L Magnesium Level 1.7 MG/DL (1.8-2.4) L Total Bilirubin 0.5 MG/DL (0.2-1.0) Aspartate Amino Transf (AST/SGOT) 45 U/L (15-37) H Alanine Aminotransferase (ALT/SGPT) 34 U/L (12-78) Alkaline Phosphatase 81 U/L (46-116) Pro-B-Type Natriuretic Peptide 7295 pg/mL (0-125) H Total Protein 5.4 G/DL (6.4-8.2) L Albumin 1.2 G/DL (3.4-5.0) L Globulin 4.2 g/dL Albumin/Globulin Ratio 0.3 (1.0-2.7) L Plan Problems: (1) Septic shock Assessment & Plan: Patient with leukocytosis, tachycardia, lactic acidosis, abnormal labs. - improved and trending down Currently in [facility] for care and management feeds IV fluids IV antibiotics Trend labs Thank you with all the recommendations (2) Wound infection Assessment & Plan: Pt presented on admission with multiple pressure injuries , Multiple necrotic wounds R lower extremity. Scattered senile purpuras noted to posterior ,R and L lateral sides of neck under collar of trach and inferior to tracheostomy. Scattered petechiae noted to bilat upper ext, Talib and lateral aspects of chest abd and back . Both upper extremities are edematous and weeping large amounts of serous exudate. Cat.2 Skin tears noted to Lateral R elbow ,R forearm . Numerous dry scabs noted to L forearm. Large Purple bruise noted to upper and mid abdomen. Incontinence associated dermatitis noted to bilat groin, scrotum,Perianal and both ischial regions- erythema with scattered satellite lesions noted.Large serous blister noted to talib/medial upper L thigh oozing small amt serous exudate.(L)5.5cm x (W)4.5cm Full thickness pressure injury with biofilm noted to R scapula. Edges are macerated with surrounding petechia. Small amt non-odorous serous exudate noted. (L)1cm x (W)1cm. Full thickness lumbar spine. Base of wound is 90%necrotic, surrounding wound bed erythematous and moist. Small amt serosanguineous exudate noted.(L)8.5cm x ( W)4.5cm. Full thickness pressure injury Upper R gluteus(L)2.9cm x (W)2.3cm. Base of wound 80% necrotic 20% viable. Edges are macerated. Erythema without induration periwound. Full thickness pressure injury Upper L gluteus. Baser of wound 100% necrotic with erythematous borders(L)3.2cm x (W)3cm.Periwound without erythema or induration. R lower ext dusky in colour. Distal RLE cool to touch. Multiple ulcerations noted. Full thickness lateral R knee. Base of wound 100% viable. Small amt sanguineous exudate noted. No odor noted. (L)4cmx (W)2.3cm. Surrounding petechia noted. Full thickness ulcer noted to talib /lateral R tibia. Base of wound is 90% soft necrosis 10% fibrinous slough,erythematous borders. Small amt seropurulent exudate noted. Mild odor noted. (L)24cm x (W)9.5cm. Dry necrotic ulcer medial /distal R tibia. (L)0.8cm x (W)0.5cm. Medial R malleolus necrotic with fluctuance.(L)2.5cm x (W)2cm. Large soft necrotic ulcer dorso/lateral R foot with erythematous borders.(L) 11.4cm x (W)6.5cm. Second necrotic wound noted talib/distal R foot Base of wound fluctuant(L) 4.4cm x (W)6.5cm. R Achilles ulcer is 100% necrotic with macerated borders.(L)4.2cm x (W)1cm. Soft necrosis noted R heel with marginal erythema along edges(L)2cm x (W)2cm. Second ulcer medial R heel 100% necrotic with fluctuance.(L)1.5cm x (W)1cm . Necrotic ulcer distal /lateral R foot /Lateral R5th metatarsal.Base of wound is fluctuant. Periwound skin colour dusky.(L)5.6cm x (W)2cm R Hallux necrotic and fluctuant(L)2.9cm x (W)5cm. All 5 metatarsals R foot are mottled and cool to touch. Tx.Plan: Cleanse Wound R scapula with Saline. Apply Therahoney. Apply Cavilon Periwound. Cover with Optifoam drsg. Change every 3 days and prn. Cleanse wound Lumbar Spine with Saline. Apply TheraHoney. Apply Cavilon Skin Barrier periwound. Cover with Optifoam drsg every 3 days and prn. Cleanse wounds R and L upper buttocks with Saline. Apply Therahoney. Apply Cavilon Skin Barrier periwound. Cover each wound with Optifoam drsg. Change every 3 days and prn. Cleanse wound talib R tibia with Saline. Cover with Xeroform. Apply ABD Pad and wrap with Kerlix Daily and prn. Swab All Necrotic Wounds R lower ext/R Foot with Betadine. Cover wounds with ABD pads and wrap with Kerlix Daily and prn. Apply Moisture Barrier Paste to to groin . Scrotum and Bilat ischial areas with each incontinence care. Apply Optifoam drsg to Blister Upper L thigh. Change every 7 days and prn. Apply Xeroform Gauze to skin tears and dry scabs Both upper ext. Apply ABd pads and wrap both upper ext with Kerlix Daily and prn. Elevate both upper extremities with Pillows. Reposition at least every 2hours or as tolerated. Off-load heels with pillow. APM/KAREN Mattress overlay. (3) Tracheostomy dependent (4) Bilateral pneumonia (5) Sepsis with acute hypoxic respiratory failure (6) Severe protein-calorie malnutrition Assessment & Plan: DAILY ESTIMATED NEEDS: Needs based on Critical care, multiple wounds/ 67kg 22-30 kcals/kg 3975-9526 total kcals 1.25-2.0 g protein/kg 84-134 g total protein 25-30 mL/kg 8267-5361 total fluid mLs NUTRITION DIAGNOSIS: * Increased kcal/prot needs R/T wound healing and sepsis as evidenced by pt admitted w/ multiple advanced wounds, pending eval, elev wbc (19.3), elev LA, febrile w/ Tmax 101.9, hypotensive, on pressor support. * Swallowing difficulty R/T dysphagia, respiratory status as evidenced by trach/vent dep, PEG dep. CURRENT TF: NPO ENTERAL NUTRITION RECOMMENDATIONS: Glucerna 1.5 @ 50ml/hr x 24 hrs to provide 1200ml, 1800kcal, 99g prot, 911ml free water * WHEN HEMODYNAMICALLY STABLE: -> Initiate Glucerna 1.5 @ 20ml/hr x 6hrs -> Advance 10ml q 4-6 hrs as tolerated to goal rate -> HOB over 30 degrees/ water flush per MD * WITHOUT HEMODYNAMIC STABILITY: -> Rec trophic feeding of Glucerna 1.5 @ 10-15ml/hr x 24 hrs ADDITIONAL RECOMMENDATIONS: * Per SNF: HT=66" [id number] (wt from Jul 26, 2019) * Monitor HD stability: on pressor support at this time * Monitor lytes, replete as needed * Wound healing: add Vit C 500mg QD, ZnSO4 220mg QD x 10 days : W/ TF order, add Roger 1pkt BID : f/up with WC aisha * NISS w/ TF initiation: h/o Jesus Robert Aug 17, 2019 14:37
[2019-08-17 16:00] VITALS: BP 124/63
[2019-08-17] MEDS: Lisinopril 10mg tab GT SCH (17:49)
--- NOTE | 2019-08-17 18:45 | Progress Note ---
DATE: 08/15/2019 SUBJECTIVE: This is an elderly male, came to the emergency room for generalized weakness and nonverbal, acute respiratory failure, septic shock on vent dependent. OBJECTIVE: VITAL SIGNS: His vital signs are stable. Blood pressure 109/63, pulse 97, no fever. CHEST: Bilateral few crackles. CARDIOVASCULAR: Regular rhythm. ABDOMEN: Soft. EXTREMITIES: No CCE. NEUROLOGICAL: Generalized weakness. LABORATORY DATA: White counts are 14,000, hemoglobin 9.2, hematocrit 27. Chemistry panel, BUN 31, creatinine 0.6. ASSESSMENT AND PLAN: 1. Sepsis. 2. Aspiration pneumonia. 3. Chronic respiratory failure. 4. Decubitus. 5. Congestive heart failure, is improving. Continue weaning protocols. Continue bronchodilator treatments. Continue G-tube feeding, DVT prophylaxis and PPIs. Abhay Vides M.D. DR: ARIK JOB#: [id number] CC:
--- NOTE | 2019-08-17 19:45 | Progress Note ---
DATE: 08/16/2019 CARDIOLOGY PROGRESS NOTE Late entry, 08/16/2019. SUBJECTIVE: The patient remains in the cardiac observation unit. Blood pressure parameters stable. He remains on broad-spectrum antimicrobials and nutrition by a feeding tube. He states he remains off pressors. He continues to require ventilator support. Weaning efforts have been unsuccessful. OBJECTIVE: VITAL SIGNS: Blood pressure 103/66, pulse 90, respirations 21, and afebrile. LUNGS: Bilateral breath sounds. Rhonchi. Thin secretions. CARDIAC: Regular rhythm and rate. Normal S1, S2. ABDOMEN: Soft. EXTREMITIES: No edema. LABORATORY DATA: White count 14, hemoglobin 9.2. Sodium 142, potassium 3.9, bicarb 31, BUN 31, creatinine 0.6. IMPRESSION: 1. Respiratory failure, recovered. 2. Shock due to sepsis. 3. Urinary tract infection. 4. Hypomagnesemia. 5. Ventilator-dependent respiratory failure. 6. Acute on chronic diastolic congestive heart failure. PLAN: 1. Nutritional support. 2. Replace electrolytes as needed. 3. Weaning efforts. 4. Antimicrobials. 5. Skin care. 6. DVT prophylaxis. 7. Diuresis based on clinical parameters. Rahul Govea M.D. DR: ELVIS JOB#: [id number] CC:
[2019-08-17 20:00] VITALS: BP 104/56
[2019-08-17] MEDS: Dyna-Hex 2% Top Sol 2oz TOPIC SCH (20:27)
--- NOTE | 2019-08-17 21:45 | Progress Note ---
DATE: 08/17/2019 CARDIOLOGY PROGRESS NOTE SUBJECTIVE: The patient remains on IV antimicrobials and tube feedings, weaning efforts ongoing. Laboratories reviewed. PHYSICAL EXAMINATION: LUNGS: Thin secretions. Bilateral rhonchi. HEART: Regular rhythm and rate. Normal S1, S2. ABDOMEN: Soft. EXTREMITIES: Trace edema. LABORATORY AND DIAGNOSTIC DATA: Notable today for pro-natriuretic peptide down to 7295 decreased from 14,000. Potassium 4.7, magnesium 1.7. IMPRESSION: 1. Acute on chronic systolic and diastolic congestive heart failure, improving. 2. Severe protein-calorie malnutrition. 3. Respiratory failure. 4. Hypomagnesemia. 5. Healthcare-acquired pneumonia. 6. Status post acute myocardial infarction precipitated by hypoperfusion in the setting of septic shock. PLAN: 1. Add angiotensin-converting enzyme inhibitor. 2. Periodic diuresis. 3. Continue weaning efforts. 4. IV magnesium replacement. 5. We will continue to follow. Rahul Govea M.D. DR: Tyra JOB#: [id number] CC:
[2019-08-18] VITALS: BP 103/53
[2019-08-18 04:00] VITALS: BP 101/42
[2019-08-18 07:43] VITALS: BP 104/53
[2019-08-18] MEDS: Pantoprazole Inj IVP SCH ×2 (08:20→20:15)
[2019-08-18] MEDS: Lisinopril 10mg tab GT SCH ×2 (08:21→16:12)
[2019-08-18] MEDS: Ascorbic Acid 500mg tab GT SCH (08:21)
[2019-08-18] MEDS: Zinc Sulfate 220mg cap GT SCH (08:21)
[2019-08-18] MEDS: Heparin 5000 units/ml inj SUBQ SCH ×2 (08:22→20:16)
--- NOTE | 2019-08-18 10:56 | Infectious Diseases Prog Note ---
Assessment/Plan Assessment/Plan A; 1. Fungal Urinary tract infection.treated 2. H. influenza sepsis, treated 3. Pseudomonas pneumonia. treated 4. CVA. 5. Respiratory failure, status post tracheostomy. 6. 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 Anemia 9. Protein calori malnutrition 10. Penicillin allergy PLAN: 1. Observe off antibiotic 2. F/U CBC Subjective ROS Limited/Unobtainable: Yes Constitutional: Reports: fever, other - Medj=570.2 Allergies: Coded Allergies: PENICILLINS (Verified Allergy, Unknown, 08/05/19) Objective Vital Signs Last 24 Hour Vital Signs Date Time Temp Pulse Resp B/P (MAP) Pulse Ox O2 Delivery O2 Flow Rate FiO2 08/18/19 10:52 88 22 40 08/18/19 09:29 100 08/18/19 09:25 102 08/18/19 08:40 96 21 40 08/18/19 08:21 104/53 08/18/19 08:00 Mechanical Ventilator 08/18/19 08:00 40 08/18/19 07:43 99.3 100 22 104/53 96 Mechanical Ventilator 40 08/18/19 06:54 94 21 40 08/18/19 04:57 86 22 40 08/18/19 04:00 40 08/18/19 04:00 99.1 113 26 101/42 100 Mechanical Ventilator 40 08/18/19 04:00 Mechanical Ventilator 08/18/19 03:44 108 08/18/19 03:30 103 22 40 08/18/19 01:30 101 21 40 08/18/19 00:00 Mechanical Ventilator 08/18/19 00:00 104 08/18/19 00:00 100.2 102 26 103/53 100 Mechanical Ventilator 40 08/17/19 23:06 102 19 40 08/17/19 21:21 99 19 40 08/17/19 20:04 109 22 40 08/17/19 20:00 99.5 101 21 104/56 97 Mechanical Ventilator 40 08/17/19 20:00 Mechanical Ventilator 08/17/19 20:00 40 08/17/19 19:16 103 08/17/19 17:49 123/63 08/17/19 17:30 102 08/17/19 17:00 108 18 40 08/17/19 16:00 40 08/17/19 16:00 Mechanical Ventilator 08/17/19 16:00 99.2 101 22 124/63 95 Mechanical Ventilator 40 08/17/19 14:32 97 21 40 08/17/19 13:26 96 21 40 08/17/19 12:00 40 08/17/19 12:00 92 08/17/19 12:00 Mechanical Ventilator 08/17/19 12:00 98.8 97 21 109/63 97 Mechanical Ventilator 40 08/17/19 11:08 93 20 40 Height (Feet): 6 Height (Inches): 1.00 Weight (Pounds): 166 HEENT: status post trach Respiratory/Chest: lungs clear, other - on ventilator Cardiovascular: normal rate Abdomen: soft, non tender, other - GT feeding Extremities: other - hands edema Neurologic/Psychiatric: aphasia, other - opens eyes Laboratory Tests Test 08/18/19 04:54 Magnesium Level 1.7 MG/DL (1.8-2.4) L Current Medications Medications (Trade) Dose Ordered Sig/Kandice Route PRN Reason Start Time Stop Time Status Last Admin Dose Admin Acetaminophen (Tylenol) 650 mg Q6H PRN GT Mild Pain/Temp > 100.5 08/09/19 13:30 09/05/19 13:29 Ascorbic Acid (Vitamin C) 500 mg DAILY GT 08/10/19 09:00 09/06/19 08:59 08/18/19 08:21 Chlorhexidine Gluconate (Melva-Hex 2%) 1 applic DAILY@2000 TOPIC 08/09/19 20:00 09/05/19 19:59 08/17/19 20:27 Heparin Sodium (Porcine) (Heparin 5000 units/ml) 5,000 units EVERY 12 HOURS SUBQ 08/09/19 21:00 09/05/19 08:59 08/18/19 08:22 Lisinopril (Zestril) 10 mg DAILY GT 08/17/19 16:15 09/16/19 16:14 08/17/19 17:49 Pantoprazole (Protonix) 40 mg EVERY 12 HOURS IVP 08/09/19 21:00 09/05/19 08:59 08/18/19 08:20 Zinc Sulfate (Zinc Sulfate) 220 mg DAILY GT 08/10/19 09:00 08/20/19 08:59 08/18/19 08:21 Mateo Briseno MD Aug 18, 2019 10:56
--- NOTE | 2019-08-18 11:12 | Pulmonology Progress Note ---
Assessment/Plan Assessment/Plan IMPRESSION: 1. Urosepsis. Has candiduria 2. Septic shock. Resolved 3. Pseudomonas pneumonia. 4. Chronic respiratory failure. currently on AC DISCUSSION: Continue current medications and care. The patient is on broad-spectrum antibiotics per ID (Cefipime and Diflucan) Off IV fluids Discussed with nursing staff. I will follow carefully. Off pressors Will continue weaning attempts CXR shows pulm edema as well as Left pneumonia Bill Jose M.D. Subjective Interval Events: None new Constitutional: Reports: no symptoms HEENT: Repors: no symptoms Respiratory: Reports: no symptoms Cardiovascular: Reports: no symptoms Gastrointestinal/Abdominal: Reports: no symptoms Allergies: Coded Allergies: PENICILLINS (Verified Allergy, Unknown, 08/05/19) Objective Last 24 Hour Vital Signs Date Time Temp Pulse Resp B/P (MAP) Pulse Ox O2 Delivery O2 Flow Rate FiO2 08/18/19 10:52 88 22 40 08/18/19 09:29 100 08/18/19 09:25 102 08/18/19 08:40 96 21 40 08/18/19 08:21 104/53 08/18/19 08:00 Mechanical Ventilator 08/18/19 08:00 40 08/18/19 07:43 99.3 100 22 104/53 96 Mechanical Ventilator 40 08/18/19 06:54 94 21 40 08/18/19 04:57 86 22 40 08/18/19 04:00 40 08/18/19 04:00 99.1 113 26 101/42 100 Mechanical Ventilator 40 08/18/19 04:00 Mechanical Ventilator 08/18/19 03:44 108 08/18/19 03:30 103 22 40 08/18/19 01:30 101 21 40 08/18/19 00:00 Mechanical Ventilator 08/18/19 00:00 104 08/18/19 00:00 100.2 102 26 103/53 100 Mechanical Ventilator 40 08/17/19 23:06 102 19 40 08/17/19 21:21 99 19 40 08/17/19 20:04 109 22 40 08/17/19 20:00 99.5 101 21 104/56 97 Mechanical Ventilator 40 08/17/19 20:00 Mechanical Ventilator 08/17/19 20:00 40 08/17/19 19:16 103 08/17/19 17:49 123/63 08/17/19 17:30 102 08/17/19 17:00 108 18 40 08/17/19 16:00 40 08/17/19 16:00 Mechanical Ventilator 08/17/19 16:00 99.2 101 22 124/63 95 Mechanical Ventilator 40 08/17/19 14:32 97 21 40 08/17/19 13:26 96 21 40 08/17/19 12:00 40 08/17/19 12:00 92 08/17/19 12:00 Mechanical Ventilator 08/17/19 12:00 98.8 97 21 109/63 97 Mechanical Ventilator 40 Intake and Output 08/17/19 08/18/19 19:00 07:00 Intake Total 750 ml 750 ml Output Total 302 ml 300 ml Balance 448 ml 450 ml Intake Free Water 150 ml 150 ml Tube Feeding 600 ml 600 ml Output Urine Total 300 ml 300 ml Stool Total 2 ml # Bowel Movements 3 2 General Appearance: no acute distress HEENT: normocephalic Respiratory/Chest: chest wall non-tender, lungs clear Cardiovascular: normal peripheral pulses, normal rate Abdomen: normal bowel sounds Laboratory Tests 08/18/19 04:54: Magnesium Level 1.7L Current Medications Medications (Trade) Dose Ordered Sig/Kandice Route PRN Reason Start Time Stop Time Status Last Admin Dose Admin Acetaminophen (Tylenol) 650 mg Q6H PRN GT Mild Pain/Temp > 100.5 08/09/19 13:30 09/05/19 13:29 Ascorbic Acid (Vitamin C) 500 mg DAILY GT 08/10/19 09:00 09/06/19 08:59 08/18/19 08:21 Chlorhexidine Gluconate (Melva-Hex 2%) 1 applic DAILY@2000 TOPIC 08/09/19 20:00 09/05/19 19:59 08/17/19 20:27 Heparin Sodium (Porcine) (Heparin 5000 units/ml) 5,000 units EVERY 12 HOURS SUBQ 08/09/19 21:00 09/05/19 08:59 08/18/19 08:22 Lisinopril (Zestril) 10 mg DAILY GT 08/17/19 16:15 09/16/19 16:14 08/17/19 17:49 Pantoprazole (Protonix) 40 mg EVERY 12 HOURS IVP 08/09/19 21:00 09/05/19 08:59 08/18/19 08:20 Zinc Sulfate (Zinc Sulfate) 220 mg DAILY GT 08/10/19 09:00 08/20/19 08:59 08/18/19 08:21 Bill Jose MD Aug 18, 2019 11:12
[2019-08-18 12:00] VITALS: BP 118/56
--- NOTE | 2019-08-18 12:50 | Surgery Progress Note ---
Surgery Progress Note Subjective Additional Comments king cute events labs noted exam stable Objective Last 24 Hour Vital Signs Date Time Temp Pulse Resp B/P (MAP) Pulse Ox O2 Delivery O2 Flow Rate FiO2 08/18/19 12:00 Mechanical Ventilator 08/18/19 12:00 40 08/18/19 10:52 88 22 40 08/18/19 09:29 100 08/18/19 09:25 102 08/18/19 08:40 96 21 40 08/18/19 08:21 104/53 08/18/19 08:00 Mechanical Ventilator 08/18/19 08:00 40 08/18/19 07:43 99.3 100 22 104/53 96 Mechanical Ventilator 40 08/18/19 06:54 94 21 40 08/18/19 04:57 86 22 40 08/18/19 04:00 40 08/18/19 04:00 99.1 113 26 101/42 100 Mechanical Ventilator 40 08/18/19 04:00 Mechanical Ventilator 08/18/19 03:44 108 08/18/19 03:30 103 22 40 08/18/19 01:30 101 21 40 08/18/19 00:00 Mechanical Ventilator 08/18/19 00:00 104 08/18/19 00:00 100.2 102 26 103/53 100 Mechanical Ventilator 40 08/17/19 23:06 102 19 40 08/17/19 21:21 99 19 40 08/17/19 20:04 109 22 40 08/17/19 20:00 99.5 101 21 104/56 97 Mechanical Ventilator 40 08/17/19 20:00 Mechanical Ventilator 08/17/19 20:00 40 08/17/19 19:16 103 08/17/19 17:49 123/63 08/17/19 17:30 102 08/17/19 17:00 108 18 40 08/17/19 16:00 40 08/17/19 16:00 Mechanical Ventilator 08/17/19 16:00 99.2 101 22 124/63 95 Mechanical Ventilator 40 08/17/19 14:32 97 21 40 08/17/19 13:26 96 21 40 I&O Intake and Output 08/17/19 08/18/19 19:00 07:00 Intake Total 750 ml 750 ml Output Total 302 ml 300 ml Balance 448 ml 450 ml Intake Free Water 150 ml 150 ml Tube Feeding 600 ml 600 ml Output Urine Total 300 ml 300 ml Stool Total 2 ml # Bowel Movements 3 2 Dressing: other Wound: other Drains: other Cardiovascular: RSR Respiratory: decreased breath sounds Abdomen: soft, present bowel sounds Extremities: no cyanosis Laboratory Tests Test 08/18/19 04:54 Magnesium Level 1.7 MG/DL (1.8-2.4) L Plan Problems: (1) Septic shock Assessment & Plan: Patient with leukocytosis, tachycardia, lactic acidosis, abnormal labs. - improved and trending down Currently in [facility] for care and management feeds IV fluids IV antibiotics Trend labs Thank you with all the recommendations (2) Wound infection Assessment & Plan: Pt presented on admission with multiple pressure injuries , Multiple necrotic wounds R lower extremity. Scattered senile purpuras noted to posterior ,R and L lateral sides of neck under collar of trach and inferior to tracheostomy. Scattered petechiae noted to bilat upper ext, Talib and lateral aspects of chest abd and back . Both upper extremities are edematous and weeping large amounts of serous exudate. Cat.2 Skin tears noted to Lateral R elbow ,R forearm . Numerous dry scabs noted to L forearm. Large Purple bruise noted to upper and mid abdomen. Incontinence associated dermatitis noted to bilat groin, scrotum,Perianal and both ischial regions- erythema with scattered satellite lesions noted.Large serous blister noted to talib/medial upper L thigh oozing small amt serous exudate.(L)5.5cm x (W)4.5cm Full thickness pressure injury with biofilm noted to R scapula. Edges are macerated with surrounding petechia. Small amt non-odorous serous exudate noted. (L)1cm x (W)1cm. Full thickness lumbar spine. Base of wound is 90%necrotic, surrounding wound bed erythematous and moist. Small amt serosanguineous exudate noted.(L)8.5cm x ( W)4.5cm. Full thickness pressure injury Upper R gluteus(L)2.9cm x (W)2.3cm. Base of wound 80% necrotic 20% viable. Edges are macerated. Erythema without induration periwound. Full thickness pressure injury Upper L gluteus. Baser of wound 100% necrotic with erythematous borders(L)3.2cm x (W)3cm.Periwound without erythema or induration. R lower ext dusky in colour. Distal RLE cool to touch. Multiple ulcerations noted. Full thickness lateral R knee. Base of wound 100% viable. Small amt sanguineous exudate noted. No odor noted. (L)4cmx (W)2.3cm. Surrounding petechia noted. Full thickness ulcer noted to talib /lateral R tibia. Base of wound is 90% soft necrosis 10% fibrinous slough,erythematous borders. Small amt seropurulent exudate noted. Mild odor noted. (L)24cm x (W)9.5cm. Dry necrotic ulcer medial /distal R tibia. (L)0.8cm x (W)0.5cm. Medial R malleolus necrotic with fluctuance.(L)2.5cm x (W)2cm. Large soft necrotic ulcer dorso/lateral R foot with erythematous borders.(L) 11.4cm x (W)6.5cm. Second necrotic wound noted talib/distal R foot Base of wound fluctuant(L) 4.4cm x (W)6.5cm. R Achilles ulcer is 100% necrotic with macerated borders.(L)4.2cm x (W)1cm. Soft necrosis noted R heel with marginal erythema along edges(L)2cm x (W)2cm. Second ulcer medial R heel 100% necrotic with fluctuance.(L)1.5cm x (W)1cm . Necrotic ulcer distal /lateral R foot /Lateral R5th metatarsal.Base of wound is fluctuant. Periwound skin colour dusky.(L)5.6cm x (W)2cm R Hallux necrotic and fluctuant(L)2.9cm x (W)5cm. All 5 metatarsals R foot are mottled and cool to touch. Tx.Plan: Cleanse Wound R scapula with Saline. Apply Therahoney. Apply Cavilon Periwound. Cover with Optifoam drsg. Change every 3 days and prn. Cleanse wound Lumbar Spine with Saline. Apply TheraHoney. Apply Cavilon Skin Barrier periwound. Cover with Optifoam drsg every 3 days and prn. Cleanse wounds R and L upper buttocks with Saline. Apply Therahoney. Apply Cavilon Skin Barrier periwound. Cover each wound with Optifoam drsg. Change every 3 days and prn. Cleanse wound talib R tibia with Saline. Cover with Xeroform. Apply ABD Pad and wrap with Kerlix Daily and prn. Swab All Necrotic Wounds R lower ext/R Foot with Betadine. Cover wounds with ABD pads and wrap with Kerlix Daily and prn. Apply Moisture Barrier Paste to to groin . Scrotum and Bilat ischial areas with each incontinence care. Apply Optifoam drsg to Blister Upper L thigh. Change every 7 days and prn. Apply Xeroform Gauze to skin tears and dry scabs Both upper ext. Apply ABd pads and wrap both upper ext with Kerlix Daily and prn. Elevate both upper extremities with Pillows. Reposition at least every 2hours or as tolerated. Off-load heels with pillow. APM/KAREN Mattress overlay. (3) Tracheostomy dependent (4) Bilateral pneumonia (5) Sepsis with acute hypoxic respiratory failure (6) Severe protein-calorie malnutrition Assessment & Plan: DAILY ESTIMATED NEEDS: Needs based on Critical care, multiple wounds/ 67kg 22-30 kcals/kg 7214-9262 total kcals 1.25-2.0 g protein/kg 84-134 g total protein 25-30 mL/kg 1645-9184 total fluid mLs NUTRITION DIAGNOSIS: * Increased kcal/prot needs R/T wound healing and sepsis as evidenced by pt admitted w/ multiple advanced wounds, pending eval, elev wbc (19.3), elev LA, febrile w/ Tmax 101.9, hypotensive, on pressor support. * Swallowing difficulty R/T dysphagia, respiratory status as evidenced by trach/vent dep, PEG dep. CURRENT TF: NPO ENTERAL NUTRITION RECOMMENDATIONS: Glucerna 1.5 @ 50ml/hr x 24 hrs to provide 1200ml, 1800kcal, 99g prot, 911ml free water * WHEN HEMODYNAMICALLY STABLE: -> Initiate Glucerna 1.5 @ 20ml/hr x 6hrs -> Advance 10ml q 4-6 hrs as tolerated to goal rate -> HOB over 30 degrees/ water flush per MD * WITHOUT HEMODYNAMIC STABILITY: -> Rec trophic feeding of Glucerna 1.5 @ 10-15ml/hr x 24 hrs ADDITIONAL RECOMMENDATIONS: * Per SNF: HT=66" TA=166jii (wt from Jul 26, 2019) * Monitor HD stability: on pressor support at this time * Monitor lytes, replete as needed * Wound healing: add Vit C 500mg QD, ZnSO4 220mg QD x 10 days : W/ TF order, add Roger 1pkt BID : f/up with WC eval * NISS w/ TF initiation: h/o Jesus Robert Aug 18, 2019 12:50
[2019-08-18 16:00] VITALS: BP 105/64
[2019-08-18] MEDS ORDERED: Tubing IV Secondary IV ONE (16:11)
[2019-08-18] MEDS ORDERED: NS 275ml ONE (16:11)
[2019-08-18] MEDS ORDERED: Sterile Water Irrig 1000ml IRRIG ONE (16:11)
[2019-08-18 20:00] VITALS: BP 108/56
[2019-08-18] MEDS: Dyna-Hex 2% Top Sol 2oz TOPIC SCH (20:15)
[2019-08-19] VITALS: BP 105/59
--- NOTE | 2019-08-19 01:15 | Progress Note ---
DATE: 08/18/2019 CARDIOLOGY PROGRESS NOTE SUBJECTIVE: The patient was seen and examined. Discussed with staff and consultants. Temperature max 99.3. The patient remains on ventilator support, but off pressors. OBJECTIVE: VITAL SIGNS: Blood pressure 104/53, heart rate 96, and respiratory rate 21. Monitor sinus and sinus tachycardia. LUNGS: Bilateral breath sounds and few rhonchi. CARDIAC: Regular rhythm and rate. Normal S1 and S2 with a fourth heart sound. ABDOMEN: Soft. There is no guarding. EXTREMITIES: Trace dependent edema. LABORATORY DATA: Magnesium is 1.7. IMPRESSION: 1. Respiratory failure. 2. Sepsis with shock, recovered. 3. Myocardial ischemia, resolved. 4. Recurring hypomagnesemia. 5. 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 PLAN: 1. Continue KEYON inhibitor for heart failure management, not blood pressure management. 2. Replace magnesium intravenously. Continue to monitor and replace all electrolytes as needed. 3. Reassess volume status on a daily basis and order diuretic therapy accordingly. 4. Continue weaning efforts. Rahul Govea M.D. DR: BRENDAN JOB#: [id number] CC:
[2019-08-19 04:00] VITALS: BP 121/70
[2019-08-19 05:20] LABS: HEMATOCRIT 26.7 % (42.0-52.0); HEMOGLOBIN 8.6 G/DL (14.2-18.0); MEAN CORPUSCULAR VOLUME 87 FL (80-99); PLATELET COUNT 340 K/UL (150-450); RED BLOOD COUNT 3.07 M/UL (4.70-6.10); RED CELL DISTRIBUTION WIDTH 17.3 % (11.6-14.8); WHITE BLOOD COUNT 15.3 K/UL (4.8-10.8)
[2019-08-19 08:00] VITALS: BP 117/59
[2019-08-19] MEDS: Pantoprazole Inj IVP SCH ×2 (09:53→20:31)
[2019-08-19] MEDS: Ascorbic Acid 500mg tab GT SCH (09:53)
[2019-08-19] MEDS: Lisinopril 10mg tab GT SCH (09:53)
[2019-08-19] MEDS: Zinc Sulfate 220mg cap GT SCH (09:53)
[2019-08-19] MEDS: Heparin 5000 units/ml inj SUBQ SCH ×2 (09:54→20:32)
--- NOTE | 2019-08-19 11:02 | Infectious Diseases Prog Note ---
Assessment/Plan Assessment/Plan antibiotics : none A 1. hemophilus influenza sepsis s/p rx 2. pseudomonas pneumonia 3. fungal UTI s/p rx 4. leucocytosis increasing 5. respiratory failure 6. CVA P 1. start cefepime 2. sputum culture 3. will follow up cultures Subjective ROS Limited/Unobtainable: Yes Allergies: Coded Allergies: PENICILLINS (Verified Allergy, Unknown, 08/05/19) Objective Vital Signs Last 24 Hour Vital Signs Date Time Temp Pulse Resp B/P (MAP) Pulse Ox O2 Delivery O2 Flow Rate FiO2 08/19/19 09:53 117/59 08/19/19 08:50 101 24 40 08/19/19 08:00 95 08/19/19 06:57 100 08/19/19 06:51 90 18 40 08/19/19 05:25 100 16 40 08/19/19 04:00 40 08/19/19 04:00 Mechanical Ventilator 08/19/19 04:00 97.7 107 16 121/70 99 Mechanical Ventilator 40 08/19/19 03:25 96 16 40 08/19/19 03:24 101 08/19/19 00:54 98 17 40 08/19/19 00:00 99 08/19/19 00:00 Mechanical Ventilator 08/19/19 00:00 98.4 101 16 105/59 99 Mechanical Ventilator 40 08/18/19 23:00 102 19 40 08/18/19 21:16 101 17 40 08/18/19 20:00 96.8 96 20 108/56 98 Mechanical Ventilator 40 08/18/19 20:00 Mechanical Ventilator 08/18/19 20:00 40 08/18/19 19:51 95 08/18/19 19:35 98 16 40 08/18/19 16:34 94 22 40 08/18/19 16:12 118/56 08/18/19 16:00 40 08/18/19 16:00 91 08/18/19 16:00 98.9 96 23 105/64 98 Mechanical Ventilator 40 08/18/19 16:00 Mechanical Ventilator 08/18/19 15:20 86 17 40 08/18/19 13:20 86 20 40 08/18/19 13:06 107 08/18/19 12:00 Mechanical Ventilator 08/18/19 12:00 40 08/18/19 12:00 99.5 102 22 118/56 96 Mechanical Ventilator 40 Height (Feet): 6 Height (Inches): 1.00 Weight (Pounds): 162 HEENT: status post trach Respiratory/Chest: lungs clear Cardiovascular: normal rate, regular rhythm, no gallop/murmur Abdomen: soft, non tender, other - GT Extremities: no edema, other - right leg in dressings Laboratory Tests Test 08/19/19 03:45 White Blood Count 15.3 K/UL (4.8-10.8) H Red Blood Count 3.07 M/UL (4.70-6.10) L Hemoglobin 8.6 G/DL (14.2-18.0) L Hematocrit 26.7 % (42.0-52.0) L Mean Corpuscular Volume 87 FL (80-99) Mean Corpuscular Hemoglobin 28.0 PG (27.0-31.0) Mean Corpuscular Hemoglobin Concent 32.2 G/DL (32.0-36.0) Red Cell Distribution Width 17.3 % (11.6-14.8) H Platelet Count 340 K/UL (150-450) Mean Platelet Volume 6.7 FL (6.5-10.1) Neutrophils (%) (Auto) % (45.0-75.0) Lymphocytes (%) (Auto) % (20.0-45.0) Monocytes (%) (Auto) % (1.0-10.0) Eosinophils (%) (Auto) % (0.0-3.0) Basophils (%) (Auto) % (0.0-2.0) Differential Total Cells Counted 100 Neutrophils % (Manual) 95 % (45-75) H Lymphocytes % (Manual) 3 % (20-45) L Monocytes % (Manual) 2 % (1-10) Eosinophils % (Manual) 0 % (0-3) Basophils % (Manual) 0 % (0-2) Band Neutrophils 0 % (0-8) Platelet Estimate Adequate Platelet Morphology Normal Anisocytosis 1+ Magnesium Level 1.9 MG/DL (1.8-2.4) Current Medications Medications (Trade) Dose Ordered Sig/Kandice Route PRN Reason Start Time Stop Time Status Last Admin Dose Admin Acetaminophen (Tylenol) 650 mg Q6H PRN GT Mild Pain/Temp > 100.5 08/09/19 13:30 09/05/19 13:29 Ascorbic Acid (Vitamin C) 500 mg DAILY GT 08/10/19 09:00 09/06/19 08:59 08/19/19 09:53 Chlorhexidine Gluconate (Melva-Hex 2%) 1 applic DAILY@1999 TOPIC 08/09/19 20:00 09/05/19 19:59 08/18/19 20:15 Heparin Sodium (Porcine) (Heparin 5000 units/ml) 5,000 units EVERY 12 HOURS SUBQ 08/09/19 21:00 09/05/19 08:59 08/19/19 09:54 Lisinopril (Zestril) 10 mg DAILY GT 08/17/19 16:15 09/16/19 16:14 08/19/19 09:53 Pantoprazole (Protonix) 40 mg EVERY 12 HOURS IVP 08/09/19 21:00 09/05/19 08:59 08/19/19 09:53 Zinc Sulfate (Zinc Sulfate) 220 mg DAILY GT 08/10/19 09:00 08/20/19 08:59 08/19/19 09:53 Khoa Peters MD Aug 19, 2019 11:02
[2019-08-19 12:00] VITALS: BP 115/63
[2019-08-19] MEDS: Cefepime HCl 2 GM in D5W 55 ML IVPB SCH (14:41)
--- NOTE | 2019-08-19 15:35 | Surgery Progress Note ---
Surgery Progress Note Subjective Additional Comments ill appearing leukocytosis worsening anemia labs noted exam unchanged prognosis guarded Objective Last 24 Hour Vital Signs Date Time Temp Pulse Resp B/P (MAP) Pulse Ox O2 Delivery O2 Flow Rate FiO2 08/19/19 14:37 98 19 40 08/19/19 12:57 94 19 40 08/19/19 12:00 40 08/19/19 12:00 Mechanical Ventilator 08/19/19 12:00 97.9 108 18 115/63 99 Mechanical Ventilator 40 08/19/19 12:00 96 08/19/19 11:00 102 22 40 08/19/19 09:53 117/59 08/19/19 08:50 101 24 40 08/19/19 08:00 97.7 105 21 117/59 99 Mechanical Ventilator 40 08/19/19 08:00 40 08/19/19 08:00 95 08/19/19 08:00 Mechanical Ventilator 08/19/19 06:57 100 08/19/19 06:51 90 18 40 08/19/19 05:25 100 16 40 08/19/19 04:00 40 08/19/19 04:00 Mechanical Ventilator 08/19/19 04:00 97.7 107 16 121/70 99 Mechanical Ventilator 40 08/19/19 03:25 96 16 40 08/19/19 03:24 101 08/19/19 00:54 98 17 40 08/19/19 00:00 99 08/19/19 00:00 Mechanical Ventilator 08/19/19 00:00 98.4 101 16 105/59 99 Mechanical Ventilator 40 08/18/19 23:00 102 19 40 08/18/19 21:16 101 17 40 08/18/19 20:00 96.8 96 20 108/56 98 Mechanical Ventilator 40 08/18/19 20:00 Mechanical Ventilator 08/18/19 20:00 40 08/18/19 19:51 95 08/18/19 19:35 98 16 40 08/18/19 16:34 94 22 40 08/18/19 16:12 118/56 08/18/19 16:00 40 08/18/19 16:00 91 08/18/19 16:00 98.9 96 23 105/64 98 Mechanical Ventilator 40 08/18/19 16:00 Mechanical Ventilator I&O Intake and Output 08/18/19 08/19/19 19:00 07:00 Intake Total 1100 ml 750 ml Output Total 300 ml 200 ml Balance 800 ml 550 ml Intake Free Water 300 ml 150 ml IV Total 200 ml Tube Feeding 600 ml 600 ml Output Urine Total 300 ml 200 ml # Bowel Movements 4 Dressing: other Wound: other Drains: other Cardiovascular: RSR Respiratory: decreased breath sounds Abdomen: soft, present bowel sounds Extremities: no cyanosis Laboratory Tests Test 08/19/19 03:45 White Blood Count 15.3 K/UL (4.8-10.8) H Red Blood Count 3.07 M/UL (4.70-6.10) L Hemoglobin 8.6 G/DL (14.2-18.0) L Hematocrit 26.7 % (42.0-52.0) L Mean Corpuscular Volume 87 FL (80-99) Mean Corpuscular Hemoglobin 28.0 PG (27.0-31.0) Mean Corpuscular Hemoglobin Concent 32.2 G/DL (32.0-36.0) Red Cell Distribution Width 17.3 % (11.6-14.8) H Platelet Count 340 K/UL (150-450) Mean Platelet Volume 6.7 FL (6.5-10.1) Neutrophils (%) (Auto) % (45.0-75.0) Lymphocytes (%) (Auto) % (20.0-45.0) Monocytes (%) (Auto) % (1.0-10.0) Eosinophils (%) (Auto) % (0.0-3.0) Basophils (%) (Auto) % (0.0-2.0) Differential Total Cells Counted 100 Neutrophils % (Manual) 95 % (45-75) H Lymphocytes % (Manual) 3 % (20-45) L Monocytes % (Manual) 2 % (1-10) Eosinophils % (Manual) 0 % (0-3) Basophils % (Manual) 0 % (0-2) Band Neutrophils 0 % (0-8) Platelet Estimate Adequate Platelet Morphology Normal Anisocytosis 1+ Magnesium Level 1.9 MG/DL (1.8-2.4) Plan Problems: (1) Septic shock Assessment & Plan: Patient with leukocytosis, tachycardia, lactic acidosis, abnormal labs. - improved and trending down Currently in PRE[facility] for care and management feeds IV fluids IV antibiotics Trend labs Thank you with all the recommendations (2) Wound infection Assessment & Plan: Pt presented on admission with multiple pressure injuries , Multiple necrotic wounds R lower extremity. Scattered senile purpuras noted to posterior ,R and L lateral sides of neck under collar of trach and inferior to tracheostomy. Scattered petechiae noted to bilat upper ext, Talib and lateral aspects of chest abd and back . Both upper extremities are edematous and weeping large amounts of serous exudate. Cat.2 Skin tears noted to Lateral R elbow ,R forearm . Numerous dry scabs noted to L forearm. Large Purple bruise noted to upper and mid abdomen. Incontinence associated dermatitis noted to bilat groin, scrotum,Perianal and both ischial regions- erythema with scattered satellite lesions noted.Large serous blister noted to talib/medial upper L thigh oozing small amt serous exudate.(L)5.5cm x (W)4.5cm Full thickness pressure injury with biofilm noted to R scapula. Edges are macerated with surrounding petechia. Small amt non-odorous serous exudate noted. (L)1cm x (W)1cm. Full thickness lumbar spine. Base of wound is 90%necrotic, surrounding wound bed erythematous and moist. Small amt serosanguineous exudate noted.(L)8.5cm x ( W)4.5cm. Full thickness pressure injury Upper R gluteus(L)2.9cm x (W)2.3cm. Base of wound 80% necrotic 20% viable. Edges are macerated. Erythema without induration periwound. Full thickness pressure injury Upper L gluteus. Baser of wound 100% necrotic with erythematous borders(L)3.2cm x (W)3cm.Periwound without erythema or induration. R lower ext dusky in colour. Distal RLE cool to touch. Multiple ulcerations noted. Full thickness lateral R knee. Base of wound 100% viable. Small amt sanguineous exudate noted. No odor noted. (L)4cmx (W)2.3cm. Surrounding petechia noted. Full thickness ulcer noted to talib /lateral R tibia. Base of wound is 90% soft necrosis 10% fibrinous slough,erythematous borders. Small amt seropurulent exudate noted. Mild odor noted. (L)24cm x (W)9.5cm. Dry necrotic ulcer medial /distal R tibia. (L)0.8cm x (W)0.5cm. Medial R malleolus necrotic with fluctuance.(L)2.5cm x (W)2cm. Large soft necrotic ulcer dorso/lateral R foot with erythematous borders.(L) 11.4cm x (W)6.5cm. Second necrotic wound noted talib/distal R foot Base of wound fluctuant(L) 4.4cm x (W)6.5cm. R Achilles ulcer is 100% necrotic with macerated borders.(L)4.2cm x (W)1cm. Soft necrosis noted R heel with marginal erythema along edges(L)2cm x (W)2cm. Second ulcer medial R heel 100% necrotic with fluctuance.(L)1.5cm x (W)1cm . Necrotic ulcer distal /lateral R foot /Lateral R5th metatarsal.Base of wound is fluctuant. Periwound skin colour dusky.(L)5.6cm x (W)2cm R Hallux necrotic and fluctuant(L)2.9cm x (W)5cm. All 5 metatarsals R foot are mottled and cool to touch. Tx.Plan: Cleanse Wound R scapula with Saline. Apply Therahoney. Apply Cavilon Periwound. Cover with Optifoam drsg. Change every 3 days and prn. Cleanse wound Lumbar Spine with Saline. Apply TheraHoney. Apply Cavilon Skin Barrier periwound. Cover with Optifoam drsg every 3 days and prn. Cleanse wounds R and L upper buttocks with Saline. Apply Therahoney. Apply Cavilon Skin Barrier periwound. Cover each wound with Optifoam drsg. Change every 3 days and prn. Cleanse wound talib R tibia with Saline. Cover with Xeroform. Apply ABD Pad and wrap with Kerlix Daily and prn. Swab All Necrotic Wounds R lower ext/R Foot with Betadine. Cover wounds with ABD pads and wrap with Kerlix Daily and prn. Apply Moisture Barrier Paste to to groin . Scrotum and Bilat ischial areas with each incontinence care. Apply Optifoam drsg to Blister Upper L thigh. Change every 7 days and prn. Apply Xeroform Gauze to skin tears and dry scabs Both upper ext. Apply ABd pads and wrap both upper ext with Kerlix Daily and prn. Elevate both upper extremities with Pillows. Reposition at least every 2hours or as tolerated. Off-load heels with pillow. APM/KAREN Mattress overlay. (3) Tracheostomy dependent (4) Bilateral pneumonia (5) Sepsis with acute hypoxic respiratory failure (6) Severe protein-calorie malnutrition Assessment & Plan: DAILY ESTIMATED NEEDS: Needs based on Critical care, multiple wounds/ 67kg 22-30 kcals/kg 1636-5667 total kcals 1.25-2.0 g protein/kg 84-134 g total protein 25-30 mL/kg 3157-9612 total fluid mLs NUTRITION DIAGNOSIS: * Increased kcal/prot needs R/T wound healing and sepsis as evidenced by pt admitted w/ multiple advanced wounds, pending eval, elev wbc (19.3), elev LA, febrile w/ Tmax 101.9, hypotensive, on pressor support. * Swallowing difficulty R/T dysphagia, respiratory status as evidenced by trach/vent dep, PEG dep. CURRENT TF: NPO ENTERAL NUTRITION RECOMMENDATIONS: Glucerna 1.5 @ 50ml/hr x 24 hrs to provide 1200ml, 1800kcal, 99g prot, 911ml free water * WHEN HEMODYNAMICALLY STABLE: -> Initiate Glucerna 1.5 @ 20ml/hr x 6hrs -> Advance 10ml q 4-6 hrs as tolerated to goal rate -> HOB over 30 degrees/ water flush per MD * WITHOUT HEMODYNAMIC STABILITY: -> Rec trophic feeding of Glucerna 1.5 @ 10-15ml/hr x 24 hrs ADDITIONAL RECOMMENDATIONS: * Per SNF: HT=66" CM=[id number] (wt from Jul 26, 2019) * Monitor HD stability: on pressor support at this time * Monitor lytes, replete as needed * Wound healing: add Vit C 500mg QD, ZnSO4 220mg QD x 10 days : W/ TF order, add Roger 1pkt BID : f/up with WC eval * NISS w/ TF initiation: h/o Jesus Robert Aug 19, 2019 15:35
[2019-08-19 16:00] VITALS: BP 125/71
--- NOTE | 2019-08-19 16:00 | Progress Note ---
DATE: 08/19/2019 SUBJECTIVE: This is an elderly male, currently nonverbal, bedbound. PHYSICAL EXAMINATION: VITAL SIGNS: Pulse is 101, blood pressure 121/70, temperature 97.7. CHEST: Bilateral few crackles. CARDIOVASCULAR: Regular rhythm. ABDOMEN: Soft. G-tube in place. EXTREMITIES: Leg ulcers. LABORATORY DATA: White counts are 16,000, hemoglobin 8.6. Chemistry panel is not available. ASSESSMENT: 1. Sepsis. 2. Chronic respiratory failure. 3. Encephalopathy. 4. CVA. PLAN: 1. Continue lisinopril. 2. Bronchodilator treatments. 3. Continue wound care. Abhay Vides M.D. DR: Wale JOB#: [id number] CC:
[2019-08-19 20:00] VITALS: BP 123/67
[2019-08-19] MEDS: Dyna-Hex 2% Top Sol 2oz TOPIC SCH (20:31)
[2019-08-20] VITALS: BP 121/72
[2019-08-20] MEDS: Cefepime HCl 2 GM in D5W 55 ML IVPB SCH ×2 (01:09→14:04)
[2019-08-20 04:00] VITALS: BP 131/57
--- NOTE | 2019-08-20 07:00 | Progress Note ---
DATE: 08/19/2019 CARDIOLOGY PROGRESS NOTES SUBJECTIVE: The patient remains on ventilator support. OBJECTIVE: VITAL SIGNS: Blood pressure 123/67, pulse 91, respirations 19, afebrile. LUNGS: Bilateral breath sounds. CARDIAC: Regular rhythm and rate. Normal S1, S2. ABDOMEN: Soft. G-tube intact. EXTREMITIES: Trace edema. LABORATORY DATA: White count 15, hemoglobin 8.6. Magnesium 1.9. IMPRESSION: 1. Respiratory failure. 2. Recovered shock due to sepsis. 3. Urinary tract infection. 4. 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 PLAN: 1. Anti-failure regimen with titration. 2. Limitations blood pressure parameters. 3. Periodic diuresis. 4. Monitor volume status and cardiorenal function. 5. Antimicrobials. 6. Ventilator support. 7. Wean as able. Rahul Govea M.D. DR: YANNICK/SEFERINO JOB#: [id number] CC:
[2019-08-20 08:00] VITALS: BP 119/72
[2019-08-20] MEDS: Ascorbic Acid 500mg tab GT SCH (08:57)
[2019-08-20] MEDS: Pantoprazole Inj IVP SCH ×2 (08:58→20:10)
[2019-08-20] MEDS: Lisinopril 10mg tab GT SCH (08:58)
[2019-08-20] MEDS: Heparin 5000 units/ml inj SUBQ SCH ×2 (08:59→20:13)
--- NOTE | 2019-08-20 11:57 | Pulmonology Progress Note ---
Assessment/Plan Assessment/Plan IMPRESSION: 1. Urosepsis. Has candiduria 2. Septic shock. Resolved 3. Pseudomonas pneumonia. 4. Chronic respiratory failure. currently on AC DISCUSSION: Continue current medications and care. The patient is on broad-spectrum antibiotics per ID (Cefipime and Diflucan) Off IV fluids Discussed with nursing staff. I will follow carefully. Off pressors Will continue weaning attempts; so far unsuccessful CXR shows pulm edema as well as Left pneumonia Bill Jose M.D. Subjective Interval Events: none new reported Constitutional: Reports: no symptoms HEENT: Repors: no symptoms Respiratory: Reports: no symptoms Cardiovascular: Reports: no symptoms Gastrointestinal/Abdominal: Reports: no symptoms Genitourinary: Reports: no symptoms Allergies: Coded Allergies: PENICILLINS (Verified Allergy, Unknown, 08/05/19) Objective Last 24 Hour Vital Signs Date Time Temp Pulse Resp B/P (MAP) Pulse Ox O2 Delivery O2 Flow Rate FiO2 08/20/19 10:58 101 21 40 08/20/19 09:25 94 28 40 08/20/19 09:24 99 08/20/19 08:58 119/72 08/20/19 08:00 Mechanical Ventilator 08/20/19 08:00 40 08/20/19 08:00 98.3 104 21 119/72 98 Mechanical Ventilator 40 08/20/19 07:44 94 08/20/19 07:14 95 21 40 08/20/19 05:34 96 19 40 08/20/19 04:00 93 08/20/19 04:00 98.5 91 20 131/57 99 Mechanical Ventilator 40 08/20/19 04:00 Mechanical Ventilator 08/20/19 04:00 40 08/20/19 03:19 95 20 40 08/20/19 01:33 98.4 89 08/20/19 01:07 102 20 40 08/20/19 00:00 40 08/20/19 00:00 98 08/20/19 00:00 Mechanical Ventilator 08/20/19 00:00 99.0 96 18 121/72 99 Mechanical Ventilator 40 08/19/19 23:38 99 19 40 08/19/19 21:39 101 20 40 08/19/19 20:00 Mechanical Ventilator 08/19/19 20:00 98.9 91 19 123/67 99 Mechanical Ventilator 40 08/19/19 20:00 40 08/19/19 19:24 92 08/19/19 18:58 94 19 40 08/19/19 16:35 103 22 40 08/19/19 16:00 Mechanical Ventilator 08/19/19 16:00 98.2 92 16 125/71 100 Mechanical Ventilator 40 08/19/19 16:00 103 08/19/19 16:00 40 08/19/19 14:37 98 19 40 08/19/19 12:57 94 19 40 08/19/19 12:00 40 08/19/19 12:00 Mechanical Ventilator 08/19/19 12:00 97.9 108 18 115/63 99 Mechanical Ventilator 40 08/19/19 12:00 96 Intake and Output 08/19/19 08/20/19 19:00 07:00 Intake Total 655.00 ml 705 ml Output Total 275 ml 150 ml Balance 380.00 ml 555 ml Intake Free Water 50 ml IV Total 55.00 ml 55 ml Tube Feeding 600 ml 600 ml Output Urine Total 275 ml 150 ml # Voids 1 # Bowel Movements 1 1 General Appearance: no acute distress HEENT: status post trach Respiratory/Chest: chest wall non-tender, lungs clear Cardiovascular: normal peripheral pulses, normal rate Abdomen: normal bowel sounds Current Medications Medications (Trade) Dose Ordered Sig/Kandice Route PRN Reason Start Time Stop Time Status Last Admin Dose Admin Acetaminophen (Tylenol) 650 mg Q6H PRN GT Mild Pain/Temp > 100.5 08/09/19 13:30 09/05/19 13:29 Ascorbic Acid (Vitamin C) 500 mg DAILY GT 08/10/19 09:00 09/06/19 08:59 08/20/19 08:57 Cefepime HCl 2 gm/ Dextrose 55 ml @ 110 mls/hr Q12H IVPB 08/19/19 14:00 08/26/19 13:59 08/20/19 01:09 Chlorhexidine Gluconate (Melva-Hex 2%) 1 applic DAILY@2000 TOPIC 08/09/19 20:00 09/05/19 19:59 08/19/19 20:31 Heparin Sodium (Porcine) (Heparin 5000 units/ml) 5,000 units EVERY 12 HOURS SUBQ 08/09/19 21:00 09/05/19 08:59 08/20/19 08:59 Lisinopril (Zestril) 10 mg DAILY GT 08/17/19 16:15 09/16/19 16:14 08/20/19 08:58 Pantoprazole (Protonix) 40 mg EVERY 12 HOURS IVP 08/09/19 21:00 09/05/19 08:59 08/20/19 08:58 Bill Jose MD Aug 20, 2019 11:57
[2019-08-20 12:00] VITALS: BP 118/67
--- NOTE | 2019-08-20 12:08 | Infectious Diseases Prog Note ---
Assessment/Plan Assessment/Plan antibiotics : cefepime A 1. hemophilus influenza sepsis s/p rx 2. pseudomonas pneumonia 3. fungal UTI s/p rx 4. leucocytosis increasing 5. respiratory failure 6. CVA P 1. continue cefepime 2. will follow up cultures Subjective ROS Limited/Unobtainable: Yes Allergies: Coded Allergies: PENICILLINS (Verified Allergy, Unknown, 08/05/19) Objective Vital Signs Last 24 Hour Vital Signs Date Time Temp Pulse Resp B/P (MAP) Pulse Ox O2 Delivery O2 Flow Rate FiO2 08/20/19 10:58 101 21 40 08/20/19 09:25 94 28 40 08/20/19 09:24 99 08/20/19 08:58 119/72 08/20/19 08:00 Mechanical Ventilator 08/20/19 08:00 40 08/20/19 08:00 98.3 104 21 119/72 98 Mechanical Ventilator 40 08/20/19 07:44 94 08/20/19 07:14 95 21 40 08/20/19 05:34 96 19 40 08/20/19 04:00 93 08/20/19 04:00 98.5 91 20 131/57 99 Mechanical Ventilator 40 08/20/19 04:00 Mechanical Ventilator 08/20/19 04:00 40 08/20/19 03:19 95 20 40 08/20/19 01:33 98.4 89 08/20/19 01:07 102 20 40 08/20/19 00:00 40 08/20/19 00:00 98 08/20/19 00:00 Mechanical Ventilator 08/20/19 00:00 99.0 96 18 121/72 99 Mechanical Ventilator 40 08/19/19 23:38 99 19 40 08/19/19 21:39 101 20 40 08/19/19 20:00 Mechanical Ventilator 08/19/19 20:00 98.9 91 19 123/67 99 Mechanical Ventilator 40 08/19/19 20:00 40 08/19/19 19:24 92 08/19/19 18:58 94 19 40 08/19/19 16:35 103 22 40 08/19/19 16:00 Mechanical Ventilator 08/19/19 16:00 98.2 92 16 125/71 100 Mechanical Ventilator 40 08/19/19 16:00 103 08/19/19 16:00 40 08/19/19 14:37 98 19 40 08/19/19 12:57 94 19 40 Height (Feet): 6 Height (Inches): 1.00 Weight (Pounds): 163 HEENT: status post trach Respiratory/Chest: lungs clear Cardiovascular: normal rate, regular rhythm, no gallop/murmur Abdomen: soft, non tender, other - GT Extremities: no edema, other - right groin catheter Current Medications Medications (Trade) Dose Ordered Sig/Kandice Route PRN Reason Start Time Stop Time Status Last Admin Dose Admin Acetaminophen (Tylenol) 650 mg Q6H PRN GT Mild Pain/Temp > 100.5 08/09/19 13:30 09/05/19 13:29 Ascorbic Acid (Vitamin C) 500 mg DAILY GT 08/10/19 09:00 09/06/19 08:59 08/20/19 08:57 Cefepime HCl 2 gm/ Dextrose 55 ml @ 110 mls/hr Q12H IVPB 08/19/19 14:00 08/26/19 13:59 08/20/19 01:09 Chlorhexidine Gluconate (Melva-Hex 2%) 1 applic DAILY@2000 TOPIC 08/09/19 20:00 09/05/19 19:59 08/19/19 20:31 Heparin Sodium (Porcine) (Heparin 5000 units/ml) 5,000 units EVERY 12 HOURS SUBQ 08/09/19 21:00 09/05/19 08:59 08/20/19 08:59 Lisinopril (Zestril) 10 mg DAILY GT 08/17/19 16:15 09/16/19 16:14 08/20/19 08:58 Pantoprazole (Protonix) 40 mg EVERY 12 HOURS IVP 08/09/19 21:00 09/05/19 08:59 08/20/19 08:58 Khoa Peters MD Aug 20, 2019 12:08
--- NOTE | 2019-08-20 14:33 | Surgery Progress Note ---
Surgery Progress Note Subjective Symptoms: other Objective Last 24 Hour Vital Signs Date Time Temp Pulse Resp B/P (MAP) Pulse Ox O2 Delivery O2 Flow Rate FiO2 08/20/19 13:10 105 19 40 08/20/19 12:00 Mechanical Ventilator 08/20/19 12:00 40 08/20/19 12:00 102 08/20/19 12:00 98.6 98 20 118/67 99 Mechanical Ventilator 40 08/20/19 10:58 101 21 40 08/20/19 09:25 94 28 40 08/20/19 09:24 99 08/20/19 08:58 119/72 08/20/19 08:00 Mechanical Ventilator 08/20/19 08:00 40 08/20/19 08:00 98.3 104 21 119/72 98 Mechanical Ventilator 40 08/20/19 07:44 94 08/20/19 07:14 95 21 40 08/20/19 05:34 96 19 40 08/20/19 04:00 93 08/20/19 04:00 98.5 91 20 131/57 99 Mechanical Ventilator 40 08/20/19 04:00 Mechanical Ventilator 08/20/19 04:00 40 08/20/19 03:19 95 20 40 08/20/19 01:33 98.4 89 08/20/19 01:07 102 20 40 08/20/19 00:00 40 08/20/19 00:00 98 08/20/19 00:00 Mechanical Ventilator 08/20/19 00:00 99.0 96 18 121/72 99 Mechanical Ventilator 40 08/19/19 23:38 99 19 40 08/19/19 21:39 101 20 40 08/19/19 20:00 Mechanical Ventilator 08/19/19 20:00 98.9 91 19 123/67 99 Mechanical Ventilator 40 08/19/19 20:00 40 08/19/19 19:24 92 08/19/19 18:58 94 19 40 08/19/19 16:35 103 22 40 08/19/19 16:00 Mechanical Ventilator 08/19/19 16:00 98.2 92 16 125/71 100 Mechanical Ventilator 40 08/19/19 16:00 103 08/19/19 16:00 40 08/19/19 14:37 98 19 40 I&O Intake and Output 11/11/19 11/12/19 19:00 07:00 Intake Total 655.00 ml 705 ml Output Total 275 ml 150 ml Balance 380.00 ml 555 ml Intake Free Water 50 ml IV Total 55.00 ml 55 ml Tube Feeding 600 ml 600 ml Output Urine Total 275 ml 150 ml # Voids 1 # Bowel Movements 1 1 Dressing: saturated Wound: other Drains: other Cardiovascular: RSR Respiratory: decreased breath sounds Abdomen: soft, present bowel sounds Extremities: no cyanosis Plan Problems: (1) Septic shock Assessment & Plan: Patient with leukocytosis, tachycardia, lactic acidosis, abnormal labs. - improved and trending down Currently in PREET for care and management feeds IV fluids IV antibiotics Trend labs Thank you with all the recommendations (2) Wound infection Assessment & Plan: Pt presented on admission with multiple pressure injuries , Multiple necrotic wounds R lower extremity. Scattered senile purpuras noted to posterior ,R and L lateral sides of neck under collar of trach and inferior to tracheostomy. Scattered petechiae noted to bilat upper ext, Tailb and lateral aspects of chest abd and back . Both upper extremities are edematous and weeping large amounts of serous exudate. Cat.2 Skin tears noted to Lateral R elbow ,R forearm . Numerous dry scabs noted to L forearm. Large Purple bruise noted to upper and mid abdomen. Incontinence associated dermatitis noted to bilat groin, scrotum,Perianal and both ischial regions- erythema with scattered satellite lesions noted.Large serous blister noted to talib/medial upper L thigh oozing small amt serous exudate.(L)5.5cm x (W)4.5cm Full thickness pressure injury with biofilm noted to R scapula. Edges are macerated with surrounding petechia. Small amt non-odorous serous exudate noted. (L)1cm x (W)1cm. Full thickness lumbar spine. Base of wound is 90%necrotic, surrounding wound bed erythematous and moist. Small amt serosanguineous exudate noted.(L)8.5cm x ( W)4.5cm. Full thickness pressure injury Upper R gluteus(L)2.9cm x (W)2.3cm. Base of wound 80% necrotic 20% viable. Edges are macerated. Erythema without induration periwound. Full thickness pressure injury Upper L gluteus. Baser of wound 100% necrotic with erythematous borders(L)3.2cm x (W)3cm.Periwound without erythema or induration. R lower ext dusky in colour. Distal RLE cool to touch. Multiple ulcerations noted. Full thickness lateral R knee. Base of wound 100% viable. Small amt sanguineous exudate noted. No odor noted. (L)4cmx (W)2.3cm. Surrounding petechia noted. Full thickness ulcer noted to talib /lateral R tibia. Base of wound is 90% soft necrosis 10% fibrinous slough,erythematous borders. Small amt seropurulent exudate noted. Mild odor noted. (L)24cm x (W)9.5cm. Dry necrotic ulcer medial /distal R tibia. (L)0.8cm x (W)0.5cm. Medial R malleolus necrotic with fluctuance.(L)2.5cm x (W)2cm. Large soft necrotic ulcer dorso/lateral R foot with erythematous borders.(L) 11.4cm x (W)6.5cm. Second necrotic wound noted talib/distal R foot Base of wound fluctuant(L) 4.4cm x (W)6.5cm. R Achilles ulcer is 100% necrotic with macerated borders.(L)4.2cm x (W)1cm. Soft necrosis noted R heel with marginal erythema along edges(L)2cm x (W)2cm. Second ulcer medial R heel 100% necrotic with fluctuance.(L)1.5cm x (W)1cm . Necrotic ulcer distal /lateral R foot /Lateral R5th metatarsal.Base of wound is fluctuant. Periwound skin colour dusky.(L)5.6cm x (W)2cm R Hallux necrotic and fluctuant(L)2.9cm x (W)5cm. All 5 metatarsals R foot are mottled and cool to touch. Tx.Plan: Cleanse Wound R scapula with Saline. Apply Therahoney. Apply Cavilon Periwound. Cover with Optifoam drsg. Change every 3 days and prn. Cleanse wound Lumbar Spine with Saline. Apply TheraHoney. Apply Cavilon Skin Barrier periwound. Cover with Optifoam drsg every 3 days and prn. Cleanse wounds R and L upper buttocks with Saline. Apply Therahoney. Apply Cavilon Skin Barrier periwound. Cover each wound with Optifoam drsg. Change every 3 days and prn. Cleanse wound talib R tibia with Saline. Cover with Xeroform. Apply ABD Pad and wrap with Kerlix Daily and prn. Swab All Necrotic Wounds R lower ext/R Foot with Betadine. Cover wounds with ABD pads and wrap with Kerlix Daily and prn. Apply Moisture Barrier Paste to to groin . Scrotum and Bilat ischial areas with each incontinence care. Apply Optifoam drsg to Blister Upper L thigh. Change every 7 days and prn. Apply Xeroform Gauze to skin tears and dry scabs Both upper ext. Apply ABd pads and wrap both upper ext with Kerlix Daily and prn. Elevate both upper extremities with Pillows. Reposition at least every 2hours or as tolerated. Off-load heels with pillow. APM/KAREN Mattress overlay. (3) Tracheostomy dependent (4) Bilateral pneumonia (5) Sepsis with acute hypoxic respiratory failure (6) Severe protein-calorie malnutrition Assessment & Plan: DAILY ESTIMATED NEEDS: Needs based on Critical care, multiple wounds/ 67kg 22-30 kcals/kg 5804-8886 total kcals 1.25-2.0 g protein/kg 84-134 g total protein 25-30 mL/kg 4293-2801 total fluid mLs NUTRITION DIAGNOSIS: * Increased kcal/prot needs R/T wound healing and sepsis as evidenced by pt admitted w/ multiple advanced wounds, pending eval, elev wbc (19.3), elev LA, febrile w/ Tmax 101.9, hypotensive, on pressor support. * Swallowing difficulty R/T dysphagia, respiratory status as evidenced by trach/vent dep, PEG dep. CURRENT TF: NPO ENTERAL NUTRITION RECOMMENDATIONS: Glucerna 1.5 @ 50ml/hr x 24 hrs to provide 1200ml, 1800kcal, 99g prot, 911ml free water * WHEN HEMODYNAMICALLY STABLE: -> Initiate Glucerna 1.5 @ 20ml/hr x 6hrs -> Advance 10ml q 4-6 hrs as tolerated to goal rate -> HOB over 30 degrees/ water flush per MD * WITHOUT HEMODYNAMIC STABILITY: -> Rec trophic feeding of Glucerna 1.5 @ 10-15ml/hr x 24 hrs ADDITIONAL RECOMMENDATIONS: * Per SNF: HT=66" DG=518gts (wt from Jul 26, 2019) * Monitor HD stability: on pressor support at this time * Monitor lytes, replete as needed * Wound healing: add Vit C 500mg QD, ZnSO4 220mg QD x 10 days : W/ TF order, add Roger 1pkt BID : f/up with WC eval * NISS w/ TF initiation: h/o Jesus Robert Aug 20, 2019 14:33
[2019-08-20 16:00] VITALS: BP 121/74
--- NOTE | 2019-08-20 18:15 | Progress Note ---
DATE: 08/20/2019 SUBJECTIVE: He is elderly male, currently in bed, nonverbal, on ventilator. OBJECTIVE: VITAL SIGNS: Blood pressure 118/67, pulse 102. No fever. CHEST: Bilaterally clear. CARDIOVASCULAR: Regular rhythm. ABDOMEN: Soft. EXTREMITIES: CCE. NEUROLOGICAL: The patient is nonverbal, bedbound. LABORATORY DATA: The patient's labs, there are no labs today. ASSESSMENT: 1. Chronic respiratory failure. 2. Aspiration pneumonia. 3. Sepsis. 4. Encephalopathy. PLAN: 1. Continue G-tube feeding. 2. Continue antibiotic, bronchodilator treatments. Abhay Vides M.D. DR: EYAL JOB#: [id number] CC:
[2019-08-20 20:00] VITALS: BP 113/66
[2019-08-20] MEDS: Dyna-Hex 2% Top Sol 2oz TOPIC SCH (20:10)
[2019-08-21] VITALS: BP 121/66
[2019-08-21] MEDS: Cefepime HCl 2 GM in D5W 55 ML IVPB SCH ×2 (01:08→14:15)
[2019-08-21 04:00] VITALS: BP 122/62
[2019-08-21 06:09] LABS: ALANINE AMINOTRANSFERASE 63 U/L (12-78); ALBUMIN 1.2 G/DL (3.4-5.0); ALBUMIN/GLOBULIN RATIO 0.3 (1.0-2.7); ALKALINE PHOSPHATASE 73 U/L (46-116); ANION GAP 2 mmol/L (5-15); ASPARTATE AMINO TRANSFERASE 42 U/L (15-37); BILIRUBIN,TOTAL 0.3 MG/DL (0.2-1.0); BLOOD UREA NITROGEN 34 mg/dL (7-18); CALCIUM 7.7 MG/DL (8.5-10.1); CARBON DIOXIDE 33 MMOL/L (21-32); CHLORIDE 110 MMOL/L (98-107); CREATININE 0.6 MG/DL (0.55-1.30); POTASSIUM 4.1 MMOL/L (3.5-5.1); SODIUM 145 MMOL/L (136-145)
--- NOTE | 2019-08-21 06:30 | Progress Note ---
DATE: 08/20/2019 CARDIOLOGY PROGRESS NOTE SUBJECTIVE: Condition largely unchanged. The patient is still with ventilator dependence. Weaning unsuccessful. OBJECTIVE: VITAL SIGNS: Blood pressure 119/72, heart rate 94, respiratory rate 21, and afebrile. LUNGS: Bilateral rhonchi. CARDIAC: Regular rhythm and rate. Normal S1, S2. ABDOMEN: Soft. EXTREMITIES: Trace edema. LABORATORY DATA: No new laboratories today. IMPRESSION: 1. Respiratory failure, recovered shock due to sepsis and urinary tract infection. 2. 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 3. Severe protein-calorie malnutrition. 4. Hypomagnesemia, status post replacement. PLAN: 1. Titration of anti-failure regimen. 2. Trend natriuretic peptide assay. 3. Weaning efforts. 4. Periodic diuresis. 5. We will follow. Rahul Govea M.D. DR: ELVIS JOB#: [id number] CC:
--- NOTE | 2019-08-21 07:45 | Pulmonology Progress Note ---
Assessment/Plan Assessment/Plan IMPRESSION: 1. Urosepsis. Has candiduria 2. Septic shock. Resolved 3. Pseudomonas pneumonia. 4. Chronic respiratory failure. currently on AC DISCUSSION: Continue current medications and care. The patient is on broad-spectrum antibiotics per ID (Cefipime and Diflucan) Off IV fluids Discussed with nursing staff. I will follow carefully. Off pressors Will continue weaning attempts; so far unsuccessful CXR shows pulm edema as well as Left pneumonia Bill Jose M.D. Subjective Interval Events: none new Constitutional: Reports: no symptoms HEENT: Repors: no symptoms Respiratory: Reports: no symptoms Cardiovascular: Reports: no symptoms Gastrointestinal/Abdominal: Reports: no symptoms Allergies: Coded Allergies: PENICILLINS (Verified Allergy, Unknown, 08/05/19) Objective Last 24 Hour Vital Signs Date Time Temp Pulse Resp B/P (MAP) Pulse Ox O2 Delivery O2 Flow Rate FiO2 08/21/19 07:15 90 20 40 08/21/19 05:07 89 20 40 08/21/19 04:11 83 08/21/19 04:00 97.7 92 16 122/62 99 Mechanical Ventilator 40 08/21/19 04:00 40 08/21/19 04:00 Mechanical Ventilator 08/21/19 02:43 94 17 40 08/21/19 00:45 94 19 40 08/21/19 00:03 94 08/21/19 00:00 Mechanical Ventilator 08/21/19 00:00 40 08/21/19 00:00 98.0 88 16 121/66 98 Mechanical Ventilator 40 08/20/19 23:45 109 08/20/19 22:58 85 20 40 08/20/19 21:19 87 17 40 08/20/19 20:00 40 08/20/19 20:00 98.2 79 16 113/66 97 Mechanical Ventilator 40 08/20/19 20:00 Mechanical Ventilator 08/20/19 19:50 95 08/20/19 19:04 89 22 40 08/20/19 17:22 94 23 40 08/20/19 16:00 95 08/20/19 16:00 40 08/20/19 16:00 Mechanical Ventilator 08/20/19 16:00 98.4 88 16 121/74 100 Mechanical Ventilator 40 08/20/19 14:36 96 23 40 08/20/19 13:10 105 19 40 08/20/19 12:00 Mechanical Ventilator 08/20/19 12:00 40 08/20/19 12:00 102 08/20/19 12:00 98.6 98 20 118/67 99 Mechanical Ventilator 40 08/20/19 10:58 101 21 40 08/20/19 09:25 94 28 40 08/20/19 09:24 99 08/20/19 08:58 119/72 08/20/19 08:00 Mechanical Ventilator 08/20/19 08:00 40 08/20/19 08:00 98.3 104 21 119/72 98 Mechanical Ventilator 40 Intake and Output 08/20/19 08/21/19 19:00 07:00 Intake Total 805 ml 705 ml Output Total 350 ml Balance 455 ml 705 ml Intake Free Water 150 ml 50 ml IV Total 55 ml 55 ml Tube Feeding 600 ml 600 ml Output Urine Total 350 ml # Bowel Movements 2 4 General Appearance: no acute distress HEENT: status post trach Respiratory/Chest: chest wall non-tender Cardiovascular: normal peripheral pulses Microbiology Date/Time Source Procedure Growth Status 08/19/19 14:30 Sputum Gram Stain - Final Resulted 08/19/19 14:30 Sputum Sputum Culture Pending Resulted Laboratory Tests 08/21/19 05:20: Sodium Level 145, Potassium Level 4.1, Chloride Level 110H, Carbon Dioxide Level 33H, Anion Gap 2L, Blood Urea Nitrogen 34H, Creatinine 0.6, Estimat Glomerular Filtration Rate , Glucose Level 123H, Calcium Level 7.7L, Magnesium Level 1.8, Total Bilirubin 0.3, Aspartate Amino Transf (AST/SGOT) 42H, Alanine Aminotransferase (ALT/SGPT) 63, Alkaline Phosphatase 73, Pro-B-Type Natriuretic Peptide 5977H, Total Protein 5.7L, Albumin 1.2L, Globulin 4.5, Albumin/Globulin Ratio 0.3L Current Medications Medications (Trade) Dose Ordered Sig/Kandice Route PRN Reason Start Time Stop Time Status Last Admin Dose Admin Acetaminophen (Tylenol) 650 mg Q6H PRN GT Mild Pain/Temp > 100.5 08/09/19 13:30 09/05/19 13:29 Ascorbic Acid (Vitamin C) 500 mg DAILY GT 08/10/19 09:00 09/06/19 08:59 08/20/19 08:57 Cefepime HCl 2 gm/ Dextrose 55 ml @ 110 mls/hr Q12H IVPB 08/19/19 14:00 08/26/19 13:59 08/21/19 01:08 Chlorhexidine Gluconate (Melva-Hex 2%) 1 applic DAILY@2000 TOPIC 08/09/19 20:00 09/05/19 19:59 08/20/19 20:10 Heparin Sodium (Porcine) (Heparin 5000 units/ml) 5,000 units EVERY 12 HOURS SUBQ 08/09/19 21:00 09/05/19 08:59 08/20/19 20:13 Lisinopril (Zestril) 20 mg DAILY GT 08/21/19 09:00 09/20/19 08:59 Pantoprazole (Protonix) 40 mg EVERY 12 HOURS IVP 08/09/19 21:00 09/05/19 08:59 08/20/19 20:10 Bill Jose MD Aug 21, 2019 07:45
[2019-08-21 08:00] VITALS: BP 141/68
[2019-08-21] MEDS: Pantoprazole Inj IVP SCH (08:25)
[2019-08-21] MEDS: Heparin 5000 units/ml inj SUBQ SCH ×2 (08:25→21:15)
[2019-08-21] MEDS: Lisinopril 10mg tab GT SCH (08:27)
[2019-08-21] MEDS: Ascorbic Acid 500mg tab GT SCH (08:27)
--- NOTE | 2019-08-21 11:00 | Infectious Diseases Prog Note ---
Assessment/Plan Assessment/Plan antibiotics : cefepime A 1. hemophilus influenza sepsis s/p rx 2. pseudomonas pneumonia 3. fungal UTI s/p rx 4. leucocytosis increasing 5. respiratory failure 6. CVA P 1. continue cefepime 2. will follow up cultures Subjective ROS Limited/Unobtainable: Yes Allergies: Coded Allergies: PENICILLINS (Verified Allergy, Unknown, 08/05/19) Objective Vital Signs Last 24 Hour Vital Signs Date Time Temp Pulse Resp B/P (MAP) Pulse Ox O2 Delivery O2 Flow Rate FiO2 08/21/19 10:35 97 19 40 08/21/19 09:14 88 26 40 08/21/19 08:27 130/68 08/21/19 08:00 97.5 108 25 141/68 98 Mechanical Ventilator 40 08/21/19 07:28 94 08/21/19 07:15 90 20 40 08/21/19 05:07 89 20 40 08/21/19 04:11 83 08/21/19 04:00 97.7 92 16 122/62 99 Mechanical Ventilator 40 08/21/19 04:00 40 08/21/19 04:00 Mechanical Ventilator 08/21/19 02:43 94 17 40 08/21/19 00:45 94 19 40 08/21/19 00:03 94 08/21/19 00:00 Mechanical Ventilator 08/21/19 00:00 40 08/21/19 00:00 98.0 88 16 121/66 98 Mechanical Ventilator 40 08/20/19 23:45 109 08/20/19 22:58 85 20 40 08/20/19 21:19 87 17 40 08/20/19 20:00 40 08/20/19 20:00 98.2 79 16 113/66 97 Mechanical Ventilator 40 08/20/19 20:00 Mechanical Ventilator 08/20/19 19:50 95 08/20/19 19:04 89 22 40 08/20/19 17:22 94 23 40 08/20/19 16:00 95 08/20/19 16:00 40 08/20/19 16:00 Mechanical Ventilator 08/20/19 16:00 98.4 88 16 121/74 100 Mechanical Ventilator 40 08/20/19 14:36 96 23 40 08/20/19 13:10 105 19 40 08/20/19 12:00 Mechanical Ventilator 08/20/19 12:00 40 08/20/19 12:00 102 08/20/19 12:00 98.6 98 20 118/67 99 Mechanical Ventilator 40 Height (Feet): 6 Height (Inches): 1.00 Weight (Pounds): 162 HEENT: status post trach Respiratory/Chest: lungs clear Cardiovascular: normal rate, regular rhythm, no gallop/murmur Abdomen: soft, non tender, other - GT Extremities: no edema Microbiology Date/Time Source Procedure Growth Status 08/19/19 14:30 Sputum Gram Stain - Final Resulted 08/19/19 14:30 Sputum Culture - Preliminary Gram Negative Bacillus 1 Gram Negative Bacillus 2 Resulted Laboratory Tests Test 08/21/19 05:20 Sodium Level 145 MMOL/L (136-145) Potassium Level 4.1 MMOL/L (3.5-5.1) Chloride Level 110 MMOL/L (98-107) H Carbon Dioxide Level 33 MMOL/L (21-32) H Anion Gap 2 mmol/L (5-15) L Blood Urea Nitrogen 34 mg/dL (7-18) H Creatinine 0.6 MG/DL (0.55-1.30) Estimat Glomerular Filtration Rate mL/min (>60) Glucose Level 123 MG/DL (74-106) H Calcium Level 7.7 MG/DL (8.5-10.1) L Magnesium Level 1.8 MG/DL (1.8-2.4) Total Bilirubin 0.3 MG/DL (0.2-1.0) Aspartate Amino Transf (AST/SGOT) 42 U/L (15-37) H Alanine Aminotransferase (ALT/SGPT) 63 U/L (12-78) Alkaline Phosphatase 73 U/L (46-116) Pro-B-Type Natriuretic Peptide 5977 pg/mL (0-125) H Total Protein 5.7 G/DL (6.4-8.2) L Albumin 1.2 G/DL (3.4-5.0) L Globulin 4.5 g/dL Albumin/Globulin Ratio 0.3 (1.0-2.7) L Current Medications Medications (Trade) Dose Ordered Sig/Kandice Route PRN Reason Start Time Stop Time Status Last Admin Dose Admin Acetaminophen (Tylenol) 650 mg Q6H PRN GT Mild Pain/Temp > 100.5 08/09/19 13:30 09/05/19 13:29 Ascorbic Acid (Vitamin C) 500 mg DAILY GT 08/10/19 09:00 09/06/19 08:59 08/21/19 08:27 Cefepime HCl 2 gm/ Dextrose 55 ml @ 110 mls/hr Q12H IVPB 08/19/19 14:00 08/26/19 13:59 08/21/19 01:08 Chlorhexidine Gluconate (Melva-Hex 2%) 1 applic DAILY@2000 TOPIC 08/09/19 20:00 09/05/19 19:59 08/20/19 20:10 Heparin Sodium (Porcine) (Heparin 5000 units/ml) 5,000 units EVERY 12 HOURS SUBQ 08/09/19 21:00 09/05/19 08:59 08/21/19 08:25 Lisinopril (Zestril) 20 mg DAILY GT 08/21/19 09:00 09/20/19 08:59 08/21/19 08:27 Pantoprazole (Protonix) 40 mg EVERY 12 HOURS IVP 08/09/19 21:00 09/05/19 08:59 08/21/19 08:25 Khoa Peters MD Aug 21, 2019 11:00
[2019-08-21 12:00] VITALS: BP 129/81
--- NOTE | 2019-08-21 15:15 | Progress Note ---
DATE: 08/21/2019 SUBJECTIVE: This is an elderly male, currently in bed, comfortable, no distress. Opens his eyes. OBJECTIVE: VITAL SIGNS: Blood pressure 130/68, pulse 90, respirations 17, saturation 100% on 40 liters oxygen on ventilator. HEENT: Eyes are open. NECK: Supple. CHEST: Bilaterally clear. CARDIOVASCULAR: Regular rhythm. ABDOMEN: Soft. EXTREMITIES: CCE. NEUROLOGICAL: Generalized weakness. LABORATORY DATA: BUN 34, creatinine 0.6, sodium 145. BNP was 5977. ASSESSMENT: 1. Fluid overload. 2. CHF. 3. Acute respiratory failure. 4. Encephalopathy. PLAN: 1. We will continue antibiotics. 2. The patient has femoral line, which was placed probably in the ER in emergency. We are signing the consent and using the femoral line at this point. Discussed with charge nurse. Abhay Vides M.D. DR: BOSSMAN JOB#: [id number] CC:
--- NOTE | 2019-08-21 15:46 | Surgery Progress Note ---
Surgery Progress Note Subjective Additional Comments leukocytosis anemia exam unchanged ill appearing Objective Last 24 Hour Vital Signs Date Time Temp Pulse Resp B/P (MAP) Pulse Ox O2 Delivery O2 Flow Rate FiO2 08/21/19 15:20 98 20 40 08/21/19 12:58 91 19 40 08/21/19 12:00 Mechanical Ventilator 08/21/19 12:00 97.6 103 24 129/81 99 Mechanical Ventilator 40 08/21/19 12:00 40 08/21/19 12:00 94 08/21/19 10:35 97 19 40 08/21/19 09:14 88 26 40 08/21/19 08:27 130/68 08/21/19 08:00 97.5 108 25 141/68 98 Mechanical Ventilator 40 08/21/19 08:00 Mechanical Ventilator 08/21/19 08:00 40 08/21/19 07:28 94 08/21/19 07:15 90 20 40 08/21/19 05:07 89 20 40 08/21/19 04:11 83 08/21/19 04:00 97.7 92 16 122/62 99 Mechanical Ventilator 40 08/21/19 04:00 40 08/21/19 04:00 Mechanical Ventilator 08/21/19 02:43 94 17 40 08/21/19 00:45 94 19 40 08/21/19 00:03 94 08/21/19 00:00 Mechanical Ventilator 08/21/19 00:00 40 08/21/19 00:00 98.0 88 16 121/66 98 Mechanical Ventilator 40 08/20/19 23:45 109 08/20/19 22:58 85 20 40 08/20/19 21:19 87 17 40 08/20/19 20:00 40 08/20/19 20:00 98.2 79 16 113/66 97 Mechanical Ventilator 40 08/20/19 20:00 Mechanical Ventilator 08/20/19 19:50 95 08/20/19 19:04 89 22 40 08/20/19 17:22 94 23 40 08/20/19 16:00 95 08/20/19 16:00 40 08/20/19 16:00 Mechanical Ventilator 08/20/19 16:00 98.4 88 16 121/74 100 Mechanical Ventilator 40 I&O Intake and Output 08/20/19 08/21/19 19:00 07:00 Intake Total 805 ml 705 ml Output Total 350 ml Balance 455 ml 705 ml Intake Free Water 150 ml 50 ml IV Total 55 ml 55 ml Tube Feeding 600 ml 600 ml Output Urine Total 350 ml # Bowel Movements 2 4 Dressing: saturated Wound: other Drains: other Cardiovascular: RSR Respiratory: decreased breath sounds Abdomen: soft, present bowel sounds Extremities: no cyanosis Laboratory Tests Test 08/21/19 05:20 Sodium Level 145 MMOL/L (136-145) Potassium Level 4.1 MMOL/L (3.5-5.1) Chloride Level 110 MMOL/L (98-107) H Carbon Dioxide Level 33 MMOL/L (21-32) H Anion Gap 2 mmol/L (5-15) L Blood Urea Nitrogen 34 mg/dL (7-18) H Creatinine 0.6 MG/DL (0.55-1.30) Estimat Glomerular Filtration Rate mL/min (>60) Glucose Level 123 MG/DL (74-106) H Calcium Level 7.7 MG/DL (8.5-10.1) L Magnesium Level 1.8 MG/DL (1.8-2.4) Total Bilirubin 0.3 MG/DL (0.2-1.0) Aspartate Amino Transf (AST/SGOT) 42 U/L (15-37) H Alanine Aminotransferase (ALT/SGPT) 63 U/L (12-78) Alkaline Phosphatase 73 U/L (46-116) Pro-B-Type Natriuretic Peptide 5977 pg/mL (0-125) H Total Protein 5.7 G/DL (6.4-8.2) L Albumin 1.2 G/DL (3.4-5.0) L Globulin 4.5 g/dL Albumin/Globulin Ratio 0.3 (1.0-2.7) L Plan Problems: (1) Septic shock Assessment & Plan: Patient with leukocytosis, tachycardia, lactic acidosis, abnormal labs. - improved and trending down Currently in [facility] for care and management feeds IV fluids IV antibiotics Trend labs Thank you with all the recommendations (2) Wound infection Assessment & Plan: Pt presented on admission with multiple pressure injuries , Multiple necrotic wounds R lower extremity. Scattered senile purpuras noted to posterior ,R and L lateral sides of neck under collar of trach and inferior to tracheostomy. Scattered petechiae noted to bilat upper ext, Talib and lateral aspects of chest abd and back . Both upper extremities are edematous and weeping large amounts of serous exudate. Cat.2 Skin tears noted to Lateral R elbow ,R forearm . Numerous dry scabs noted to L forearm. Large Purple bruise noted to upper and mid abdomen. Incontinence associated dermatitis noted to bilat groin, scrotum,Perianal and both ischial regions- erythema with scattered satellite lesions noted.Large serous blister noted to talib/medial upper L thigh oozing small amt serous exudate.(L)5.5cm x (W)4.5cm Full thickness pressure injury with biofilm noted to R scapula. Edges are macerated with surrounding petechia. Small amt non-odorous serous exudate noted. (L)1cm x (W)1cm. Full thickness lumbar spine. Base of wound is 90%necrotic, surrounding wound bed erythematous and moist. Small amt serosanguineous exudate noted.(L)8.5cm x ( W)4.5cm. Full thickness pressure injury Upper R gluteus(L)2.9cm x (W)2.3cm. Base of wound 80% necrotic 20% viable. Edges are macerated. Erythema without induration periwound. Full thickness pressure injury Upper L gluteus. Baser of wound 100% necrotic with erythematous borders(L)3.2cm x (W)3cm.Periwound without erythema or induration. R lower ext dusky in colour. Distal RLE cool to touch. Multiple ulcerations noted. Full thickness lateral R knee. Base of wound 100% viable. Small amt sanguineous exudate noted. No odor noted. (L)4cmx (W)2.3cm. Surrounding petechia noted. Full thickness ulcer noted to talib /lateral R tibia. Base of wound is 90% soft necrosis 10% fibrinous slough,erythematous borders. Small amt seropurulent exudate noted. Mild odor noted. (L)24cm x (W)9.5cm. Dry necrotic ulcer medial /distal R tibia. (L)0.8cm x (W)0.5cm. Medial R malleolus necrotic with fluctuance.(L)2.5cm x (W)2cm. Large soft necrotic ulcer dorso/lateral R foot with erythematous borders.(L) 11.4cm x (W)6.5cm. Second necrotic wound noted talib/distal R foot Base of wound fluctuant(L) 4.4cm x (W)6.5cm. R Achilles ulcer is 100% necrotic with macerated borders.(L)4.2cm x (W)1cm. Soft necrosis noted R heel with marginal erythema along edges(L)2cm x (W)2cm. Second ulcer medial R heel 100% necrotic with fluctuance.(L)1.5cm x (W)1cm . Necrotic ulcer distal /lateral R foot /Lateral R5th metatarsal.Base of wound is fluctuant. Periwound skin colour dusky.(L)5.6cm x (W)2cm R Hallux necrotic and fluctuant(L)2.9cm x (W)5cm. All 5 metatarsals R foot are mottled and cool to touch. Tx.Plan: Cleanse Wound R scapula with Saline. Apply Therahoney. Apply Cavilon Periwound. Cover with Optifoam drsg. Change every 3 days and prn. Cleanse wound Lumbar Spine with Saline. Apply TheraHoney. Apply Cavilon Skin Barrier periwound. Cover with Optifoam drsg every 3 days and prn. Cleanse wounds R and L upper buttocks with Saline. Apply Therahoney. Apply Cavilon Skin Barrier periwound. Cover each wound with Optifoam drsg. Change every 3 days and prn. Cleanse wound talib R tibia with Saline. Cover with Xeroform. Apply ABD Pad and wrap with Kerlix Daily and prn. Swab All Necrotic Wounds R lower ext/R Foot with Betadine. Cover wounds with ABD pads and wrap with Kerlix Daily and prn. Apply Moisture Barrier Paste to to groin . Scrotum and Bilat ischial areas with each incontinence care. Apply Optifoam drsg to Blister Upper L thigh. Change every 7 days and prn. Apply Xeroform Gauze to skin tears and dry scabs Both upper ext. Apply ABd pads and wrap both upper ext with Kerlix Daily and prn. Elevate both upper extremities with Pillows. Reposition at least every 2hours or as tolerated. Off-load heels with pillow. APM/KAREN Mattress overlay. (3) Tracheostomy dependent (4) Bilateral pneumonia (5) Sepsis with acute hypoxic respiratory failure (6) Severe protein-calorie malnutrition Assessment & Plan: DAILY ESTIMATED NEEDS: Needs based on Critical care, multiple wounds/ 67kg 22-30 kcals/kg 8559-6566 total kcals 1.25-2.0 g protein/kg 84-134 g total protein 25-30 mL/kg 1372-5653 total fluid mLs NUTRITION DIAGNOSIS: * Increased kcal/prot needs R/T wound healing and sepsis as evidenced by pt admitted w/ multiple advanced wounds, pending eval, elev wbc (19.3), elev LA, febrile w/ Tmax 101.9, hypotensive, on pressor support. * Swallowing difficulty R/T dysphagia, respiratory status as evidenced by trach/vent dep, PEG dep. CURRENT TF: NPO ENTERAL NUTRITION RECOMMENDATIONS: Glucerna 1.5 @ 50ml/hr x 24 hrs to provide 1200ml, 1800kcal, 99g prot, 911ml free water * WHEN HEMODYNAMICALLY STABLE: -> Initiate Glucerna 1.5 @ 20ml/hr x 6hrs -> Advance 10ml q 4-6 hrs as tolerated to goal rate -> HOB over 30 degrees/ water flush per MD * WITHOUT HEMODYNAMIC STABILITY: -> Rec trophic feeding of Glucerna 1.5 @ 10-15ml/hr x 24 hrs ADDITIONAL RECOMMENDATIONS: * Per SNF: HT=66" QG=[id number] (wt from Jul 26, 2019) * Monitor HD stability: on pressor support at this time * Monitor lytes, replete as needed * Wound healing: add Vit C 500mg QD, ZnSO4 220mg QD x 10 days : W/ TF order, add Roger 1pkt BID : f/up with WC eval * NISS w/ TF initiation: h/o Jesus Robert Aug 21, 2019 15:46
[2019-08-21 16:00] VITALS: BP 128/68
[2019-08-21 20:00] VITALS: BP 126/73
[2019-08-21] MEDS: Dyna-Hex 2% Top Sol 2oz TOPIC SCH (21:14)
[2019-08-22] VITALS: BP 113/77
[2019-08-22] MEDS: Cefepime HCl 2 GM in D5W 55 ML IVPB SCH ×2 (01:22→13:09)
[2019-08-22 04:00] VITALS: BP 128/74
[2019-08-22 04:32] LABS: BASOPHILS % (AUTO) 1.9 % (0.0-2.0); EOSINOPHILS % (AUTO) 1.1 % (0.0-3.0); HEMATOCRIT 28.7 % (42.0-52.0); HEMOGLOBIN 9.1 G/DL (14.2-18.0); MEAN CORPUSCULAR VOLUME 89 FL (80-99); MONOCYTES % (AUTO) 5.8 % (1.0-10.0); NEUTROPHILS % (AUTO) 84.2 % (45.0-75.0); PLATELET COUNT 365 K/UL (150-450); RED BLOOD COUNT 3.22 M/UL (4.70-6.10); RED CELL DISTRIBUTION WIDTH 17.5 % (11.6-14.8); WHITE BLOOD COUNT 10.4 K/UL (4.8-10.8)
[2019-08-22 04:35] LABS: INR 1.1 (0.9-1.1)
[2019-08-22 04:44] LABS: ALANINE AMINOTRANSFERASE 66 U/L (12-78); ALBUMIN 1.3 G/DL (3.4-5.0); ALBUMIN/GLOBULIN RATIO 0.3 (1.0-2.7); ALKALINE PHOSPHATASE 84 U/L (46-116); ANION GAP 6 mmol/L (5-15); ASPARTATE AMINO TRANSFERASE 41 U/L (15-37); BILIRUBIN,TOTAL 0.4 MG/DL (0.2-1.0); BLOOD UREA NITROGEN 34 mg/dL (7-18); CALCIUM 7.8 MG/DL (8.5-10.1); CARBON DIOXIDE 28 MMOL/L (21-32); CHLORIDE 114 MMOL/L (98-107); CREATININE 0.6 MG/DL (0.55-1.30); POTASSIUM 4.4 MMOL/L (3.5-5.1); SODIUM 148 MMOL/L (136-145)
--- NOTE | 2019-08-22 05:15 | Progress Note ---
DATE: 08/21/2019 CARDIOLOGY PROGRESS NOTE SUBJECTIVE: The patient remains on ventilator support. He continues to have stable blood pressure parameters. He is on nutrition by feeding tube. He still has a central venous line in place. OBJECTIVE: VITAL SIGNS: Blood pressure 122/62, heart rate 92, respirations 16, afebrile. LUNGS: Diminished breath sounds. Rales. CARDIAC: Regular rhythm and rate. Normal S1, S2. ABDOMEN: Soft. EXTREMITIES: 1+ edema. LABORATORY DATA: Sodium 145, potassium 4.1, bicarb 33, BUN 34, creatinine 0.6. Pro natriuretic peptide down to 5900 from over 35,000. IMPRESSION: 1. Healthcare-acquired pneumonia. 2. Respiratory failure. 3. Sepsis. 4. Acute on chronic diastolic congestive heart failure, improving. 5. Fungal cystitis. PLAN: 1. Weaning efforts. 2. Antimicrobials. 3. Periodic diuresis with limitation based on renal parameters. 4. Replace electrolytes as needed. 5. Replace central line access based on ICU protocol. 6. We will follow. Rahul Govea M.D. DR: YOSEF JOB#: [id number] CC:
[2019-08-22 08:00] VITALS: BP 114/75
[2019-08-22] MEDS: Ascorbic Acid 500mg tab GT SCH (08:15)
[2019-08-22] MEDS: Lisinopril 10mg tab GT SCH (08:16)
[2019-08-22] MEDS: Heparin 5000 units/ml inj SUBQ SCH (08:17)
--- NOTE | 2019-08-22 10:07 | Pulmonology Progress Note ---
Assessment/Plan Assessment/Plan IMPRESSION: 1. Urosepsis. Has candiduria 2. Septic shock. Resolved 3. Pseudomonas pneumonia. 4. Chronic respiratory failure. currently on AC DISCUSSION: Continue current medications and care. The patient is on broad-spectrum antibiotics per ID Discussed with nursing staff. I will follow carefully. Off pressors Will continue weaning attempts; so far unsuccessful CXR shows pulm edema as well as Left pneumonia Bill Jose M.D. Subjective Interval Events: none new reported Constitutional: Reports: no symptoms HEENT: Repors: no symptoms Respiratory: Reports: no symptoms Cardiovascular: Reports: no symptoms Allergies: Coded Allergies: PENICILLINS (Verified Allergy, Unknown, 08/05/19) Objective Last 24 Hour Vital Signs Date Time Temp Pulse Resp B/P (MAP) Pulse Ox O2 Delivery O2 Flow Rate FiO2 08/22/19 09:26 97 08/22/19 09:05 95 21 40 08/22/19 08:57 72 18 40 08/22/19 08:16 114/75 08/22/19 08:00 106 08/22/19 08:00 97.9 96 20 114/75 97 Mechanical Ventilator 40 08/22/19 08:00 Mechanical Ventilator 08/22/19 08:00 40 08/22/19 07:17 107 19 40 08/22/19 05:28 100 16 40 08/22/19 04:00 98.6 83 20 128/74 99 Mechanical Ventilator 40 08/22/19 04:00 Mechanical Ventilator 08/22/19 04:00 40 08/22/19 03:48 99 08/22/19 02:35 104 18 40 08/22/19 00:51 101 16 40 08/22/19 00:00 98.6 92 20 113/77 99 Mechanical Ventilator 40 08/22/19 00:00 Mechanical Ventilator 08/21/19 23:38 99 08/21/19 23:00 104 16 40 08/21/19 21:25 101 16 40 08/21/19 20:00 Mechanical Ventilator 08/21/19 20:00 98.1 93 20 126/73 99 Mechanical Ventilator 40 08/21/19 20:00 40 08/21/19 19:07 100 08/21/19 19:05 103 18 40 08/21/19 17:50 87 15 40 08/21/19 16:00 Mechanical Ventilator 08/21/19 16:00 94 08/21/19 16:00 97.7 94 18 128/68 99 Mechanical Ventilator 40 08/21/19 16:00 40 08/21/19 15:20 98 20 40 08/21/19 12:58 91 19 40 08/21/19 12:00 Mechanical Ventilator 08/21/19 12:00 97.6 103 24 129/81 99 Mechanical Ventilator 40 08/21/19 12:00 40 08/21/19 12:00 94 08/21/19 10:35 97 19 40 Intake and Output 08/21/19 08/22/19 19:00 07:00 Intake Total 805 ml 660 ml Output Total 500 ml 500 ml Balance 305 ml 160 ml Intake Free Water 150 ml 60 ml IV Total 55 ml Tube Feeding 600 ml 600 ml Output Urine Total 500 ml 500 ml # Bowel Movements 2 2 General Appearance: no acute distress HEENT: normocephalic Respiratory/Chest: chest wall non-tender Cardiovascular: normal peripheral pulses Abdomen: normal bowel sounds Microbiology Date/Time Source Procedure Growth Status 08/19/19 14:30 Sputum Gram Stain - Final Resulted 08/19/19 14:30 Sputum Culture - Preliminary Gram Negative Bacillus 1 Gram Negative Bacillus 2 Resulted Laboratory Tests 08/22/19 03:54: White Blood Count 10.4, Red Blood Count 3.22L, Hemoglobin 9.1L, Hematocrit 28.7L , Mean Corpuscular Volume 89, Mean Corpuscular Hemoglobin 28.4, Mean Corpuscular Hemoglobin Concent 31.8L, Red Cell Distribution Width 17.5H, Platelet Count 365, Mean Platelet Volume 7.4, Neutrophils (%) (Auto) 84.2H, Lymphocytes (%) (Auto) 7.0L, Monocytes (%) (Auto) 5.8, Eosinophils (%) (Auto) 1.1, Basophils (%) (Auto) 1.9, Erythrocyte Sedimentation Rate 118H, Prothrombin Time 11.4, Prothromb Time International Ratio 1.1, Activated Partial Thromboplast Time 29, Sodium Level 148H, Potassium Level 4.4, Chloride Level 114H, Carbon Dioxide Level 28, Anion Gap 6, Blood Urea Nitrogen 34H, Creatinine 0.6, Estimat Glomerular Filtration Rate , Glucose Level 126H, Calcium Level 7.8L , Total Bilirubin 0.4, Aspartate Amino Transf (AST/SGOT) 41H, Alanine Aminotransferase (ALT/SGPT) 66, Alkaline Phosphatase 84, C-Reactive Protein, Quantitative 11.7H, Total Protein 5.9L, Albumin 1.3L, Globulin 4.6, Albumin/ Globulin Ratio 0.3L Current Medications Medications (Trade) Dose Ordered Sig/Kandice Route PRN Reason Start Time Stop Time Status Last Admin Dose Admin Acetaminophen (Tylenol) 650 mg Q6H PRN GT Mild Pain/Temp > 100.5 08/09/19 13:30 09/05/19 13:29 Ascorbic Acid (Vitamin C) 500 mg DAILY GT 08/10/19 09:00 09/06/19 08:59 08/22/19 08:15 Cefepime HCl 2 gm/ Dextrose 55 ml @ 110 mls/hr Q12H IVPB 08/19/19 14:00 08/26/19 13:59 08/22/19 01:22 Chlorhexidine Gluconate (Melva-Hex 2%) 1 applic DAILY@2000 TOPIC 08/09/19 20:00 09/05/19 19:59 08/21/19 21:14 Heparin Sodium (Porcine) (Heparin 5000 units/ml) 5,000 units EVERY 12 HOURS SUBQ 08/09/19 21:00 09/05/19 08:59 08/22/19 08:17 Lansoprazole (Prevacid) 30 mg BID GT 08/22/19 09:00 09/21/19 08:59 08/22/19 08:16 Lisinopril (Zestril) 20 mg DAILY GT 08/21/19 09:00 09/20/19 08:59 08/22/19 08:16 Bill Jose MD Aug 22, 2019 10:07
--- NOTE | 2019-08-22 10:47 | Infectious Diseases Prog Note ---
Assessment/Plan Assessment/Plan A; 1. Fungal Urinary tract infection.treated 2. H. influenza sepsis, treated 3. Pseudomonas pneumonia. 4. CVA. 5. Respiratory failure, status post tracheostomy. 6. 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 Anemia 9. Protein calori malnutrition 10. Penicillin allergy PLAN: 1. Continue Cefepime 2. will f/u cultures Subjective Constitutional: Denies: fever Neurologic: Reports: other - jerky movement of left leg Allergies: Coded Allergies: PENICILLINS (Verified Allergy, Unknown, 08/05/19) Objective Vital Signs Last 24 Hour Vital Signs Date Time Temp Pulse Resp B/P (MAP) Pulse Ox O2 Delivery O2 Flow Rate FiO2 08/22/19 10:42 97 22 40 08/22/19 09:26 97 08/22/19 09:05 95 21 40 08/22/19 08:57 72 18 40 08/22/19 08:16 114/75 08/22/19 08:00 106 08/22/19 08:00 97.9 96 20 114/75 97 Mechanical Ventilator 40 08/22/19 08:00 Mechanical Ventilator 08/22/19 08:00 40 08/22/19 07:17 107 19 40 08/22/19 05:28 100 16 40 08/22/19 04:00 98.6 83 20 128/74 99 Mechanical Ventilator 40 08/22/19 04:00 Mechanical Ventilator 08/22/19 04:00 40 08/22/19 03:48 99 08/22/19 02:35 104 18 40 08/22/19 00:51 101 16 40 08/22/19 00:00 98.6 92 20 113/77 99 Mechanical Ventilator 40 08/22/19 00:00 Mechanical Ventilator 08/21/19 23:38 99 08/21/19 23:00 104 16 40 08/21/19 21:25 101 16 40 08/21/19 20:00 Mechanical Ventilator 08/21/19 20:00 98.1 93 20 126/73 99 Mechanical Ventilator 40 08/21/19 20:00 40 08/21/19 19:07 100 08/21/19 19:05 103 18 40 08/21/19 17:50 87 15 40 08/21/19 16:00 Mechanical Ventilator 08/21/19 16:00 94 08/21/19 16:00 97.7 94 18 128/68 99 Mechanical Ventilator 40 08/21/19 16:00 40 08/21/19 15:20 98 20 40 08/21/19 12:58 91 19 40 08/21/19 12:00 Mechanical Ventilator 08/21/19 12:00 97.6 103 24 129/81 99 Mechanical Ventilator 40 08/21/19 12:00 40 08/21/19 12:00 94 Height (Feet): 6 Height (Inches): 1.00 Weight (Pounds): 161 HEENT: status post trach Respiratory/Chest: lungs clear, other - on ventilator Cardiovascular: normal rate Abdomen: soft, non tender, other - GT feeding Extremities: other - mild handds edema Neurologic/Psychiatric: aphasia, other - opens eyes Microbiology Date/Time Source Procedure Growth Status 08/19/19 14:30 Sputum Gram Stain - Final Resulted 08/19/19 14:30 Sputum Culture - Preliminary Gram Negative Bacillus 1 Gram Negative Bacillus 2 Resulted Laboratory Tests Test 08/22/19 03:54 White Blood Count 10.4 K/UL (4.8-10.8) Red Blood Count 3.22 M/UL (4.70-6.10) L Hemoglobin 9.1 G/DL (14.2-18.0) L Hematocrit 28.7 % (42.0-52.0) L Mean Corpuscular Volume 89 FL (80-99) Mean Corpuscular Hemoglobin 28.4 PG (27.0-31.0) Mean Corpuscular Hemoglobin Concent 31.8 G/DL (32.0-36.0) L Red Cell Distribution Width 17.5 % (11.6-14.8) H Platelet Count 365 K/UL (150-450) Mean Platelet Volume 7.4 FL (6.5-10.1) Neutrophils (%) (Auto) 84.2 % (45.0-75.0) H Lymphocytes (%) (Auto) 7.0 % (20.0-45.0) L Monocytes (%) (Auto) 5.8 % (1.0-10.0) Eosinophils (%) (Auto) 1.1 % (0.0-3.0) Basophils (%) (Auto) 1.9 % (0.0-2.0) Erythrocyte Sedimentation Rate 118 MM/HR (0-20) H Prothrombin Time 11.4 SEC (9.30-11.50) Prothromb Time International Ratio 1.1 (0.9-1.1) Activated Partial Thromboplast Time 29 SEC (23-33) Sodium Level 148 MMOL/L (136-145) H Potassium Level 4.4 MMOL/L (3.5-5.1) Chloride Level 114 MMOL/L (98-107) H Carbon Dioxide Level 28 MMOL/L (21-32) Anion Gap 6 mmol/L (5-15) Blood Urea Nitrogen 34 mg/dL (7-18) H Creatinine 0.6 MG/DL (0.55-1.30) Estimat Glomerular Filtration Rate mL/min (>60) Glucose Level 126 MG/DL (74-106) H Calcium Level 7.8 MG/DL (8.5-10.1) L Total Bilirubin 0.4 MG/DL (0.2-1.0) Aspartate Amino Transf (AST/SGOT) 41 U/L (15-37) H Alanine Aminotransferase (ALT/SGPT) 66 U/L (12-78) Alkaline Phosphatase 84 U/L (46-116) C-Reactive Protein, Quantitative 11.7 mg/dL (0.00-0.90) H Total Protein 5.9 G/DL (6.4-8.2) L Albumin 1.3 G/DL (3.4-5.0) L Globulin 4.6 g/dL Albumin/Globulin Ratio 0.3 (1.0-2.7) L Current Medications Medications (Trade) Dose Ordered Sig/Kandice Route PRN Reason Start Time Stop Time Status Last Admin Dose Admin Acetaminophen (Tylenol) 650 mg Q6H PRN GT Mild Pain/Temp > 100.5 08/09/19 13:30 09/05/19 13:29 Ascorbic Acid (Vitamin C) 500 mg DAILY GT 08/10/19 09:00 09/06/19 08:59 08/22/19 08:15 Cefepime HCl 2 gm/ Dextrose 55 ml @ 110 mls/hr Q12H IVPB 08/19/19 14:00 08/26/19 13:59 08/22/19 01:22 Chlorhexidine Gluconate (Melva-Hex 2%) 1 applic DAILY@2000 TOPIC 08/09/19 20:00 09/05/19 19:59 08/21/19 21:14 Heparin Sodium (Porcine) (Heparin 5000 units/ml) 5,000 units EVERY 12 HOURS SUBQ 08/09/19 21:00 09/05/19 08:59 08/22/19 08:17 Lansoprazole (Prevacid) 30 mg BID GT 08/22/19 09:00 09/21/19 08:59 08/22/19 08:16 Lisinopril (Zestril) 20 mg DAILY GT 08/21/19 09:00 09/20/19 08:59 08/22/19 08:16 Mateo Briseno MD Aug 22, 2019 10:47
--- NOTE | 2019-08-22 11:09 | Surgery Progress Note ---
Surgery Progress Note Subjective Additional Comments ill appearing leukocytosis resolved electrolytes abnormal on feeds/fluids on support Objective Last 24 Hour Vital Signs Date Time Temp Pulse Resp B/P (MAP) Pulse Ox O2 Delivery O2 Flow Rate FiO2 08/22/19 10:42 97 22 40 08/22/19 09:26 97 08/22/19 09:05 95 21 40 08/22/19 08:57 72 18 40 08/22/19 08:16 114/75 08/22/19 08:00 106 08/22/19 08:00 97.9 96 20 114/75 97 Mechanical Ventilator 40 08/22/19 08:00 Mechanical Ventilator 08/22/19 08:00 40 08/22/19 07:17 107 19 40 08/22/19 05:28 100 16 40 08/22/19 04:00 98.6 83 20 128/74 99 Mechanical Ventilator 40 08/22/19 04:00 Mechanical Ventilator 08/22/19 04:00 40 08/22/19 03:48 99 08/22/19 02:35 104 18 40 08/22/19 00:51 101 16 40 08/22/19 00:00 98.6 92 20 113/77 99 Mechanical Ventilator 40 08/22/19 00:00 Mechanical Ventilator 08/21/19 23:38 99 08/21/19 23:00 104 16 40 08/21/19 21:25 101 16 40 08/21/19 20:00 Mechanical Ventilator 08/21/19 20:00 98.1 93 20 126/73 99 Mechanical Ventilator 40 08/21/19 20:00 40 08/21/19 19:07 100 08/21/19 19:05 103 18 40 08/21/19 17:50 87 15 40 08/21/19 16:00 Mechanical Ventilator 08/21/19 16:00 94 08/21/19 16:00 97.7 94 18 128/68 99 Mechanical Ventilator 40 08/21/19 16:00 40 08/21/19 15:20 98 20 40 08/21/19 12:58 91 19 40 08/21/19 12:00 Mechanical Ventilator 08/21/19 12:00 97.6 103 24 129/81 99 Mechanical Ventilator 40 08/21/19 12:00 40 08/21/19 12:00 94 I&O Intake and Output 08/21/19 08/22/19 19:00 07:00 Intake Total 805 ml 660 ml Output Total 500 ml 500 ml Balance 305 ml 160 ml Intake Free Water 150 ml 60 ml IV Total 55 ml Tube Feeding 600 ml 600 ml Output Urine Total 500 ml 500 ml # Bowel Movements 2 2 Dressing: saturated Wound: other Drains: other Cardiovascular: RSR Respiratory: decreased breath sounds Abdomen: soft, non-distended, decreased bowel sounds Extremities: no cyanosis, other Laboratory Tests Test 08/22/19 03:54 White Blood Count 10.4 K/UL (4.8-10.8) Red Blood Count 3.22 M/UL (4.70-6.10) L Hemoglobin 9.1 G/DL (14.2-18.0) L Hematocrit 28.7 % (42.0-52.0) L Mean Corpuscular Volume 89 FL (80-99) Mean Corpuscular Hemoglobin 28.4 PG (27.0-31.0) Mean Corpuscular Hemoglobin Concent 31.8 G/DL (32.0-36.0) L Red Cell Distribution Width 17.5 % (11.6-14.8) H Platelet Count 365 K/UL (150-450) Mean Platelet Volume 7.4 FL (6.5-10.1) Neutrophils (%) (Auto) 84.2 % (45.0-75.0) H Lymphocytes (%) (Auto) 7.0 % (20.0-45.0) L Monocytes (%) (Auto) 5.8 % (1.0-10.0) Eosinophils (%) (Auto) 1.1 % (0.0-3.0) Basophils (%) (Auto) 1.9 % (0.0-2.0) Erythrocyte Sedimentation Rate 118 MM/HR (0-20) H Prothrombin Time 11.4 SEC (9.30-11.50) Prothromb Time International Ratio 1.1 (0.9-1.1) Activated Partial Thromboplast Time 29 SEC (23-33) Sodium Level 148 MMOL/L (136-145) H Potassium Level 4.4 MMOL/L (3.5-5.1) Chloride Level 114 MMOL/L (98-107) H Carbon Dioxide Level 28 MMOL/L (21-32) Anion Gap 6 mmol/L (5-15) Blood Urea Nitrogen 34 mg/dL (7-18) H Creatinine 0.6 MG/DL (0.55-1.30) Estimat Glomerular Filtration Rate mL/min (>60) Glucose Level 126 MG/DL (74-106) H Calcium Level 7.8 MG/DL (8.5-10.1) L Total Bilirubin 0.4 MG/DL (0.2-1.0) Aspartate Amino Transf (AST/SGOT) 41 U/L (15-37) H Alanine Aminotransferase (ALT/SGPT) 66 U/L (12-78) Alkaline Phosphatase 84 U/L (46-116) C-Reactive Protein, Quantitative 11.7 mg/dL (0.00-0.90) H Total Protein 5.9 G/DL (6.4-8.2) L Albumin 1.3 G/DL (3.4-5.0) L Globulin 4.6 g/dL Albumin/Globulin Ratio 0.3 (1.0-2.7) L Plan Problems: (1) Septic shock Assessment & Plan: Patient with leukocytosis, tachycardia, lactic acidosis, abnormal labs. - improved and trending down Currently in [facility] for care and management feeds IV fluids IV antibiotics Trend labs Thank you with all the recommendations (2) Wound infection Assessment & Plan: Pt presented on admission with multiple pressure injuries , Multiple necrotic wounds R lower extremity. Scattered senile purpuras noted to posterior ,R and L lateral sides of neck under collar of trach and inferior to tracheostomy. Scattered petechiae noted to bilat upper ext, Talib and lateral aspects of chest abd and back . Both upper extremities are edematous and weeping large amounts of serous exudate. Cat.2 Skin tears noted to Lateral R elbow ,R forearm . Numerous dry scabs noted to L forearm. Large Purple bruise noted to upper and mid abdomen. Incontinence associated dermatitis noted to bilat groin, scrotum,Perianal and both ischial regions- erythema with scattered satellite lesions noted.Large serous blister noted to talib/medial upper L thigh oozing small amt serous exudate.(L)5.5cm x (W)4.5cm Full thickness pressure injury with biofilm noted to R scapula. Edges are macerated with surrounding petechia. Small amt non-odorous serous exudate noted. (L)1cm x (W)1cm. Full thickness lumbar spine. Base of wound is 90%necrotic, surrounding wound bed erythematous and moist. Small amt serosanguineous exudate noted.(L)8.5cm x ( W)4.5cm. Full thickness pressure injury Upper R gluteus(L)2.9cm x (W)2.3cm. Base of wound 80% necrotic 20% viable. Edges are macerated. Erythema without induration periwound. Full thickness pressure injury Upper L gluteus. Baser of wound 100% necrotic with erythematous borders(L)3.2cm x (W)3cm.Periwound without erythema or induration. R lower ext dusky in colour. Distal RLE cool to touch. Multiple ulcerations noted. Full thickness lateral R knee. Base of wound 100% viable. Small amt sanguineous exudate noted. No odor noted. (L)4cmx (W)2.3cm. Surrounding petechia noted. Full thickness ulcer noted to talib /lateral R tibia. Base of wound is 90% soft necrosis 10% fibrinous slough,erythematous borders. Small amt seropurulent exudate noted. Mild odor noted. (L)24cm x (W)9.5cm. Dry necrotic ulcer medial /distal R tibia. (L)0.8cm x (W)0.5cm. Medial R malleolus necrotic with fluctuance.(L)2.5cm x (W)2cm. Large soft necrotic ulcer dorso/lateral R foot with erythematous borders.(L) 11.4cm x (W)6.5cm. Second necrotic wound noted talib/distal R foot Base of wound fluctuant(L) 4.4cm x (W)6.5cm. R Achilles ulcer is 100% necrotic with macerated borders.(L)4.2cm x (W)1cm. Soft necrosis noted R heel with marginal erythema along edges(L)2cm x (W)2cm. Second ulcer medial R heel 100% necrotic with fluctuance.(L)1.5cm x (W)1cm . Necrotic ulcer distal /lateral R foot /Lateral R5th metatarsal.Base of wound is fluctuant. Periwound skin colour dusky.(L)5.6cm x (W)2cm R Hallux necrotic and fluctuant(L)2.9cm x (W)5cm. All 5 metatarsals R foot are mottled and cool to touch. Tx.Plan: Cleanse Wound R scapula with Saline. Apply Therahoney. Apply Cavilon Periwound. Cover with Optifoam drsg. Change every 3 days and prn. Cleanse wound Lumbar Spine with Saline. Apply TheraHoney. Apply Cavilon Skin Barrier periwound. Cover with Optifoam drsg every 3 days and prn. Cleanse wounds R and L upper buttocks with Saline. Apply Therahoney. Apply Cavilon Skin Barrier periwound. Cover each wound with Optifoam drsg. Change every 3 days and prn. Cleanse wound talib R tibia with Saline. Cover with Xeroform. Apply ABD Pad and wrap with Kerlix Daily and prn. Swab All Necrotic Wounds R lower ext/R Foot with Betadine. Cover wounds with ABD pads and wrap with Kerlix Daily and prn. Apply Moisture Barrier Paste to to groin . Scrotum and Bilat ischial areas with each incontinence care. Apply Optifoam drsg to Blister Upper L thigh. Change every 7 days and prn. Apply Xeroform Gauze to skin tears and dry scabs Both upper ext. Apply ABd pads and wrap both upper ext with Kerlix Daily and prn. Elevate both upper extremities with Pillows. Reposition at least every 2hours or as tolerated. Off-load heels with pillow. APM/KAREN Mattress overlay. (3) Tracheostomy dependent (4) Bilateral pneumonia (5) Sepsis with acute hypoxic respiratory failure (6) Severe protein-calorie malnutrition Assessment & Plan: DAILY ESTIMATED NEEDS: Needs based on Critical care, multiple wounds/ 67kg 22-30 kcals/kg 9957-5972 total kcals 1.25-2.0 g protein/kg 84-134 g total protein 25-30 mL/kg 9454-6476 total fluid mLs NUTRITION DIAGNOSIS: * Increased kcal/prot needs R/T wound healing and sepsis as evidenced by pt admitted w/ multiple advanced wounds, pending eval, elev wbc (19.3), elev LA, febrile w/ Tmax 101.9, hypotensive, on pressor support. * Swallowing difficulty R/T dysphagia, respiratory status as evidenced by trach/vent dep, PEG dep. CURRENT TF: NPO ENTERAL NUTRITION RECOMMENDATIONS: Glucerna 1.5 @ 50ml/hr x 24 hrs to provide 1200ml, 1800kcal, 99g prot, 911ml free water * WHEN HEMODYNAMICALLY STABLE: -> Initiate Glucerna 1.5 @ 20ml/hr x 6hrs -> Advance 10ml q 4-6 hrs as tolerated to goal rate -> HOB over 30 degrees/ water flush per MD * WITHOUT HEMODYNAMIC STABILITY: -> Rec trophic feeding of Glucerna 1.5 @ 10-15ml/hr x 24 hrs ADDITIONAL RECOMMENDATIONS: * Per SNF: HT=66" [id number] (wt from Jul 26, 2019) * Monitor HD stability: on pressor support at this time * Monitor lytes, replete as needed * Wound healing: add Vit C 500mg QD, ZnSO4 220mg QD x 10 days : W/ TF order, add Roger 1pkt BID : f/up with WC eval * NISS w/ TF initiation: h/o Jesus Robert Aug 22, 2019 11:09
[2019-08-22 12:00] VITALS: BP 133/63
--- NOTE | 2019-08-22 12:44 | Diagnostic Imaging Report ---
Indication: Dyspnea Comparison: 08/13/2019 A single view chest radiograph was obtained. Findings: Pulmonary vascular congestion suspected. There is a confluent density at the left lung base obscuring the left heart border and diaphragm probably representing a pleural effusion. There may be a small nodular mass at the right lung base. Further evaluation such as CT or follow-up of this is recommended. Tracheostomy again noted. IMPRESSION: Pulmonary vascular congestion appears worse. Suspect a left pleural effusion. Question of a pulmonary nodule at the right lung base. Consider CT for further evaluation. At the least, follow-up is recommended.
[2019-08-22 16:00] VITALS: BP 120/73
--- NOTE | 2019-08-22 20:31 | Progress Note ---
DATE: 08/22/2019 CARDIOLOGY PROGRESS NOTE SUBJECTIVE: The patient remains on ventilator support. Blood pressure parameters remained stable. Weaning efforts are ongoing. OBJECTIVE: VITAL SIGNS: Blood pressure 114/75, pulse 72, respiratory rate 18. Monitored rhythm sinus and sinus tachycardia. LUNGS: Moderate rhonchi. HEART: Regular rhythm and rate. Normal S1 and S2. ABDOMEN: Soft. EXTREMITIES: No edema. LABORATORY AND DIAGNOSTIC DATA: Sodium 148, potassium 4.4, bicarb 28, chloride 114, BUN 34, creatinine 0.6. Albumin 1.3. White count is 10.4 hemoglobin 9.1. Chest x-ray reveals worsening pulmonary vascular congestion, left pleural effusion. IMPRESSION: 1. Respiratory failure. 2. 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 3. Dehydration. 4. 5. Polymicrobial sepsis. 6. Healthcare-acquired pneumonia. PLAN: 1. Continue titration of anti-failure drugs namely angiotensin-converting enzyme inhibitor. 2. Hold diuresis for now until metabolic derangements have been corrected, free water replacement. 3. Antimicrobials per Infectious Diseases storage consultant. 4. Weaning efforts per publication editor. Rahul Govea M.D. DR: Tyra JOB#: [id number] CC:
--- NOTE | 2019-08-23 12:38 | Discharge Summary ---
Discharge Summary Discharge Summary _ DATE OF ADMISSION: 08/05/2019 DATE OF DISCHARGE: 08/22/2019 DISCHARGED BY: Dr. Vides REASON FOR ADMISSION: 83 years old male, resident of [facility] facility, with past medical history of chronic respiratory failure, tracheostomy status, skin and brain cancer, hepatitis C, seizure disorder, atherosclerotic heart disease, PVD, DVT, COPD, hypertension, hypercholesterolemia, was sent for evaluation due to hypoxia. Patient was found to be hypotensive , hypoxic , and tachycardic. Upon presentation to ED, blood pressure was systolic in 50s . Patient was tachycardic and hypoxic as well. ED physician was unable to obtain initially access, thus left tibial intraosseous line was placed. Initial fluids and phenylephrine were given through it. Subsequently right femoral central line was placed. Patient started on pressors. Patient received only 1 L of IV fluid due to his heart function. Laboratory work-up revealed significant leukocytosis WBC 21.1, hemoglobin 7.9, hematocrit 23.1 ,platelet count 279. Sodium 133. BUN 30, creatinine 0.7. Glucose 163. pro BNP 4241. Troponin negative. EKG revealed atrial fibrillation with rapid ventricular response with T wave inversion in 2, 3, and aVF. Lactic acid 4.0. Urinalysis revealed evidence of UTI. Chest x-ray revealed bilateral infiltrates versus edema , probable left pleural effusion. Patient was immediately placed on ventilator. Pulse oximetry improved to 100%. Patient pancultured , started on empiric antibiotic and admitted to ICU for further management. CONSULTANTS: area development consultant Dr. Govea pulmonary Dr. Jose ID specialist Dr. Peters surgery Dr. Narayan [facility] COURSE: Patient admitted to ICU. Patient started on volume resuscitation/ pressor continued to keep mean arterial blood pressure above 65. Hemodynamic status was closely monitored. Ventilator support and tracheostomy care provided. Pulmonary toilet provided. Patient was continue on empiric antibiotic as per ID specialist recommendation. Patient initially was on pressors Patient was able to be weaned from pressors. [employer] closely followed . Echocardiogram revealed global left ventricular hypokinesis with ejection fraction of 30 to 35%. No evidence of left ventricular hypertrophy. Pleural effusion. Right ventricular systolic pressure of 43 consistent with a mild pulmonary hypertension. Moderate mitral and tricuspid regurgitation. Moderately elevated left atrial pressure grade 2. Venous duplex bilateral lower extremity revealed no evidence of acute DVT. Arterial duplex revealed moderate stenosis in the proximal superficial femoral artery in the left lower extremity, but no evidence of occlusion. Right leg revealed occlusion in the mid to distal femoral stented artery. Reconstitution was noted at the proximal popliteal artery. DVT and GI prophylaxis provided. Anti-failure regimen was titrated. Diuresis provided periodically with close monitoring of volumes and cardiorenal parameters. Pro -BNP trended down from the highest > 35,000 down to 5977. Patient was follow-up with chest x-ray. Strict aspiration precaution maintained. G-tube feeding formula with goal rate along with protein supplements provided as per critical care registered nurse recommendation. Weaning attempts from ventilator were unsuccessful; patient continued to be ventilator dependent. Antibiotic provided as per ID recommendation. Blood culture revealed Haemophilus influenza. Urine culture revealed Danette .Sputum culture revealed Pseudomonas, and repeated sputum culture shows Serratia. Patient completed treatment for bacteremia and fungal UTI. Patient will need to continue cefepime at the facility as per ID specialist recommendation for treatment of pneumonia to complete the course. Leukocytosis resolved. Surgeon seen and evaluated patient for multiply pressure injuries. Wound care provided as per surgeon recommendation. Continue wound care at the facility. Renal parameters and electrolytes were closely monitored. Electrolytes corrected as needed , and nephrotoxic's were avoided. Creatinine remained stable. Hemoglobin and hematocrit were closely monitored with goal to keep hemoglobin above 7. Patient received 1 unit of packed red blood cell while in the hospital for hemoglobin 6.6. Prior to discharge hemoglobin 9.1, hematocrit 20.7. Pain management was addressed as needed. Supportive care provided. Bowel regimen instituted. Patient clinically stabilized and was ready for transfer back to [facility] facility for continuation of care FINAL DIAGNOSES: Sepsis with Haemophilus bacteremia Septic shock -resolved Pseudomonas pneumonia Urinary tract infection with Danette Acute on chronic hypoxic respiratory failure Tracheostomy dependent Lactic acidosis -resolved Acute on chronic systolic and diastolic congestive heart failure Elevated troponin with acute myocardial ischemia Severe anemia , requiring blood transfusion Severe protein calorie malnutrition DISCHARGE MEDICATIONS: List of medication was sent to accepting facility DISCHARGE INSTRUCTIONS: Patient was discharged to the [facility] facility. Follow up with medical doctor at the facility. I have been assigned to dictate discharge summary for this account. I was not involved in the patient's management. Eden Posada NP Aug 23, 2019 12:38
== END 2019-08-22 19:15 | DRG 720 ==
LOC: EDBD 20:01 → EMR 20:26 → ICU 21:26 → EDBEDREQ 21:30 → 2W 08-09 12:55
PROC: 5A1955Z Respiratory Ventilation, Greater than 96 Consecutive Hours (ICD-10-PCS; principal; 2019-08-05)
PROC: 06HM33Z Insertion of Infusion Device into Right Femoral Vein, Percutaneous Approach (ICD-10-PCS; principal; 2019-08-05)
DX: A41.3 Sepsis due to Hemophilus influenzae (principal); R65.21 Severe sepsis with septic shock; Z93.0 Tracheostomy status; E43 Unspecified severe protein-calorie malnutrition; Z68.1 Body mass index [BMI] 19.9 or less, adult; I11.0 Hypertensive heart disease with heart failure; E86.0 Dehydration; G93.40 Encephalopathy, unspecified; J96.21 Acute and chronic respiratory failure with hypoxia; Z93.1 Gastrostomy status; F03.90 Unspecified dementia, unspecified severity, without behavioral disturbance, psychotic disturbance, mood disturbance, and anxiety; F32.9 Major depressive disorder, single episode, unspecified; J44.0 Chronic obstructive pulmonary disease with (acute) lower respiratory infection; J15.1 Pneumonia due to Pseudomonas; E11.9 Type 2 diabetes mellitus without complications; D64.9 Anemia, unspecified; Z86.73 Personal history of transient ischemic attack (TIA), and cerebral infarction without residual deficits; L08.9 Local infection of the skin and subcutaneous tissue, unspecified; I51.3 Intracardiac thrombosis, not elsewhere classified; B37.49 Other urogenital candidiasis; E83.42 Hypomagnesemia; Z68.21 Body mass index [BMI] 21.0-21.9, adult
CPT/HCPCS: 36415; 36600; 71045; 80048; 80053; 80202; 81003; 82803; 82962; 83605; 83735; 83880; 84443; 84484; 85007; 85025; 85610; 85651; 85730; 86140; 86850; 86900; 86901; 86920; 87040; 87070; 87081; 87086; 87181; 87205; 93005; 93306; 93925; 93970; 94002; 94003; 96365; 96367; 96368; 99291; J2370; J7030; J8499

== ENCOUNTER 2019-10-07 19:09 | Inpatient (IN) | payer MEDICARE, MEDICAID ==
[~2019-10-07] VITALS: Ht 167.6 cm; Wt 64.2 kg
--- NOTE | 2019-10-07 19:45 | NUR ---
ED Nurse Note: Recieved pt from SNF with c/o abnormal labs, elevated digoxin levels, pt is trached and non-responsive verbally, RT at bedside for ventilator settings, pt has g-tube intact, pt is in contracted like position, has generalized severe pitting edema and bedsores all over body, skin is echymotic ad bruised all over, pt placed on cardiac monitoring, has patent femoral line in left groin, 3lumen cath, will resume care as ordered and cotinue to closely monitor.
[2019-10-07 20:00] VITALS: BP 132/54
[2019-10-07 20:21] LABS: BASOPHILS % (AUTO) 1.1 % (0.0-2.0); EOSINOPHILS % (AUTO) 1.7 % (0.0-3.0); HEMATOCRIT 28.6 % (42.0-52.0); MEAN CORPUSCULAR VOLUME 86 FL (80-99); MONOCYTES % (AUTO) 7.8 % (1.0-10.0); NEUTROPHILS % (AUTO) 83.4 % (45.0-75.0); PLATELET COUNT 393 K/UL (150-450); RED BLOOD COUNT 3.32 M/UL (4.70-6.10)
[2019-10-07 20:24] LABS: INR 1.1 (0.9-1.1)
[2019-10-07 20:25] LABS: ANION GAP 5 mmol/L (5-15); BLOOD UREA NITROGEN 40 mg/dL (7-18); CALCIUM 8.1 MG/DL (8.5-10.1); CARBON DIOXIDE 30 MMOL/L (21-32); CHLORIDE 107 MMOL/L (98-107); CREATININE 0.5 MG/DL (0.55-1.30); POTASSIUM 4.3 MMOL/L (3.5-5.1); SODIUM 142 MMOL/L (136-145)
[2019-10-07 20:57] LABS: ALANINE AMINOTRANSFERASE 22 U/L (12-78); ALBUMIN 1.4 G/DL (3.4-5.0); ALBUMIN/GLOBULIN RATIO 0.3 (1.0-2.7); ALKALINE PHOSPHATASE 64 U/L (46-116); ASPARTATE AMINO TRANSFERASE 20 U/L (15-37); BILIRUBIN,TOTAL 0.2 MG/DL (0.2-1.0)
[2019-10-07 21:15] VITALS: BP 144/66
[2019-10-07] MEDS ORDERED: LOVENOX10 M4 SUBQ (21:25)
[2019-10-07] MEDS ORDERED: METOPROLOL TART25 MG ORAL (21:25)
[2019-10-07] MEDS ORDERED: DIGOXIN0.125 MG/2 ORAL (21:25)
[2019-10-07] MEDS ORDERED: MILK OF MA2400 MG/10 ORAL (21:25)
[2019-10-07] MEDS ORDERED: COLACE100 MG ORAL (21:25)
[2019-10-07] MEDS ORDERED: JUVEN PACKET1 EAC1 PO (21:25)
[2019-10-07] MEDS ORDERED: HUMALOG100 UNIT/4 SUBQ (21:25)
[2019-10-07] MEDS ORDERED: NORCO 5-325 TA1 EACH ORAL (21:25)
--- NOTE | 2019-10-07 21:51 | Emergency Room Report ---
History of Present Illness General Chief Complaint: Abnormal Labs Source: Medical Record, EMS Present Illness HPI 83-year-old male presents the ED for evaluation. Brought in by EMS for abnormal labs. Had reported elevated digoxin level from labs done today. Patient has history of A. fib. On trach/vent. Nonverbal at baseline. Unable to provide any additional history at this time. No signs of distress. No other aggravating relieving factors. No other associated symptoms Allergies: Coded Allergies: PENICILLINS (Verified Allergy, Unknown, 08/05/19) Patient History Past Medical History: DM, HTN, AFib, COPD Past Surgical History: none Social History: Denies: smoking, alcohol use, drug use Immunizations: UTD Reviewed Nursing Documentation: PMH: Agreed; PSxH: Agreed Nursing Documentation-PMH Past Medical History: No History, Except For Hx Hypertension: Yes Hx COPD: Yes Hx Diabetes: Yes Hx Epilepsy: Yes Review of Systems All Other Systems: limited Physical Exam Vital Signs Date Time Temp Pulse Resp B/P (MAP) Pulse Ox O2 Delivery O2 Flow Rate FiO2 10/07/19 19:14 97.3 77 23 136/60 (85) 93 Mechanical Ventilator 10/07/19 19:42 40 Sp02 EP Interpretation: reviewed, normal General Appearance: other - nonverbal Head: normocephalic Eyes: bilateral eye normal inspection, bilateral eye PERRL ENT: normal ENT inspection Neck: tracheotomy Respiratory: chest non-tender, lungs clear, normal breath sounds, speaking full sentences Cardiovascular #1: regular rate, rhythm, no edema Gastrointestinal: normal inspection Rectal: deferred Genitourinary: no CVA tenderness Musculoskeletal: normal inspection Neurologic: other - nonverbal Psychiatric: other - nonverbal Skin: other - see nrusing skin notes Lymphatic: normal inspection Medical Decision Making Diagnostic Impression: Primary Impression: Elevated digoxin level Additional Impressions: Atrial fibrillation Qualified Codes: I48.91 - Unspecified atrial fibrillation Chronic respiratory failure Qualified Codes: J96.10 - Chronic respiratory failure, unspecified whether with hypoxia or hypercapnia ER Course 83-year-old male presents ED for elevated digoxin level differential - subtherapeutic digoxin, supratherapeutic digoxin, afib Patient placed on stretcher. After initial history and physical I ordered labs , EKG, chest x-ray, IV fluids Labsminimal leukocytosis, hemoglobin/hematocrit stable, BUN elevated, troponin 0.064, Digoxin level 3.3 EKGA. fib no rapid ventricular response, no acute ischemic changes CXR - atelectasis bialteral lung wood. trach at digoxin level 3.3, no emergent treatment with digifab indicated. case discussed with Dr Johansen and he accepted patient. diagnosis - elevated digoxin level, atrial fibrillation, chronic respiratory failure admitted to SDU in serious condition Labs Test 10/07/19 19:45 White Blood Count 11.0 K/UL (4.8-10.8) Red Blood Count 3.32 M/UL (4.70-6.10) Hemoglobin 9.0 G/DL (14.2-18.0) Hematocrit 28.6 % (42.0-52.0) Mean Corpuscular Volume 86 FL (80-99) Mean Corpuscular Hemoglobin 27.2 PG (27.0-31.0) Mean Corpuscular Hemoglobin Concent 31.6 G/DL (32.0-36.0) Red Cell Distribution Width 16.0 % (11.6-14.8) Platelet Count 393 K/UL (150-450) Mean Platelet Volume 6.0 FL (6.5-10.1) Neutrophils (%) (Auto) 83.4 % (45.0-75.0) Lymphocytes (%) (Auto) 6.0 % (20.0-45.0) Monocytes (%) (Auto) 7.8 % (1.0-10.0) Eosinophils (%) (Auto) 1.7 % (0.0-3.0) Basophils (%) (Auto) 1.1 % (0.0-2.0) Prothrombin Time 11.2 SEC (9.30-11.50) Prothromb Time International Ratio 1.1 (0.9-1.1) Activated Partial Thromboplast Time 31 SEC (23-33) Sodium Level 142 MMOL/L (136-145) Potassium Level 4.3 MMOL/L (3.5-5.1) Chloride Level 107 MMOL/L (98-107) Carbon Dioxide Level 30 MMOL/L (21-32) Anion Gap 5 mmol/L (5-15) Blood Urea Nitrogen 40 mg/dL (7-18) Creatinine 0.5 MG/DL (0.55-1.30) Estimat Glomerular Filtration Rate mL/min (>60) Glucose Level 102 MG/DL (74-106) Calcium Level 8.1 MG/DL (8.5-10.1) Total Bilirubin 0.2 MG/DL (0.2-1.0) Aspartate Amino Transf (AST/SGOT) 20 U/L (15-37) Alanine Aminotransferase (ALT/SGPT) 22 U/L (12-78) Alkaline Phosphatase 64 U/L (46-116) Troponin I 0.064 ng/mL (0.000-0.056) Total Protein 5.7 G/DL (6.4-8.2) Albumin 1.4 G/DL (3.4-5.0) Globulin 4.3 g/dL Albumin/Globulin Ratio 0.3 (1.0-2.7) Digoxin Level 3.3 NG/ML (0.5-2.0) EKG Diagnostic Results Rate: normal Rhythm: other - atrial fibrillation ST Segments: no acute changes ASA given to the pt in ED: No Rhythm Strip Diag. Results EP Interpretation: yes Rhythm: no PVC's, no ectopy Chest X-Ray Diagnostic Results Chest X-Ray Diagnostic Results : Chest X-Ray Ordered: Yes # of Views/Limited/Complete: 1 View Indication: Other EP Interpretation: Yes Interpretation: no consolidation, no effusion, no pneumothorax, other - atelectasis lower lung bases Impression: Other - atelectasis Electronically Signed by: Electronically signed by Pavan Solo MD Last Vital Signs Date Time Temp Pulse Resp B/P (MAP) Pulse Ox O2 Delivery O2 Flow Rate FiO2 10/07/19 21:03 84 16 40 10/07/19 20:00 98.1 132/54 100 Mechanical Ventilator Status: improved Disposition: ADMITTED INPATIENT Condition: Serious Referrals: Gilberto Johansen MD (PCP) Pavan Solo MD Oct 07, 2019 21:51
--- NOTE | 2019-10-07 22:27 | NUR ---
NURSE NOTES: Received patient from SILVANO Ji from ED. patient is obtunded, nonverbal, unable to make needs known. no s/sx of pain noted at this time. patient is on trach to vent, with settings as follows: Portex: 8, AC: 16, TV: 550, FiO2: 50%, PEEP: 5. tolerating well, saturating at 100%, no s/sx of respiratory distress noted at this time. bus monitor applied, bus monitor shows NSR; no s/sx of acute cardiac distress noted at this time. G-tube site is patent and intact, clamped at this time. condom catheter applied, draining light jeanmarie urine to gravity. multiple skin tears and full thickness pressure injuries noted on patient's head, shoulders, BUE, BLE, back, and sacral. wound pics taken. pitting edema noted on BUE. Left femoral TLC noted, patent and intact. dressing changed, dry and intact. bed in lowest position and locked, padded siderails X3, call light within reach. will contact Dr. Johanesn for admission orders. will continue to monitor patient.
--- NOTE | 2019-10-07 23:15 | NUR ---
NURSE NOTES: Received admission orders from Dr. Johansen. will carry out.
[2019-10-08] MEDS ORDERED: Milk of Magnesia 30ml Ud ORAL PRN (02:00)
[2019-10-08] MEDS ORDERED: HYDROcodone/Acetamin 5/325 tab ORAL PRN ×2 (02:00)
[2019-10-08] MEDS: NovoLOG Insulin Flexpen SUBQ SCH ×4 (06:30→21:00)
--- NOTE | 2019-10-08 07:10 | NUR ---
NURSE NOTES: left message for Dr. Johansen regarding troponin and digoxin levels, and also informed MD of patient's history of seizures. awaiting call back.
--- NOTE | 2019-10-08 07:11 | NUR ---
NURSE NOTES: received orders from Dr Johansen. will carry out.
[2019-10-08] MEDS: Albuterol/Ipratropium 3ml neb HHN SCH ×3 (07:28→20:41)
[2019-10-08 08:00] VITALS: BP 102/80
--- NOTE | 2019-10-08 08:30 | NUR ---
NURSE NOTES: Received bedside report from Nicole SCHAEFER. Pt. in bed, obtunded. On mech. vent AC16/VT550/Fi O2 at 50%/P5. No grimacing noted. HOB elevated at all times. On GTF Glucerna 1.5 at 20cc/hr at present. Left femoral TLC with triple lumen in placed SL. Noted bilateral arm contracted with pitting edema and weeping. Bed in low position, locked. Call light within reach. Will cont. to monitor.
--- NOTE | 2019-10-08 08:31 | NUR ---
HAND-OFF: Report given to SILVANO Peña. patient is in stable condition.
[2019-10-08] MEDS: Docusate 100mg cap ORAL SCH ×2 (09:00→18:00)
[2019-10-08] MEDS: Metoprolol Tartrate 12.5mg TAB ORAL SCH ×2 (09:00→20:57)
--- NOTE | 2019-10-08 09:02 | NUR ---
RD ASSESSMENT & RECOMMENDATIONS SEE CARE ACTIVITY FOR COMPLETE ASSESSMENT DAILY ESTIMATED NEEDS: Needs based on Critical care, multiple wounds/ 67kg 25-30 kcals/kg total kcals 1.25-2.0 g protein/kg 84-134 g total protein 25-30 mL/kg total fluid mLs NUTRITION DIAGNOSIS: * Increased kcal/prot needs R/T wound healing as evidenced by pt admitted w/ multiple wounds, pending eval * Swallowing difficulty R/T dysphagia, respiratory status as evidenced by trach/vent dep, PEG dep. CURRENT TF:Glucerna 1.5 @55ml/hr x 20 hrs + Roger QD ENTERAL NUTRITION RECOMMENDATIONS: Glucerna 1.5 @ 60ml/hr x 20 hrs to provide 1200ml, 1800kcal, 99g prot, 911ml free water * Increase goal rate to 60ml/hr to better meet kcal/prot needs * HOB over 30 degrees * Water flush of 130ml q 4 hrs ADDITIONAL RECOMMENDATIONS: * Weekly calibrated bedscale wts * Monitor lytes, replete as needed * Wound healing: continue Vit C + ZnSO4 Increase ROGER to 1pkt BID F/up w/ WC eval . .
[2019-10-08] MEDS: Multivitamins W/Minerals 15 ML UDC GT SCH (09:09)
[2019-10-08] MEDS: Ascorbic Acid 500mg tab GT SCH (09:10)
[2019-10-08] MEDS: Enoxaparin 40mg Inj SUBQ SCH (09:11)
[2019-10-08] MEDS: Zinc Sulfate 220mg cap ORAL SCH (09:11)
[2019-10-08 12:00] VITALS: BP 139/81
--- NOTE | 2019-10-08 15:06 | NUR ---
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 98.1 HR 70 RR 18 B/P 132/54 WBC 11.0 TROP 0.064 DIG 3.3 IS: H/L INSERTED ADMITTED TO STEP DOWN STEP DOWN STATUS DCP RETURN TO [facility]
--- NOTE | 2019-10-08 15:20 | Diagnostic Imaging Report ---
Indication: Shortness of breath Technique: One view of the chest Comparison: 08/22/2019 Findings: Tracheostomy is again demonstrated. There is a left pleural effusion, similar in size to that seen previously. There is mild interstitial congestion there is hazy pulmonary parenchymal opacity developing in the right lung base. Previously demonstrated focal right basilar opacity is not evident. Impression: Evidence of interstitial congestion, left-sided pleural effusion, and hazy right basilar infiltrate versus edema
[2019-10-08 16:00] VITALS: BP 150/98
--- NOTE | 2019-10-08 16:26 | NUR ---
*-* INSURANCE *-* ALL AVAILABLE CLINICALS HAVE BEEN FAXED TO: [employer] Ref# [id number] #[phone] fax#[phone]
--- NOTE | 2019-10-08 19:30 | NUR ---
NURSE NOTES: Pt report received from Mariana SCHAEFER PREET. pt remains stable. pt is obtunded neuro russell. 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 pt is on trach to vent satting at 99%, no resp distress noted. pt bed is low, locked, armed, bed rails up times 3, call light within easy reach. will follow plan of care.
[2019-10-08 20:00] VITALS: BP 136/60
--- NOTE | 2019-10-08 20:07 | NUR ---
HAND-OFF: Report given to Marko SCHAEFER. Pt. remain stable.
[2019-10-08] MEDS: Dyna-Hex 2% Top Sol 2oz TOPIC SCH (20:57)
[2019-10-09] VITALS: BP 132/80
[2019-10-09] MEDS: Albuterol/Ipratropium 3ml neb HHN SCH ×4 (01:00→18:55)
--- NOTE | 2019-10-09 03:15 | History and Physical Report ---
DATE OF ADMISSION: 10/08/2019 REASON FOR ADMISSION: Digoxin toxicity, possible non-STEMI. HISTORY OF PRESENT ILLNESS: This is an 83-year-old very debilitated male brought in for abnormal labs. The patient reportedly was with significantly elevated digoxin level, but no clear history of significant bradycardia. The patient has history of atrial fibrillation. The patient was seen and evaluated in the emergency room. Labs reviewed and discussed. The patient is admitted for monitoring due to elevated troponin levels as well as elevated digoxin level. The patient is currently nonresponsive, on chronic respiratory care in the subacute facility. The patient has multiple medical problems, multiple medical issues. The patient is unable to give any history. History is obtained from [facility] chart as well as the ER doctor. All labs were reviewed in detail. The patient's events are fairly acute in nature. PAST MEDICAL HISTORY: Notable for diabetes, hypertension, atrial fibrillation, COPD, tracheostomy, and G-tube. MEDICATIONS: Reviewed. ALLERGIES: Reviewed. SOCIAL HISTORY: Nonsmoker and nondrinker. Currently in a subacute and debilitated. REVIEW OF SYSTEMS: Unable due to the patient's present state, but there is reported history of seizures. FAMILY HISTORY: Otherwise not available. PHYSICAL EXAMINATION: GENERAL: The patient is an ill-appearing male of advanced age. VITAL SIGNS: Reviewed. The patient is currently on the ventilator. Heart rate 67, respiratory rate 20, temperature 98.1, and blood pressure 144/66. HEENT: Negative. NECK: Supple. Tracheostomy in midline. Carotids 2+. LUNGS: Scattered rhonchi. Moderate air entry. CARDIAC: S1 and S2. Minimally bradycardic without murmurs, rubs, or gallops. ABDOMEN: Soft, nontender, and nondistended. G-tube in place. EXTREMITIES: No cyanosis or clubbing. Skin changes noted. Contractures noted. SKIN: Noted. NEUROLOGICAL: Poorly responsive. Difficult to assess. Poor response to pain. LABORATORY DATA: Reviewed. BUN 40, creatinine 0.5, sodium 142. Albumin is only 1.4. White cell count 11, hemoglobin 9, hematocrit 28.6, and platelets of 383,000. IMPRESSION: 1. Digoxin toxicity. No significant bradycardia. 2. Elevated troponin, possible demand ischemia. 3. Anemia. 4. Mild azotemia. 5. Diabetes with elevated hemoglobin A1c. 6. Severe protein-calorie malnutrition. 7. Respiratory failure, tracheostomy and ventilatory dependent. RECOMMENDATIONS: 1. Supportive care. 2. The patient with history of seizures. We will maintain Keppra. No clear need for antibiotics. 3. Blood pressure support and heart rate monitoring. 4. Monitor digoxin. Monitor troponin. 5. Conservative therapy with this advanced age of the patient and treat accordingly and continue with DVT prophylaxis with Lovenox for now. Gilberto Johansen M.D. DR: TOBIAS JOB#: [id number] CC:
[2019-10-09 04:00] VITALS: BP 149/58
[2019-10-09] MEDS: NovoLOG Insulin Flexpen SUBQ SCH ×4 (06:05→20:49)
--- NOTE | 2019-10-09 07:25 | NUR ---
RESPIRATORY NOTE: received trach dependent pt on current vent settings with no signs of resp distress. trach size, portex 8, secured via trach tie/guard. no visible redness or skin wounds around stoma and neck. alarms are set appropriately. will cont to monitor. Addendum: 10/09/19 at 0834 by RICHY SANTIAGO RT there is wound in the back of the neck.
--- NOTE | 2019-10-09 07:33 | NUR ---
HAND-OFF: Report given to MANNIE Simmons RN. Pt remains stable.
--- NOTE | 2019-10-09 07:35 | NUR ---
NURSE NOTES: Received report from Marko Panda RN. Observed patient in bed, obtunded. On tach-vent with settings AC 16, TV 550%, FiO2 50%, and PEEP 5. No respiratory distress noted. On GT with TF infusing at 30ml/hr, HOB elevated. Left femoral TLC intact and patent. External urine catheter draining well to gravity. Safety precautions in place; bed locked, alarmed, and in lowest position, side rails up x3, and call light left within reach. No s/s of pain/discomfort aat this time. Will continue plan of care and will continue to monitor patient.
[2019-10-09 08:00] VITALS: BP 112/57
[2019-10-09] MEDS: Zinc Sulfate 220mg cap ORAL SCH (08:35)
[2019-10-09] MEDS: Ascorbic Acid 500mg tab GT SCH (08:35)
[2019-10-09] MEDS: Docusate 100mg cap ORAL SCH (08:35)
[2019-10-09] MEDS: Multivitamins W/Minerals 15 ML UDC GT SCH (08:35)
[2019-10-09] MEDS: Metoprolol Tartrate 12.5mg TAB ORAL SCH ×2 (08:36→20:43)
[2019-10-09] MEDS: Enoxaparin 40mg Inj SUBQ SCH (08:38)
--- NOTE | 2019-10-09 11:01 | General Progress Note ---
Assessment/Plan Problem List: (1) AMI (acute myocardial infarction) ICD Codes: I21.9 - Acute myocardial infarction, unspecified SNOMED: 25330784 (2) PNA (pneumonia) ICD Codes: J18.9 - Pneumonia, unspecified organism SNOMED: 965681674 (3) Pulmonary infiltrate ICD Codes: R91.8 - Other nonspecific abnormal finding of lung field SNOMED: 534966684 (4) Afib ICD Codes: I48.91 - Unspecified atrial fibrillation SNOMED: 01787242 (5) Severe protein-calorie malnutrition ICD Codes: E43 - Unspecified severe protein-calorie malnutrition SNOMED: 172100634, 745110030, 769304808 (6) Chronic respiratory failure ICD Codes: J96.10 - Chronic respiratory failure, unspecified whether with hypoxia or hypercapnia SNOMED: 27364111 Qualifiers: Qualified Codes: J96.10 - Chronic respiratory failure, unspecified whether with hypoxia or hypercapnia (7) Atrial fibrillation ICD Codes: I48.91 - Unspecified atrial fibrillation SNOMED: 77540439 Qualifiers: Qualified Codes: I48.91 - Unspecified atrial fibrillation (8) Elevated digoxin level ICD Codes: R78.89 - Finding of other specified substances, not normally found in blood SNOMED: 988754603 Status: stable Assessment/Plan: vent support resp rx gt feeds wound care monitor cxr Subjective ROS Limited/Unobtainable: No Constitutional: Reports: malaise, weakness HEENT: Reports: no symptoms Cardiovascular: Reports: no symptoms Respiratory: Reports: shortness of breath, sputum Gastrointestinal/Abdominal: Reports: difficulty swallowing Genitourinary: Reports: no symptoms Neurologic/Psychiatric: Reports: pre-existing deficit Endocrine: Reports: no symptoms Hematologic/Lymphatic: Reports: anemia Allergies: Coded Allergies: PENICILLINS (Verified Allergy, Unknown, 08/05/19) All Systems: reviewed and negative except above Subjective no events. stable on the vent. poorly responsive. no fevers. labs reviewed. Objective Last 24 Hour Vital Signs Date Time Temp Pulse Resp B/P (MAP) Pulse Ox O2 Delivery O2 Flow Rate FiO2 10/09/19 10:31 66 21 40 10/09/19 08:36 67 112/57 10/09/19 08:31 67 26 40 10/09/19 08:00 98.1 67 19 112/57 (75) 100 10/09/19 08:00 50 1/1/20 08:00 Mechanical Ventilator 10/09/19 07:57 67 10/09/19 07:17 56 25 100 Mechanical Ventilator 40 59 14 40 10/09/19 05:10 58 22 40 10/09/19 04:00 67 10/09/19 04:00 Mechanical Ventilator 10/09/19 04:00 50 10/09/19 04:00 98.9 60 20 149/58 (88) 99 10/09/19 04:00 Mechanical Ventilator 10/09/19 02:31 61 18 40 10/09/19 01:29 59 20 40 10/09/19 00:00 50 10/09/19 00:00 98.1 61 20 132/80 (97) 100 10/09/19 00:00 Mechanical Ventilator 10/09/19 00:00 58 10/08/19 23:59 57 18 40 10/08/19 20:57 59 130/55 10/08/19 20:30 53 22 40 10/08/19 20:00 Mechanical Ventilator 10/08/19 20:00 98.4 55 20 136/60 (85) 99 10/08/19 20:00 58 10/08/19 20:00 50 10/08/19 17:07 56 17 40 10/08/19 16:00 97.3 69 21 150/98 (115) 100 10/08/19 16:00 50 10/08/19 16:00 Mechanical Ventilator 10/08/19 15:36 62 10/08/19 15:22 50 17 40 10/08/19 13:32 60 18 100 Mechanical Ventilator 10/08/19 13:22 58 17 40 10/08/19 12:05 75 10/08/19 12:00 Mechanical Ventilator 10/08/19 12:00 97.3 58 22 139/81 (100) 100 10/08/19 12:00 50 Intake and Output 10/08/19 10/09/19 19:00 07:00 Intake Total 500 ml 420 ml Output Total 400 ml Balance 100 ml 420 ml Intake Free Water 250 ml 100 ml Tube Feeding 250 ml 320 ml Output Urine Total 400 ml # Bowel Movements 1 2 Laboratory Tests 10/09/19 03:00: Troponin I 0.061H, Digoxin Level 2.7*H Height (Feet): 5 Height (Inches): 6.00 Weight (Pounds): 141 General Appearance: WD/WN, confused, cachetic Neck: supple Cardiovascular: normal rate, regular rhythm Respiratory/Chest: chest wall non-tender, lungs clear, normal breath sounds, no respiratory distress, no accessory muscle use Abdomen: normal bowel sounds, non tender, soft, no organomegaly, no mass Edema: no edema noted Arm (L), no edema noted Arm (R), no edema noted Leg (L), no edema noted Leg (R), no edema noted Pedal (L), no edema noted Pedal (R), no edema noted Generalized Neurologic: unresponsive, aphasia Frank Tian MD Oct 09, 2019 11:01
[2019-10-09 11:29] VITALS: BP 123/88
--- NOTE | 2019-10-09 11:54 | Pulmonology Progress Note ---
Assessment/Plan Assessment/Plan IMPRESSION: 1. Digoxin toxicity. 2. Elevated troponin, possible demand ischemia. 3. Anemia. 4. Mild azotemia. 5. Diabetes with elevated hemoglobin A1c. 6. Severe protein-calorie malnutrition. 7. Respiratory failure, tracheostomy and ventilatory dependent. 8. pressure wounds PLAN wound care monitor for change dc planning vent management support as able off load assess MD recommendations for wound care supportive care reviewed impression, plan, and exam edited and reviewed in detail care discussed with RN Subjective ROS Limited/Unobtainable: Yes Allergies: Coded Allergies: PENICILLINS (Verified Allergy, Unknown, 08/05/19) Subjective care noted dig level better has wounds poor LOC Objective Last 24 Hour Vital Signs Date Time Temp Pulse Resp B/P (MAP) Pulse Ox O2 Delivery O2 Flow Rate FiO2 10/09/19 11:29 97.9 65 18 123/88 (100) 95 65 10/09/19 10:31 66 21 40 10/09/19 08:36 67 112/57 10/09/19 08:31 67 26 40 10/09/19 08:00 98.1 67 19 112/57 (75) 100 10/09/19 08:00 50 10/09/19 08:00 Mechanical Ventilator 10/09/19 07:57 67 10/09/19 07:17 56 25 100 Mechanical Ventilator 40 59 14 40 10/09/19 05:10 58 22 40 10/09/19 04:00 67 10/09/19 04:00 Mechanical Ventilator 10/09/19 04:00 50 10/09/19 04:00 98.9 60 20 149/58 (88) 99 10/09/19 04:00 Mechanical Ventilator 10/09/19 02:31 61 18 40 10/09/19 01:29 59 20 40 10/09/19 00:00 50 10/09/19 00:00 98.1 61 20 132/80 (97) 100 10/09/19 00:00 Mechanical Ventilator 10/09/19 00:00 58 10/08/19 23:59 57 18 40 10/08/19 20:57 59 130/55 10/08/19 20:30 53 22 40 10/08/19 20:00 Mechanical Ventilator 10/08/19 20:00 98.4 55 20 136/60 (85) 99 10/08/19 20:00 58 10/08/19 20:00 50 12/31/19 17:07 56 17 40 10/08/19 16:00 97.3 69 21 150/98 (115) 100 10/08/19 16:00 50 10/08/19 16:00 Mechanical Ventilator 10/08/19 15:36 62 10/08/19 15:22 50 17 40 10/08/19 13:32 60 18 100 Mechanical Ventilator 10/08/19 13:22 58 17 40 10/08/19 12:05 75 10/08/19 12:00 Mechanical Ventilator 10/08/19 12:00 97.3 58 22 139/81 (100) 100 10/08/19 12:00 50 Intake and Output 10/08/19 10/09/19 19:00 07:00 Intake Total 500 ml 420 ml Output Total 400 ml Balance 100 ml 420 ml Intake Free Water 250 ml 100 ml Tube Feeding 250 ml 320 ml Output Urine Total 400 ml # Bowel Movements 1 2 Objective WDWN poor LOC trach clear breath sounds bilaterally without rhonchi or wheeze [id number] without MRG NABS nontender no HSM; GT no CCE nonfocal reduced ROM skin noted Microbiology Date/Time Source Procedure Growth Status 10/08/19 03:30 Wound Gram Stain - Final Resulted 10/08/19 03:30 Wound Wound Culture Pending Resulted 10/07/19 21:30 Rectum VRE Culture - Final Enterococcus Faecium - Vre Complete Laboratory Tests 10/09/19 03:00: Troponin I 0.061H, Digoxin Level 2.7*H Current Medications Medications (Trade) Dose Ordered Sig/Kandice Route PRN Reason Start Time Stop Time Status Last Admin Dose Admin Acetaminophen/ Hydrocodone Bitart ([place] 5/325) 1 tab Q6H PRN ORAL For Pain 10/08/19 02:00 10/15/19 01:59 Albuterol/ Ipratropium (Albuterol/ Ipratropium) 3 ml Q6HRT HHN 10/08/19 07:00 10/13/19 06:59 10/09/19 07:17 Ascorbic Acid (Vitamin C) 500 mg DAILY GT 10/08/19 09:00 11/07/19 08:59 10/09/19 08:35 Chlorhexidine Gluconate (Melva-Hex 2%) 1 applic DAILY@1999 TOPIC 10/08/19 20:00 11/07/19 19:59 10/08/19 20:57 Dextrose (Dextrose 50%) 25 ml Q30M PRN IV Hypoglycemia 10/08/19 04:00 11/07/19 03:59 Dextrose (Dextrose 50%) 50 ml Q30M PRN IV Hypoglycemia 10/08/19 04:00 11/07/19 03:59 Docusate Sodium (Colace) 100 mg TWICE A DAY GT 10/09/19 18:00 11/08/19 17:59 Enoxaparin Sodium (Lovenox) 40 mg DAILY SUBQ 10/08/19 09:00 11/07/19 08:59 10/09/19 08:38 Insulin Aspart (NovoLOG) BEFORE MEALS AND HS SUBQ 10/08/19 06:30 11/07/19 06:29 10/09/19 11:24 Levetiracetam (Keppra) 500 mg Q12HR ORAL 10/08/19 09:00 11/07/19 08:59 10/09/19 08:35 Magnesium Hydroxide (Mom) 30 ml DAILYPRN PRN ORAL Constipation 10/08/19 02:00 11/07/19 01:59 Metoprolol Tartrate (Lopressor) 12.5 mg Q12HR ORAL 10/08/19 09:00 11/07/19 08:59 10/09/19 08:36 Multivitamins (Multivitamins W/ Minerals 15ml Liquid) 15 ml DAILY GT 10/08/19 09:00 11/07/19 08:59 10/09/19 08:35 Zinc Sulfate (Zinc Sulfate) 220 mg DAILY ORAL 10/08/19 09:00 10/22/19 08:59 10/09/19 08:35 Gilberto Johansen MD Oct 09, 2019 11:54
[2019-10-09 16:00] VITALS: BP 109/51
[2019-10-09] MEDS: Docusate 100mg/10ml Liq GT SCH (17:15)
--- NOTE | 2019-10-09 18:59 | NUR ---
RESPIRATORY NOTE: Received pt on AC 14, 550VT, 40%, PEEP +5. Pt is trach-dependent w/ a cuffed, Portex 8 tube. Pt obtunded. B/S jose. rhonchi, sxn small to moderate amounts of thick, garrett-yellow secretions. Vent plugged into red outlet, ambubag at bedside. Pt in no apparent distress at this time. Will continue plan of care.
--- NOTE | 2019-10-09 19:15 | NUR ---
NURSE NOTES: Received report from SILVANO Ralph. Observed patient in bed clean and dry pt remains obtunded. No signs or symptoms of pain or discomfort noted at this time. Pt is tach-vent with settings AC 14, TV 550%, FiO2 50%, and PEEP 5. Pt tolerating current vent settings well with no signs of respiratory distress noted. GT noted which remains intact with no residual and feeding infusing per order. HOB elevated and aspiration precautions observed. Left femoral TLC intact and patent. External urine catheter draining well to gravity. Safety precautions in place; bed locked, alarmed, and in lowest position, side rails up x3, and call light left within reach. Will continue plan of care and will continue to monitor patient.
--- NOTE | 2019-10-09 19:15 | NUR ---
HAND-OFF: Report given to SILVANO Astorga. Patient in stable condition.
[2019-10-09 20:00] VITALS: BP 138/55
--- NOTE | 2019-10-09 20:15 | NUR ---
NURSE NOTES: Pt provided with oral care and suctioning for excess secretions.Pt continues resting in bed, bed is in lowest position with safety wheels engaged, bed alarm activated, call light within reach and side rails up x3 and padded per protocol. Will continue to monitor.
[2019-10-09] MEDS: Dyna-Hex 2% Top Sol 2oz TOPIC SCH (20:43)
--- NOTE | 2019-10-09 20:43 | NUR ---
HR noted to be 67 not 57 during evening medication administration.
[2019-10-10] VITALS: BP 132/58
--- NOTE | 2019-10-10 00:12 | NUR ---
NURSE NOTES: Pt provided with bed bath, oral care and linen change. Dressing change performed, no alteration from admission photos noted. Central line dressing noted to be moist and soiled and changed per protocol without incident. Pt tolerated care well. Pt continues resting in bed, bed is in lowest position with safety wheels engaged, bed alarm activated, call light within reach and side rails up x3 and padded per protocol. Will continue to monitor.
[2019-10-10] MEDS: Albuterol/Ipratropium 3ml neb HHN SCH ×3 (01:02→13:09)
--- NOTE | 2019-10-10 01:13 | NUR ---
RESPIRATORY NOTE: Pt noted to have wound behind his neck, now covered w/ optifoam during trach care. Bedside RN aware. Trach ties changed, optifoam still intact. No other skin breakdowns/wound noted on trach area. Will continue plan of care.
[2019-10-10 04:00] VITALS: BP 148/79
[2019-10-10 04:33] LABS: BASOPHILS % (AUTO) 1.6 % (0.0-2.0); EOSINOPHILS % (AUTO) 0.9 % (0.0-3.0); HEMOGLOBIN 8.2 G/DL (14.2-18.0); LYMPHOCYTES % (AUTO) 7.9 % (20.0-45.0); MEAN CORPUSCULAR VOLUME 86 FL (80-99); MONOCYTES % (AUTO) 7.6 % (1.0-10.0); PLATELET COUNT 356 K/UL (150-450); RED BLOOD COUNT 3.04 M/UL (4.70-6.10); RED CELL DISTRIBUTION WIDTH 15.5 % (11.6-14.8); WHITE BLOOD COUNT 8.3 K/UL (4.8-10.8)
[2019-10-10 05:24] LABS: ANION GAP 6 mmol/L (5-15); BLOOD UREA NITROGEN 27 mg/dL (7-18); CALCIUM 8.4 MG/DL (8.5-10.1); CARBON DIOXIDE 29 MMOL/L (21-32); CHLORIDE 110 MMOL/L (98-107); CREATININE 0.5 MG/DL (0.55-1.30); SODIUM 145 MMOL/L (136-145)
--- NOTE | 2019-10-10 06:28 | NUR ---
NURSE NOTES: Called MD to report Troponin, HR in the low 50s and urine output total of 150 for shift. Will await a call back with additional orders. Will continue to monitor.
[2019-10-10] MEDS: NovoLOG Insulin Flexpen SUBQ SCH ×2 (06:30→11:38)
--- NOTE | 2019-10-10 07:22 | NUR ---
HAND-OFF: Report given to SILVANO Ralph. Pt remains stable at this time.
--- NOTE | 2019-10-10 07:24 | NUR ---
NURSE NOTES: Received report from SILVANO Astorga. Observed patient in bed, obtunded. Trach-vent with settings AC 14, TV 550%, FiO2 40%, PEEP 5. No respiratory distress noted. GT intact and patent with TF infusing at prescribed rate. HOB elevated. External urine catheter intact and draining well to gravity. Left femoral TLC intact and patent. No s/s of pain/discomfort at this time. Safety precautions in place, bed locked, alarmed, and in lowest position, padded side rails up x2, and call light left within reach. Will continue plan of care and will continue to monitor patient.
--- NOTE | 2019-10-10 07:56 | Pulmonology Progress Note ---
Assessment/Plan Assessment/Plan IMPRESSION: 1. Digoxin toxicity. 2. Elevated troponin, possible demand ischemia. 3. Anemia. 4. Mild azotemia. 5. Diabetes with elevated hemoglobin A1c. 6. Severe protein-calorie malnutrition. 7. Respiratory failure, tracheostomy and ventilatory dependent. 8. pressure wounds PLAN wound care monitor for change dc planning to snf today resume meds and monitor vent management support as able off load assess MD recommendations for wound care supportive care reviewed all meds noted and continue same impression, plan, and exam edited and reviewed in detail care discussed with RN Subjective ROS Limited/Unobtainable: Yes Allergies: Coded Allergies: PENICILLINS (Verified Allergy, Unknown, 08/05/19) Subjective care noted dig now normal has wounds- noted poor LOC Objective Last 24 Hour Vital Signs Date Time Temp Pulse Resp B/P (MAP) Pulse Ox O2 Delivery O2 Flow Rate FiO2 10/10/19 06:45 52 20 100 Mechanical Ventilator 40 51 18 40 10/10/19 05:14 53 17 40 10/10/19 04:00 Mechanical Ventilator 10/10/19 04:00 97.6 58 20 148/79 (102) 100 10/10/19 04:00 50 10/10/19 03:18 51 10/10/19 02:56 52 19 40 10/10/19 01:12 55 16 100 Mechanical Ventilator 40 10/10/19 01:02 50 16 Mechanical Ventilator 40 40 10/10/19 00:00 97.2 55 20 132/58 (82) 99 10/10/19 00:00 Mechanical Ventilator 10/10/19 00:00 50 10/09/19 23:13 52 10/09/19 23:13 64 19 40 10/09/19 20:43 61 141/57 10/09/19 20:39 55 19 40 10/09/19 20:00 97.9 67 20 138/55 (82) 99 10/09/19 20:00 Mechanical Ventilator 10/09/19 20:00 50 10/09/19 19:06 63 10/09/19 19:05 60 22 100 Mechanical Ventilator 40 10/09/19 18:55 59 23 Mechanical Ventilator 40 40 10/09/19 17:12 60 24 40 10/09/19 16:00 50 10/09/19 16:00 97.9 63 19 109/51 (70) 97 10/09/19 16:00 Mechanical Ventilator 10/09/19 15:30 61 10/09/19 14:41 53 25 40 10/09/19 12:59 57 19 100 Mechanical Ventilator 40 63 17 40 10/09/19 12:00 50 10/09/19 12:00 Mechanical Ventilator 10/09/19 11:58 69 10/09/19 11:29 97.9 65 18 123/88 (100) 95 65 10/09/19 10:31 66 21 40 10/09/19 08:36 67 112/57 10/09/19 08:31 67 26 40 10/09/19 08:00 98.1 67 19 112/57 (75) 100 10/09/19 08:00 50 10/09/19 08:00 Mechanical Ventilator 10/09/19 07:57 67 Intake and Output 10/09/19 10/10/19 19:00 07:00 Intake Total 705 ml 835 ml Output Total 400 ml 150 ml Balance 305 ml 685 ml Intake Free Water 150 ml 450 ml Tube Feeding 555 ml 385 ml Output Urine Total 400 ml 150 ml # Bowel Movements 2 Objective WDWN poor LOC trach clear breath sounds bilaterally without rhonchi or wheeze [id number] without MRG NABS nontender no HSM; GT no CCE nonfocal reduced ROM skin noted reviewed and edited Microbiology Date/Time Source Procedure Growth Status 10/08/19 03:30 Wound Gram Stain - Final Resulted 10/08/19 03:30 Wound Wound Culture Pending Resulted 10/07/19 21:30 Nasal Nares MRSA Culture - Final NO METHICILLIN RESISTANT STAPH AUREUS... Complete 10/07/19 21:30 Rectum VRE Culture - Final Enterococcus Faecium - Vre Complete Laboratory Tests 10/10/19 03:45: White Blood Count 8.3, Red Blood Count 3.04L, Hemoglobin 8.2L, Hematocrit 26.0L , Mean Corpuscular Volume 86, Mean Corpuscular Hemoglobin 26.9L, Mean Corpuscular Hemoglobin Concent 31.5L, Red Cell Distribution Width 15.5H, Platelet Count 356, Mean Platelet Volume 6.0L, Neutrophils (%) (Auto) 82.0H, Lymphocytes (%) (Auto) 7.9L, Monocytes (%) (Auto) 7.6, Eosinophils (%) (Auto) 0.9, Basophils (%) (Auto) 1.6, Sodium Level 145, Potassium Level 4.0, Chloride Level 110H, Carbon Dioxide Level 29, Anion Gap 6, Blood Urea Nitrogen 27H, Creatinine 0.5L, Estimat Glomerular Filtration Rate , Glucose Level 123H, Calcium Level 8.4L, Troponin I 0.069H, Digoxin Level 1.8 Current Medications Medications (Trade) Dose Ordered Sig/Kandice Route PRN Reason Start Time Stop Time Status Last Admin Dose Admin Acetaminophen/ Hydrocodone Bitart ([place] 5/325) 1 tab Q6H PRN ORAL For Pain 10/08/19 02:00 10/15/19 01:59 Albuterol/ Ipratropium (Albuterol/ Ipratropium) 3 ml Q6HRT HHN 10/08/19 07:00 10/13/19 06:59 10/10/19 06:35 Ascorbic Acid (Vitamin C) 500 mg DAILY GT 10/08/19 09:00 11/07/19 08:59 10/09/19 08:35 Chlorhexidine Gluconate (Melva-Hex 2%) 1 applic DAILY@1999 TOPIC 10/08/19 20:00 11/07/19 19:59 10/09/19 20:43 Dextrose (Dextrose 50%) 25 ml Q30M PRN IV Hypoglycemia 10/08/19 04:00 11/07/19 03:59 Dextrose (Dextrose 50%) 50 ml Q30M PRN IV Hypoglycemia 10/08/19 04:00 11/07/19 03:59 Docusate Sodium (Colace) 100 mg TWICE A DAY GT 10/09/19 18:00 11/08/19 17:59 10/09/19 17:15 Enoxaparin Sodium (Lovenox) 40 mg DAILY SUBQ 10/08/19 09:00 11/07/19 08:59 10/09/19 08:38 Insulin Aspart (NovoLOG) BEFORE MEALS AND HS SUBQ 10/08/19 06:30 11/07/19 06:29 10/09/19 20:49 Levetiracetam (Keppra) 500 mg Q12HR ORAL 10/08/19 09:00 11/07/19 08:59 10/09/19 20:43 Magnesium Hydroxide (Mom) 30 ml DAILYPRN PRN ORAL Constipation 10/08/19 02:00 11/07/19 01:59 Metoprolol Tartrate (Lopressor) 12.5 mg Q12HR ORAL 10/08/19 09:00 11/07/19 08:59 10/09/19 20:43 Multivitamins (Multivitamins W/ Minerals 15ml Liquid) 15 ml DAILY GT 10/08/19 09:00 11/07/19 08:59 10/09/19 08:35 Zinc Sulfate (Zinc Sulfate) 220 mg DAILY ORAL 10/08/19 09:00 10/22/19 08:59 10/09/19 08:35 Gilberto Johansen MD Oct 10, 2019 07:56
[2019-10-10 08:00] VITALS: BP 118/48
[2019-10-10] MEDS: Zinc Sulfate 220mg cap ORAL SCH (08:44)
[2019-10-10] MEDS: Multivitamins W/Minerals 15 ML UDC GT SCH (08:44)
[2019-10-10] MEDS: Ascorbic Acid 500mg tab GT SCH (08:44)
[2019-10-10] MEDS: Docusate 100mg/10ml Liq GT SCH (08:44)
[2019-10-10] MEDS: Enoxaparin 40mg Inj SUBQ SCH (08:47)
[2019-10-10] MEDS: Metoprolol Tartrate 12.5mg TAB ORAL SCH (08:48)
--- NOTE | 2019-10-10 09:58 | NUR ---
*-* DISCHARGE PLANNING *-* PATIENT HAS BEEN REFERRED BACK TO: [facility] P; [phone] F: [phone]
--- NOTE | 2019-10-10 11:31 | NUR ---
*-* INSURANCE *-* ALL AVAILABLE CLINICALS HAVE BEEN FAXED TO: [facility] Ref# [id number] #[phone] fax#[phone]
--- NOTE | 2019-10-10 11:57 | NUR ---
NURSE NOTES: Report given to Christine from [facility] via telephone.
[2019-10-10 12:00] VITALS: BP 114/58
--- NOTE | 2019-10-10 12:01 | General Progress Note ---
Assessment/Plan Problem List: (1) AMI (acute myocardial infarction) ICD Codes: I21.9 - Acute myocardial infarction, unspecified SNOMED: 62272514 (2) PNA (pneumonia) ICD Codes: J18.9 - Pneumonia, unspecified organism SNOMED: 023373437 (3) Pulmonary infiltrate ICD Codes: R91.8 - Other nonspecific abnormal finding of lung field SNOMED: 909793655 (4) Afib ICD Codes: I48.91 - Unspecified atrial fibrillation SNOMED: 33746424 (5) Severe protein-calorie malnutrition ICD Codes: E43 - Unspecified severe protein-calorie malnutrition SNOMED: 597018526, 236898913, 248879805 (6) Chronic respiratory failure ICD Codes: J96.10 - Chronic respiratory failure, unspecified whether with hypoxia or hypercapnia SNOMED: 80087346 Qualifiers: Qualified Codes: J96.10 - Chronic respiratory failure, unspecified whether with hypoxia or hypercapnia (7) Atrial fibrillation ICD Codes: I48.91 - Unspecified atrial fibrillation SNOMED: 20355847 Qualifiers: Qualified Codes: I48.91 - Unspecified atrial fibrillation (8) Elevated digoxin level ICD Codes: R78.89 - Finding of other specified substances, not normally found in blood SNOMED: 888400901 Status: stable Assessment/Plan: vent support resp rx gt feeds wound care monitor cxr dc planning Subjective ROS Limited/Unobtainable: Yes Constitutional: Reports: malaise, weakness HEENT: Reports: no symptoms Cardiovascular: Reports: no symptoms Respiratory: Reports: shortness of breath, sputum Gastrointestinal/Abdominal: Reports: difficulty swallowing Genitourinary: Reports: no symptoms Neurologic/Psychiatric: Reports: pre-existing deficit Endocrine: Reports: no symptoms Hematologic/Lymphatic: Reports: anemia Allergies: Coded Allergies: PENICILLINS (Verified Allergy, Unknown, 08/05/19) All Systems: reviewed and negative except above Subjective no events. stable on the vent. poorly responsive. no fevers. labs reviewed. id/ pulm noted Objective Last 24 Hour Vital Signs Date Time Temp Pulse Resp B/P (MAP) Pulse Ox O2 Delivery O2 Flow Rate FiO2 10/10/19 09:23 54 23 40 10/10/19 08:48 58 118/48 10/10/19 08:00 97.6 58 18 118/48 (71) 100 1/2/20 08:00 Mechanical Ventilator 10/10/19 08:00 40 10/10/19 06:45 52 20 100 Mechanical Ventilator 40 51 18 40 10/10/19 05:14 53 17 40 10/10/19 04:00 Mechanical Ventilator 10/10/19 04:00 97.6 58 20 148/79 (102) 100 10/10/19 04:00 50 10/10/19 03:18 51 10/10/19 02:56 52 19 40 10/10/19 01:12 55 16 100 Mechanical Ventilator 40 10/10/19 01:02 50 16 Mechanical Ventilator 40 40 10/10/19 00:00 97.2 55 20 132/58 (82) 99 10/10/19 00:00 Mechanical Ventilator 10/10/19 00:00 50 10/09/19 23:13 52 10/09/19 23:13 64 19 40 10/09/19 20:43 61 141/57 10/09/19 20:39 55 19 40 10/09/19 20:00 97.9 67 20 138/55 (82) 99 10/09/19 20:00 Mechanical Ventilator 10/09/19 20:00 50 10/09/19 19:06 63 10/09/19 19:05 60 22 100 Mechanical Ventilator 40 10/09/19 18:55 59 23 Mechanical Ventilator 40 40 10/09/19 17:12 60 24 40 10/09/19 16:00 50 10/09/19 16:00 97.9 63 19 109/51 (70) 97 10/09/19 16:00 Mechanical Ventilator 10/09/19 15:30 61 10/09/19 14:41 53 25 40 10/09/19 12:59 57 19 100 Mechanical Ventilator 40 63 17 40 Intake and Output 10/09/19 10/10/19 19:00 07:00 Intake Total 705 ml 835 ml Output Total 400 ml 150 ml Balance 305 ml 685 ml Intake Free Water 150 ml 450 ml Tube Feeding 555 ml 385 ml Output Urine Total 400 ml 150 ml # Bowel Movements 2 Laboratory Tests 10/10/19 03:45: White Blood Count 8.3, Red Blood Count 3.04L, Hemoglobin 8.2L, Hematocrit 26.0L , Mean Corpuscular Volume 86, Mean Corpuscular Hemoglobin 26.9L, Mean Corpuscular Hemoglobin Concent 31.5L, Red Cell Distribution Width 15.5H, Platelet Count 356, Mean Platelet Volume 6.0L, Neutrophils (%) (Auto) 82.0H, Lymphocytes (%) (Auto) 7.9L, Monocytes (%) (Auto) 7.6, Eosinophils (%) (Auto) 0.9, Basophils (%) (Auto) 1.6, Sodium Level 145, Potassium Level 4.0, Chloride Level 110H, Carbon Dioxide Level 29, Anion Gap 6, Blood Urea Nitrogen 27H, Creatinine 0.5L, Estimat Glomerular Filtration Rate , Glucose Level 123H, Calcium Level 8.4L, Troponin I 0.069H, Digoxin Level 1.8 Height (Feet): 5 Height (Inches): 6.00 Weight (Pounds): 141 Objective General Appearance: WD/WN, confused, cachetic Neck: supple Cardiovascular: normal rate, regular rhythm Respiratory/Chest: chest wall non-tender, lungs clear, normal breath sounds, no respiratory distress, no accessory muscle use Abdomen: normal bowel sounds, non tender, soft, no organomegaly, no mass Edema: no edema noted Arm (L), no edema noted Arm (R), no edema noted Leg (L), no edema noted Leg (R), no edema noted Pedal (L), no edema noted Pedal (R), no edema noted Generalized Neurologic: unresponsive, aphasia Frank Tian MD Oct 10, 2019 12:01
--- NOTE | 2019-10-10 15:27 | NUR ---
NURSE NOTES: Patient discharged to [facility] per Dr Johansen's order via [facility] ambulance. No belongings noted. property assessment monitor removed prior to discharge. Left femoral central line removed prior to discharge, applied pressure dressing. VSS. Patient remained in stable condition.
--- NOTE | 2019-10-11 10:07 | Discharge Summary ---
Discharge Summary Discharge Summary _ DATE OF ADMISSION: 10/07/2019 DATE OF DISCHARGE: 10/10/2019 DISCHARGED BY: Dr. Dr. Johansen REASON FOR ADMISSION: 83 years old very debilitated male with past medical history of diabetes, hypertension, COPD, atrial fibrillation, chronic respiratory failure , ventilator dependent, with tracheostomy, dysphagia, G-tube, presented for abnormal labs. Patient reportedly had significantly elevated digoxin level, but no clear history of significant bradycardia. Patient was seen and evaluated in emergency room. Patient was found to have elevated digoxin level and elevated troponin: digoxin level 3.3 ; troponin 0.064. Laboratory work-up revealed mild leukocytosis WBC 11, hemoglobin 9, hematocrit 28.6. Platelet count 393. Stable electrolytes. BUN 40, creatinine 0.5. Glucose 102. Stable LFT EKG revealed atrial fibrillation with controlled ventricular response . Chest x-ray revealed evidence of interstitial congestion, left-sided pleural effusion and hazy right basilar infiltrate versus edema. Patient subsequently admitted to direct observational unit for further management. CONSULTANTS: internal medicine Dr. Tian [facility] COURSE: Patient admitted to direct observational unit. Ventilator support and tracheostomy care provided. Bronchodilator therapy provided as needed. DVT prophylaxis with Lovenox provided. Telemetry showed atrial fibrillation with controlled ventricular response. No significant bradycardia. Serial troponin revealed trend down ; only minimally elevated troponin, likely due to demand ischemia. Blood pressure was managed with beta-gianluca and remained stable. Patient with bradycardia in high 50s. Telemetry revealed atrial fibrillation, no evidence of heart block. Digoxin was obviously on hold. Digoxin level was daily monitored, on 10/10/19 digoxin level down to normal 1.8. Blood sugar was managed with sliding scale of insulin. Hemoglobin A1c 7.3. Seizure precaution maintained. Keppra continued. No evidence of seizure activity while in the hospital.. Renal parameters and electrolytes were closely monitored. BUN from 40 down to 27 , creatinine remained stable. Azotemia was likely due to dehydration , -resolved. Supportive care provided. Bowel regimen instituted. Strict aspiration precaution maintained. Tube feeding formula with goal rate and protein supplements provided as per certified registered locksmith recommendation. Patient clinically stabilized and was ready for transfer back to skilled subacute care home facility for continuation of care. FINAL DIAGNOSES: Digoxin toxicity/ no significant bradycardia Elevated troponin , probably demand ischemia Anemia Mild azotemia Diabetes mellitus Severe protein calorie malnutrition Chronic respiratory failure , ventilator dependent with tracheostomy Seizure disorder Atrial fibrillation DISCHARGE MEDICATIONS: List of medication was sent to accepting facility DISCHARGE INSTRUCTIONS: Patient was discharged to the care home facility. Follow up with medical doctor at the facility. I have been assigned to dictate discharge summary for this account. I was not involved in the patient's management. Eden Posada NP Oct 11, 2019 10:07
--- NOTE | 2019-10-11 16:36 | NUR ---
*-* INSURANCE *-* DISCHARGE SUMMARY HAS BEEN FAXED TO: [facility] Ref# [id number] #[phone] fax#[phone]
== END 2019-10-10 15:22 | DRG 198 ==
LOC: EDBD 19:09 → EDUNIT# 19:09 → EMR 20:05 → 2W 20:30 → EDBEDREQ 21:13 → 2W 10-08 00:25
PROC: 5A1945Z Respiratory Ventilation, 24-96 Consecutive Hours (ICD-10-PCS; principal; 2019-10-07)
DX: I24.8 Other forms of acute ischemic heart disease (principal); T46.0X5A Adverse effect of cardiac-stimulant glycosides and drugs of similar action, initial encounter; E43 Unspecified severe protein-calorie malnutrition; J96.10 Chronic respiratory failure, unspecified whether with hypoxia or hypercapnia; J44.9 Chronic obstructive pulmonary disease, unspecified; I48.91 Unspecified atrial fibrillation; I10 Essential (primary) hypertension; E11.9 Type 2 diabetes mellitus without complications; G40.909 Epilepsy, unspecified, not intractable, without status epilepticus; D64.9 Anemia, unspecified; Z99.11 Dependence on respirator [ventilator] status; Z43.0 Encounter for attention to tracheostomy; Z43.1 Encounter for attention to gastrostomy; Z88.0 Allergy status to penicillin
CPT/HCPCS: 36415; 71045; 80048; 80053; 80162; 80299; 82962; 83036; 84484; 85025; 85610; 85730; 87070; 87081; 87181; 87205; 93005; 94002; 94003; 94664; 99285; J1815; J7620